=== PATIENT | female | born 1990 | race Caucasian/White ===

== ENCOUNTER 2020-12-29 10:52 | Outpatient (REF) | payer OTHER, SELFPAY ==
[2020-12-29 14:12] LABS: MANUAL DIFF FLAG NO
[2020-12-29 14:15] LABS: Basophils Percent Auto 0.5 % (0-2); Eosinophils Percent Auto 0.2 % (0-4); Hematocrit 42.7 % (37-47); Imm Gran Abs Auto 0.01 X10*3/uL (0.00-0.03); Imm Gran Pct Auto 0.2 % (0.0-0.4); Lymphocytes Absolute Auto 1.3 X10*3/uL (1.2-4.9); Lymphocytes Percent Auto 29.4 % (20-40); Mean Corpuscular HGB Conc 32.8 g/dl (31.0-35.0); Mean Corpuscular Hemoglobin 28.9 pg (27.0-33.0); Mean Platelet Volume 11.1 fL (9.4-12.3); Monocytes Absolute Auto 0.5 X10*3/uL (0.1-1.2); Monocytes Percent Auto 10.9 % (2-11); Neutrophils Absolute Auto 2.5 X10*3/uL (2.0-8.3); Neutrophils Percent Auto 58.8 % (45-73); Platelet Count 175 X10*3/uL (160-400); Red Blood Count 4.85 X10*6/uL (4.20-5.50); Red Cell Distribution Width 13.6 % (11.0-16.0); White Blood Count 4.3 X10*3/uL (4.8-10.8)
[2020-12-29 14:52] LABS: Alanine Aminotransferase 11 U/L (0-31); Albumin Level 4.7 g/dL (3.5-5.0); Alkaline Phosphatase 53 U/L (39-117); Anion Gap 15 (12-20); Aspartate Amino Transferase 17 U/L (5-31); Bilirubin Total 0.4 mg/dL (0.0-1.0); Blood Urea Nitrogen 18 mg/dL (9-16); Calcium 9.2 mg/dL (8.4-10.2); Carbon Dioxide 23 mmol/L (22-29); Chloride 105 mmol/L (96-108); Cholesterol 153 mg/dL; Estimated Glomerular Filt Rate > 60; Glucose Fasting 81 mg/dL (60-99); HDL Cholesterol 63 mg/dL; LDL Cholesterol Calculated 78 mg/dl; Potassium 4.5 mmol/L (3.3-5.1); Sodium 138 mmol/L (135-145); Total Protein 7.7 g/dL (6.5-8.0); Triglycerides 62 mg/dL
[2020-12-29 15:26] LABS: TSH reflex Free T4 1.24 uIU/mL (0.32-4.0)
== END 2020-12-29 10:53 | disposition home or self-care (01) ==
LOC: HO.WFDLDS 10:52
PROVIDERS: Visit Provider Family Medicine
DX: Z00.00 Encounter for general adult medical examination without abnormal findings (principal); D64.9 Anemia, unspecified
CPT/HCPCS: 36415; 80053; 80061; 84443; 85025

== ENCOUNTER 2021-03-13 12:46 | Outpatient (REF) | payer OTHER, SELFPAY ==
--- NOTE | ~2021-03-13 | XR_ITS ---
EXAMINATION: XR ANKLE, RIGHT CLINICAL INFORMATION: Pain right ankle and right joint. COMPARISON: None TECHNIQUE: AP, lateral, and mortise views of the right ankle. FINDINGS: The bones and soft tissues are normal. No fracture. Alignment is anatomic. Joint spaces are maintained. No joint effusion. XR/XR ankle RT min 3V IMPRESSION: Unremarkable right ankle exam.
== END 2021-03-13 12:47 | disposition home or self-care (01) ==
LOC: HO.XRAY 12:46
PROVIDERS: PCP Family Medicine; Visit Provider Family Medicine
DX: M25.571 Pain in right ankle and joints of right foot (principal)
CPT/HCPCS: 73610

== ENCOUNTER 2021-08-16 10:06 | Outpatient (REF) | payer OTHER, SELFPAY ==
[2021-08-16 13:48] LABS: MANUAL DIFF FLAG NO
[2021-08-16 14:00] LABS: Basophils Percent Auto 0.1 % (0-2); Eosinophils Percent Auto 0.1 % (0-4); Hematocrit 41.1 % (37-47); Hemoglobin 13.5 g/dl (12.0-16.0); Imm Gran Abs Auto 0.04 X10*3/uL (0.00-0.03); Imm Gran Pct Auto 0.4 % (0.0-0.4); Lymphocytes Absolute Auto 1.4 X10*3/uL (1.2-4.9); Mean Corpuscular HGB Conc 32.8 g/dl (31.0-35.0); Mean Corpuscular Hemoglobin 29.9 pg (27.0-33.0); Mean Corpuscular Volume 90.9 fL (80-98); Monocytes Absolute Auto 0.7 X10*3/uL (0.1-1.2); Monocytes Percent Auto 7.5 % (2-11); Neutrophils Absolute Auto 7.7 X10*3/uL (2.0-8.3); Neutrophils Percent Auto 77.9 % (45-73); Platelet Count 197 X10*3/uL (160-400); Red Blood Count 4.52 X10*6/uL (4.20-5.50); Red Cell Distribution Width 13.4 % (11.0-16.0); White Blood Count 9.9 X10*3/uL (4.8-10.8)
[2021-08-16 14:47] LABS: Free T4 (Free Thyroxine) 1.06 ng/dL (0.71-1.85); Thyroid Stimulating Hormone 0.76 uIU/mL (0.32-4.0)
[2021-08-16 15:22] LABS: Erythrocyte Sedimentation Rate 2 MM/HR (0-20)
[2021-08-19 02:32] LABS: Triiodothyronine T3 Total 69 ng/dL (76-181)
== END 2021-08-16 10:07 | disposition home or self-care (01) ==
LOC: HO.WFDLDS 10:06
PROVIDERS: Visit Provider Family Medicine
DX: Z00.00 Encounter for general adult medical examination without abnormal findings (principal); E03.9 Hypothyroidism, unspecified; H04.123 Dry eye syndrome of bilateral lacrimal glands
CPT/HCPCS: 36415; 84439; 84443; 84480; 85025; 85652

== ENCOUNTER 2021-08-28 14:33 | Outpatient (REF) | payer OTHER, SELFPAY ==
[2021-08-28 14:45] LABS: MANUAL DIFF FLAG NO
[2021-08-28 15:19] LABS: Basophils Percent Auto 0.3 % (0-2); Hematocrit 37.9 % (37-47); Hemoglobin 12.8 g/dl (12.0-16.0); Imm Gran Abs Auto 0.02 X10*3/uL (0.00-0.03); Imm Gran Pct Auto 0.3 % (0.0-0.4); Lymphocytes Percent Auto 17.7 % (20-40); Mean Corpuscular HGB Conc 33.8 g/dl (31.0-35.0); Mean Corpuscular Hemoglobin 29.8 pg (27.0-33.0); Mean Corpuscular Volume 88.1 fL (80-98); Mean Platelet Volume 10.5 fL (9.4-12.3); Monocytes Absolute Auto 0.7 X10*3/uL (0.1-1.2); Monocytes Percent Auto 12.6 % (2-11); Neutrophils Absolute Auto 4.1 X10*3/uL (2.0-8.3); Neutrophils Percent Auto 69.1 % (45-73); Platelet Count 154 X10*3/uL (160-400); Red Cell Distribution Width 13.3 % (11.0-16.0); White Blood Count 5.9 X10*3/uL (4.8-10.8)
[2021-08-28 15:46] LABS: Alanine Aminotransferase 12 U/L (0-31); Albumin Level 4.4 g/dL (3.5-5.0); Alkaline Phosphatase 49 U/L (39-117); Anion Gap 11 (12-20); Aspartate Amino Transferase 19 U/L (5-31); Bilirubin Total 0.3 mg/dL (0.0-1.0); Blood Urea Nitrogen 14 mg/dL (9-16); Calcium 9.4 mg/dL (8.4-10.2); Carbon Dioxide 25 mmol/L (22-29); Chloride 107 mmol/L (96-108); Cholesterol 143 mg/dL; Estimated Glomerular Filt Rate > 60; Glucose Fasting 81 mg/dL (60-99); HDL Cholesterol 60 mg/dL; LDL Cholesterol Calculated 62 mg/dl; Sodium 139 mmol/L (135-145); Total Protein 7.2 g/dL (6.5-8.0); Triglycerides 106 mg/dL
[2021-08-28 16:07] LABS: Free T4 (Free Thyroxine) 0.96 ng/dL (0.71-1.85); TSH reflex Free T4 1.73 uIU/mL (0.32-4.0); Thyroid Stimulating Hormone 1.75 uIU/mL (0.32-4.0)
[2021-08-30 12:17] LABS: Triiodothyronine T3 Total 86 ng/dL (76-181)
== END 2021-08-28 14:34 | disposition home or self-care (01) ==
LOC: HO.LAB 14:33
PROVIDERS: PCP Family Medicine; Visit Provider Family Medicine
DX: Z00.00 Encounter for general adult medical examination without abnormal findings (principal); E03.9 Hypothyroidism, unspecified; R79.89 Other specified abnormal findings of blood chemistry
CPT/HCPCS: 36415; 80053; 80061; 84439; 84443; 84480; 85025

== ENCOUNTER 2021-10-15 10:31 | Outpatient (REF) | payer OTHER, SELFPAY ==
--- NOTE | ~2021-10-15 | XR_ITS ---
EXAMINATION: XR CHEST CLINICAL INFORMATION: Acute bronchitis COMPARISON: None TECHNIQUE: 2 views of the chest were obtained. FINDINGS: No significant abnormality is noted involving the heart, lungs, mediastinum, bony thorax or soft tissues. XR/XR chest 2V IMPRESSION: Unremarkable examination.
[2021-10-15 11:06] LABS: Hematocrit 37.7 % (37.0-47.0); Hemoglobin 12.4 g/dl (12.0-16.0); Mean Corpuscular HGB Conc 32.9 g/dl (31.0-35.0); Mean Corpuscular Hemoglobin 29.5 pg (27.0-33.0); Mean Corpuscular Volume 89.8 fL (80.0-98.0); Mean Platelet Volume 10.1 fL (9.4-12.3); Platelet Count 141 X10*3/uL (160-400); Red Cell Distribution Width 13.2 % (11.0-16.0); White Blood Count 4.4 X10*3/uL (4.8-10.8)
== END 2021-10-15 10:32 | disposition home or self-care (01) ==
LOC: HO.XRAY 10:31
PROVIDERS: PCP Family Medicine; Visit Provider Hospitalist
DX: J20.8 Acute bronchitis due to other specified organisms (principal)
CPT/HCPCS: 36415; 71046; 85027

== ENCOUNTER → 2021-11-02 13:25 | Outpatient (BNVA) | payer OTHER, SELFPAY | PROVIDERS: PCP Hospitalist; Referring Provider Family Medicine; Visit Provider Internal Medicine Cardiovascular Disease | DX: R07.9 Chest pain, unspecified (principal); R00.2 Palpitations | CPT/HCPCS: 99202 ==

== ENCOUNTER 2021-11-02 14:24 | Outpatient (REF) | payer OTHER, SELFPAY ==
[2021-11-02 15:21] LABS: C Reactive Protein 0.03 mg/dL (< or = 0.50)
[2021-11-02 15:54] LABS: Erythrocyte Sedimentation Rate 2 MM/HR (0-20)
== END 2021-11-02 14:25 | disposition home or self-care (01) ==
LOC: HO.LAB 14:24
PROVIDERS: PCP Family Medicine; Visit Provider Internal Medicine Cardiovascular Disease
DX: R07.9 Chest pain, unspecified (principal)
CPT/HCPCS: 36415; 85652; 86140

== ENCOUNTER → 2021-11-06 07:03 | Outpatient (REF) | payer OTHER, SELFPAY ==
--- NOTE | 2021-11-06 07:06 | HM_ITS ---
Conclusion : 1. Patient was monitored for total of 3 days and 1 hour 2. Baseline rhythm is NSR with average HR of 83 bpm 3. No significant pauses or bradycardia noted 4. Very rare PACs noted 5. No patient reported events MTDD
== END ==
LOC: HO.CARD 07:03
PROVIDERS: PCP Family Medicine; Visit Provider Internal Medicine Cardiovascular Disease
DX: R07.9 Chest pain, unspecified (principal)
CPT/HCPCS: 93242

== ENCOUNTER → 2021-11-12 07:37 | Outpatient (REF) | payer OTHER, SELFPAY ==
--- NOTE | 2021-11-12 07:40 | CA_ITS ---
Transthoracic Echocardiogram Patient (Last, First, Middle): Bonnie Blankenship, Gender: Female Date of : 1990 Age: 30 Procedure Date: 11/12/2021 Procedure Type: Transthoracic Echocardiogram Location: OP Height: 170.18 cm Weight: 58.97 kg BSA: 1.68 m2 Heart Rate: bpm BP: 128 / 87 mmHg Counseling Department Chair: CARA Referring MD: Clifton Webb MD Symptoms: R07.9 - Chest pain, unspecified Study Quality: Good ECG Rhythm: Sinus Conclusions: - The left ventricular systolic function is normal. The visually estimated ejection fraction is between 55-60%. - No obvious valvular pathology seen on this study. Findings Left Ventricle Normal left ventricular cavity size. There is normal left ventricular wall thickness. The left ventricular systolic function is normal. The visually estimated ejection fraction is between 55-60%. There is no evidence of regional wall motion abnormalities. Diastolic function is normal for age. Right Ventricle Normal right ventricular cavity size and systolic function. Atria Both atria are normal in size. Aortic Valve There is a normal trileaflet aortic valve. There is no aortic valve stenosis. There is no aortic valve regurgitation. Mitral Valve The mitral valve appears normal. There is trace mitral valve regurgitation. There is no mitral valve stenosis. Pulmonic Valve The pulmonic valve was not well visualized. Tricuspid Valve There is trace tricuspid valve regurgitation. The pulmonary artery systolic pressure is normal. Great Vessels The aortic annulus, sinuses of valsalva, and asc aorta are normal in size. Venous The inferior vena cava is normal in size and collapses greater than 50% with inspiration. Pericardium/Pleural There is no evidence of pericardial effusion. Prior Study Comparison No prior study available for comparison. Recommendations, Care & Conclusions No obvious valvular pathology seen on this study. Measurements 2D Linear Measurements IVSd: 0.92 0.6-0.9/0.6-1.0 cm LVIDd: 3.62 3.9-5.3/4.2-5.9 cm LVIDd Index: 2.15 2.4-3.2/2.2-3.1 cm/m2 LVIDs: 2.38 2.0-3.6 cm LVPWd: 0.96 0.7-1.1 cm Ao Root: 2.50 2.1-3.5 cm LA Diam: 2.50 2.7-3.8/3.0-4.0 cm LAIDs Index: 1.49 1.5-2.3 cm/m2 LV Mass: 123.32 67-162/88-224 g LV Mass Index: 73.40 43-95/49-115 g/m2 LVOT Diam: 2.00 3.0+(-)1.3 cm 2D Systolic Function EF 4C: 70.60 >55% Mitral Valve MV Pk E: 0.84 MV PK A: 0.65 MV Decel Time: 152.00 E/A: 1.30 E'Lateral: 14.80 E'Medial: 14.80 E/E' Med: 5.70 E/E' Lat: 5.70 PHT: 45.00 MVA PHT: 4.89 Decel Edmonson: 5.52 Aortic Valve AoV Pk Yoel: 0.98 AoV Pk Grad: 4.00 LVOT LVOT Pk Yoel: 0.83 LVOT Mn Yoel: 0.56 LVOT VTI: 0.19 LVOT Pk Grad: 3.00 LVOT Mn Grad: 1.00 LVOT Diam: 2.00 LVOT Area: 3.14 Diastolic Function MV Pk E: 0.84 MV Pk A: 0.65 E/A: 1.30 E'Medial: 14.80 E/E' Med: 5.70 E' Laterial: 14.80 E/E' Lat: 5.70 Right Ventricle TAPSE (mm): 2.33 TVS' Yoel: 13.20 Tricuspid Valve TR Pk Yoel: 1.95 TR Pk Grad: 15.00 RA Press: 3.00 RVSP: 18.00 Great Vessels Aorta Ao Root-2D: 2.50 2.0-3.7 cm Ao Asc: 2.30 2.1-3.4 cm Updated in Other Vendor System with Status of Final Cedrick Christianson MD electronically signed on 11/14/2021 11:46:48 AM with status of Final
== END ==
LOC: HO.CARD 07:37
PROVIDERS: PCP Family Medicine; Visit Provider Internal Medicine Cardiovascular Disease
DX: R07.9 Chest pain, unspecified (principal)
CPT/HCPCS: 93306

== ENCOUNTER → 2021-11-29 13:20 | Outpatient (BNVA) | payer OTHER, SELFPAY | PROVIDERS: PCP Family Medicine; Referring Provider Family Medicine; Visit Provider Nurse Practitioner Family | DX: R07.2 Precordial pain (principal); R94.31 Abnormal electrocardiogram [ECG] [EKG]; R00.2 Palpitations; J20.8 Acute bronchitis due to other specified organisms | CPT/HCPCS: 99212 ==

== ENCOUNTER 2021-12-05 18:06 | Outpatient (REF) | payer OTHER, SELFPAY | END 2021-12-05 18:07 | disposition home or self-care (01) | LOC: HO.LNP 18:06 | PROVIDERS: Visit Provider Family Medicine | DX: B34.9 Viral infection, unspecified (principal); Z20.822 Contact with and (suspected) exposure to COVID-19 | CPT/HCPCS: U0003; U0005 ==

== ENCOUNTER 2022-01-01 09:17 | Outpatient (REF) | payer OTHER, SELFPAY ==
[2022-01-01 11:29] LABS: MANUAL DIFF FLAG NO
[2022-01-01 11:38] LABS: Basophils Percent Auto 0.7 % (0-2); Eosinophils Percent Auto 0.2 % (0-4); Hematocrit 39.2 % (37.0-47.0); Hemoglobin 12.9 g/dl (12.0-16.0); Imm Gran Abs Auto 0.01 X10*3/uL (0.00-0.03); Imm Gran Pct Auto 0.2 % (0.0-0.4); Lymphocytes Absolute Auto 1.5 X10*3/uL (1.2-4.9); Lymphocytes Percent Auto 34.2 % (20-40); Mean Corpuscular HGB Conc 32.9 g/dl (31.0-35.0); Mean Corpuscular Hemoglobin 29.6 pg (27.0-33.0); Mean Corpuscular Volume 89.9 fL (80.0-98.0); Mean Platelet Volume 11.3 fL (9.4-12.3); Monocytes Absolute Auto 0.4 X10*3/uL (0.1-1.2); Monocytes Percent Auto 9.2 % (2-11); Neutrophils Absolute Auto 2.4 x10*3/uL (2.0-8.3); Neutrophils Percent Auto 55.5 % (45-73); Platelet Count 166 X10*3/uL (160-400); Red Blood Count 4.36 X10*6/uL (4.20-5.50); Red Cell Distribution Width 13.4 % (11.0-16.0); White Blood Count 4.2 X10*3/uL (4.8-10.8)
[2022-01-01 12:07] LABS: Ferritin 7 ng/mL (10-122); Iron 38 mcg/dL (30-160); Percent Iron Saturation 10 % (15-50); Total Iron Binding Capacity 379 mcg/dL (228-428); Unsaturated Iron Binding 341 ug/dL
== END 2022-01-01 09:18 | disposition home or self-care (01) ==
LOC: HO.WFDLDS 09:17
PROVIDERS: Visit Provider Family Medicine
DX: D69.6 Thrombocytopenia, unspecified (principal); D64.9 Anemia, unspecified
CPT/HCPCS: 36415; 82728; 83540; 85025

== ENCOUNTER 2022-03-10 15:41 | Emergency (ER) | payer OTHER, SELFPAY ==
--- NOTE | ~2022-03-10 | XR_ITS ---
EXAMINATION: XR SHOULDER, LEFT CLINICAL INFORMATION: Left shoulder pain after fall COMPARISON: None TECHNIQUE: AP external rotation, Grashey, scapular Y, and axillary views of the left shoulder. FINDINGS: The bones and soft tissues are normal. No fracture. Glenohumeral and acromioclavicular alignment is anatomic with normal joint space. No abnormal soft tissue calcifications. XR/XR shoulder LT min 2V IMPRESSION: Normal left shoulder.
--- NOTE | ~2022-03-10 | CT_ITS ---
EXAMINATION: CT HEAD AND CERVICAL SPINE WITHOUT CONTRAST CLINICAL INFORMATION: 61-year-old female with headache and head trauma COMPARISON: None TECHNIQUE: Contiguous axial imaging was performed from the skull base to vertex without intravenous administration of contrast. This CT examination was performed using dose optimization techniques as appropriate, variously including the following: *Automated exposure control *Adjustment of mA and/or kV according to patient size (this includes techniques or standardized protocols for targeted exams where dose is matched to indication/reason for exam; i.e. extremities or head) *Use of iterative reconstruction technique DLP: 1096 mGy-cm FINDINGS: There is no evidence of acute intracranial hemorrhage or territorial infarction. No abnormal mass effect or midline shift is seen. Kebede to white matter differentiation is well preserved. No extra-axial fluid collections are identified. The ventricles are normal in size. There is no abnormal attenuation within the brain parenchyma. The osseous structures and soft tissues are normal. The mastoid air cells and visualized portions of the paranasal sinuses are well aerated. Cervical spine: Vertebral bodies are well aligned and intervertebral discs are preserved. Pedicles are intact and there is no evidence of fractures or subluxation. Soft tissues unremarkable. CT/CT cervical spine wo con IMPRESSION: No acute intracranial pathology. Unremarkable cervical spine
--- NOTE | ~2022-03-10 | CT_ITS ---
EXAMINATION: CT HEAD AND CERVICAL SPINE WITHOUT CONTRAST CLINICAL INFORMATION: 61-year-old female with headache and head trauma COMPARISON: None TECHNIQUE: Contiguous axial imaging was performed from the skull base to vertex without intravenous administration of contrast. This CT examination was performed using dose optimization techniques as appropriate, variously including the following: *Automated exposure control *Adjustment of mA and/or kV according to patient size (this includes techniques or standardized protocols for targeted exams where dose is matched to indication/reason for exam; i.e. extremities or head) *Use of iterative reconstruction technique DLP: 1096 mGy-cm FINDINGS: There is no evidence of acute intracranial hemorrhage or territorial infarction. No abnormal mass effect or midline shift is seen. Kebede to white matter differentiation is well preserved. No extra-axial fluid collections are identified. The ventricles are normal in size. There is no abnormal attenuation within the brain parenchyma. The osseous structures and soft tissues are normal. The mastoid air cells and visualized portions of the paranasal sinuses are well aerated. Cervical spine: Vertebral bodies are well aligned and intervertebral discs are preserved. Pedicles are intact and there is no evidence of fractures or subluxation. Soft tissues unremarkable. CT/CT head/brain wo con IMPRESSION: No acute intracranial pathology. Unremarkable cervical spine
[2022-03-10 16:20] VITALS: BP 140/78; PULSE 87; RESP 12; TEMP 36.7; O2SAT 100; BMI 20.3
--- NOTE | 2022-03-10 18:05 | ED_ITS ---
HPI - Head Injury General Chief complaint: Head Injury <OSWALDO Wood Last Filed: 03/10/22 19:49> Stated complaint: head injury <OSWALDO Wood Last Filed: 03/10/22 19:49> Time Seen by Provider: 03/10/22 17:54 <OSWALDO Wood Last Filed: 03/10/22 19:49> Source: patient <OSWALDO Wood Last Filed: 03/10/22 19:49> Mode of arrival: ambulatory <OSWALDO Wood Last Filed: 03/10/22 19:49> Limitations: no limitations <OSWALDO Wood Last Filed: 03/10/22 19:49> History of Present Illness HPI Narrative: 31-year-old female who was playing at the playground with her toddler, who was running away from her, she reached for him and hit her head on some monkey bars. She was startled and dizzy initially and had a headache that went away when she took ibuprofen. There was no loss of consciousness, she remembers the whole thing. She is not anticoagulated. She has pain and numbness down the left side of her neck and down her left arm. She also feels like fingers are pushing on her anterior neck. No nausea, vomiting, visual changes, weakness, or confusion <OSWALDO Wood Last Filed: 03/10/22 19:49> MD Complaint: head injury <OSWALDO Wood Last Filed: 03/10/22 19:49> Onset (ago): hour(s) (1) <OSWALDO Wood Last Filed: 03/10/22 19:49> Arrival Conditions: C-spine immobilization present <OSWALDO Wood Last Filed: 03/10/22 19:49> Mechanism of Injury: sports related injury <OSWALDO Wood Last Filed: 03/10/22 19:49> Place: outdoors <OSWALDO Wood Last Filed: 03/10/22 19:49> Loss of Consciousness: no <OSWALDO Wood Last Filed: 03/10/22 19:49> Location of injury: frontal <OSWALDO Wood Last Filed: 03/10/22 19:49> Severity: moderate <OSWALDO Wood Last Filed: 03/10/22 19:49> Radiation: neck and LUE <OSWALDO Wood Last Filed: 03/10/22 19:49> Associated symptoms: denies other symptoms <OSWALDO Wood Last Filed: 03/10/22 19:49> Related Data Home medications: Previous Rx's Medication Instructions Recorded metoprolol succinate 25 mg 12.5 mg PO DAILY 30 Days #15 tab 01/11/22 tablet,extended release 24 hr <OSWALDO Wood Last Filed: 03/10/22 19:49> Allergies/Adverse reactions: Allergies Allergy/AdvReac Type Severity Reaction Status Date / Time hydrocodone [From Vicodin] Allergy Unknown Hives Verified 02/12/22 09:44 <OSWALDO Wood Last Filed: 03/10/22 19:49> Review of Systems Constitutional: Constitutional: Denies body ache(s), Denies chills, Denies fatigue, Denies fever(s), Reports headache(s), Denies malaise and Denies weakness <OSWALDO Wood Last Filed: 03/10/22 19:49> Eyes: Eyes: Denies blind spots, Denies blurry vision, Denies change in vision and Denies diplopia <OSWALDO Wood Last Filed: 03/10/22 19:49> ENT: Denies vertigo, Reports dizziness, Denies otalgia, Reports headache(s), Denies mouth pain, Reports neck pain, Denies post nasal drip, Denies sinus pain, Denies sinus pressure, Denies sore throat and Denies throat swelling <OSWALDO Wood Last Filed: 03/10/22 19:49> Cardiovascular: Cardiovascular: Denies chest pain, Denies syncope, Denies leg edema, Denies lightheadedness, Denies Loss of Consciousness, Denies palpitations and Denies dyspnea <OSWALDO Wood Last Filed: 03/10/22 19:49> Respiratory: Respiratory: Denies chest congestion, Denies cough and Denies dyspnea <OSWALDO Wood Last Filed: 03/10/22 19:49> Gastrointestinal: Gastrointestinal: Denies abdominal pain, Denies hematochezia, Denies constipation, Denies diarrhea and Denies vomiting <OSWALDO Wood - Last Filed: 03/10/22 19:49> Musculoskeletal: Musculoskeletal: Reports neck pain, Reports radiating pain into limb and Reports tingling <OSWALDO Wood - Last Filed: 03/10/22 19:49> Integumentary/Breasts: Skin/Breast: Reports swelling <OSWALDO Wood - Last Filed: 03/10/22 19:49> Neurologic: Denies Abnormal speech present, Denies confusion, Denies vertigo, Reports dizziness, Denies syncope, Reports headache(s), Denies Sensory deficit (Neuro), Reports tingling and Denies weakness <OSWALDO Wood - Last Filed: 03/10/22 19:49> Psychiatric: Psychiatric: Denies anxiety, Denies confusion and Denies depression <OSWALDO Wood - Last Filed: 03/10/22 19:49> Endocrine: Endocrine: Denies fatigue and Denies palpitations <OSWALDO Wood - Last Filed: 03/10/22 19:49> Allergic/Immunologic: Allergic/Immunologic: Denies throat swelling <OSWALDO Wood - Last Filed: 03/10/22 19:49> COUNTS INCLUDE 234 BEDS AT THE [facility] Past Medical History Surgical History: Surgical History History of appendectomy History of breast lump <OSWALDO Wood - Last Filed: 03/10/22 19:49> Family History Family History: Family History Father COPD (chronic obstructive pulmonary disease) Mother No problems noted. Maternal Grandmother No problems noted. Maternal Grandfather Cancer Paternal Grandmother Breast cancer Paternal Grandfather No problems noted. Brother No problems noted. Brother No problems noted. Sister No problems noted. Sister No problems noted. <OSWALDO Wood - Last Filed: 03/10/22 19:49> Social History Social History: Social History Housing: Condominium Alcohol intake: current Alcohol intake frequency: holidays/special occasions o nly Alcohol type: wine Patient Tobacco Use Status: Never used Tobacco e-Cigarette/Vaping Use: Never Used Second Hand Smoke Exposure: No Advance Directives: No Advance Directives Information Provided: No Patient : No service: Yes Current occupational status: employed Current occupational exposures/hazards: No Cognitive needs: No Hearing needs: No Vision needs: Yes (Glasses) <OSWALDO Wood - Last Filed: 03/10/22 19:49> Physical Exam Vital Signs: Vital Signs: Last Vital Signs Temp 98.1 F 03/10/22 16:20 Pulse 82 03/10/22 19:11 Resp 16 03/10/22 19:11 BP 127/77 03/10/22 19:11 Pulse Ox 100 03/10/22 19:11 BMI result Body Mass Index 20.3 <OSWALDO Wood - Last Filed: 03/10/22 19:49> Vital Signs: Last Vital Signs Temp 98.1 F 03/10/22 16:20 Pulse 82 03/10/22 19:11 Resp 16 03/10/22 19:11 BP 127/77 03/10/22 19:11 Pulse Ox 100 03/10/22 19:11 BMI result Body Mass Index 20.3 <OSWALDO Wood - Last Filed: 03/10/22 22:14> Const: General: no acute distress, well developed, alert and awake; No confusion <OSWALDO Wood Last Filed: 03/10/22 19:49> Nutritional Appearance: well nourished <OSWALDO Wood Last Filed: 03/10/22 19:49> Orientation/consciousness: patient oriented x3 and No confusion <OSWALDO Wood Last Filed: 03/10/22 19:49> Limitations: no limitations <OSWALDO Wood Last Filed: 03/10/22 19:49> HEENT: Head: No Michaels's sign, Yes hematoma, No laceration, No palpable skull fracture, No raccoon eyes and No periorbital ecchymosis <OSWALDO Wood Last Filed: 03/10/22 19:49> Ears: hearing grossly normal bilaterally, external ears normal, TM's normal bilaterally, EAC's normal and other (No hemotympanum) <Jalyn Antony [facility] Last Filed: 03/10/22 19:49> General nose exam: Normal external nose present <Jalyn Antony [facility] Last Filed: 03/10/22 19:49> Face and sinus: Yes normal facial exam and Yes sinuses nontender <Jalyn Antony [facility] Last Filed: 03/10/22 19:49> Mouth: Normal oral and palatal mucosa present <Jalyn Antony [facility] Last Filed: 03/10/22 19:49> Teeth and gingiva: dentition normal <Jalyn Antony [facility] Last Filed: 03/10/22 19:49> Throat: Yes posterior oropharynx normal <Jalyn Antony [facility] Last Filed: 03/10/22 19:49> Eyes: Conjunctivae: conjunctivae normal <Jalyn Antony [facility] Last Filed: 03/10/22 19:49> Pupils: Equal, round and reactive pupils present <Jalyn Antony [facility] Last Filed: 03/10/22 19:49> EOM: EOMs intact bilaterally and No Nystagmus present <Jalyn Antony [facility] Last Filed: 03/10/22 19:49> Neck: Neck: Yes full ROM, Yes no lymphadenopathy and Yes supple <Jalyn Antony [facility] - Last Filed: 03/10/22 19:49> Resp: Effort & Inspection: normal respiratory effort and able to speak in co mplete sentences <Jalyn Antony [facility] Last Filed: 03/10/22 19:49> Auscultation: clear to auscultation bilaterally, no crackles, no rales, no rho nchi and no wheezes <Jalyn Antony [facility] Last Filed: 03/10/22 19:49> Cardio: Rate: regular rate <Jalyn Antony [facility] Last Filed: 03/10/22 19:49> Rhythm: regular rhythm <Jalyn Antony [facility] Last Filed: 03/10/22 19:49> Heart sounds: S1 normal heart sound present and S2 normal heart sound present <Jalyn Antony [facility] Last Filed: 03/10/22 19:49> GI: Inspection: Yes normal to inspection <Jalyn Antony [facility] - Last Filed: 03/10/22 19:49> Palpation (GI): Soft to palpation, nontender, no guarding and not rigid <Jalyn Antony [facility] Last Filed: 03/10/22 19:49> Percussion: Yes normal to percussion <Jalyn Antony [facility] - Last Filed: 03/10/22 19:49> Auscultation: normal bowel sounds <Jalyn Antony [facility] Last Filed: 03/10/22 19:49> Skin: General skin exam: no rashes or lesions noted <Jalyn Antony [facility] - Last Filed: 03/10/22 19:49> Neuro: General: patient oriented x3 and No confusion <Jalyn Antony [facility] Last Filed: 03/10/22 19:49> Cranial nerves: Yes CN's II-XII intact bilaterally, Yes Facial sensation intact/muscles of mastication intact, Yes Equal, round and reactive pupils present, Yes Normal accommodation reflex present, Yes Bilaterally intact EOM present, Yes Nystagmus not present, Yes Normal facial strength present, Yes Midline tongue present, Yes Ability to bilaterally elevate shoulders present and No Nystagmus present <Jalyn Antony [facility] Last Filed: 03/10/22 19:49> Cognition (Neuro): normal cognition <Jalyn Antony [facility] Last Filed: 02/22 06/14 19:49> Speech: No Abnormal speech present <Jalyn Antony [facility] Last Filed: 03/10/22 19:49> Gait exam (Neuro): Normal gait present <Jalyn Antony [facility] Last Filed: 03/10/22 19:49> Motor exam (neuro): 5/5 motor strength present throughout and Pronator motor function not present <Jalyn Antony [facility] Last Filed: 03/10/22 19:49> Sensory Exam: No Sensory deficit (Neuro) <Jalyn Antony [facility] Last Filed: 03/10/22 19:49> Coordination: [id number] test normal and [id number]-gh-[id number] test normal <Jalyn Antony [facility] Last Filed: 03/10/22 19:49> Romberg Test: Negative <Jalyn Antony [facility] - Last Filed: 03/10/22 19:49> Pupils: Normal pupillary reactivity/response: bilateral <OSWALDO Wood Last Filed: 03/10/22 19:49> Extrem: Left upper extremity: full ROM, normal capillary refill and shoulder/upper arm Details: tenderness Location: of the A-C joint; Negative for no crepitus, no deformity and no unsual warmth; No no cyanosis and no edema <OSWALDO Wood Last Filed: 03/10/22 19:49> Psych: Appearance: grossly normal <OSWALDO Wood Last Filed: 03/10/22 19:49> Affect: normal affect <OSWALDO Wood Last Filed: 03/10/22 19:49> Attitude: cooperative <OSWALDO Wood Last Filed: 03/10/22 19:49> Thought process: Normal thought process present <OSWALDO Wood Last Filed: 03/10/22 19:49> Course Course Course Narrative: 31-year-old female presents for head injury after banging the front of her head against a bar while chasing her toddler to playground. Patient currently has no headache, but has neck pain, and has pain in her left shoulder radiating down her left arm. Patient is neurologically intact, as much as I can do a neuro exam with patient and his C-spine collar. Patient has a GCS of 15 Patient has a hematoma on her left forehead Left upper extremity has intact motor strength, sensation, and distal pulses. Patient is tender over the AC joint of her left shoulder. Will get head CT and cervical spine CT and left shoulder x-ray. <OSWALDO Wood Last Filed: 03/10/22 19:49> Reevaluation(s) Reevaluation #1: Signed the patient out to Maura moore, physician staff physical therapy assistant, pending CT results <OSWALDO Wood Last Filed: 03/10/22 19:49> Reevaluation #2: CT of head/brain wnl. CT cervical spine normal. Normal L. shoulder. At this time patient will be dc home w/ ortho follow up. Likely concussion neuro non focal. <OSWALDO Wood Last Filed: 03/10/22 22:14> Time: 22:05 <OSWALDO Wood Filed: 03/10/22 22:14> MDM - Head Injury Lab Data Labs: Lab Results 03/10/22 Range/Units 18:18 Urine Test NEGATIVE (NEGATIVE) <OSWALDO Wood Last Filed: 03/10/22 19:49> Lab Results 03/10/22 Range/Units 18:18 Urine Test NEGATIVE (NEGATIVE) <OSWALDO Wood Last Filed: 03/10/22 22:14> Critical Care Time Critical Care Time Critical Care Time: No <OSWALDO Wood Last Filed: 03/10/22 22:14> Discharge Plan Discharge Clinical Impression: Hematoma of frontal scalp, Neck pain, Acute shoulder pain, Concussion <OSWALDO Wood Last Filed: 03/10/22 19:49> Patient Disposition: Home, Self-Care <OSWALDO Wood Last Filed: 03/10/22 19:49> Instructions: Concussion (ED), Contusion in Adults (ED), Shoulder Pain (ED), Neck Pain (ED) <OSWALDO Wood Last Filed: 03/10/22 19:49> Additional Instructions: Take your medications as prescribed. If you were prescribed antibiotics today, it is important that you take your medication to their entirety, do not skip any doses, do not finish them early. Follow-up with your primary care provider this week. You can take ibuprofen every 6 hours tylenol every 4 as needed for pain/ discomfort Return to the emergency department with new or worsening symptoms. Such as fevers, chills, chest pain, shortness of breath, nausea, vomiting, dizziness, headache, vision changes, lethargy, changes in mental status, seizure like activity. In case of emergency call 911 <OSWALDO Wood Last Filed: 03/10/22 19:49> Prescriptions: No Action metoprolol succinate 25 mg tablet extended release 24 hr 12.5 mg PO DAILY 30 Days Qty: 15 2RF <OSWALDO Wood Last Filed: 03/10/22 19:49> Referrals: Misbah Mckinney MD [Primary Care Provider] - 2 days <OSWALDO Wood Last Filed: 03/10/22 19:49> Stand Alone Forms: Work/School Release <OSWALDO Wood - Last Filed: 03/10/22 19:49>
[2022-03-10] MEDS: Acetaminophen 325 MG TABLET 975 MG PO (18:22)
[2022-03-10 18:28] LABS: UPreg QC Valid YES; Urine Pregnancy NEGATIVE (NEGATIVE)
[2022-03-10 19:11] VITALS: BP 127/77; PULSE 82; RESP 16; O2SAT 100
--- NOTE | 2022-03-10 21:16 | PC.NURSE ---
patient c-spine cleared for collar removal my provider .
== END 2022-03-10 22:26 | disposition home or self-care (01) ==
PROVIDERS: Physician Assistant; Emergency Provider Emergency Medicine Emergency Medical Services; PCP Family Medicine
DX: S00.03XA Contusion of scalp, initial encounter (principal); S06.0X9A Concussion with loss of consciousness of unspecified duration, initial encounter; M25.512 Pain in left shoulder; M54.2 Cervicalgia; W22.09XA Striking against other stationary object, initial encounter; Y93.02 Activity, running; Y92.830 Public park as the place of occurrence of the external cause; Y99.9 Unspecified external cause status
CPT/HCPCS: 70450; 72125; 73030; 81025; 96372; 99284

== ENCOUNTER 2022-06-04 10:19 | Outpatient (REF) | payer OTHER, SELFPAY ==
--- NOTE | ~2022-06-04 | XR_ITS ---
EXAMINATION: XR CHEST CLINICAL INFORMATION: Chest pain COMPARISON: 10/15/2021 TECHNIQUE: 2 views of the chest were obtained. FINDINGS: Stable hazy opacity at the medial right base with levo position of the heart consistent with known pectus excavatum deformity. No pneumonia. No effusion or pneumothorax. Stable lung volumes. Stable heart and mediastinum without obvious mass or adenopathy. No edema. Nonobstructive gas pattern. Pectus excavatum deformity. Stable spinal curvature. No acute osseous finding. XR/XR chest 2V IMPRESSION: No acute cardiopulmonary process detected.
[2022-06-04 11:18] LABS: MANUAL DIFF FLAG NO
[2022-06-04 11:21] LABS: Basophils Percent Auto 0.3 % (0-2); Eosinophils Percent Auto 0.2 % (0-4); Hematocrit 42.1 % (37.0-47.0); Hemoglobin 13.7 g/dl (12.0-16.0); Imm Gran Abs Auto 0.06 X10*3/uL (0.00-0.03); Imm Gran Pct Auto 0.5 % (0.0-0.4); Lymphocytes Absolute Auto 1.3 X10*3/uL (1.2-4.9); Lymphocytes Percent Auto 10.8 % (20-40); Mean Corpuscular HGB Conc 32.5 g/dl (31.0-35.0); Mean Corpuscular Hemoglobin 29.1 pg (27.0-33.0); Mean Corpuscular Volume 89.4 fL (80.0-98.0); Mean Platelet Volume 10.3 fL (9.4-12.3); Monocytes Absolute Auto 0.9 X10*3/uL (0.1-1.2); Monocytes Percent Auto 7.4 % (2-11); Neutrophils Absolute Auto 9.5 x10*3/uL (2.0-8.3); Neutrophils Percent Auto 80.8 % (45-73); Platelet Count 216 X10*3/uL (160-400); Red Blood Count 4.71 X10*6/uL (4.20-5.50); Red Cell Distribution Width 14.1 % (11.0-16.0); White Blood Count 11.7 X10*3/uL (4.8-10.8)
[2022-06-04 11:36] LABS: Alanine Aminotransferase 8 U/L (0-31); Albumin Level 4.6 g/dL (3.5-5.0); Alkaline Phosphatase 49 U/L (39-117); Anion Gap 11 (12-20); Aspartate Amino Transferase 14 U/L (5-31); Bilirubin Total 0.4 mg/dL (0.0-1.0); Blood Urea Nitrogen 12 mg/dL (9-16); Calcium 9.3 mg/dL (8.4-10.2); Carbon Dioxide 25 mmol/L (22-29); Chloride 107 mmol/L (96-108); Estimated Glomerular Filt Rate > 60; Glucose Random 89 mg/dL (60-115); Potassium 4.1 mmol/L (3.3-5.1); Sodium 139 mmol/L (135-145); Total Protein 7.7 g/dL (6.5-8.0)
[2022-06-04 11:42] LABS: Troponin-I High Sensitivity < 3.5 ng/L (<3.5-17.0)
[2022-06-04 11:51] LABS: D Dimer High Sensitivity < 150 NG/ML
[2022-06-04 11:57] LABS: TSH reflex Free T4 1.81 uIU/mL (0.32-4.0)
== END 2022-06-04 10:20 | disposition home or self-care (01) ==
LOC: HO.WFDLDS 10:19
PROVIDERS: PCP Family Medicine; Visit Provider Family Medicine
DX: Z00.00 Encounter for general adult medical examination without abnormal findings (principal); R07.89 Other chest pain
CPT/HCPCS: 36415; 71046; 80053; 84443; 84484; 85025; 85379

== ENCOUNTER → 2022-08-14 14:47 | Outpatient (BNVA) | payer OTHER, SELFPAY | PROVIDERS: PCP Family Medicine; Referring Provider Family Medicine; Visit Provider Nurse Practitioner Family | DX: R93.89 Abnormal findings on diagnostic imaging of other specified body structures (principal); R00.2 Palpitations; R94.31 Abnormal electrocardiogram [ECG] [EKG]; R07.89 Other chest pain | CPT/HCPCS: 99212 ==

== ENCOUNTER 2022-08-26 08:37 | Outpatient (REF) | payer OTHER, SELFPAY | END 2022-08-26 08:38 | disposition home or self-care (01) | LOC: HO.HOSX 08:37 | PROVIDERS: Visit Provider Physician Assistant | DX: Z13.89 Encounter for screening for other disorder (principal) ==

== ENCOUNTER 2022-08-27 08:37 | Outpatient (REF) | payer OTHER, SELFPAY ==
--- NOTE | ~2022-08-27 | XR_ITS ---
EXAMINATION: XR HAND, LEFT CLINICAL INFORMATION: Pain. COMPARISON: None TECHNIQUE: PA, lateral, and oblique views of the left hand. FINDINGS: The bones and soft tissues are normal. No fracture. Alignment is anatomic. Joint spaces are maintained. No erosions or soft tissue calcifications. XR/XR hand LT min 3V IMPRESSION: Normal left hand.
== END 2022-08-27 08:38 | disposition home or self-care (01) ==
LOC: HO.HOSX 08:37
PROVIDERS: Visit Provider Physician Assistant
DX: M79.645 Pain in left finger(s) (principal)
CPT/HCPCS: 73130; 99202

== ENCOUNTER 2022-08-28 08:38 | Outpatient (REF) | payer OTHER, SELFPAY ==
--- NOTE | ~2022-08-28 | CT_ITS ---
EXAMINATION: CT CHEST WITHOUT CONTRAST CLINICAL INFORMATION: Follow-up chest x-ray abnormality right lung base. COMPARISON: Previous chest x-ray most recent May 2022 TECHNIQUE: Multidetector volumetric CT imaging of the chest was done. Axial MIP volume rendering provided. Sagittal and coronal reformatted images were obtained. This CT examination was performed using dose optimization techniques as appropriate, variously including the following: *Automated exposure control *Adjustment of mA and/or kV according to patient size (this includes techniques or standardized protocols for targeted exams where dose is matched to indication/reason for exam; i.e. extremities or head) *Use of iterative reconstruction technique DLP: 111 mGy-cm FINDINGS: LUNGS: There is a 5 mm right lower lobe pulmonary nodule. The lungs are otherwise clear. No endobronchial or endotracheal lesion. MEDIASTINUM: The mediastinum is normal. CORONARY ARTERY CALCIFICATION: None visualized on this study. PLEURA: There is no pleural effusion. No pleural mass or thickening. AXILLA: No lymphadenopathy. UPPER ABDOMEN: Unremarkable. OSSEOUS STRUCTURES: There is mild pectus deformity. CT/CT chest wo IV con IMPRESSION: 5 mm right lower lobe nodule. According to the UPDATED 2017 Fleischner Society recommendations, the advised follow-up imaging for less than 6 mm solid nodule: Low risk, no chest CT follow-up and high risk, optional chest CT follow-up in one year. Mild pectus deformity. Fleischner guidelines were followed.
== END 2022-08-28 08:39 | disposition home or self-care (01) ==
LOC: HO.CT 08:38
PROVIDERS: Visit Provider Nurse Practitioner Family
DX: R93.89 Abnormal findings on diagnostic imaging of other specified body structures (principal)
CPT/HCPCS: 71250

== ENCOUNTER 2022-10-01 12:56 | Outpatient (REF) | payer OTHER, SELFPAY ==
[2022-10-05 16:06] LABS: Vitamin D 25-OH, D2 <4 ng/mL; Vitamin D 25-OH, D3 17 ng/mL; Vitamin D 25-OH, Total 17 ng/mL (30-100)
== END 2022-10-01 12:57 | disposition home or self-care (01) ==
LOC: HO.WFDLDS 12:56
PROVIDERS: Visit Provider Hospitalist
DX: R53.83 Other fatigue (principal)
CPT/HCPCS: 36415; 82306

== ENCOUNTER 2022-12-17 12:05 | Outpatient (REF) | payer OTHER, SELFPAY ==
--- NOTE | ~2022-12-17 | XR_ITS ---
EXAMINATION: XR HAND, LEFT CLINICAL INFORMATION: Pain. COMPARISON: Radiographs dated 08/27/2022. TECHNIQUE: PA, lateral, and oblique views of the left hand. FINDINGS: Bony mineralization is normal. Within the proximal shaft of the third distal phalanx, there is an increased 6 x 6 mm lucent lesion, with mild associated cortical thinning. The transition zone is relatively sharp. At its anterior aspect, there is mild periosteal reaction. No fracture or dislocation is noted. No focal soft tissue swelling, gas or foreign body is seen. XR/XR hand LT min 3V IMPRESSION: A lucent lesion is noted within the proximal shaft of the left third distal phalanx. There is mild adjacent cortical thinning, and the transition zone is relatively sharp. There is mild adjacent periosteal thickening. The possibility of a brown tumor is raised. The lesion is not periarticular, and a giant cell tumor is considered less likely. The exact etiology is indeterminate. If of continued clinical concern, this could be further evaluated with MRI.
== END 2022-12-17 12:06 | disposition home or self-care (01) ==
LOC: HO.HOSX 12:05
PROVIDERS: Visit Provider Physician Assistant
DX: M79.645 Pain in left finger(s) (principal)
CPT/HCPCS: 73130; 99212

== ENCOUNTER 2023-02-11 08:30 | Outpatient (RCR) | payer OTHER, SELFPAY ==
--- NOTE | 2023-02-06 09:33 | MHC.OT.EP ---
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 XR shows no acute fx or dislocation. Mild digit and radial hand edema noted and small BB size mass palpated at volar distal DIPjt. 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 Thank you once again for your referral.
--- NOTE | 2023-02-20 11:41 | MHC.OT.DC ---
[address] [phone] F: [phone] Occupational Therapy Discharge Note Patient Name: Bonnie Iyer Provider: Disha Yu Diagnosis: Pain in left middle finger Date of Surgery: Date of Evaluation: 02/06/23 Date of Discharge: 02/20/23 Treatments to Date: 3 Cancellations to Date: 3 No Shows to Date: Discharge Status: Discharge Summary: Pt reports no change. Good increase in DIP jt flexion . ROM goal met. Continued very mild edema noted. Pt cancelled last three scheduled appointments without rescheduling. Pt phone mail box is full , unable to leave a message Electronically Signed By: Kylah Townsend OT CHT CLT Reviewed/agree with student documentation: Therapist: Please Sign and return to therapist, thank you for your referral.
== END 2023-02-20 11:42 | disposition home or self-care (01) ==
LOC: HO.OT 08:30
PROVIDERS: PCP Family Medicine; Visit Provider Physician Assistant
DX: M79.645 Pain in left finger(s) (principal)
CPT/HCPCS: 97033; 97110; 97165

== ENCOUNTER 2023-04-22 11:09 | Outpatient (REF) | payer OTHER, SELFPAY ==
[2023-04-22 11:51] LABS: Influenza A PCR NEGATIVE (Negative); Influenza B PCR NEGATIVE (Negative); Resp Syncy Virus RNA Qual PCR NEGATIVE (Negative); SARS COV2 PCR INHOUSE NEGATIVE (Negative)
== END 2023-04-22 11:10 | disposition home or self-care (01) ==
LOC: HO.LNP 11:09
PROVIDERS: Visit Provider Family Medicine
DX: Z20.822 Contact with and (suspected) exposure to COVID-19 (principal); B34.9 Viral infection, unspecified
CPT/HCPCS: 0241U

== ENCOUNTER 2023-05-30 14:30 | Outpatient (RCR) | payer OTHER, SELFPAY ==
--- NOTE | 2023-05-02 15:31 | MHC.OT.EP ---
[address] [phone] Occupational Therapy Plan of Care Patient Name: Bonnie Iyer Date of Evaluation: 05/02/23 Diagnosis: PAIN IN FINGERS OF LEFT HAND Pain Location: PAINFREE AT REST 8/10 WITH USE, THROBBING AND SHARP Pain Score: 0-8/10 Pain Scale Used: Numeric (0 - 10) Aggravating Factors: GRIPPING, FUNCTIONAL USE Alleviating Factors: RESTING, TEMPORARY BENEFIT FROM USE OF HEAT/ICE, PAIN MEDICATION FOR ELEVATED PAIN NO BENEFITS WITH USE OF SPLINT Assessment: MS IYER RETURNS TO OT WITH ONGOING DIPj PAIN IN HER L MIDDLE FINGER. SHE PREVIOUSLY HAD ATTENDED THREE SESSIONS OF OUTPATIENT OT WITH A HEP AND ORTHOSIS PROVIDED. SHE STATES HER PAIN (8/10) IS GREATEST WITH GRIPPING, FORCEFUL TASKS. 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 SHE ALSO UTILIZES HER LEFT HAND WITH SHOOTING. A 36% LIMITATION IS REPORTED PER THE QUICK DASH ASSESSMENT. ONGOING SKILLED OT IS WARRANTED TO ADDRESS THE AREAS MENTIONED BELOW. Frequency and Duration: The patient will be seen 2X/WEEK FOR 4 WEEKS Short Term Goals: SEE BELOW Alf Goals: IND HEP IND JT PROTECTION AND ACTIVITY MODIFICATION IND SELF TAPING AND ORTHOSIS USE REPORT <5/10 PAIN WITH USE DURING IADLs QUICK DASH <20% Treatment Plan: Therapeutic Exercise Therapeutic Activity Home Exercise Program Splinting Neuro Re-ed Patient Education Desensitization/Sensory Re-ed Edema Control ADL Training Ultrasound NMES Iontophoresis Paraffin Fluidotherapy MHP Cold Packs Joint Mobilization Soft Tissue Mobilization Kinesiotaping Other (see comments) Electronically Signed By: JAKE ROMERO OTR/L Please Sign and return to therapist. Thank you once again for your referral.
--- NOTE | 2023-05-30 15:04 | MHC.OT.DC ---
[address] [phone] F: [phone] Occupational Therapy Discharge Note Patient Name: Bonnie Iyer Provider: Disha Yu Diagnosis: PAIN IN FINGERS OF LEFT HAND Date of Evaluation: 04/30/23 Date of Discharge: 05/30/23 Treatments to Date: 8 Cancellations to Date: 0 No Shows to Date: 0 Discharge Status: Achieved Goals Independent with HEP Recommend MD Follow-up Discharge Summary: MS IYER REPORTS THAT PAIN CONTINUES TO FLUCTUATE DAILY IN HER LEFT DISTAL MF. PAIN MOSTLY PRODUCED WITH PRESSING TASKS. REPORTS NO TROUBLES WITH PUSH-UPS OR LOAD BEARING ACTIVITIES, ABLE TO CARRY GROCERIES AND HEAVY ITEMS WITH MODIFICATIONS. CONCERNS RE: BEING ABLE TO SHOOT WEAPON. HAS MADE AN APPOINTMENT WITH ORTHOPEDICS ON 06/19/23. COMPLETED SIX TREATMENTS OF IONTO WITH DEX WITH LITTLE TO NO IMPROVEMENTS. WILL TRANSITION Pt TO A HOME BASED PROGRAM AT THIS TIME AND D/C OUTPATIENT OT SERVICES. Electronically Signed By: JAKE ROMERO OTR/Paola Reviewed/agree with student documentation: N/A Therapist: Please Sign and return to therapist, thank you for your referral.
== END 2023-05-30 15:05 | disposition home or self-care (01) ==
LOC: HO.OT 14:30
PROVIDERS: PCP Family Medicine; Visit Provider Physician Assistant
DX: M79.645 Pain in left finger(s) (principal)
CPT/HCPCS: 97033; 97035; 97110; 97166

== ENCOUNTER 2023-06-19 08:21 | Outpatient (REF) | payer OTHER, SELFPAY ==
--- NOTE | ~2023-06-19 | XR_ITS ---
EXAMINATION: XR HAND, LEFT CLINICAL INFORMATION: Pain COMPARISON: None available. TECHNIQUE: PA, lateral, and oblique views of the left hand. FINDINGS: Arrow points to the third digit. There is a 6 x 4 mm lucency the base of the third distal phalanx. No pathologic fracture, periosteal bone formation or involvement of the joint. Alignment and articulations are maintained. XR/XR hand LT min 3V IMPRESSION: Third distal phalangeal lucent lesion, possibly enchondroma. Consider MRI.
== END 2023-06-19 08:22 | disposition home or self-care (01) ==
LOC: HO.HOSX 08:21
PROVIDERS: Visit Provider Physician Assistant
DX: M79.645 Pain in left finger(s) (principal)
CPT/HCPCS: 73130

== ENCOUNTER 2023-06-19 09:48 | Outpatient (AMB) | payer OTHER, SELFPAY ==
--- NOTE | 2023-06-19 09:56 | A.OFFVIS_ITS ---
Intake Intake Visit Reasons: OV-F/U left 3rd digit pain Intake Note: Bonnie 32 year old right hand dominant female who presents today for a follow up for her left 3rd digit pain. Patient reports her left middle finger only hurts when she is using it like opening the door of a car and carrying groceries. She states that she finished with PT and she feels like it didn't do anything to her left middle finger. ROM is a little better than before per patient. Denies numbness and tingling. Allergies hydrocodone [From Vicodin] Allergy (Unknown, Verified 06/19/23 09:59) Hives Medication List - Last Reconciled 06/19/23 by Disha Yu PA-C cholecalciferol (vitamin D3) 1,250 mcg PO QWEEK ferrous sulfate (Feosol) 325 mg PO DAILY metoprolol succinate ER 12.5 mg (1/2 x 25 mg) PO DAILY 30 days norethindrone (contraceptive) 0.35 mg PO DAILY HPI OV-F/U left 3rd digit pain HPI Details 32-year-old right hand dominant female who presents in the office today for a follow up of her left 3rd digit pain status post two injuries to the left hand. The patient reports her left middle finger only hurts when she is using it, like opening doors or carrying groceries. She confirms she completed occupational therapy, but she states she does not feel it did anything. She states the ROM is better then before. She denies numbness or tingling. 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 She reports that she shots with her left hand. Of note: My initial encounter with the patient was on 08/27/2022. At this time she was 3 weeks status post 2 injuries to the left middle digit. The first she cut the finger with a knife while cutting potatoes. The second was she shut her finger in a door. COUNTS INCLUDE 234 BEDS AT THE [facility] Medical History (Updated 06/19/23 @ 10:02 by James Bailey) History of high blood pressure Surgical History History of appendectomy History of breast lump Family History Father COPD (chronic obstructive pulmonary disease) Mother No problems noted. Maternal Grandmother No problems noted. Maternal Grandfather Cancer Paternal Grandmother Breast cancer Paternal Grandfather No problems noted. Brother No problems noted. Brother No problems noted. Sister No problems noted. Sister No problems noted. Social History (Updated 06/19/23 @ 10:02 by James Bailey) Housing: Condominium Alcohol intake: never Patient Tobacco Use Status: Never used Tobacco e-Cigarette/Vaping Use: Never Used Second Hand Smoke Exposure: No service: Yes Current occupational status: employed Current occupation: [employer]/ right hand dominant Current occupational exposures/hazards: No Cognitive needs: No Hearing needs: No Vision needs: Yes (Glasses) Review of Systems Const All systems reviewed & are unremarkable except as noted in HPI and below Physical Exam Const General: cooperative and no acute distress Orientation/consciousness: patient oriented x3 HEENT Head: Yes normal to inspection, Yes normocephalic and Yes atraumatic Eyes General: appearance normal, both eyes and all related structures Resp Effort & Inspection: normal respiratory effort and able to speak in complete sentences Cardio Rate: regular rate Peripheral pulses: Peripheral pulses 2+ throughout GI Palpation (GI): Soft to palpation Skin Lesions: no lesions Rashes: no rashes Neuro General: patient oriented x3 Extrem Other: Middle finger: Able to bring finger down to the palm and into full extension. Tenderness to palpation mid shaft distal to the DIP. No laxity will the radial or ulnar collateral ligaments at the PIP and DIP. No nail bed involvement. No signs of infection. Left hand: Normal to inspection. No ecchymosis, erythema, or edema. Able to perform full finger flexion, extension, abduction, adduction, finger cross, okay sign, and thumbs up without deficit. Able to make a closed fist. Sensation int act. Capillary refill is brisk. Radial pulse intact. Psych Mental Status: mental status grossly normal Assessment & Plan Assessment & Plan (1) Pain in finger of left hand: Code(s): M79.645 - Pain in left finger(s) Plan Ms. Iyer is a 32-year-old right hand dominant female who presents in the office today for a follow up of her left 3rd digit pain status post two injuries to the left hand. The patient reports her left middle finger only hurts when she is using it, like opening doors or carrying groceries. She confirms she completed occupational therapy, but she states she does not feel it did any thing. She states the ROM is better then before. She denies numbness or tingling. 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 She reports that she shots with her left hand. Of note: My initial encounter with the patient was on 08/27/2022. At this time she was 3 weeks status post 2 injuries to the left middle digit. The first she cut the finger with a knife while cutting potatoes. The second was she shut her finger in a door. The patient will be referred for an MRI. She will call the office after the MRI is obtained. She will follow up with Dr. Byrd for further evaluation. Follow up will be after the MRI is obtained with Dr. Byrd, or sooner if needed. X-rays of the left hand which were obtained while in the office today and were reviewed by me, Disha Yu PA-C, revealed no evidence of acute fractures or dislocation. Orders: Orders XR hand LT min 3V Today M79.643 - Pain in unspecified hand MR hand LT wo con Today M79.645 - Pain in left finger(s) Patient Instructions: Scribed for Disha Yu PA-C by Christy Gutierrez medical office representative, on 06/19/2023 at 10:01 am, EST. Your attestation Coding Level of Care Code Est Pt Level 3 (04019) Diagnoses Pain in finger of left hand M79.645
== END 2023-06-19 11:06 | disposition home or self-care (01) ==
PROVIDERS: PCP Family Medicine; Visit Provider Physician Assistant
DX: M79.645 Pain in left finger(s) (principal)
CPT/HCPCS: 99214

== ENCOUNTER 2023-07-03 13:48 | Outpatient (AMB) | payer OTHER, SELFPAY ==
[2023-07-03 13:58] VITALS: BP 114/74; PULSE 82; RESP 12; TEMP 36.6; O2SAT 99; BMI 22.4
--- NOTE | 2023-07-03 13:58 | A.OFFPC_ITS ---
Vital Signs 07/03/23 13:58 Height 5 ft 8 in Weight 147 lb 2 oz BMI 22.4 BP 114/74 Blood Pressure Location Rt brachial Position Sitting Respiration 12 Pulse 82 Pulse Source Pulse Oximeter Temp 97.9 F Temp Source Temporal Artery Scan Pulse Oximetry (%) 99 Oxygen Delivery Method Room Air Intake Visit Reasons: Annual PE Intake Note: Patient states that her back has been bothering her and feels as though shes lopsided. Patient would like a referral to PT for twice a week at [facility] in [facility]. Patient states that she has been losing alot of hair recently. Blanket Folder Required: No Accompanied by: Self / Same As Patient Allergies Seasonal Allergies Allergy (Severe, Verified 07/03/23 14:09) Chronic Sinus Infections hydrocodone [From Vicodin] Allergy (Unknown, Verified 07/03/23 14:09) Hives Tobacco use date assessed: 09/11/22 Dental Screening Dental Screen Date: 07/03/23 Did you have a dental visit in the last 12 months?: Yes Did you have a dental problem in the last 6 months where you did not have access to dental care?: No Was dental information given to patient?: Patient has dentist HPI Annual PE HPI Details 32 y/o female presents for an extended exam with f/u labs and health maintenance. No recent labs to review. Pt reports hearing changes and has had hearing testing the last year or so. She reports she feels like her posture have been getting worse and is concerned about this. She reports she has done physical therapy for her back. [facility] Medical History History of high blood pressure Surgical History History of appendectomy History of breast lump Family History Father COPD (chronic obstructive pulmonary disease) Mother No problems noted. Maternal Grandmother No problems noted. Maternal Grandfather Cancer Paternal Grandmother Breast cancer Paternal Grandfather No problems noted. Brother No problems noted. Brother No problems noted. Sister No problems noted. Sister No problems noted. Social History (Updated 06/19/23 @ 10:02 by James Bailey) Housing: Condominium Alcohol intake: never Patient Tobacco Use Status: Never used Tobacco e-Cigarette/Vaping Use: Never Used Second Hand Smoke Exposure: No service: Yes Current occupational status: employed Current occupation: [employer]/ right hand dominant Current occupational exposures/hazards: No Cognitive needs: No Hearing needs: No Vision needs: Yes (Glasses) Questionnaire PHQ-9 Over the last 2 weeks, how often have you been bothered by any of the following problems? 1. Little interest or pleasure in doing things: not at all 2. Feeling down, depressed, or hopeless: not at all 3. Trouble falling or staying asleep, or sleeping too much: not at all 4. Feeling tired or having little energy: not at all 5. Poor appetite or overeating: not at all 6. Feeling bad about yourself - or that you are a failure or have let yourself or your family down: not at all 7. Trouble concentrating on things, such as reading the newspaper or watching television: not at all 8. Moving or speaking so slowly that other people could have noticed. Or the opposite - being so fidgety or restless that you have been moving around a lot more than usual: not at all 9. Thoughts that you would be better off or of hurting yourself in some way: not at all Total score: 0 Source: Developed by Drs. Demond Wilks, Silvia Coulter, Dave Ortega and colleagues, with an educational debra from [email or web address]. Thrive Questionnaire Date Thrive assessed: 07/03/23 I am a: Patient What is your living situation today?: I have a steady place to live Within the past 12 months, did the food you bought not last and you didn't have the money to get more?: Never true Within the past 12 months, did you worry whether your food would run out before you got money to buy more?: Never true Do you have trouble paying for medicines?: No Do you have trouble getting transportation to medical appointments?: No Do you have trouble paying your heating and electricity bill?: No Do you have trouble taking care of your child, family member or friend?: No Do you have trouble with day-to-day activities such as bathing, preparing meals, shopping, managing finances, etc.?: No Are you currently unemployed and looking for a job?: No Are you interested in more education?: No Please select the resources that you would like help with: None Currently or been in a relationship where the following occur: no concerns reported AUDIT C Alcohol Use Questionnaire (AUDIT-C) 1. How often do you have a drink containing alcohol?: Monthly or less 2. How many drinks containing alcohol do you have on a typical day when you are drinking?: 1 or 2 3. How often do you have six or more drinks on one occasion?: Never Total Score: 1 JJ-7 AMB Questionnaire JJ-7 Date JJ - 7 assessed: 07/03/23 Feeling nervous, anxious, or on edge: 0 = Not at all Not being able to stop or control worryin = Not at all Worrying too much about different things: 0 = Not at all Trouble relaxin = Not at all Being so restless that it is hard to sit still: 0 = Not at all Becoming easily annoyed or irritable: 0 = Not at all Feeling afraid as if something awful might happen: 0 = Not at all Total JJ-7 score (0-4 normal; 5-9 mild; 10-14 moderate; 15-21 severe): 0 Source: Developed by Drs. Demond Wilks, Silvia Coulter, Dave Ortega and colleagues, with an educational debra from [email or web address]. Review of Systems Const Denies chills, Denies fatigue, Denies fever(s), Denies headache(s) and Denies weakness Eyes Denies change in vision ENT Denies dizziness, Denies headache(s), Denies hearing loss, Denies nasal congestion, Denies sinus pain, Denies sinus pressure and Denies sore throat Card Denies chest pain, Denies lightheadedness, Denies dyspnea and Denies other (palpitations) Resp Denies cough, Denies dyspnea and Denies wheezing GI Denies abdominal pain, Denies melena, Denies hematochezia, Denies change in bowel habits, Denies dyspepsia and Denies nausea Denies hematuria and Denies dysuria Musc Denies abnormal gait, Reports back pain, Denies myalgias, Denies arthralgias, Denies numbness and Denies tingling Skin/Breast Denies rash, Denies unusual bruising and Denies wounds Neuro Denies abnormal gait, Denies dizziness, Denies headache(s), Denies memory loss, Denies numbness, Denies Sensory deficit (Neuro), Denies tingling and Denies weakness Psych Denies anxiety, Denies depression and Denies memory loss Endo Denies cold intolerance, Denies fatigue, Denies heat intolerance, Denies polydipsia and Denies polyuria Damian/Lymph Denies easy bleeding and Denies easy bruising Aller/Immun Denies wheezing Physical exam (Primary Care) Vital Signs: Last Vital Signs Temp 97.9 F 07/03/23 13:58 Pulse 82 07/03/23 13:58 Resp 12 07/03/23 13:58 BP 114/74 07/03/23 13:58 Pulse Ox 99 07/03/23 13:58 Oxygen Delivery Method Room Air 07/03/23 13:58 BMI result Body Mass Index 22.4 Tobacco/Smoking Status: Tobacco use Status Tobacco use date assessed 09/11/22 07/03/23 14:07 Patient Tobacco Use Status Never used Tobacco 07/03/23 14:07 e-Cigarette/Vaping Use Never Used 07/03/23 14:07 PHQ-9: PHQ-9 Score PHQ-9: Total score 0 07/03/23 14:36 Thrive Assessment: Date of Thrive Assessment Date Thrive assessed 07/03/23 07/03/23 14:19 Currently or been in a relationship where the following occur: no concerns reported Const General: no acute distress, well developed, alert and awake Nutritional Appearance: well nourished Orientation/consciousness: patient oriented x3 HENMT Head: Yes normocephalic and Yes atraumatic Ears: hearing grossly normal bilaterally and TM's normal bilaterally General nose exam: Normal external nose present and Normal nares present Mouth: Normal oral and palatal mucosa present and moist mucous membranes Teeth and gingiva: dentition normal Throat: Yes posterior oropharynx normal Eyes General: appearance normal, both eyes and all related structures Pupils: Equal, round and reactive pupils present and Pupil accommodation reflex normal EOM: EOMs intact bilaterally Neck Neck: Yes normal visual inspection, Yes no lymphadenopathy and Yes trachea midline Thyroid: Thyroid normal Carotids: no bruits Lymphatic: no lymphadenopathy noted Chest Chest palpation & inspection: normal inspection of the chest Resp Effort & Inspection: normal respiratory effort Auscultation: clear to auscultation bilaterally Cardio Rate: regular rate Rhythm: regular rhythm Heart sounds: S1 normal heart sound present, S2 normal heart sound present, no gallops, no murmurs and no rubs Bruits: no abdominal aortic bruits and no carotid bruits GI Palpation (GI): No Abdominal aortic bruit present, Soft to palpation, nontender, No hepatosplenomegaly present and No Rebound tenderness present Auscultation: normal bowel sounds General: Yes no CVA tenderness Back/Spine/Pelvis Back: no CVA tenderness Cervical Spine: cervical ROM normal and No Cervical spine tenderness Thoracic/Lumbar Spine: thoraco-lumbar ROM normal, No pain with thoraco-lumbar ROM, No thoracic spinal tenderness and No lumbar spinal tenderness Skin Lesions: no lesions Rashes: no rashes Trauma: no lacerations or abrasions Wounds: no wounds Nails: normal Neuro General: patient oriented x3 Cranial nerves: Yes Equal, round and reactive pupils present Cognition (Neuro): normal cognition Gait exam (Neuro): Normal gait present Motor exam (neuro): 5/5 motor strength present throughout Sensory Exam: No Sensory deficit (Neuro) Deep tendon reflexes (DTR's): Right patellar reflex intensity grade: 2+ and Left patellar reflex intensity grade: 2+ Extrem General: Yes normal to inspection and No edema Psych Appearance: grossly normal Affect: normal affect Attitude: cooperative Thought process: Normal thought process present Assessment and Plan Assessment & Plan (1) Back pain: Code(s): M54.9 - Dorsalgia, unspecified Plan: Recurrent midback pain which had improved with physical therapy in the past. Will repeat physical therapy Patient concerned about curvature of the spine are scoliosis but on exam her spine is essentially normal (2) Change in hearing: Code(s): H91.90 - Unspecified hearing loss, unspecified ear Plan: Patient has had audiology testing and has ENT for allergies and frequent ear infections Recommended she speak to her ENT regarding her hearing (3) Screening for cervical cancer: Code(s): Z12.4 - Encounter for screening for malignant neoplasm of cervix Plan: Followed by [facility] sports medicine physician in [place] Gets regular Pap smears every 3 years and sports medicine physician exams annually. There also following with breast exams for fibers breast tissue Up-to-date (4) Adult general medical exam: Code(s): Z00.00 - Encounter for general adult medical examination without abnormal findings Plan: 32-year-old female presents for an extended exam Orders: Orders Comprehensive [place]. Panel Fast Today Z00.00 - Encounter for general adult medic al examination without abnormal findings Lipid Panel Today Z00.00 - Encounter for general adult medical examination without abnormal findings TSH reflex Free T4 Today Z00.00 - Encounter for general adult medical examination without abnormal findings Vitamin D 25-OH Total Today E55.9 - Vitamin D deficiency, unspecified Microalbumin, Random (w Creat) Today I10 - Essential (primary) hypertension Complete Blood Count Auto Diff Today Z00.00 - Encounter for general adult medical examination without abnormal findings UA and rflx microscopic Today Z00.00 - Encounter for general adult medical examination without abnormal findings PT Evaluation and Treatment Today M54.9 - Dorsalgia, unspecified Coding Level of Care Code Est Pt Level 3 (05026) Est Pt Prev Care 18-39y(96744) Diagnoses Back pain M54.9 Change in hearing H91.90 Screening for cervical cancer Z12.4 Adult general medical exam Z00.00
== END 2023-07-03 14:52 | disposition home or self-care (01) ==
PROVIDERS: PCP Family Medicine; Visit Provider Family Medicine
DX: Z00.00 Encounter for general adult medical examination without abnormal findings (principal); M54.9 Dorsalgia, unspecified; H91.93 Unspecified hearing loss, bilateral
CPT/HCPCS: 99395

== ENCOUNTER 2023-07-16 08:47 | Outpatient (REF) | payer OTHER, SELFPAY ==
[2023-07-16 11:11] LABS: MANUAL DIFF FLAG NO
[2023-07-16 11:27] LABS: Appearance Urine Clear; Color Urine Yellow; Glucose Urine UA Negative (Negative); Leukocyte Esterase Urine Negative (Negative); Nitrite Urine Negative (Negative); PH 5.5 (5.0-9.0); Specific Gravity - Urine 1.015 (1.005-1.025); Urine Blood Negative (Negative); Urine Ketones Negative (Negative); Urine Protein Negative (Neg-Trace)
[2023-07-16 11:35] LABS: Basophils Percent Auto 0.8 % (0-2); Eosinophils Percent Auto 0.5 % (0-4); Hematocrit 39.8 % (37.0-47.0); Hemoglobin 13.2 g/dl (12.0-16.0); Imm Gran Abs Auto 0.02 X10*3/uL (0.00-0.03); Imm Gran Pct Auto 0.5 % (0.0-0.4); Lymphocytes Absolute Auto 1.2 X10*3/uL (1.2-4.9); Lymphocytes Percent Auto 33.5 % (20-40); Mean Corpuscular HGB Conc 33.2 g/dl (31.0-35.0); Mean Corpuscular Hemoglobin 30.2 pg (27.0-33.0); Mean Corpuscular Volume 91.1 fL (80.0-98.0); Mean Platelet Volume 10.9 fL (9.4-12.3); Monocytes Absolute Auto 0.3 X10*3/uL (0.1-1.2); Monocytes Percent Auto 8.9 % (2-11); Neutrophils Absolute Auto 2.1 x10*3/uL (2.0-8.3); Neutrophils Percent Auto 55.8 % (45-73); Platelet Count 183 X10*3/uL (160-400); Red Blood Count 4.37 X10*6/uL (4.20-5.50); Red Cell Distribution Width 12.7 % (11.0-16.0); White Blood Count 3.7 X10*3/uL (4.8-10.8)
[2023-07-16 12:24] LABS: Alanine Aminotransferase 14 U/L (0-31); Albumin Level 4.4 g/dL (3.5-5.0); Alkaline Phosphatase 48 U/L (39-117); Anion Gap 8 (12-20); Aspartate Amino Transferase 20 U/L (5-31); Bilirubin Total 0.3 mg/dL (0.0-1.0); Blood Urea Nitrogen 10 mg/dL (9-16); Calcium 9.1 mg/dL (8.4-10.2); Carbon Dioxide 27 mmol/L (22-29); Chloride 109 mmol/L (96-108); Cholesterol 151 mg/dL (<200); Estimated Glomerular Filt Rate > 60; Glucose Fasting 87 mg/dL (60-99); HDL Cholesterol 56 mg/dL (>40); LDL Cholesterol Calculated 78 mg/dL (<100); Potassium 3.9 mmol/L (3.3-5.1); Sodium 140 mmol/L (135-145); TSH reflex Free T4 2.77 uIU/mL (0.32-4.0); Total Protein 7.4 g/dL (6.5-8.0); Triglycerides 88 mg/dL (<150); Vitamin D 25-OH Total 36.4 ng/mL (>30)
[2023-07-16 12:29] LABS: Creatinine Urine 126.92 mg/dL; Microalbum/Creatinine Ratio Ur 3.9 ug/mg cr (<30)
== END 2023-07-16 08:48 | disposition home or self-care (01) ==
LOC: HO.HMGCLDS 08:47
PROVIDERS: PCP Family Medicine; Visit Provider Family Medicine
DX: Z00.00 Encounter for general adult medical examination without abnormal findings (principal); E55.9 Vitamin D deficiency, unspecified; I10 Essential (primary) hypertension
CPT/HCPCS: 36415; 80053; 80061; 81003; 82043; 82306; 84443; 85025

== ENCOUNTER 2023-08-04 15:58 | Outpatient (AMB) | payer OTHER, SELFPAY ==
--- NOTE | 2023-08-04 15:52 | A.OFFPC_ITS ---
Intake Visit Reasons: f/u CPE-labs Intake Note: Patient is following up on lab results today. Allergies Seasonal Allergies Allergy (Severe, Verified 08/04/23 15:54) Chronic Sinus Infections hydrocodone [From Vicodin] Allergy (Unknown, Verified 08/04/23 15:54) Hives Tobacco use date assessed: 08/04/23 Dental Screening Dental Screen Date: 08/04/23 Did you have a dental visit in the last 12 months?: Yes Did you have a dental problem in the last 6 months where you did not have access to dental care?: No Was dental information given to patient?: Patient has dentist HPI f/u CPE-labs HPI Details 32 y/o female presents to f/u labs via t [employer]. Triglycerides 88. TC 151. LDL 78. HDL 56. Vitamin D level improved from 17 to 36.4. PFSH Medical History History of high blood pressure Surgical History History of breast lump History of appendectomy Family History Father COPD (chronic obstructive pulmonary disease) Mother No problems noted. Maternal Grandmother No problems noted. Maternal Grandfather Cancer Paternal Grandmother Breast cancer Paternal Grandfather No problems noted. Brother No problems noted. Brother No problems noted. Sister No problems noted. Sister No problems noted. Social History Housing: Condominium Alcohol intake: never Patient Tobacco Use Status: Never used Tobacco e-Cigarette/Vaping Use: Never Used Second Hand Smoke Exposure: No service: Yes Current occupational status: employed Current occupation: [employer]/ right hand dominant Current occupational exposures/hazards: No Cognitive needs: No Hearing needs: No Vision needs: Yes (Glasses) Questionnaire Thrive Questionnaire Date Thrive assessed: 07/03/23 JJ-7 AMB Questionnaire JJ-7 Date JJ - 7 assessed: 07/03/23 Source: Developed by Drs. Demond Wilks, Silvia Coulter, Dave Ortega and colleagues, with an educational debra from [employer]. Review of Systems Const Denies chills, Denies fatigue, Denies fever(s), Denies headache(s) and Denies weakness ENT Denies dizziness and Denies headache(s) Card Denies dyspnea Resp Denies cough, Denies dyspnea, Denies wheezing and Denies other (shortness of breath) Musc Denies numbness and Denies tingling Neuro Denies dizziness, Denies headache(s), Denies numbness, Denies tingling and Denies weakness Psych Denies anxiety and Denies depression Endo Denies fatigue Aller/Immun Denies wheezing Physical exam (Primary Care) Tobacco/Smoking Status: Tobacco use Status Tobacco use date assessed 08/04/23 08/04/23 15:57 Patient Tobacco Use Status Never used Tobacco 08/04/23 15:57 e-Cigarette/Vaping Use Never Used 08/04/23 15:57 Thrive Assessment: Date of Thrive Assessment Date Thrive assessed 07/03/23 08/04/23 15:57 Telehealth Telehealth Location of provider rendering services: practice address Location of patient: address on file Patient Identification confirmed using: Name, : Yes Telehealth method: voice only Patient verbally consented to treatment: Yes Patient verbally consented to billing insurance company: Yes Patient informed of any privacy concerns related to visit: Yes Minutes spent on Phone/Video with Pt.: 5 Assessment and Plan Assessment & Plan (1) Vitamin D deficiency: Code(s): E55.9 - Vitamin D deficiency, unspecified Plan: Taking weekly vitamin D supplementation and vitamin-D level is now in normal range. Will switch from weekly dosing to a lower daily dosing. Medications: Changed From cholecalciferol (vitamin D3) 1,250 mcg PO QWEEK 14 caps 3RF E55.9 - Vitamin D deficiency, unspecified To cholecalciferol (vitamin D3) 50 mcg PO DAILY 90 days 90 caps 3RF E55.9 - Vitamin D deficiency, unspecified Coding Level of Care Code Tele Est Pt Level 2 (76984) Diagnoses Vitamin D deficiency E55.9
== END 2023-08-04 16:50 ==
LOC: HO.HMGFM 15:58
PROVIDERS: PCP Family Medicine; Visit Provider Family Medicine
DX: E55.9 Vitamin D deficiency, unspecified (principal)
CPT/HCPCS: 99212

== ENCOUNTER 2023-08-19 12:40 | Outpatient (AMB) | payer OTHER, SELFPAY ==
--- NOTE | 2023-08-19 12:42 | AM.OFFWIN_ITS ---
Intake Vital Signs 08/19/23 12:47 Height 5 ft 8 in Weight 138 lb BMI 21.0 BP 118/60 Blood Pressure Location Rt brachial Position Sitting Pulse 99 Pulse Source Pulse Oximeter Temp 97.5 F Temp Source Temporal Artery Scan Pulse Oximetry (%) 99 Oxygen Delivery Method Room Air Intake Visit Reasons: EP Congestion/tightness Difficulty breathing Intake Note: pt is here for c/o congestion, difficulty breathing Patient Tobacco Use Status: Never used Tobacco Allergies Seasonal Allergies Allergy (Severe, Verified 08/19/23 13:12) Chronic Sinus Infections hydrocodone [From Vicodin] Allergy (Unknown, Verified 08/19/23 13:12) Hives Medication List - Last Reconciled 08/19/23 by Charles Carreon MD cholecalciferol (vitamin D3) 50 mcg PO DAILY 90 days metoprolol succinate ER 12.5 mg (1/2 x 25 mg) PO DAILY 30 days norethindrone (contraceptive) 0.35 mg PO DAILY HPI EP Congestion/tightness Difficulty breathing HPI Details Patient presents for a sick visit. Reporting symptoms of sinus congestion, sore throat and difficulty swallowing. Low-grade fever. No family member is sick. No recent travel. Patient reports symptoms of malaise and fatigue. [facility] Medical History History of high blood pressure Surgical History History of breast lump History of appendectomy Family History Father COPD (chronic obstructive pulmonary disease) Mother No problems noted. Maternal Grandmother No problems noted. Maternal Grandfather Cancer Paternal Grandmother Breast cancer Paternal Grandfather No problems noted. Brother No problems noted. Brother No problems noted. Sister No problems noted. Sister No problems noted. Social History Housing: Condominium Alcohol intake: never Patient Tobacco Use Status: Never used Tobacco e-Cigarette/Vaping Use: Never Used Second Hand Smoke Exposure: No service: Yes Current occupational status: employed Current occupation: [employer]/ right hand dominant Current occupational exposures/hazards: No Cognitive needs: No Hearing needs: No Vision needs: Yes (Glasses) Physical Exam Vital Signs: Last Vital Signs Temp 97.5 F 08/19/23 12:47 Pulse 99 08/19/23 12:47 BP 118/60 08/19/23 12:47 Pulse Ox 99 08/19/23 12:47 Oxygen Delivery Method Room Air 08/19/23 12:47 BMI result Body Mass Index 21.0 Const General: cooperative and healthy appearing Nutritional Appearance: well nourished Orientation/consciousness: patient oriented x3 Limitations: no limitations HEENT Head: Yes normal to inspection Eyes General: appearance normal, both eyes and all related structures Neck Neck: Yes normal visual inspection Chest Chest palpation & inspection: normal palpation of entire chest wall Resp Effort & Inspection: normal respiratory effort Neuro General: patient oriented x3 Assessment & Plan Assessment & Plan (1) Upper respiratory tract infection: Code(s): J06.9 - Acute upper respiratory infection, unspecified Qualifiers: URI type: unspecified viral URI Qualified Code(s): J06.9 - Acute upper respiratory infection, unspecified Plan: Antibiotics ordered. Increase fluid intake. Tylenol for aches and pains. If symptoms worsen, follow-up here for a recheck. Coding Level of Care Code Est Pt Level 3 (33100) Diagnoses Viral upper respiratory tract infection J06.9 URI type: unspecified viral URI
[2023-08-19 12:47] VITALS: BP 118/60; PULSE 99; TEMP 36.4; O2SAT 99; BMI 21.0
== END 2023-08-19 13:12 | disposition home or self-care (01) ==
PROVIDERS: PCP Family Medicine; Visit Provider Internal Medicine
DX: J06.9 Acute upper respiratory infection, unspecified (principal)
CPT/HCPCS: 99213

== ENCOUNTER 2023-09-09 19:56 | Outpatient (REF) | payer OTHER, SELFPAY ==
--- NOTE | ~2023-09-09 | MR_ITS ---
EXAMINATION: MR HAND WITHOUT CONTRAST, LEFT CLINICAL INFORMATION: Pain in left finger(s) COMPARISON: 06/19/2023 TECHNIQUE: Multiplanar MR imaging was obtained through the left hand on a 1.5 Jeri magnet, focusing on the long finger. No intravenous contrast material was administered. FINDINGS: A 6 x 4 x 7 mm, T2 hyperintense lesion is evident within the long finger distal phalanx at the level of the shaft with mild focal cortical expansion at the palmar cortex. No significant surrounding periostitis or extraosseous soft tissue components. Surrounding marrow signal is normal. No additional lesions are identified. The overlying fingernail and nail bed are unremarkable. No surrounding soft tissue abnormalities. Extensor and flexor tendons are intact without tears, tendinosis, or tenosynovitis. Intrinsic hand musculature is normal. Joints are normal in signal intensity without significant cartilage loss. No effusions or synovitis. MR/MR hand LT wo con IMPRESSION: A 7 mm cystic-appearing lesion in the long finger distal phalanx with mild cortical expansion, possibly corresponding to an epidermal inclusion cyst. An enchondroma or unicameral bone cyst are also possible. A glomus tumor is on the differential, particularly if this lesion is markedly painful. Specificity is limited without intravenous contrast.
== END 2023-09-09 19:57 | disposition home or self-care (01) ==
LOC: HO.MRI 19:56
PROVIDERS: PCP Family Medicine; Visit Provider Physician Assistant
DX: M79.645 Pain in left finger(s) (principal)
CPT/HCPCS: 73218

== ENCOUNTER 2023-09-15 12:01 | Outpatient (REF) | payer OTHER, SELFPAY ==
[2023-09-15 14:40] LABS: MANUAL DIFF FLAG NO
[2023-09-15 15:00] LABS: Basophils Percent Auto 0.8 % (0-2); Eosinophils Percent Auto 0.3 % (0-4); Hematocrit 39.9 % (37.0-47.0); Hemoglobin 13.2 g/dl (12.0-16.0); Imm Gran Abs Auto 0.01 X10*3/uL (0.00-0.03); Imm Gran Pct Auto 0.3 % (0.0-0.4); Lymphocytes Absolute Auto 1.2 X10*3/uL (1.2-4.9); Lymphocytes Percent Auto 31.1 % (20-40); Mean Corpuscular HGB Conc 33.1 g/dl (31.0-35.0); Mean Corpuscular Hemoglobin 30.1 pg (27.0-33.0); Mean Corpuscular Volume 91.1 fL (80.0-98.0); Mean Platelet Volume 10.8 fL (9.4-12.3); Monocytes Absolute Auto 0.3 X10*3/uL (0.1-1.2); Monocytes Percent Auto 7.8 % (2-11); Neutrophils Absolute Auto 2.4 x10*3/uL (2.0-8.3); Neutrophils Percent Auto 59.7 % (45-73); Platelet Count 184 X10*3/uL (160-400); Red Blood Count 4.38 X10*6/uL (4.20-5.50); Red Cell Distribution Width 13.2 % (11.0-16.0)
== END 2023-09-15 12:02 | disposition home or self-care (01) ==
LOC: HO.WFDLDS 12:01
PROVIDERS: Visit Provider Advanced Practice Midwife
DX: N92.0 Excessive and frequent menstruation with regular cycle (principal)
CPT/HCPCS: 36415; 85025

== ENCOUNTER 2023-09-16 12:45 | Outpatient (AMB) | payer OTHER, SELFPAY ==
--- NOTE | 2023-09-16 13:00 | MHC.OFFVIS ---
Intake Vital Signs 09/16/23 13:02 Height 5 ft 8 in Weight 138 lb BMI 21.0 Intake Visit Reasons: O/V left hand MRI per Intake Note: Bonnie is a 32 year old female who presents today for a MRI review of her left hand. Patient reports her symptoms hasn't improved. 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 She 1st noticed it when she was using her fingers to bring in grocery bags and felt a sudden sharp pain in her middle finger.. She complains of a painful prominence on the pad of her left middle finger distal phalanx. This causes her pain primarily with activities such as gripping objects or opening a door. 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 She injured her finger ~13 months ago, twice, once while cutting potatoes and once when she shut her finger in a door. She says her symptoms have not improved in the last several months and she found no relief from PT. 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 Maternal Grandmother No problems noted. Maternal Grandfather Cancer Paternal Grandmother Breast cancer Paternal Grandfather No problems noted. Brother No problems noted. Brother No problems noted. Sister No problems noted. Sister No problems noted. Social History Housing: Condominium Alcohol intake: never Patient Tobacco Use Status: Never used Tobacco e-Cigarette/Vaping Use: Never Used Second Hand Smoke Exposure: No service: Yes Current occupational status: employed Current occupation: [employer]/ right hand dominant Current occupational exposures/hazards: No Cognitive needs: No Hearing needs: No Vision needs: Yes (Glasses) Review of Systems Const All systems reviewed & are unremarkable except as noted in HPI and below Physical Exam Vital Signs: BMI result Body Mass Index 21.0 Const General: cooperative, healthy appearing and no acute distress Orientation/consciousness: patient oriented x3 HEENT Head: Yes normocephalic and Yes atraumatic Eyes EOM: EOMs intact bilaterally Resp Effort & Inspection: normal respiratory effort and able to speak in complete sentences Cardio Jugular venous distension: no JVD Skin General skin exam: turgor normal Rashes: no rashes Neuro General: patient oriented x3 Extrem Other: Evaluation of Left Upper Extremity: The patient is alert, oriented, and in no acute distress Neuro: Median, Ulnar, Radial nerves motor and sensory intact and sensation is normal to the tips of all digits Vascular: Cap refill brisk ROM: She can make a fist and extend all her digits Skin: No lacerations or abrasions. General: No Ecchymosis. No Erythema or evidence of infection. Regarding the left middle finger she has no visible swelling, and no skin abnormalities. Mild tenderness to palpation over a palpable mass in the pad of the middle finger that measures about 3 mm or so in diameter. This corresponds to a bony protrusion on the volar aspect of the distal phalanx best seen on the lateral x-ray view of the digit. Not particularly tender dorsally over the distal phalanx she has good range of motion at the D IP joint. MRI: IMPRESSION: A 7 mm cystic-appearing lesion in the long finger distal phalanx with mild cortical expansion, possibly corresponding to an epidermal inclusion cyst. An enchondroma or unicameral bone cyst are also possible. A glomus tumor is on the differential, particularly if this lesion is markedly painful. Specificity is limited without intravenous contrast. Dictated By: tim 09/11/23 On my review I just want to note that the cystic appearing mass appears to extend to the volar cortex in a small area best seen on the MRI. Radiographs three views of the patient's left hand from 06/19/2023 were also reviewed by me in clinic today: There does appear to be a cystic somewhat expansile mass in the proximal body of the middle finger distal phalanx. On the lateral view there is also a bony prominence protruding off the volar cortex of this same area of the body of the distal phalanx. No fractures are seen. Psych Appearance: grossly normal Affect: normal affect Attitude: cooperative Assessment & Plan Assessment & Plan (1) Bone lesion: Code(s): M89.9 - Disorder of bone, unspecified Plan Assessment & Plan: 1. 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 I educated her about this condition I discussed operative and non-operative treatment options The patient would like to proceed with surgery The risks and benefits of operative treatment were discussed with the patient and the patient wishes to proceed with surgery. These risks include, but are not limited to risk of damage to blood vessels, nerves, tendons, infection, recurrence, incomplete relief of preoperative symptoms, persistent pain, possible need for further surgery and the risks associated with regional blocks and anesthesia. The plan is to take the patient to the operating room sometime in the next few weeks for the following procedures: 1. Right middle finger distal phalanx bony mass excision, both dorsal and volar, under general All of the preoperative paperwork including the consent was filled out today. All the patient's questions were answered. The patient understands that they will be contacted by our material scheduler soon to schedule this procedure She denies Diabetes, blood thinners, asthma, heart, lung, kidney issues Scribed for Yeny Byrd MD by Jordy Chandra medical dermatologist, on 09/16/23 at 2:00 PM, EST. Coding Level of Care Code Est Pt Level 4 (41444) Diagnoses Bone lesion M89.9
[2023-09-16 13:02] VITALS: BMI 21.0
== END 2023-09-16 14:11 | disposition home or self-care (01) ==
PROVIDERS: PCP Family Medicine; Visit Provider Orthopaedic Surgery
DX: M89.9 Disorder of bone, unspecified (principal); R22.32 Localized swelling, mass and lump, left upper limb
CPT/HCPCS: 99214

== ENCOUNTER → 2023-09-16 12:45 | Outpatient (BNVA) | payer OTHER, SELFPAY | PROVIDERS: PCP Family Medicine; Visit Provider Orthopaedic Surgery | DX: M89.9 Disorder of bone, unspecified (principal); Z91.85 Personal history of military service | CPT/HCPCS: 99212 ==

== ENCOUNTER 2023-09-24 10:50 | Outpatient (AMB) | payer OTHER, SELFPAY ==
--- NOTE | 2023-09-24 10:51 | MHC.OFFWIV ---
Intake Vital Signs 09/24/23 10:51 09/24/23 10:55 Height 5 ft 8 in Weight 133 lb BP 124/74 Blood Pressure Location Lt brachial Position Sitting Pulse 83 Pulse Source Pulse Oximeter Temp 98.3 F Temp Source Temporal Artery Scan Pulse Oximetry (%) 98 Intake Visit Reasons: EP Chest tightness/Cough Intake Note: pt is here for c/o cough, and chest congestion/tightness, denies shortness of breath Patient Tobacco Use Status: Never used Tobacco Allergies Seasonal Allergies Allergy (Severe, Verified 09/24/23 10:52) Chronic Sinus Infections hydrocodone [From Vicodin] Allergy (Unknown, Verified 09/24/23 10:52) Hives Do you need a note to return to daycare/school/sports/work: Yes HPI EP Chest tightness/Cough HPI Details 32 year old female patient presents today for a sick visit. She reports a 5 day history of productive cough and chest tightness. She states he son had a similar illness about 1-2 weeks ago. She reports cough is worse at night. Denies any shortness of breath, fever, chills, or other sick symptoms. Denies history of asthma. [facility], [facility] Medical History History of high blood pressure Surgical History History of breast lump History of appendectomy Family History Father COPD (chronic obstructive pulmonary disease) Mother No problems noted. Maternal Grandmother No problems noted. Maternal Grandfather Cancer Paternal Grandmother Breast cancer Paternal Grandfather No problems noted. Brother No problems noted. Brother No problems noted. Sister No problems noted. Sister No problems noted. Social History Housing: Condominium Alcohol intake: never Patient Tobacco Use Status: Never used Tobacco e-Cigarette/Vaping Use: Never Used Second Hand Smoke Exposure: No service: Yes Current occupational status: employed Current occupation: [employer]/ right hand dominant Current occupational exposures/hazards: No Cognitive needs: No Hearing needs: No Vision needs: Yes (Glasses) Review of Systems Const All systems reviewed & are unremarkable except as noted in HPI and below Physical Exam Vital Signs: Last Vital Signs Temp 98.3 F 09/24/23 10:55 Pulse 83 09/24/23 10:55 BP 124/74 09/24/23 10:55 Pulse Ox 98 09/24/23 10:55 Const General: cooperative, healthy appearing and no acute distress HEENT Head: Yes normal to inspection Ears: hearing grossly normal bilaterally General nose exam: Normal external nose present Face and sinus: Yes normal facial exam Mouth: Normal oral and palatal mucosa present Throat: Yes posterior oropharynx normal Neck Neck: Yes no lymphadenopathy Resp Effort & Inspection: normal respiratory effort and able to speak in complete sentences Auscultation: clear to auscultation bilaterally Cardio Jugular venous distension: no JVD Palpation: normal PMI Rate: regular rate Rhythm: regular rhythm Skin General skin exam: no rashes or lesions noted Extrem General: Yes capillary refill normal and Yes no clubbing, cyanosis or edema Psych Appearance: grossly normal Mental Status: mental status grossly normal Speech and movement: Normal speech and movement present Assessment & Plan Assessment & Plan (1) Upper respiratory tract infection: Code(s): J06.9 - Acute upper respiratory infection, unspecified Qualifiers: URI type: unspecified viral URI Qualified Code(s): J06.9 - Acute upper respiratory infection, unspecified Plan: Will start patient on azithromycin and also benzonatate. She was seen back in July for a similar illness and abx were ordered at that time, however she states she did not end up taking these as she was going out of town and forgot the rx at home. We reviewed indications, use, possible side effects of these medications. If she does not improve with treatment, or if she develops any fever, shortness of breath, wheezing, or worsening symptoms, she should return to the clinic or go to the ED for evaluation. She agrees to plan. Medications: New azithromycin For 250 mg dose pack: take 500 mg today (day 1), then 250 mg for 4 days (days 2-5) PO 6 tabs 0RF J06.9 - Acute upper respiratory infection, unspecified benzonatate 100 mg PO BID 7 days PRN 14 caps 0RF cough R05.9 - Cough, unspecified Coding Level of Care Code Est Pt Level 3 (72032) Diagnoses Viral upper respiratory tract infection J06.9 URI type: unspecified viral URI
[2023-09-24 10:55] VITALS: BP 124/74; PULSE 83; TEMP 36.8; O2SAT 98
== END 2023-09-24 11:17 | disposition home or self-care (01) ==
PROVIDERS: PCP Family Medicine; Visit Provider Nurse Practitioner Family
DX: J06.9 Acute upper respiratory infection, unspecified (principal)
CPT/HCPCS: 99213

== ENCOUNTER 2023-09-30 13:14 | Outpatient (AMB) | payer OTHER, SELFPAY ==
--- NOTE | 2023-09-30 13:22 | A.OFFVIS_ITS ---
Intake Vital Signs 09/30/23 13:24 Height 5 ft 8 in Weight 137 lb 9.095 oz BMI 20.9 BP 122/88 Blood Pressure Location Lt brachial Position Sitting Pulse 79 Intake Visit Reasons: 1 yr fu Intake Note: 1 year follow up w/ EKG Production Troubleshooter Required: No Accompanied by: Self / Same As Patient Allergies Seasonal Allergies Allergy (Severe, Verified 09/30/23 13:26) Chronic Sinus Infections hydrocodone [From Vicodin] Allergy (Unknown, Verified 09/30/23 13:26) Hives Medication List - Last Reconciled 09/30/23 by Clifton Webb MD albuterol sulfate 90 mcg/actuation (Ventolin HFA) 1 inh inhalation QID PRN benzonatate 100 mg PO BID PRN cholecalciferol (vitamin D3) 50 mcg PO DAILY 90 days drospirenone (contraceptive) (Slynd) 1 tab PO DAILY metoprolol succinate ER 12.5 mg (1/2 x 25 mg) PO DAILY 30 days HPI HPI Comments History of Present Illness Details Bonnie comes for follow-up. She has no new cardiology symptoms. Maintains high level activity. She does not have any symptoms of palpitation. [facility] Medical History History of high blood pressure Surgical History History of breast lump History of appendectomy Family History Father COPD (chronic obstructive pulmonary disease) Mother No problems noted. Maternal Grandmother No problems noted. Maternal Grandfather Cancer Paternal Grandmother Breast cancer Paternal Grandfather No problems noted. Brother No problems noted. Brother No problems noted. Sister No problems noted. Sister No problems noted. Social History Housing: Condominium Alcohol intake: never Patient Tobacco Use Status: Never used Tobacco e-Cigarette/Vaping Use: Never Used Second Hand Smoke Exposure: No service: Yes Current occupational status: employed Current occupation: [employer]/ right hand dominant Current occupational exposures/hazards: No Cognitive needs: No Hearing needs: No Vision needs: Yes (Glasses) Review of Systems Const Denies weakness ENT Denies dizziness Card Denies chest pain, Denies chest pain with activity, Denies syncope, Denies rapid heart rate, Denies pedal edema, Denies edema, Denies leg edema, Denies lightheadedness, Denies palpitations, Denies dyspnea, Denies dyspnea on exertion and Denies orthopnea Resp Denies cough, Denies dyspnea and Denies dyspnea on exertion GI Denies hematochezia and Denies change in stool character Musc Denies abnormal gait, Denies muscle cramps, Denies muscle weakness, Denies numbness, Denies radiating pain into limb and Denies tingling Neuro Denies abnormal gait, Denies dizziness, Denies syncope, Denies numbness, Denies tingling and Denies weakness Endo Denies palpitations Physical Exam Vital Signs: Last Vital Signs Pulse 79 09/30/23 13:24 BP 122/88 09/30/23 13:24 BMI result Body Mass Index 20.9 Const General: cooperative, healthy appearing, comfortable and no acute distress Orientation/consciousness: patient oriented x3 Resp Effort & Inspection: normal respiratory effort Auscultation: clear to auscultation bilaterally, no crackles, no rales, no rhonchi and no wheezes Cardio Jugular venous distension: no JVD Rate: regular rate Rhythm: regular rhythm Heart sounds: S1 normal heart sound present, S2 normal heart sound present, no gallops, no murmurs and no rubs Peripheral pulses: Peripheral pulses 2+ throughout GI Inspection: Yes normal to inspection Neuro General: patient oriented x3 Extrem General: Yes normal to inspection, No no pedal edema and No calf tenderness Assessment & Plan Assessment & Plan (1) Palpitations: Code(s): R00.2 - Palpitations Plan: Palpitations with no significant abnormality of cardiac structure or electrical abnormality Holter monitor. She is no longer any symptoms. No further workup is indicated. Benign nature of these isolated PACs noted which were rare occurrence on the last Holter monitor was discussed. Avoidance of stimulants was discussed. Stress mitigation strategies was discussed. There is no indication for long-term treatment with metoprolol therapy. Will sign of the case at this point time. Thank you for allowing me to partake in her care Medications: Changed From benzonatate 100 mg PO BID 7 days PRN 14 caps 0RF cough R05.9 - Cough, unspecified To benzonatate 100 mg PO BID PRN cough R05.9 - Cough, unspecified Coding Level of Care Code Est Pt Level 3 (15875) Diagnoses Palpitations R00.2
[2023-09-30 13:24] VITALS: BP 122/88; PULSE 79; BMI 20.9
== END 2023-09-30 13:35 | disposition home or self-care (01) ==
PROVIDERS: PCP Family Medicine; Visit Provider Internal Medicine Cardiovascular Disease
DX: R00.2 Palpitations (principal)
CPT/HCPCS: 99213

== ENCOUNTER → 2023-09-30 13:14 | Outpatient (BNVA) | payer OTHER, SELFPAY | PROVIDERS: PCP Family Medicine; Visit Provider Internal Medicine Cardiovascular Disease | DX: R00.2 Palpitations (principal) | CPT/HCPCS: 99212 ==

== ENCOUNTER 2023-11-05 09:02 | Outpatient (REF) | payer OTHER, SELFPAY ==
--- NOTE | ~2023-11-05 | CT_ITS ---
EXAMINATION: CT CHEST WITH CONTRAST CLINICAL INFORMATION: Follow-up pulmonary nodule. COMPARISON: Chest CT 08/28/2022. TECHNIQUE: Multidetector volumetric CT imaging of the chest was obtained after the administration of 65 mL of Omnipaque 350 intravenous contrast without immediate adverse reactions. Axial MIP volume rendering provided. Sagittal and coronal reformatted images were obtained. This CT examination was performed using dose optimization techniques as appropriate, variously including the following: *Automated exposure control *Adjustment of mA and/or kV according to patient size (this includes techniques or standardized protocols for targeted exams where dose is matched to indication/reason for exam; i.e. extremities or head) *Use of iterative reconstruction technique DLP: 91 mGy-cm FINDINGS: LUNGS: Stable 4 mm calcified nodule medial right lower lobe consistent with granuloma. No suspicious pulmonary nodules. No follow-up imaging is recommended. No airway wall thickening or evidence of interstitial lung disease. No consolidation. MEDIASTINUM: Pectus excavatum. No mediastinal adenopathy. No aortic aneurysm. No pericardial effusion. PLEURA: There is no pleural effusion. No pleural mass or thickening. AXILLA: No adenopathy. UPPER ABDOMEN: Unremarkable OSSEOUS STRUCTURES: Pectus excavatum. Nathan index 3.3. No suspicious osseous lesions. CT/CT chest w IV con IMPRESSION: Stable 4 mm nodule medial right lower lobe. No follow-up imaging is recommended. Pectus excavatum. Fleischner guidelines do not apply in this age group.
[2023-11-05] MEDS: iohexoL 350 MG/ML 75 ML INFUS..BTL 65 ML IV (09:56)
== END 2023-11-05 09:03 | disposition home or self-care (01) ==
LOC: HO.CT 09:02
PROVIDERS: PCP Family Medicine; Visit Provider Family Medicine
DX: R91.1 Solitary pulmonary nodule (principal)
CPT/HCPCS: 71260; Q9967

== ENCOUNTER 2023-12-24 09:56 | Outpatient (AMB) | payer OTHER, SELFPAY ==
[2023-12-24 09:59] VITALS: BP 130/78; PULSE 82; TEMP 36.4; O2SAT 99; BMI 22.2
--- NOTE | 2023-12-24 09:59 | MHC.OFFWIV ---
Intake Vital Signs 12/24/23 09:59 Height 5 ft 8 in Weight 146 lb BMI 22.2 BP 130/78 Blood Pressure Location Lt brachial Position Sitting Pulse 82 Pulse Source Pulse Oximeter Temp 97.5 F Temp Source Temporal Artery Scan Pulse Oximetry (%) 99 Oxygen Delivery Method Room Air Intake Visit Reasons: EST/congestion ([phone]) Intake Note: pt is here today for congestion started yesterday Patient Tobacco Use Status: Never used Tobacco Allergies Seasonal Allergies Allergy (Severe, Verified 12/24/23 09:59) Chronic Sinus Infections hydrocodone [From Vicodin] Allergy (Unknown, Verified 12/24/23 09:59) Hives Do you need a note to return to daycare/school/sports/work: No HPI HPI Comments History of Present Illness Details Patient is a 32yo F who presents to office with cold symptoms Onset yesterday + ST 8 with swallowing + congestion and earache No cough + subjective fever/chills + body aches and fatigue Son is 3y and in daycare so unsure about exposures No COVID testing completed [facility] Medical History History of high blood pressure Surgical History History of breast lump History of appendectomy Family History Father COPD (chronic obstructive pulmonary disease) Mother No problems noted. Maternal Grandmother No problems noted. Maternal Grandfather Cancer Paternal Grandmother Breast cancer Paternal Grandfather No problems noted. Brother No problems noted. Brother No problems noted. Sister No problems noted. Sister No problems noted. Social History Housing: Condominium Alcohol intake: never Patient Tobacco Use Status: Never used Tobacco e-Cigarette/Vaping Use: Never Used Second Hand Smoke Exposure: No service: Yes Current occupational status: employed Current occupation: [employer]/ right hand dominant Current occupational exposures/hazards: No Cognitive needs: No Hearing needs: No Vision needs: Yes (Glasses) Review of Systems Const Reports body aches, Reports chills, Reports fatigue and Reports fever(s) ENT Reports otalgia, Reports nasal congestion, Reports nasal discharge, Denies sinus pain, Denies sinus pressure, Reports sore throat and Denies throat swelling Card Denies chest pain and Denies dyspnea Resp Denies change in phlegm color, Denies cough and Denies dyspnea Musc Reports myalgias Endo Reports fatigue Aller/Immun Denies throat swelling Physical Exam Vital Signs: Last Vital Signs Temp 97.5 F 12/24/23 09:59 Pulse 82 12/24/23 09:59 BP 130/78 12/24/23 09:59 Pulse Ox 99 12/24/23 09:59 Oxygen Delivery Method Room Air 12/24/23 09:59 BMI result Body Mass Index 22.2 General: Non-toxic, NAD. Speaking full sentences. Skin: Warm dry throughout Eye: EOMI HENT: Airway patent. Uvula midline. Minimal pharyngeal erythema or edema. No exudates or abscess. 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 Bilateral canals clear. Minimal fluid but TM non-erythematous, non-bulging. No TM perforation or hemotympanum noted. Respiratory: CTA bilaterally. No wheezes, rales or rhonchi Cardiac: RRR. No murmur MSK: Full ROM extremities. Neurology: A/O. No aphasia or facial droop. Gait without abnormality Psych: Good mood and affect Results AMB Rapid Strep AMB Rapid Strep Negative Last Edit by Adonis Avendaño CMA on 12/24/23 10:51 Results Reviewed Results Reviewed: Laboratory Last Values Strep Scn Rapid Clinic Negative 12/24/23 10:50 Assessment & Plan Assessment & Plan (1) Pharyngitis: Code(s): J02.9 - Acute pharyngitis, unspecified Qualifiers: Pharyngitis/tonsillitis etiology: unspecified etiology Qualified Code(s): J02.9 - Acute pharyngitis, unspecified Plan: Patient seen and evaluated. Strep: negative COVID/flu/RSV ordered and obtained SYmptomatic management with tylenol/motrin, fluids, rest Patient gave verbal understanding and had no additional questions or concerns at time of discharge All questions answered Orders: Orders SARS-CoV2/FLU/RSV Today J02.9 - Acute pharyngitis, unspecified AMB Rapid Strep Screen Today Z13.9 - Encounter for screening, unspecified Coding Level of Care Code Est Pt Level 3 (35960) Diagnoses Pharyngitis, unspecified etiology J02.9 Pharyngitis/tonsillitis etiology: unspecified etiology
== END 2023-12-24 10:52 | disposition home or self-care (01) ==
PROVIDERS: PCP Family Medicine; Visit Provider Physician Assistant
DX: J02.9 Acute pharyngitis, unspecified (principal)
CPT/HCPCS: 87880; 99213

== ENCOUNTER 2023-12-24 13:49 | Outpatient (REF) | payer OTHER, SELFPAY ==
[2023-12-24 14:36] LABS: Influenza A PCR NEGATIVE (Negative); Influenza B PCR NEGATIVE (Negative); Resp Syncy Virus RNA Qual PCR NEGATIVE (Negative); SARS COV2 PCR INHOUSE NEGATIVE (Negative)
== END 2023-12-24 13:50 | disposition home or self-care (01) ==
LOC: HO.HMGCLNP 13:49
PROVIDERS: Visit Provider Physician Assistant
DX: J02.9 Acute pharyngitis, unspecified (principal); Z11.52 Encounter for screening for COVID-19; Z20.828 Contact with and (suspected) exposure to other viral communicable diseases
CPT/HCPCS: 0241U

== ENCOUNTER 2024-02-09 14:29 | Outpatient (AMB) | payer OTHER, SELFPAY ==
[2024-02-09 14:46] VITALS: BP 112/64; PULSE 83; RESP 12; O2SAT 99; BMI 22.7
--- NOTE | 2024-02-09 14:46 | A.OFFPC_ITS ---
Vital Signs 02/09/24 14:46 Height 5 ft 8 in Weight 149 lb 8 oz BMI 22.7 BP 112/64 Blood Pressure Location Lt brachial Position Sitting Respiration 12 Pulse 83 Pulse Source Pulse Oximeter Pulse Oximetry (%) 99 Oxygen Delivery Method Room Air Intake Visit Reasons: Follow up htn Intake Note: Patient is here for a follow up of blood pressure. Patient reports she does not have any concerns for her blood pressure at this time, however she slammed her right thumb in her car door yesterday. Patient states right thumb is swollen and bruised under the nail. 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 Blood pressure today 112/64. She is on metoprolol 12.5mg daily. Had been on metoprolol before for palpitations, which has been helping. Pt reports R thumb pain. She had slammmed her R thumb on her car door yesterday. [facility] Medical History History of high blood pressure Surgical History History of breast lump History of appendectomy Family History Father COPD (chronic obstructive pulmonary disease) Mother No problems noted. Maternal Grandmother No problems noted. Maternal Grandfather Cancer Paternal Grandmother Breast cancer Paternal Grandfather No problems noted. Brother No problems noted. Brother No problems noted. Sister No problems noted. Sister No problems noted. Social History Housing: Condominium Alcohol intake: never Patient Tobacco Use Status: Never used Tobacco e-Cigarette/Vaping Use: Never Used Second Hand Smoke Exposure: No service: Yes Current occupational status: employed Current occupation: [employer]/ right hand dominant Current occupational exposures/hazards: No Cognitive needs: No Hearing needs: No Vision needs: Yes (Glasses) Questionnaire Thrive Questionnaire Date Thrive assessed: 07/03/23 JJ-7 AMB Questionnaire JJ-7 Date JJ - 7 assessed: 07/03/23 Source: Developed by Drs. Demond Wilks, Silvia Coulter, Dave Ortega and colleagues, with an educational debra from [employer]. Review of Systems Const Denies chills, Denies fatigue, Denies fever(s), Denies headache(s) and Denies weakness ENT Denies dizziness and Denies headache(s) Card Denies dyspnea Resp Denies cough, Denies dyspnea, Denies wheezing and Denies other (shortness of breath) Musc Denies numbness and Denies tingling Neuro Denies dizziness, Denies headache(s), Denies numbness, Denies tingling and Denies weakness Psych Denies anxiety and Denies depression Endo Denies fatigue Aller/Immun Denies wheezing Physical exam (Primary Care) Vital Signs: Last Vital Signs Pulse 83 02/09/24 14:46 Resp 12 02/09/24 14:46 BP 112/64 02/09/24 14:46 Pulse Ox 99 02/09/24 14:46 Oxygen Delivery Method Room Air 02/09/24 14:46 BMI result Body Mass Index 22.7 Tobacco/Smoking Status: Tobacco use Status Tobacco use date assessed 02/09/24 02/09/24 14:52 Patient Tobacco Use Status Never used Tobacco 02/09/24 14:52 e-Cigarette/Vaping Use Never Used 02/09/24 14:52 Thrive Assessment: Date of Thrive Assessment Date Thrive assessed 07/03/23 02/09/24 14:52 Const General: well developed; No acute distress Nutritional Appearance: well nourished Orientation/consciousness: patient oriented x3 [facility] Head: Yes normocephalic and Yes atraumatic Eyes General: appearance normal, both eyes and all related structures Pupils: Equal, round and reactive pupils present EOM: EOMs intact bilaterally Resp Effort & Inspection: normal respiratory effort Auscultation: clear to auscultation bilaterally Cardio Rate: regular rate Rhythm: regular rhythm Heart sounds: S1 normal heart sound present, S2 normal heart sound present, no gallops, no murmurs and no rubs Neuro General: patient oriented x3 and gait normal Cranial nerves: Yes Equal, round and reactive pupils present Psych Affect: normal affect Assessment and Plan Assessment & Plan (1) Palpitations: Code(s): R00.2 - Palpitations Plan: Controlled?with?metoprolol Continue?metoprolol (2) Hypertension: Code(s): I10 - Essential (primary) hypertension Plan: Blood?pressure?is?controlled?with?metoprolol.??Goal?is?less?than?140/90 Continue?current?medication (3) Thumb pain: Code(s): M79.646 - Pain in unspecified finger(s) Plan: Recent?crush?injury?to?distal?phalanx?of?right?thumb She?has?normal?circulation?and?sensation?though?the?tip?of?her?thumb?is?somewhat ?swollen?and?tender.??Mild?ecchymosis?under?the?nail. Will?check?an?x-ray She? can?take?it?for?comfort?but?likely?not?fractured?and?will?improve?with?conservat aleksandra?care. Orders: Orders XR hand RT min 3V Today M79.646 - Pain in unspecified finger(s) Coding Level of Care Code Est Pt Level 3 (17336) Diagnoses Palpitations R00.2 Hypertension I10 Thumb pain M79.646
== END 2024-02-09 15:42 | disposition home or self-care (01) ==
PROVIDERS: PCP Family Medicine; Visit Provider Family Medicine
DX: R00.2 Palpitations (principal); I10 Essential (primary) hypertension; M79.646 Pain in unspecified finger(s)
CPT/HCPCS: 99213

== ENCOUNTER 2024-02-11 08:43 | Outpatient (REF) | payer OTHER, SELFPAY ==
--- NOTE | ~2024-02-11 | XR_ITS ---
EXAMINATION: XR HAND, RIGHT CLINICAL INFORMATION: Unspecified pain COMPARISON: 06/19/2023 TECHNIQUE: PA, lateral, and oblique views of the right hand. FINDINGS: No fracture, dislocation or destructive process or erosive change. XR/XR hand RT min 3V IMPRESSION: No fracture seen.
== END 2024-02-11 08:44 | disposition home or self-care (01) ==
LOC: HO.HMGCX 08:43
PROVIDERS: PCP Family Medicine; Visit Provider Family Medicine
DX: M79.644 Pain in right finger(s) (principal)
CPT/HCPCS: 73130

== ENCOUNTER 2024-03-22 15:00 | Outpatient (AMB) | payer OTHER, SELFPAY ==
[2024-03-22 15:51] VITALS: BP 126/82; PULSE 91; TEMP 36.6; O2SAT 99; BMI 21.9
--- NOTE | 2024-03-22 15:51 | AM.OFFWIN_ITS ---
Intake Vital Signs 03/22/24 15:51 Height 5 ft 8 in Weight 144 lb 6 oz BMI 21.9 BP 126/82 Blood Pressure Location Lt brachial Position Sitting Pulse 91 Pulse Source Pulse Oximeter Temp 97.9 F Temp Source Temporal Artery Scan Pulse Oximetry (%) 99 Oxygen Delivery Method Room Air Intake Visit Reasons: EP hand/ankle swelling Intake Note: Pt presents to the office today for c/o hand and ankle swelling. She states everyday at the end of the day and in the mornings she will get swelling and aches in her ankles and hands. She denies any injury to her hand or ankles. Patient Tobacco Use Status: Never used Tobacco Allergies Seasonal Allergies Allergy (Severe, Verified 03/22/24 16:17) Chronic Sinus Infections hydrocodone [From Vicodin] Allergy (Unknown, Verified 03/22/24 16:17) Hives Medication List - Last Reconciled 03/22/24 by Charles Carreon MD cholecalciferol (vitamin D3) 50 mcg PO DAILY 90 days metoprolol succinate ER 12.5 mg (1/2 x 25 mg) PO DAILY 90 days HPI EP hand/ankle swelling HPI Details 33 yr old female presents to the office for a sick visit. Patient is complaining of morning stiffness and swelling in the fingers. Sx present for the past month. No joint swellings. Feet hurt by the end of the day and she has bilateral ankle swellings. In the services. [facility] Medical History History of high blood pressure Surgical History History of breast lump History of appendectomy Family History Father COPD (chronic obstructive pulmonary disease) Mother No problems noted. Maternal Grandmother No problems noted. Maternal Grandfather Cancer Paternal Grandmother Breast cancer Paternal Grandfather No problems noted. Brother No problems noted. Brother No problems noted. Sister No problems noted. Sister No problems noted. Social History Housing: Condominium Alcohol intake: never Patient Tobacco Use Status: Never used Tobacco e-Cigarette/Vaping Use: Never Used Second Hand Smoke Exposure: No service: Yes Current occupational status: employed Current occupation: [employer]/ right hand dominant Current occupational exposures/hazards: No Cognitive needs: No Hearing needs: No Vision needs: Yes (Glasses) Physical Exam Vital Signs: Last Vital Signs Temp 97.9 F 03/22/24 15:51 Pulse 91 03/22/24 15:51 BP 126/82 03/22/24 15:51 Pulse Ox 99 03/22/24 15:51 Oxygen Delivery Method Room Air 03/22/24 15:51 BMI result Body Mass Index 21.9 Const General: cooperative and healthy appearing Nutritional Appearance: well nourished Orientation/consciousness: patient oriented x3 Limitations: no limitations HEENT Head: Yes normal to inspection Eyes General: appearance normal, both eyes and all related structures Neck Neck: Yes normal visual inspection Chest Chest palpation & inspection: normal palpation of entire chest wall Resp Effort & Inspection: normal respiratory effort Neuro General: patient oriented x3 Extrem Other: Right and left hands; No visible swelling. Right and left ankles; no evident swelling Assessment & Plan Assessment & Plan (1) Edema of both feet: Code(s): R60.0 - Localized edema Plan: BW ordered. TSH and ESR should be checked. Patient has dicontinued using metoprolol. Orders: Orders Complete Blood Count no Diff Today R60.0 - Localized edema Basic Metabolic Panel Today R60.0 - Localized edema Liver Panel Today R60.0 - Localized edema Thyroid Stimulating Hormone Today R60.0 - Localized edema C Reactive Protein Today R60.0 - Localized edema Erythrocyte Sedimentation Rate Today R60.0 - Localized edema Coding Level of Care Code Est Pt Level 4 (16675) Diagnoses Edema of both feet R60.0
== END 2024-03-22 16:32 | disposition home or self-care (01) ==
PROVIDERS: PCP Family Medicine; Visit Provider Internal Medicine
DX: R60.0 Localized edema (principal)
CPT/HCPCS: 99214

== ENCOUNTER 2024-03-23 08:37 | Outpatient (REF) | payer OTHER, SELFPAY ==
[2024-03-23 10:40] LABS: Hematocrit 38.5 % (37.0-47.0); Hemoglobin 12.7 g/dl (12.0-16.0); Mean Corpuscular Hemoglobin 29.9 pg (27.0-33.0); Mean Corpuscular Volume 90.6 fL (80.0-98.0); Mean Platelet Volume 11.1 fL (9.4-12.3); Platelet Count 147 X10*3/uL (160-400); Red Blood Count 4.25 X10*6/uL (4.20-5.50); Red Cell Distribution Width 13.1 % (11.0-16.0); White Blood Count 3.9 X10*3/uL (4.8-10.8)
[2024-03-23 11:05] LABS: Alanine Aminotransferase 15 U/L (0-31); Albumin Level 4.3 g/dL (3.5-5.0); Alkaline Phosphatase 41 U/L (39-117); Anion Gap 11 (12-20); Aspartate Amino Transferase 19 U/L (5-31); Bilirubin Direct 0.1 mg/dL (0.0-0.5); Bilirubin Total 0.3 mg/dL (0.0-1.0); Blood Urea Nitrogen 11 mg/dL (9-16); C Reactive Protein < 0.10 mg/dL (< or = 0.50); Calcium 9.2 mg/dL (8.4-10.2); Carbon Dioxide 25 mmol/L (22-29); Chloride 106 mmol/L (96-108); Estimated Glomerular Filt Rate > 60; Glucose Random 88 mg/dL (60-115); Potassium 4.2 mmol/L (3.3-5.1); Sodium 138 mmol/L (135-145); Total Protein 7.2 g/dL (6.5-8.0)
[2024-03-23 11:11] LABS: Thyroid Stimulating Hormone 1.96 uIU/mL (0.32-4.0)
[2024-03-23 11:23] LABS: Erythrocyte Sedimentation Rate 2 MM/HR (0-20)
== END 2024-03-23 08:38 | disposition home or self-care (01) ==
LOC: HO.HMGCLDS 08:37
PROVIDERS: PCP Family Medicine; Visit Provider Internal Medicine
DX: R60.0 Localized edema (principal)
CPT/HCPCS: 36415; 80048; 80076; 84443; 85027; 85652; 86140

== ENCOUNTER 2024-04-06 12:57 | Outpatient (REF) | payer OTHER, SELFPAY ==
--- NOTE | ~2024-04-06 | XR_ITS ---
EXAMINATION: XR THORACIC SPINE. XR LUMBAR SPINE. CLINICAL INFORMATION: Back pain COMPARISON: Chest CT 11/05/2023 TECHNIQUE: AP and lateral views of the thoracic spine. 3 views of the lumbar spine. FINDINGS: Mild multilevel degenerative disc disease of the midthoracic spine. No fracture. Normal alignment and thoracic kyphosis. Lumbar spine: Normal alignment and lumbar lordosis. No fracture. Intervertebral disc heights are preserved. XR/XR lumbar spine 2-3V IMPRESSION: Mild multilevel degenerative disc disease of the midthoracic spine. Normal lumbar spine.
--- NOTE | ~2024-04-06 | XR_ITS ---
EXAMINATION: XR THORACIC SPINE. XR LUMBAR SPINE. CLINICAL INFORMATION: Back pain COMPARISON: Chest CT 11/05/2023 TECHNIQUE: AP and lateral views of the thoracic spine. 3 views of the lumbar spine. FINDINGS: Mild multilevel degenerative disc disease of the midthoracic spine. No fracture. Normal alignment and thoracic kyphosis. Lumbar spine: Normal alignment and lumbar lordosis. No fracture. Intervertebral disc heights are preserved. XR/XR thoracic spine 2V IMPRESSION: Mild multilevel degenerative disc disease of the midthoracic spine. Normal lumbar spine.
== END 2024-04-06 12:58 | disposition home or self-care (01) ==
LOC: HO.HMGCX 12:57
PROVIDERS: PCP Family Medicine; Visit Provider Physical Medicine & Rehabilitation
DX: M54.6 Pain in thoracic spine (principal); G89.29 Other chronic pain
CPT/HCPCS: 72070; 72100

== ENCOUNTER 2024-05-10 11:14 | Outpatient (AMB) | payer OTHER, SELFPAY ==
[2024-05-10 11:19] VITALS: BP 114/70; PULSE 83; O2SAT 99; BMI 21.3
--- NOTE | 2024-05-10 11:19 | A.OFFPC_ITS ---
Vital Signs 05/10/24 11:19 Height 5 ft 8 in Weight 140 lb BMI 21.3 BP 114/70 Blood Pressure Location Lt brachial Position Sitting Pulse 83 Pulse Source Pulse Oximeter Pulse Oximetry (%) 99 Oxygen Delivery Method Room Air Intake Visit Reasons: f/u hypertension, palpitations Intake Note: Patient is here for follow up on hypertnesion and palpitations. Allergies Seasonal Allergies Allergy (Severe, Verified 05/10/24 11:21) Chronic Sinus Infections hydrocodone [From Vicodin] Allergy (Unknown, Verified 05/10/24 11:21) Hives Medication List - Last Reconciled 05/10/24 by Misbah Mckinney MD cholecalciferol (vitamin D3) 50 mcg PO DAILY 90 days metoprolol succinate ER 12.5 mg (1/2 x 25 mg) PO DAILY 90 days Tobacco use date assessed: 05/10/24 Dental Screening Dental Screen Date: 08/04/23 Did you have a dental visit in the last 12 months?: Yes Did you have a dental problem in the last 6 months where you did not have access to dental care?: No Was dental information given to patient?: Patient has dentist HPI f/u hypertension, palpitations HPI Details 33 y/o female presents to f/u hypertensi on and palpitations. Blood pressure today 114/70. She is on metoprolol 12.5mg daily. [facility] Medical History History of high blood pressure Surgical History History of breast lump History of appendectomy Family History Father COPD (chronic obstructive pulmonary disease) Mother No problems noted. Maternal Grandmother No problems noted. Maternal Grandfather Cancer Paternal Grandmother Breast cancer Paternal Grandfather No problems noted. Brother No problems noted. Brother No problems noted. Sister No problems noted. Sister No problems noted. Social History Housing: Condominium Alcohol intake: never Patient Tobacco Use Status: Never used Tobacco e-Cigarette/Vaping Use: Never Used Second Hand Smoke Exposure: No service: Yes Current occupational status: employed Current occupation: [employer]/ right hand dominant Current occupational exposures/hazards: No Cognitive needs: No Hearing needs: No Vision needs: Yes (Glasses) Questionnaire Thrive Questionnaire Date Thrive assessed: 07/03/23 JJ-7 AMB Questionnaire JJ-7 Date JJ - 7 assessed: 07/03/23 Source: Developed by Drs. Demond Wilks, Silvia Coulter, Dave Ortega and colleagues, with an educational debra from [employer]. Review of Systems Const Denies chills, Denies fatigue, Denies fever(s), Denies headache(s) and Denies weakness ENT Denies dizziness and Denies headache(s) Card Denies chest pain, Denies lightheadedness, Denies dyspnea and Denies other (Palpitations) Resp Denies cough, Denies dyspnea, Denies wheezing and Denies other ( shortness of breath) Musc Denies numbness and Denies tingling Neuro Denies dizziness, Denies headache(s), Denies numbness, Denies tingling, Denies paresthesias and Denies weakness Psych Denies anxiety and Denies depression Endo Denies fatigue Aller/Immun Denies wheezing Physical exam (Primary Care) Vital Signs: Last Vital Signs Pulse 83 05/10/24 11:19 BP 114/70 05/10/24 11:19 Pulse Ox 99 05/10/24 11:19 Oxygen Delivery Method Room Air 05/10/24 11:19 BMI result Body Mass Index 21.3 Tobacco/Smoking Status: Tobacco use Status Tobacco use date assessed 05/10/24 05/10/24 11:22 Patient Tobacco Use Status Never used Tobacco 05/10/24 11:22 e-Cigarette/Vaping Use Never Used 05/10/24 11:22 Thrive Assessment: Date of Thrive Assessment Date Thrive assessed 07/03/23 05/10/24 11:22 Const General: no acute distress and well developed Nutritional Appearance: well nourished Orientation/consciousness: patient oriented x3 HENMT Head: Yes normocephalic and Yes atraumatic Eyes General: appearance normal, both eyes and all related structures Pupils: Equal, round and reactive pupils present EOM: EOMs intact bilaterally Resp Effort & Inspection: normal respiratory effort Auscultation: clear to auscultation bilaterally Cardio Rate: regular rate Rhythm: regular rhythm Heart sounds: S1 normal heart sound present, S2 normal heart sound present, no gallops, no murmurs and no rubs Neuro General: patient oriented x3 and gait normal Cranial nerves: Yes Equal, round and reactive pupils present Psych Affect: normal affect Assessment and Plan Assessment & Plan (1) Hypertension: Code(s): I10 - Essential (primary) hypertension Plan: Blood?pressure?is?controlled. Goal?is?less?than?140/90 She?is?using?metoprolol?for?both?blood?pressure?and?palpitations Continue?current?medication (2) Palpitations: Code(s): R00.2 - Palpitations Plan: No?palpitations?on?metoprolol Continue?current?medication Orders: Orders Comprehensive Boron. Panel Fast Today Z00.00 - Encounter for general adult medical examination without abnormal findings Complete Blood Count Auto Diff Today Z00.00 - Encounter for general adult medical examination without abnormal findings Lipid Panel Today Z00.00 - Encounter for general adult medical examination without abnormal findings Vitamin D 25-OH Total Today E55.9 - Vitamin D deficiency, unspecified Microalbumin, Random (w Creat) Today I10 - Essential (primary) hypertension TSH reflex Free T4 Today Z00.00 - Encounter for general adult medical examination without abnormal findings UA and rflx microscopic Today Z00.00 - Encounter for general adult medical examination without abnormal findings Medications: Refilled metoprolol succinate ER 12.5 mg (1/2 x 25 mg) PO DAILY 90 days 45 tabs 3RF R00.2 - Palpitations Coding Level of Care Code Est Pt Level 3 (31828) Diagnoses Hypertension I10 Palpitations R00.2
== END 2024-05-10 11:46 | disposition home or self-care (01) ==
PROVIDERS: PCP Family Medicine; Visit Provider Family Medicine
DX: I10 Essential (primary) hypertension (principal); R00.2 Palpitations
CPT/HCPCS: 99214

== ENCOUNTER 2024-07-15 09:21 | Outpatient (REF) | payer OTHER, SELFPAY ==
[2024-07-15 10:06] LABS: MANUAL DIFF FLAG NO
[2024-07-15 10:09] LABS: Appearance Urine Clear; Color Urine Yellow; Glucose Urine UA Negative (Negative); Leukocyte Esterase Urine Negative (Negative); Nitrite Urine Negative (Negative); Urine Blood Negative (Negative); Urine Ketones Negative (Negative); Urine Protein Negative (Neg-Trace)
[2024-07-15 10:13] LABS: Basophils Percent Auto 0.5 % (0-2); Eosinophils Percent Auto 0.2 % (0-4); Hematocrit 40.2 % (37.0-47.0); Hemoglobin 13.2 g/dl (12.0-16.0); Imm Gran Abs Auto 0.01 X10*3/uL (0.00-0.03); Imm Gran Pct Auto 0.2 % (0.0-0.4); Lymphocytes Absolute Auto 1.4 X10*3/uL (1.2-4.9); Lymphocytes Percent Auto 32.2 % (20-40); Mean Corpuscular HGB Conc 32.8 g/dl (31.0-35.0); Mean Corpuscular Hemoglobin 28.8 pg (27.0-33.0); Mean Corpuscular Volume 87.8 fL (80.0-98.0); Mean Platelet Volume 10.7 fL (9.4-12.3); Monocytes Absolute Auto 0.5 X10*3/uL (0.1-1.2); Monocytes Percent Auto 11.3 % (2-11); Neutrophils Absolute Auto 2.4 x10*3/uL (2.0-8.3); Neutrophils Percent Auto 55.6 % (45-73); Platelet Count 169 X10*3/uL (160-400); Red Blood Count 4.58 X10*6/uL (4.20-5.50); Red Cell Distribution Width 13.3 % (11.0-16.0); White Blood Count 4.3 X10*3/uL (4.8-10.8)
[2024-07-15 10:41] LABS: Creatinine Urine 47.08 mg/dL; Microalbumin Urine < 5.0 mg/L
[2024-07-15 10:44] LABS: Alanine Aminotransferase 13 U/L (0-31); Albumin Level 4.6 g/dL (3.5-5.0); Alkaline Phosphatase 46 U/L (39-117); Anion Gap 8 (12-20); Aspartate Amino Transferase 20 U/L (5-31); Bilirubin Total 0.4 mg/dL (0.0-1.0); Blood Urea Nitrogen 11 mg/dL (9-16); Calcium 9.3 mg/dL (8.4-10.2); Carbon Dioxide 25 mmol/L (22-29); Chloride 108 mmol/L (96-108); Cholesterol 159 mg/dL (<200); Estimated Glomerular Filt Rate > 60; Glucose Fasting 91 mg/dL (60-99); HDL Cholesterol 66 mg/dL (>40); LDL Cholesterol Calculated 80 mg/dL (<100); Potassium 4.1 mmol/L (3.3-5.1); Sodium 137 mmol/L (135-145); Total Protein 7.7 g/dL (6.5-8.0); Triglycerides 65 mg/dL (<150)
[2024-07-15 11:00] LABS: TSH reflex Free T4 1.87 uIU/mL (0.32-4.0); Vitamin D 25-OH Total 29.6 ng/mL (>30)
== END 2024-07-15 09:22 | disposition home or self-care (01) ==
LOC: HO.HMGCLDS 09:21
PROVIDERS: PCP Family Medicine; Visit Provider Family Medicine
DX: Z00.00 Encounter for general adult medical examination without abnormal findings (principal); I10 Essential (primary) hypertension; E55.9 Vitamin D deficiency, unspecified
CPT/HCPCS: 36415; 80053; 80061; 81003; 82043; 82306; 82570; 84443; 85025

== ENCOUNTER 2024-07-29 10:48 | Outpatient (AMB) | payer OTHER, SELFPAY ==
--- NOTE | 2024-07-29 10:57 | A.OFFPC_ITS ---
Vital Signs 07/29/24 11:03 Height 5 ft 8 in Weight 151 lb 4 oz BMI 23.0 BP 118/76 Blood Pressure Location Lt brachial Position Sitting Respiration 12 Pulse 79 Pulse Source Pulse Oximeter Pulse Oximetry (%) 99 Oxygen Delivery Method Room Air Intake Visit Reasons: CPE with f/u labs and health Intake Note: Physical. Lab results Leather Seasoner Required: No Is last menstrual period known: Yes Last menstrual period: 07/27/24 Allergies Seasonal Allergies Allergy (Severe, Verified 07/29/24 10:57) Chronic Sinus Infections hydrocodone [From Vicodin] Allergy (Unknown, Verified 07/29/24 10:57) Hives Tobacco use date assessed: 05/10/24 Dental Screening Dental Screen Date: 07/29/24 Did you have a dental visit in the last 12 months?: Yes Was dental information given to patient?: Patient has dentist HPI HPI Comments History of Present Illness Details This is a 33-year-old female with a past medical history of hypertension, vitamin-D deficiency, postconcussive syndrome and thrombocytopenia presenting for a physical exam. She is a patient of Dr. Mckinney. She is up-to-date with eye and dental exams. She sees her passenger train braker yearly for annuals. She had negative BRCA testing at the [facility] around 2012. She has a strong family history of breast cancer on the paternal side. She has a mammogram annually and breast ultrasound. She requests a referral for therapy. She is under a lot of stress with her job. She is in the . She also says there are things throughout her career that have occurred that also have resulted and stress and anxiety. She would like to address some of the things with a therapist. She does not feel depressed. No SI or HI. Referral placed. We reviewed her recent blood work. Her platelet count has fluctuated between mildly low and normal range for years, and she also has mild leukopenia that has fluctuated. Patient is requesting to see a hybrid corn breeder to review this though she is not overly concerned. She does note easy bruising. No abnormal bleeding. No fatigue or unexplained weight loss. She does not take psychiatric medications. No recent illness. Referral placed. Hypertension is well-controlled on 12.5 mg of metoprolol succinate daily. ROS: Constitutional: No unexplained weight loss, fever, chills, fatigue or night sweats. Eyes: No vision changes, blurry vision, double vision, eye pain, eye redness, eye discharge. ENT: No hearing loss, sneezing, congestion, runny nose or sore throat. Respiratory: No shortness of breath, cough or sputum production. Cardiovascular: No chest pain, chest pressure or chest discomfort. No palpitations or pedal edema. Gastrointestinal: No anorexia, nausea, vomiting or diarrhea. No abdominal pain or blood in stool. Genitourinary: No dysuria, hematuria, urinary frequency. Neurologic: No headache, dizziness, syncope, unilateral weakness, ataxia, numbness or tingling in the extremities. Musculoskeletal: No muscle pain, back pain, joint pain or swelling. Hematologic/Lymphatics: No bleeding. No painful lymph nodes. Skin: No rash or itching. Endocrine: No cold or heat intolerance. No polyuria or polydipsia. Psychiatric: see HPI Physical exam: Constitutional: Alert, in no distress. Head: Normocephalic. Eyes: Pupils are equal, round and reactive to light. Extraocular muscles intact. Ear, Nose and Throat: Canals clear. TMs normal. Normal nasal mucosa. No nasal discharge. No oral lesions. Neck: Supple, Full range of motion. No lymphadenopathy. No palpable thyroid masses. Respiratory: Clear to auscultation. Cardiovascular: S1 S2 regular. No murmurs. Gastrointestinal: Abdomen soft, non-tender, non-distended. Normal bowel sounds. No palpable masses. Neurologic: No focal neurological deficits. Symmetric patellar reflexes. Moves all extremities spontaneously. Sensation intact bilaterally. Skin: No rashes Musculoskeletal: No gross deformities. Normal range of motion. Extremities: Warm and well perfused. No clubbing, cyanosis or edema. 3+ peripheral pulses bilaterally. Psychiatric: Normal mood and affect [facility] Medical History (Updated 07/29/24 @ 11:38 by OSWALDO Ramsay) Decreased leukocytes Stress Routine physical examination History of high blood pressure Surgical History History of breast lump History of appendectomy Family History Father COPD (chronic obstructive pulmonary disease) Mother No problems noted. Maternal Grandmother No problems noted. Maternal Grandfather Cancer Paternal Grandmother Breast cancer Paternal Grandfather No problems noted. Brother No problems noted. Brother No problems noted. Sister No problems noted. Sister No problems noted. Social History (Updated 07/29/24 @ 10:58 by Diana Zepeda [facility]) Housing: Condominium Alcohol intake: never Patient Tobacco Use Status: Never used Tobacco e-Cigarette/Vaping Use: Never Used Second Hand Smoke Exposure: No service: Yes Current occupational status: employed Current occupation: [employer]/ right hand dominant Current occupational exposures/hazards: No Cognitive needs: No Hearing needs: No Vision needs: Yes (Glasses) Female Reproductive History Menstrual Date of last menstrual period: 07/27/24 Questionnaire PHQ-9 Over the last 2 weeks, how often have you been bothered by any of the following problems? 1. Little interest or pleasure in doing things: not at all 2. Feeling down, depressed, or hopeless: not at all 3. Trouble falling or staying asleep, or sleeping too much: not at all 4. Feeling tired or having little energy: not at all 5. Poor appetite or overeating: not at all 6. Feeling bad about yourself - or that you are a failure or have let yourself or your family down: not at all 7. Trouble concentrating on things, such as reading the newspaper or watching television: not at all 8. Moving or speaking so slowly that other people could have noticed. Or the opposite - being so fidgety or restless that you have been moving around a lot more than usual: not at all 9. Thoughts that you would be better off or of hurting yourself in some way: not at all Total score: 0 Depression Screening Interpretation: Negative Depression Screening Done: Yes 20477 - PHQ-9 Billing: Yes Source: Developed by Drs. Demond Wilks, Silvia Coulter, Dave Ortega and colleagues, with an educational debra from [employer]. Thrive Questionnaire Date Thrive assessed: 07/29/24 I am a: Patient What is your living situation today?: I have a steady place to live Within the past 12 months, did the food you bought not last and you didn't have the money to get more?: Never true Within the past 12 months, did you worry whether your food would run out before you got money to buy more?: Never true Do you have trouble paying for medicines?: No Do you have trouble getting transportation to medical appointments?: No Do you have trouble paying your heating and electricity bill?: No Do you have trouble taking care of your child, family member or friend?: No Do you have trouble with day-to-day activities such as bathing, preparing meals, shopping, managing finances, etc.?: No Are you currently unemployed and looking for a job?: No Are you interested in more education?: No Please select the resources that you would like help with: None Currently or been in a relationship where the following occur: No concerns reported THRIVE Score: 0 AUDIT C Alcohol Use Questionnaire (AUDIT-C) 1. How often do you have a drink containing alcohol?: Never 3. How often do you have six or more drinks on one occasion?: Never Total Score: 0 JJ-7 AMB Questionnaire JJ-7 Date JJ - 7 assessed: 07/29/24 Feeling nervous, anxious, or on edge: 0 = Not at all Not being able to stop or control worryin = Not at all Worrying too much about different things: 0 = Not at all Trouble relaxin = Not at all Being so restless that it is hard to sit still: 0 = Not at all Becoming easily annoyed or irritable: 0 = Not at all Feeling afraid as if something awful might happen: 0 = Not at all Total JJ-7 score (0-4 normal; 5-9 mild; 10-14 moderate; 15-21 severe): 0 Source: Developed by Drs. Demond Wilks, Silvia Coulter, Dave Ortega and colleagues, with an educational debra from [employer]. JJ-7 Assessment Billing JJ-7 Assessment Tool: JJ-7 Assessment 77796 Physical exam (Primary Care) Vital Signs: Last Vital Signs Pulse 79 07/29/24 11:03 Resp 12 07/29/24 11:03 BP 118/76 07/29/24 11:03 Pulse Ox 99 07/29/24 11:03 Oxygen Delivery Method Room Air 07/29/24 11:03 BMI result Body Mass Index 23.0 Tobacco/Smoking Status: Tobacco use Status Tobacco use date assessed 05/10/24 07/29/24 10:58 Patient Tobacco Use Status Never used Tobacco 07/29/24 10:58 e-Cigarette/Vaping Use Never Used 07/29/24 10:58 PHQ-9: PHQ-9 Score PHQ-9: Total score 0 07/29/24 11:24 Depression Screening Interpretation: Negative Thrive Assessment: Date of Thrive Assessment Date Thrive assessed 07/29/24 07/29/24 11:07 Currently or been in a relationship where the following occur: No concerns reported Assessment and Plan Assessment & Plan (1) Routine physical examination: Code(s): Z00.00 - Encounter for general adult medical examination without abnormal findings Plan Patient is seen today for a routine physical. As part of this visit we reviewed the following issues, which are considered and essential part of preventative health in this age group: - Breast Cancer screening - Annual Etl Architect exam - Blood pressure screening - Cholesterol screening - Osteoporosis prevention including calcium/vitamin D intake, weight bearing exercise & smoking cessation - Nutritional and exercise counseling - Counseling of injury prevention including fire prevention, smoke alarms and seat belt usage - Screening for depression - Prevention of and/or testing for infectious diseases - Education about skin cancer - Recommendations about immunizations - Recommendation of an eye exam - Screening for substance abuse Follow up in 1 year for CPE. Orders: Referrals Psychology Referral F43.9 - Reaction to severe stress, unspecified Hematology & Oncology Referral D72.819 - Decreased white blood cell count, unspecified Medications: Refilled metoprolol succinate ER 12.5 mg (1/2 x 25 mg) PO DAILY 90 days 45 tabs 3RF R00.2 - Palpitations Coding Level of Care Code Est Pt Prev Care 18-39y(45133) Diagnoses Routine physical examination Z00.00 Additional Codes JJ-7 Assessment Billing - JJ-7 Assessment Tool: JJ-7 Assessment 03502 ([id number])
[2024-07-29 11:03] VITALS: BP 118/76; PULSE 79; RESP 12; O2SAT 99; BMI 23.0
== END 2024-07-29 11:46 | disposition home or self-care (01) ==
PROVIDERS: PCP Family Medicine; Visit Provider Physician Assistant Medical
DX: Z00.00 Encounter for general adult medical examination without abnormal findings (principal)
CPT/HCPCS: 99395

== ENCOUNTER → 2024-09-08 11:00 | Outpatient (BNV) | payer OTHER, SELFPAY | PROVIDERS: PCP Family Medicine; Referring Provider Family Medicine; Visit Provider Internal Medicine | DX: D69.6 Thrombocytopenia, unspecified (principal) | CPT/HCPCS: 99204 ==

== ENCOUNTER 2024-09-28 15:20 | Outpatient (REF) | payer OTHER, SELFPAY ==
[2024-09-29 11:16] LABS: Influenza A PCR NEGATIVE (Negative); Influenza B PCR NEGATIVE (Negative); Resp Syncy Virus RNA Qual PCR NEGATIVE (Negative); SARS COV2 PCR INHOUSE NEGATIVE (Negative)
== END 2024-09-28 15:21 | disposition home or self-care (01) ==
LOC: HO.LNP 15:20
PROVIDERS: PCP Family Medicine; Visit Provider Physician Assistant
DX: R05.1 Acute cough (principal)
CPT/HCPCS: 0241U; 99212

== ENCOUNTER 2024-09-28 15:20 | Outpatient (AMB) | payer OTHER, SELFPAY ==
--- NOTE | 2024-09-28 15:23 | MHC.OFFWIV ---
Intake Vital Signs 09/28/24 15:25 Weight 151 lb BP 130/76 Blood Pressure Location Lt brachial Position Sitting Pulse 94 Pulse Source Pulse Oximeter Temp 98.5 F Temp Source Oral Pulse Oximetry (%) 99 Oxygen Delivery Method Room Air Intake Visit Reasons: EP SOB, feels like fluid inside the ears, cough Intake Note: Patient here for SOB, bilat fluid feeling inside ears, cough which has been going on for about 5 days. Patient Tobacco Use Status: Never used Tobacco Allergies Seasonal Allergies Allergy (Severe, Verified 09/28/24 15:26) Chronic Sinus Infections hydrocodone [From Vicodin] Allergy (Unknown, Verified 09/28/24 15:26) Hives Do you need a note to return to daycare/school/sports/work: No HPI HPI Comments History of Present Illness Details Patient is a 33yo F who presents with SOB and cold symptoms Occurring when talking with associated dry cough Ongoing x 5 days and feels similar to when she had bronchitis in the past No improving or worsening factors occurs randomly throughout day No fever or chills + headache yesterday and slight fluid in ears No ear pain, 0/10 No congestion but felt like some post nasal drip Tried vitamins and Advil for headache which resolved it No chest pain No leg edema or calf pain or hx dvt PFSH Medical History (Updated 09/28/24 @ 15:46 by Lucia Hope PA-C) Decreased leukocytes Stress Routine physical examination History of high blood pressure Surgical History (Updated 09/08/24 @ 11:04 by Magali Blanco MD) History of breast lump History of appendectomy Family History Father COPD (chronic obstructive pulmonary disease) Mother No problems noted. Maternal Grandmother No problems noted. Maternal Grandfather Cancer Paternal Grandmother Breast cancer Paternal Grandfather No problems noted. Brother No problems noted. Brother No problems noted. Sister No problems noted. Sister No problems noted. Social History Household Members: Significant Other and Children Housing: Condominium Alcohol intake: never Patient Tobacco Use Status: Never used Tobacco e-Cigarette/Vaping Use: Never Used Second Hand Smoke Exposure: No service: Yes Current occupational status: employed Current occupation: [employer]/ right hand dominant Current occupational exposures/hazards: No Gender identity: Female Cognitive needs: No Hearing needs: No Vision needs: Yes (Glasses) Review of Systems Const Denies body aches, Reports fatigue, Denies fever(s) and Reports headache(s) Eyes Denies change in vision ENT Denies dizziness, Reports otalgia (no pain but + fluid bilaterally), Reports headache(s), Denies sinus pressure and Reports other (post nasal drip) Card Denies chest pain, Denies syncope and Reports dyspnea Resp Reports cough, Denies hemoptysis and Reports dyspnea GI Denies nausea and Denies vomiting Musc Denies myalgias Skin/Breast Denies erythema Neuro Denies dizziness, Denies syncope and Reports headache(s) Endo Reports fatigue Physical Exam Vital Signs: Last Vital Signs Temp 98.5 F 09/28/24 15:25 Pulse 94 09/28/24 15:25 BP 130/76 09/28/24 15:25 Pulse Ox 99 09/28/24 15:25 Oxygen Delivery Method Room Air 09/28/24 15:25 General: Non-toxic, NAD. Speaking full sentences. Skin: Warm dry throughout Eye: EOMI HENT: Airway patent. Uvula midline. No pharyngeal erythema or edema. No UTILIZATION MANAGEMENT RN. Bilateral canals clear. + fluid noted behind TM, R>L. No perforation. + tm scar noted L side. TM non-erythematous, non-bulging. No TM perforation or hemotympanum noted. No sinus tenderness to palpation Respiratory: CTA bilaterally. No wheezes, rales or rhonchi Cardiac: RRR. No murmur MSK: Full ROM extremities. Neurology: A/O. No aphasia or facial droop. Gait without abnormality Psych: Good mood and affect Assessment & Plan Assessment & Plan (1) Cough: Code(s): R05.9 - Cough, unspecified Qualifiers: Cough type: acute Qualified Code(s): R05.1 - Acute cough Plan: Patient seen and evaluated. COVID/flu/rsv swab obtained PERC is 0 for concern PE. discussed prednisone use (helped with bronchitis in past) No sign of bacterial infection at this time ER s/s discussed with pt and she gave verbal understanding and had no additional questions or concerns at time of discharge All questions answered Orders: Orders SARS-CoV2/FLU/RSV Today R05.9 - Cough, unspecified Medications: New prednisone 40 mg (2 x 20 mg) PO DAILY 8 tabs 0RF Coding Level of Care Code Est Pt Level 3 (29348) Diagnoses Acute cough R05.1 Cough type: acute
[2024-09-28 15:25] VITALS: BP 130/76; PULSE 94; TEMP 36.9; O2SAT 99
== END 2024-09-28 16:01 | disposition home or self-care (01) ==
PROVIDERS: PCP Family Medicine; Visit Provider Physician Assistant
DX: R05.1 Acute cough (principal)

== ENCOUNTER 2024-10-13 11:05 | Outpatient (AMB) | payer OTHER, SELFPAY ==
--- NOTE | 2024-10-13 11:22 | A.OFFPC_ITS ---
Intake Visit Reasons: Chest congestion, heart palpations Allergies Seasonal Allergies Allergy (Severe, Verified 09/28/24 15:26) Chronic Sinus Infections hydrocodone [From Vicodin] Allergy (Unknown, Verified 09/28/24 15:26) Hives Tobacco use date assessed: 05/10/24 Dental Screening Dental Screen Date: 07/29/24 [facility] Medical History (Updated 09/28/24 @ 15:46 by Lucia Hope PA-C) Decreased leukocytes Stress Routine physical examination History of high blood pressure Surgical History (Updated 09/08/24 @ 11:04 by Magali Blanco MD) History of breast lump History of appendectomy Family History Father COPD (chronic obstructive pulmonary disease) Mother No problems noted. Maternal Grandmother No problems noted. Maternal Grandfather Cancer Paternal Grandmother Breast cancer Paternal Grandfather No problems noted. Brother No problems noted. Brother No problems noted. Sister No problems noted. Sister No problems noted. Social History Household Members: Significant Other and Children Housing: Condominium Alcohol intake: never Patient Tobacco Use Status: Never used Tobacco e-Cigarette/Vaping Use: Never Used Second Hand Smoke Exposure: No service: Yes Current occupational status: employed Current occupation: [employer]/ right hand dominant Current occupational exposures/hazards: No Gender identity: Female Cognitive needs: No Hearing needs: No Vision needs: Yes (Glasses) Questionnaire Thrive Questionnaire Date Thrive assessed: 07/29/24 JJ-7 AMB Questionnaire JJ-7 Date JJ - 7 assessed: 07/29/24 Source: Developed by Drs. Demond Wilks, Silvia Coulter, Dave Ortega and colleagues, with an educational debra from [email or web address]. Physical exam (Primary Care) Tobacco/Smoking Status: Tobacco use Status Tobacco use date assessed 05/10/24 07/29/24 10:58 Patient Tobacco Use Status Never used Tobacco 09/28/24 15:24 e-Cigarette/Vaping Use Never Used 07/29/24 10:58 Thrive Assessment: Date of Thrive Assessment Date Thrive assessed 07/29/24 07/29/24 11:07 Coding
--- NOTE | 2024-10-13 11:25 | AM.OFFWIN_ITS ---
Intake Vital Signs 10/13/24 11:26 Height 5 ft 7 in Weight 152 lb 4 oz BMI 23.8 BP 124/84 Blood Pressure Location Rt brachial Position Sitting Pulse 98 Pulse Source Pulse Oximeter Temp 98.3 F Temp Source Oral Pulse Oximetry (%) 100 Oxygen Delivery Method Room Air Intake Visit Reasons: Chest congestion, heart palpations Intake Note: Chest congestion, sob, heart palpations. Went to [email or web address] in two weeks ago, they did covid and rsv. They were negative. Patient Tobacco Use Status: Never used Tobacco Assessment Nurse Practitioner Required: No Allergies Seasonal Allergies Allergy (Severe, Verified 10/13/24 11:26) Chronic Sinus Infections hydrocodone [From Vicodin] Allergy (Unknown, Verified 10/13/24 11:26) Hives Medication List - Last Reconciled 10/13/24 by Mandy Jackman PA-C cholecalciferol (vitamin D3) 50 mcg PO DAILY 90 days ferrous sulfate 325 mg PO DAILY metoprolol succinate ER 12.5 mg (1/2 x 25 mg) PO DAILY 90 days Do you need a note to return to daycare/school/sports/work: No HPI Chest congestion, heart palpations HPI Details History of Present Illness The patient is a 33-year-old female with a significant past medical history of hypertension, palpitations and iron-deficiency anemia presenting with cough, heart palpitations, and chest congestion. The symptoms began approximately two weeks ago, characterized initially by sinus congestion, ear fullness, persistent coughing and congestion without fever or chills. At an urgent care visit, a COVID-19 test was negative, and a trial of steroids was initiated to manage potential bronchitis, but this yielded no significant relief. Recently, the patient has been experiencing heart palpitations described as a sensation of skipped beats, lasting approximately three seconds, occurring mainly at night with no associated pain or dizziness. she states that the palpitations started about a week ago. She thinks that she is well hydrated. She wonders if it is related to her anemia. She is still taking supplements. She is still on metoprolol for her blood pressure and palpitation management. She was evaluated by Cardiology in the past. She has not had any fevers or chills but she still has some ear fullness. No longer having any sinus pain or postnasal drip. No sore throat or difficulty swallowing. Social History - Works at [employer] - Diet includes a lot of water consumpti on and coffee - History of iron deficiency anemia, cur rently taking iron supplements Review of Systems - Respiratory: Reports cough with phlegm production - Cardiovascular: Reports palpitations, especially in the evening - ENT: Reports sensation of fluid in ear , denies ear pain - General: Denies fever, chills, nausea, vomiting, or diarrhea Physical Exam General: Cooperative, healthy appearing, comfortable, no acute distress and well developed Orientation: Patient oriented x3 Limitations: No limitations Head: Normal to inspection Ears: Hearing grossly normal bilaterally, trace fluid at the base of the right ear Nose: Normal external nose present Face and sinus: Normal facial exam, no sinus pain or pressure Eyes: Appearance normal, both eyes and all related structures Neck: Normal visual inspection and Yes full ROM, no swollen lymph nodes Respiratory: Normal respiratory effort and able to speak in complete sentences. Clear to auscultation bilaterally, slight rhonchi in the left lung which clear with coughing Cardiovascular: Regular rate and rhythm. Normal S1 and S2, no murmur GI: Normal to inspection. Soft to palpation and nontender Skin: No rashes or lesions noted Neuro: Patient oriented x3 Extremities: Normal to inspection, no leg swelling or pain Results - EKG: Normal sinus rhythm, findings con sistent with previous evaluations - Ambulatory O2 sat 100% on room air wi thout tachycardia. Plan - Lung infection: Administer azithromy natalia Z-Reuben) for potential atypical bacterial infection and order a chest X-ray to assess for pneumonia. declines any cough medication. Encouraged rest and hydration. Ambulatory O2 sat is 100% on room air. No tachycardia. - Heart Palpitations: Continue monitorin g, check labs to rule out anemia, thyroid dysfunction, and electrolyte imbalance. Advise on reducing caffeine intake and ensuring adequate hydration. EKG reviewed today in office. No but can change from prior EKG in 2021. Interpreted myself and Dr. Powell. - Iron Deficiency Anemia: Maintain iron supplementation, and check iron profile in bloodwork. Patient was informed and verbally consented to the use of an ambient scribe for clinic note documentation during this visit. Discussion Notes I discussed with the patient the probable diagnosis of a lung infection, given the persistence and characteristics of her symptoms. Initiation of azithromycin was recommended to address possible atypical pneumonia pathogens, with instructions to conduct a chest X-ray to confirm this suspicion. We reviewed her EKG results which were consistent with previous findings and showed no acute issues. I explained possible aggravating factors for her palpitations, including the previous use of prednisone and her current physical state. Recommendations were made for lifestyle adjustments to manage palpitations, such as reducing caffeine intake and ensuring proper hydration. No new medications were prescribed for respiratory symptoms, as they could potentially exacerbate her palpitations. Patient Instructions - Complete the prescribed azithromycin c ourse and follow up for results of the chest X-ray. - Maintain hydration and monitor for maurice nges in palpitations or respiratory symptoms. - Avoid caffeine to help minimize palpit ations. - Follow up with lab work as ordered to review blood counts, electrolytes, thyroid function, and iron levels. - Return for evaluation if symptoms pers ist or worsen, including any new or troublesome symptoms. [facility] Medical History (Updated 10/13/24 @ 11:54 by Mandy Jackman PA-C) Decreased leukocytes Stress Routine physical examination History of high blood pressure Surgical History (Updated 09/08/24 @ 11:04 by Magali Blanco MD) History of breast lump History of appendectomy Family History Father COPD (chronic obstructive pulmonary disease) Mother No problems noted. Maternal Grandmother No problems noted. Maternal Grandfather Cancer Paternal Grandmother Breast cancer Paternal Grandfather No problems noted. Brother No problems noted. Brother No problems noted. Sister No problems noted. Sister No problems noted. Social History Household Members: Significant Other and Children Housing: Condominium Alcohol intake: never Patient Tobacco Use Status: Never used Tobacco e-Cigarette/Vaping Use: Never Used Second Hand Smoke Exposure: No service: Yes Current occupational status: employed Current occupation: [employer]/ right hand dominant Current occupational exposures/hazards: No Gender identity: Female Cognitive needs: No Hearing needs: No Vision needs: Yes (Glasses) Office Procedures EKG Details: see HPI. NSR 85 bpm [id number], Complete Assessment & Plan Assessment & Plan (1) Palpitations: Code(s): R00.2 - Palpitations (2) Lung infection: Code(s): J18.9 - Pneumonia, unspecified organism (3) LEONIDAS (iron deficiency anemia): Code(s): D50.9 - Iron deficiency anemia, unspecified Plan . Orders: Orders TSH reflex Free T4 Today D50.9 - Iron deficiency anemia, unspecified, J18.9 - Pneumonia, unspecified organism, R00.2 - Palpitations Complete Blood Count Auto Diff Today D50.9 - Iron deficiency anemia, unspecified, J18.9 - Pneumonia, unspecified organism, R00.2 - Palpitations Basic Metabolic Panel Today D50.9 - Iron deficiency anemia, unspecified, J18.9 - Pneumonia, unspecified organism, R00.2 - Palpitations IRON PROFILE Today D50.9 - Iron deficiency anemia, unspecified, J18.9 - Pneum onia, unspecified organism, R00.2 - Palpitations XR chest 2V Today J18.9 - Pneumonia, unspecified organism Medications: New azithromycin For 250 mg dose pack: take 500 mg today (day 1), then 250 mg for 4 days (days 2-5) PO 6 tabs 0RF Coding Level of Care Code Est Pt Level 4 (59327) Diagnoses Palpitations R00.2 Lung infection J18.9 LEONIDAS (iron deficiency anemia) D50.9 CPT Codes EKG - CPT: 21126-[id number], Complete ([id number])
[2024-10-13 11:26] VITALS: BP 124/84; PULSE 98; TEMP 36.8; O2SAT 100; BMI 23.8
== END 2024-10-13 11:59 | disposition home or self-care (01) ==
PROVIDERS: PCP Family Medicine; Visit Provider Physician Assistant
DX: R00.2 Palpitations (principal); J18.9 Pneumonia, unspecified organism; D50.9 Iron deficiency anemia, unspecified

== ENCOUNTER → 2024-10-13 11:05 | Outpatient (BNVA) | payer OTHER, SELFPAY | PROVIDERS: PCP Family Medicine | DX: R00.2 Palpitations (principal); J18.9 Pneumonia, unspecified organism; D50.9 Iron deficiency anemia, unspecified | CPT/HCPCS: 93005; 99212 ==

== ENCOUNTER 2024-10-13 12:34 | Outpatient (REF) | payer OTHER, SELFPAY ==
--- NOTE | ~2024-10-13 | XR_ITS ---
EXAMINATION: XR CHEST CLINICAL INFORMATION: J18.9 - Pneumonia, unspecified organism COMPARISON: 06/04/2022. TECHNIQUE: 2 views of the chest were obtained. FINDINGS: The cardiac, hilar, and mediastinal contours are normal. The lungs are clear bilaterally. There is no pneumothorax or pleural effusion. There is no focal osseous or soft tissue abnormality. XR/XR chest 2V IMPRESSION: No active pulmonary disease. Normal chest. Electronically signed by: Rafael Ontiveros MD 11/01/2024 10:59 AM JUDITH TELLEZ
[2024-10-13 16:28] LABS: MANUAL DIFF FLAG NO
[2024-10-13 16:43] LABS: Basophils Percent Auto 0.4 % (0-2); Eosinophils Percent Auto 0.1 % (0-4); Hematocrit 39.9 % (37.0-47.0); Hemoglobin 13.1 g/dl (12.0-16.0); Imm Gran Abs Auto 0.01 X10*3/uL (0.00-0.03); Imm Gran Pct Auto 0.1 % (0.0-0.4); Lymphocytes Absolute Auto 1.5 X10*3/uL (1.2-4.9); Lymphocytes Percent Auto 21.1 % (20-40); Mean Corpuscular HGB Conc 32.8 g/dl (31.0-35.0); Mean Corpuscular Volume 88.3 fL (80.0-98.0); Mean Platelet Volume 10.7 fL (9.4-12.3); Monocytes Absolute Auto 0.5 X10*3/uL (0.1-1.2); Monocytes Percent Auto 7.3 % (2-11); Platelet Count 194 X10*3/uL (160-400); Red Blood Count 4.52 X10*6/uL (4.20-5.50); Red Cell Distribution Width 13.8 % (11.0-16.0); White Blood Count 7.1 X10*3/uL (4.8-10.8)
[2024-10-13 17:15] LABS: Anion Gap 11 (12-20); Blood Urea Nitrogen 8 mg/dL (9-16); Calcium 9.6 mg/dL (8.4-10.2); Carbon Dioxide 27 mmol/L (22-29); Chloride 106 mmol/L (96-108); Estimated Glomerular Filt Rate > 60; Glucose Random 92 mg/dL (60-115); Iron 86 mcg/dL (30-160); Percent Iron Saturation 28 % (15-50); Potassium 3.9 mmol/L (3.3-5.1); Sodium 140 mmol/L (135-145); Total Iron Binding Capacity 305 mcg/dL (228-428); Unsaturated Iron Binding 219 ug/dL
[2024-10-13 17:18] LABS: TSH reflex Free T4 1.27 uIU/mL (0.32-4.0)
== END 2024-10-13 12:35 | disposition home or self-care (01) ==
LOC: HO.HMGCX 12:34
PROVIDERS: PCP Family Medicine; Visit Provider Physician Assistant
DX: J18.9 Pneumonia, unspecified organism (principal); D50.9 Iron deficiency anemia, unspecified; R00.2 Palpitations
CPT/HCPCS: 36415; 71046; 80048; 83540; 84443; 85025

== ENCOUNTER → 2024-10-13 12:49 | Outpatient (BNV) | payer OTHER, SELFPAY | PROVIDERS: PCP Family Medicine; Visit Provider Radiology Diagnostic Radiology | DX: J18.9 Pneumonia, unspecified organism (principal) | CPT/HCPCS: 71046 ==

== ENCOUNTER 2024-12-06 14:22 | Outpatient (AMB) | payer OTHER, SELFPAY ==
--- NOTE | 2024-12-06 14:23 | MHC.OFFWIV ---
Intake Vital Signs 12/06/24 14:25 Height 5 ft 7 in Weight 141 lb BMI 22.1 BP 120/86 Blood Pressure Location Rt brachial Position Sitting Pulse 81 Pulse Source Pulse Oximeter Temp 98.5 F Temp Source Oral Pulse Oximetry (%) 99 Oxygen Delivery Method Room Air Intake Visit Reasons: EP-cough, nasal draining, b/l ear block Intake Note: Pt is here today c/o cough,nasal draining and bilateral ear block Patient Tobacco Use Status: Never used Tobacco Allergies Seasonal Allergies Allergy (Severe, Verified 12/06/24 14:24) Chronic Sinus Infections hydrocodone [From Vicodin] Allergy (Unknown, Verified 12/06/24 14:24) Hives HPI HPI Comments History of Present Illness Details She presents to office with worsening cough/cold symptoms + cough with green phlegm Associated lung pain with deep cough 0/10 pain at rest or with breathing, only occurs when coughing Ongoing now over 1 week She recently was in [place] and got back on Friday; unsure about sick contacts + no ear pain but she has blocked sensation She denies runny nose but has congestion and post nasal drip She has tried DayQuil, NyQuil, EmergenC, warren tea without relief PFSH Medical History (Updated 12/06/24 @ 14:40 by Lucia Hope PA-C) Decreased leukocytes Stress Routine physical examination History of high blood pressure Surgical History (Updated 09/08/24 @ 11:04 by Magali Blanco MD) History of breast lump History of appendectomy Family History Father COPD (chronic obstructive pulmonary disease) Mother No problems noted. Maternal Grandmother No problems noted. Maternal Grandfather Cancer Paternal Grandmother Breast cancer Paternal Grandfather No problems noted. Brother No problems noted. Brother No problems noted. Sister No problems noted. Sister No problems noted. Social History Household Members: Significant Other and Children Housing: Condominium Alcohol intake: never Patient Tobacco Use Status: Never used Tobacco e-Cigarette/Vaping Use: Never Used Second Hand Smoke Exposure: No service: Yes Current occupational status: employed Current occupation: [employer]/ right hand dominant Current occupational exposures/hazards: No Gender identity: Female Cognitive needs: No Hearing needs: No Vision needs: Yes (Glasses) Review of Systems Const Denies chills and Denies fever(s) Eyes Denies change in vision ENT Denies otalgia (+ fullness bilateral ears. hx of tubes and perforation in past), Reports nasal congestion, Denies sinus pain and Denies sore throat Card Denies chest pain, Denies syncope and Denies dyspnea Resp Reports chest congestion, Reports cough, Denies hemoptysis, Reports pain with cough and Denies dyspnea Musc Denies myalgias Neuro Denies syncope Physical Exam Vital Signs: Last Vital Signs Temp 98.5 F 12/06/24 14:25 Pulse 81 12/06/24 14:25 BP 120/86 12/06/24 14:25 Pulse Ox 99 12/06/24 14:25 Oxygen Delivery Method Room Air 12/06/24 14:25 BMI result Body Mass Index 22.1 General: Non-toxic, NAD. Speaking full sentences. Skin: Warm dry throughout Eye: EOMI HENT: Airway patent. Uvula midline. No pharyngeal erythema or edema. 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 Bilateral canals clear. L TM +erythematous with bulging membrane and fluid noted. R TM minimal erythema with fluid noted. No TM perforation or hemotympanum noted bilaterally Respiratory: CTA bilaterally. No wheezes, rales or rhonchi Cardiac: RRR. No murmur Neurology: Alert. No aphasia or facial droop. Gait without abnormality Psych: Good mood and affect Assessment & Plan Assessment & Plan (1) Otitis media: Code(s): H66.90 - Otitis media, unspecified, unspecified ear Qualifiers: Otitis media type: serous Chronicity: acute Laterality: left Recurrence: non-recurrent Qualified Code(s): H65.02 - Acute serous otitis media, left ear Plan: Patient seen and evaluated. L OM on exam Discussed decongestant and antibiotic use Lungs CTA so no concern PNA at this time Vital stable ER s/s discussed such as CP or SOB Patient gave verbal understanding and had no additional questions or concerns at time of discharge All questions answered Medications: New amoxicillin-pot clavulanate 875-125 mg 1 tab PO BID 14 tabs 0RF Coding Level of Care Code Est Pt Level 3 (39704) Diagnoses Non-recurrent acute serous otitis media of left ear H65.02 Otitis media type: serous Chronicity: acute Laterality: left Recurrence: non-recurrent
[2024-12-06 14:25] VITALS: BP 120/86; PULSE 81; TEMP 36.9; O2SAT 99; BMI 22.1
== END 2024-12-06 14:54 | disposition home or self-care (01) ==
PROVIDERS: PCP Family Medicine; Visit Provider Physician Assistant
DX: H65.02 Acute serous otitis media, left ear (principal)

== ENCOUNTER → 2024-12-06 14:22 | Outpatient (BNVA) | payer OTHER, SELFPAY | PROVIDERS: PCP Family Medicine; Visit Provider Physician Assistant | DX: H65.02 Acute serous otitis media, left ear (principal) | CPT/HCPCS: 99212 ==

== ENCOUNTER 2024-12-30 12:39 | Outpatient (REF) | payer OTHER, SELFPAY ==
--- OUTSIDE RECORDS SUMMARY | 2024-12-30 13:08 | XMS_ITS | Continuity of Care Document ---
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 perat Med Cln Tm2 AD Only) [facility] rat [facility] Cln Tm2 AD Only) TELE CONSULT [id number] call back--x ray GARCIA, ORTEGA 10/01 Other Not Elsewhere Classified [facility](O perat Med Cln Tm2 AD Only) [facility]pe rat Med Cln Tm2 AD Only) TELE CONSULT [id number] Triage LIONEL MCARTHUR 11/06 Referred for Appointment [facility] perat Med Cln Tm2 AD Only) [facility] rat [facility] Cln Tm2 AD Only) TELE CONSULT [id number] Triage ADARSH CHONG 11/09 Referred for Appointment [facility](O perat Med Cln Tm2 AD Only) [facility]pe rat Med Cln Tm2 AD Only) TELE CONSULT [id number] LIONEL Wheeler 11/22 Referred for Appointment [facility](O perat Med Cln Tm2 AD Only) [facility] rat [facility] Cln Tm2 AD Only) TELE CONSULT [id number] LIONEL Wheeler 12/13 Referred for Appointment [facility](O perat Med Cln Tm2 AD Only) [facility](Flt /Missile Medicine) OUTPATIENT [id number] NESTOR KIRK ROBERT L 12/18 Released w/o Limitations [facility](F lt/Miss ile Medicin e) [facility] rat [facility] Cl[facility] Tm2 AD Only) TELE CONSULT [id number] GARRY MEJIASBRYANTAH 12/20 Referred for Appointment [facility](O perat Med Cln Tm2 AD Only) [facility] rat [facility] Cln Tm2 AD Only) OUTPATIENT [id number] fell last ay and injured [place]bon [place] DARRIN RADFORD [place] 01/17 Released w/o Limitations [facility](O perat Med Cln Tm2 AD Only) [facility] rat [facility] Cln Tm2 AD Only) OUTPATIENT [id number] SICK ALL WEEK END DARRIN RADFORD 02/04 Sick at Home/Quarter s [facility](O perat Med Cln Tm2 AD Only) [facility] rat [facility] Cln Tm2 AD Only) TELE CONSULT [id number] RADIOLO GY REPORT DARRIN RADFORD [place] 02/13 [facility](O perat Med Cln Tm2 AD Only) [facility]) OUTPATIENT [id number] 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 03/29 Released with Work/Duty Limitations [facility]) [facility]) OUTPATIENT [id number] NVD POWER SALES 04/10 [facility]) [facility]pe rat [facility] Cln Tm2 AD Only) TELE CONSULT [id number] Triage KEATON HELTON 04/12 Referred for Appointment [facility](O perat Med Cln Tm2 AD Only) [facility] [facility]) OUTPATIENT [id number] KEERTHI VICTORIA 07/16 Released w/o Limitations [facility](M ed Std [facility] ) [facility]) OUTPATIENT [id number] left side of neck pain BELLANCA, SKYLA D 07/17 Released w/o Limitations [facility]) [facility] rat Med Cln Tm2 AD Only) TELE CONSULT [id number] ReferADARSH Nesbitt 08/26 Referred for Appointment [facility](O perat Med Cln Tm2 AD Only) [facility]pe rat Med Cln Tm2 AD Only) TELE CONSULT [id number] ReferTARA Meehan 09/05 Referred for Appointment [facility](O perat Med Cln Tm2 AD Only) [facility] rat [facility] Cln Tm2 AD Only) OUTPATIENT [id number] 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 MARTHA GUERRERO 09/10 Released w/o Limitations [facility](O perat Med Cln Tm2 AD Only) [facility]pe rat Med Cln Tm2 AD Only) TELE CONSULT [id number] [facility] MARTHA GUERRERO 09/12 [facility](O perat Med Cln Tm2 AD Only) [facility](Ope rat Med Cln Tm2 AD Only) TELE CONSULT [id number] NANCY Dial 09/12 Other Not Elsewhere Classified [facility](O perat Med Cln Tm2 AD Only) [facility](Ope rat Med Cln Tm2 AD Only) OUTPATIENT [id number] Walkin: BP Day 1 BOIN MENDOSA 09/13 Released w/o Limitations [facility](O perat Med Cln Tm2 AD Only) [facility]pe rat Med Cln Tm2 AD Only) OUTPATIENT [id number] Walk in BP day 2 MARTHA GUERRERO 09/16 Released w/o Limitations [facility](O perat Med Cln Tm2 AD Only) [facility]pe rat Med Cln Tm2 AD Only) TELE CONSULT [id number] ADARSH Xavier 09/19 Referred for Appointment [facility](O perat Med Cln Tm2 AD Only) [facility]) OUTPATIENT [id number] kidney pain POWER SALES 09/20 Released w/o Limitations [facility]) [facility](Ope rat Med Cln Tm2 AD Only) OUTPATIENT [id number] f/u shoulde r/arm MARTHA GUERRERO 09/26 Released w/o Limitations [facility](O perat Med Cln Tm2 AD Only) [facility](Ope rat Med Cln Tm2 AD Only) TELE CONSULT [id number] Profile KEATON HELTON 10/09 Referred for Appointment [facility](O perat Med Cln Tm2 AD Only) [facility]pe rat Med Cln Tm2 AD Only) TELE CONSULT [id number] No Show appt NANCY DESIR 10/14 Advice Assessment [facility](O perat Med Cln Tm2 AD Only) [facility](Ope rat Med Cln Tm2 AD Only) TELE CONSULT [id number] neg lab NANCY DESIR 10/22 Advice Assessment [facility](O perat Med Cln Tm2 AD Only) [facility](Ope rat Med Cln Tm2 AD Only) TELE CONSULT [id number] Notes Entered by: KEIR GIBBS 29 Oct 2011 1511 ------- ------- ------- ------- -- REPORT KEATON HELTON 10/29 Referred for Appointment [facility](O perat Med Cln Tm2 AD Only) [facility](Ope rat Med Cln Tm2 AD Only) TELE CONSULT [id number] Notes Entered by: ZANDRA ALBERTO 06 Dec 2011 1034 ------- ------- ------- ------- -- REPORT MARTHA GUERRERO 12/06 [facility](O perat Med Cln Tm2 AD Only) [facility](Ope rat Med Cln Tm2 AD Only) TELE CONSULT [id number] Notes Entered by: ZANDRA ALBERTO 06 Dec 2011 1544 ------- ------- ------- ------- -- REPORT MARTHA GUERRERO 12/06 [facility] Med Cln Tm2 AD Only) [facility] rat [facility] Cln Tm2 AD Only) TELE CONSULT [id number] Notes Entered by: KERI GIBBS 11 Dec 2011 0857 ------- ------- ------- ------- -- REPORT NANCY DESIR 12/11 [facility]ice Assessment [facility] per[facility] Med Cln Tm2 AD Only) [facility] rat [facility] Cln Tm2 AD Only) TELE CONSULT [id number] Notes Entered by: ZANDRA ALBERTO 11 Dec 2011 1056 ------- ------- ------- ------- -- REPORT MARTHA GUERRERO 12/11 [facility](O perat Med Cln Tm2 AD Only) [facility] rat [facility] Cln Tm2 AD Only) TELE CONSULT [id number] Notes Entered by: MARTHA COVARRUBIAS 12 Dec 2011 1608 ------- ------- ------- ------- -- Neg labs NANCY DESIR 12/12 [facility]ice Assessment [facility] per[facility] Med Cln Tm2 AD Only) [facility] rat [facility] Cln Tm2 AD Only) OUTPATIENT [id number] cough, congest ion DARRIN RADFORD 01/03 Released w/o Limitations [facility](O perat Med Cln Tm2 AD Only) [facility]) OUTPATIENT [id number] sore throat/ left side of head pain and runny nose NASH ARZATE 01/06 [facility]ased w/o Limitations [facility]) [facility] rat Med Cln Tm2 AD Only) TELE CONSULT [id number] Notes Entered by: ZANDRA ALBERTO 16 Jan 2012 1032 ------- ------- ------- ------- -- REPORT MARTHA GUERRERO 01/16 [facility](O perat Med Cln Tm2 AD Only) [facility](Ope rat Med Cln Tm2 AD Only) TELE CONSULT [id number] Notes Entered by: STACY CEJA 24 Jan 2012 0743 ------- ------- ------- ------- -- JIM Burr 01/23 [facility](O perat Med Cln Tm2 AD Only) [facility](Ope rat Med Cln Tm2 AD Only) OUTPATIENT [id number] neck hurts to move MARTHA GUERRERO 03/10 Released w/o Limitations [facility](O perat Med Cln Tm2 AD Only) [facility](Ope rat Med Cln Tm2 AD Only) TELE CONSULT [id number] Notes Entered by: STACY CEJA 28 Apr 2012 0725 ------- ------- ------- ------- -- TARA Sears 04/28 Referred for Appointment [facility](O perat Med Cln Tm2 AD Only) [facility](Ope rat Med Cln Tm2 AD Only) TELE CONSULT [id number] Notes Entered by: HONEY GALLARDO 01 May 2012 1006 ------- ------- ------- ------- -- REPORT MARTHA GUERRERO 05/01 [facility](O perat Med Cln Tm2 AD Only) [facility]) OUTPATIENT [id number] orestesibNATY Little 06/23 Released w/o Limitations [facility]) [facility](Med [facility]d [facility]) OUTPATIENT [id number] KEERTHI VICTORIA 08/06 Released w/o Limitations [facility](M ed Std Mgt Element ) [facility](Ope rat Med Cln Tm2 AD Only) TELE CONSULT [id number] Notes Entered by: ELIZABETH MAGAÑA 10 Aug 2012 1109 ------- ------- ------- ------- -- Other / profile correct rosemary CHONG ADARSH A 08/10 Referred for Appointment [facility](O perat Med Cln Tm2 AD Only) [facility](Ope rat Med Cln Tm2 AD Only) OUTPATIENT [id number] right ear(pos sible infecti on) SKYLA MOTT 08/11 Released w/o Limitations [facility](O perat Med Cln Tm2 AD Only) [facility](Ope rat Med Cln Tm2 AD Only) TELE CONSULT [id number] Notes Entered by: MARTHA COVARRUBIAS 11 Aug 2012 1420 ------- ------- ------- ------- -- ORTEGA Chiu 08/11 Other Not Elsewhere Classified [facility](O perat Med Cln Tm2 AD Only) [facility](Ope rat Med Cln Tm2 AD Only) OUTPATIENT [id number] sep MARTHA Kilgore 08/20 Released w/o Limitations [facility](O perat Med Cln Tm2 AD Only) [facility]) OUTPATIENT [id number] right shoulde r CATALINA Agarwal 10/20 Released w/o Limitations [facility]) [facility](Phy sical Therapy) OUTPATIENT [id number] BRET JACOBS 10/21 Released with Work/Duty Limitations [facility](P hysical Therapy ) [facility](Phy sical Therapy) OUTPATIENT [id number] NILO DIALLO 10/23 Released w/o Limitations [facility](P hysical Therapy ) [facility](Phy sical Therapy) OUTPATIENT [id number] NILO DIALLO 10/26 Released w/o Limitations [facility](P hysical Therapy ) [facility](Phy sical Therapy) OUTPATIENT [id number] eval knee pain BRET JACOBS 10/27 Released with Work/Duty Limitations [facility](P hysical Therapy ) [facility](Phy sical Therapy) OUTPATIENT [id number] NILO DIALLO 10/30 Released w/o Limitations [facility](P hysical Therapy ) [facility](Phy sical Therapy) OUTPATIENT [id number] NILO DIALLO 11/02 Released w/o Limitations [facility](P hysical Therapy ) [facility]pe rat Med Cln Tm2 AD Only) TELE CONSULT [id number] Notes Entered by: Steve FRENCH 02 Nov 2012 1232 ------- ------- ------- ------- -- Triage/ sore throat ADARSH CHONG 11/02 Referred for Appointment [facility](O perat Med Cln Tm2 AD Only) [facility] rat Med Cln Tm2 AD Only) OUTPATIENT [id number] sore throat/ congest ion x 1 week MARTHA GUERRERO 11/03 Released w/o Limitations [facility](O perat Med Cln Tm2 AD Only) [facility](Ope rat Med Cln Tm2 AD Only) TELE CONSULT [id number] Notes Entered by: MARTHA COVARRUBIAS 03 Nov 2012 1251 ------- ------- ------- ------- -- NANCY Dial 11/03 Advice Assessment [facility](O perat Med Cln Tm2 AD Only) [facility] rat [facility] Cln Tm2 AD Only) OUTPATIENT [id number] termina l leave jazmine l MARTHA GUERRERO 11/03 Released w/o Limitations [facility](O perat Med Cln Tm2 AD Only) [facility] OUTPATIENT [id number] Theater 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 03/12 Released w/o Limitations [facility] OUTPATIENT [id number] Theater Provider 04/06 Released w/o Limitations [facility] OUTPATIENT [id number] Theater Provider 04/15 Released w/o Limitations [facility] OUTPATIENT [id number] Theater Provider 04/23 Sick at Home/Quarter s [facility] OUTPATIENT [id number] Theater Provider 07/22 Released w/o Limitations [facility] OUTPATIENT [id number] Theater Provider 07/29 Released w/o Limitations [facility] OUTPATIENT [id number] Theater Provider 08/19 Released w/o Limitations [facility] OUTPATIENT [id number] Theater Provider 09/11 Released w/o Limitations [facility] OUTPATIENT [id number] 0 Theater Provider 10/20 Released w/o Limitations [facility])(Bas e Operation al Medicine Clin) OUTPATIENT [id number] Notes Entered by: DAO HERNANDEZ 09 Nov 2018 0839 ------- ------- ------- ------- -- 0930 PAM WALKER #2 ADD-ON MARIBEL MCCANN 11/09 Released w/o Limitations [address] [place] [address] ([facility])(B ase Operati onal Medicin e Clin) [address] [place] [address])(Sco tt Flight Medicine Tm) TELE CONSULT [id number] Notes Entered by: DAO HERNANDEZ NDA J 04 Jan 2019 1150 ------- ------- ------- ------- -- MARIBEL FAITH 01/[address] [place] [address])(S cott Flight Medicin e Tm) [address] [place] [address])(Bas e Operation al Medicine Clin) OUTPATIENT [id number] Notes Entered by: DAO HERNANDEZ NDA J 20 Jan 2019 0843 ------- ------- ------- ------- -- PAM WALKER #3 TELEPHO NE APPT HILARIO MCCANNELENO Guevara 01/20 Released w/o Limitations [facility] Lawrence MINAYA ([facility])(B ase Operati onal Medicin e Clin) [id number]-[id number] AMDS Dental [id number] CHATO LEONDON 01/29 Discharge Disposition: Home or Self Care 8344R-4 39 AMDS 8344R-439 AMDS Outpatient [id number] JIM BESSIE 02/27 Discharge Disposition: Home or Self Care 8344R-4 39 AMDS 8344R-439 AMDS Between Visit [id number] 08/25 Discharge Disposition: Home or Self Care 8344R-4 39 AMDS 8344R-439 AMDS Between Visit [id number] 10/26 Discharge Disposition: Home or Self Care 8344R-4 39 AMDS Procedures Combined list of: 1) Procedures from Department of Veterans Affairs facilities going back up to thelast 18 months, not all VA non-surgical procedures are included; 2) All procedures from the Department of Defense facilities. Procedure Procedure Type Code Date Perfomer Comments Sourc e No data available for this section Amb[facility] Pharmacy Internet Med Svc Qual Nonphys Healthcare Prof Up To 7 Days Estab Patient Internet Med Svc Qual Nonphys Healthcare Prof Up To 7 Days Estab Patient [id number] 2018 TESSIE WESLEY Preventive Medicine Administration Of Health Risk Questionnaire Patient-Focused Preventive Medicine Administration Of Health Risk Questionnaire Patient-Focused 89036 2018 TESSIE WESLEY Internet Med Svc Qual Nonphys Healthcare Prof Up To 7 Days Estab Patient Internet Med Svc Qual Nonphys Healthcare Prof Up To 7 Days Estab Patient [id number] 2018 TESSIE WESLEY Preventive Medicine Administration Of Health Risk Questionnaire Patient-Focused Preventive Medicine Administration Of Health Risk Questionnaire Patient-Focused [id number] 2018 TESSIE WESLEY Internet Med Svc Qual Nonphys Healthcare Prof Up To 7 Days Estab Patient Internet Med Svc Qual Nonphys Healthcare Prof Up To 7 Days Estab Patient [id number] 2017 TESSIE WESLEY Preventive Medicine Administration Of Health Risk Questionnaire Patient-Focused Preventive Medicine Administration Of Health Risk Questionnaire Patient-Focused [id number] 2017 TESSIE WESLEY Modalities Iontophoresis Modalities Iontophoresis 84068 2011 NILO DIALLO Physical Therapy Neuromuscular Re-education Physical Therapy Neuromuscular Re-education 25761 2011 NILO DIALLO Physical Therapy: ___ Se ion Segments, 15 Minutes Each Physical Therapy: ___ Session Segments, 15 Minutes Each 86397 2011 NILO DIALLO Modalities Iontophoresis Modalities Iontophoresis 17688 2011 NILO DIALLO Physical Therapy Neuromuscular Re-education Physical Therapy Neuromuscular Re-education 21913 2011 NILO DIALLO Physical Therapy: ___ Se ion Segments, 15 Minutes Each Physical Therapy: ___ Session Segments, 15 Minutes Each 14530 2011 NILO DIALLO Modalities Iontophoresis Modalities Iontophoresis 94683 2011 BRET JACOBS Physical Therapy: ___ Se ion Segments, 15 Minutes Each Physical Therapy: ___ Session Segments, 15 Minutes Each 08820 2011 BRET JACOBS Physical Therapy Service Evaluation Physical Therapy Service Evaluation 87069 2011 BRET JACOBS Physical Therapy Neuromuscular Re-education Physical Therapy Neuromuscular Re-education 25947 2011 NILO DIALLO Physical Therapy: ___ Se ion Segments, 15 Minutes Each Physical Therapy: ___ Session Segments, 15 Minutes Each 96588 2011 NILO DIALLO Physical Therapy Neuromuscular Re-education Physical Therapy Neuromuscular Re-education 84002 2011 NILO DIALLO Physical Therapy: ___ Se ion Segments, 15 Minutes Each Physical Therapy: ___ Session Segments, 15 Minutes Each 80934 2011 NILO DIALLO Physical Therapy Mobilization Joint Physical Therapy Mobilization Joint 75957 2011 BRET JACOBS Physical Therapy: ___ Se ion Segments, 15 Minutes Each Physical Therapy: ___ Session Segments, 15 Minutes Each 43411 2011 BRET JACOBS Physical Therapy Service Evaluation Physical Therapy Service Evaluation 24698 2011 BRET JACOBS A e ment & Intervention Blood Pre ure Measured 2010 MARTHA GUERRERO Albuterol, inhalation solution, compounded product, administered through DME, unit dose, 1 mg 2010 DARRIN RADFORD Inhalation Treatment (Nonpre urized) Inhalation Treatment (Nonpressurized) 86704 2010 DARRIN RADFORD Audiogram (Screening) Audiogram (Screening) 66134 2010 ROBERT KIRK Spectacles Services Fitting Monofocal Except For Aphakia Spectacles Services Fitting Monofocal Except For Aphakia 02966 2009 THANG CARRILLO Determination Of Refractive State Determination Of Refractive State 52004 2009 THANG CARRILLO Ophthalmological New Patient Start Comprehensive Care Ophthalmological New Patient Start Comprehensive Care 84463 2009 THANG CARRILLO ECG 12-Lead With Interpretation And Report ECG 12-Lead With Interpretation And Report 26279 2009 DARRIN RADFORD A e ment & Intervention Blood Pre ure Measured 2009 ISAMAR FOLEY A e ment & Intervention Blood Pre ure Measured 2009 ISAMAR FOLEY A e ment & Intervention Blood Pre ure Measured 2009 NANCY DESIR A e ment & Intervention Blood Pre ure Measured 2009 ISAMAR FOLEY Injection, ketorolac tromethamine, per 15 mg 2009 DARRIN RADFORD Physician Supervised Injection Intramuscular Physician Supervised Injection Intramuscular 83347 2009 DARRIN RADFORD Evoked Otoacoustic Karoline ions Comprehensive 2009 GM MARSHALL Tympanometry Tympanometry 70493 2009 GM MARSHALL Threshold Audiogram (Pure Tone) Threshold Audiogram (Pure Tone) 53655 2009 GM MARSHALL Patient Counseling Medical Management Individual Patient Patient Counseling Medical Management Individual Patient [id number] 2009 CUCA, JANENE E Duration: 15 minutes Provided counseling session following the [place] [employer] Aural Rehabilitation curriculum for patients with auditory complaints. Details can be found at: [email or web address].[email or web address] [email or web address]/info _series.htm The following topics were discussed: current test results and preventive hearing loss measures, pt. advice on hearing protection devices if and whenever exposed to hazardous noise. Patient's questions were answered and guidance provided for future follow/ups [facility] Evoked Otoacoustic Karoline ions Comprehensive 2009 CUCA, JANENE E DoD Acoustic Reflex Testing 2009 CUCA, JANENE E DoD Tympanometry Tympanometry 22356 2009 CUCA, JANENE E [facility] Comprehensive Audiometry Comprehensive Audiometry 36399 2009 CUCA, JANENE E [facility] Spectacles Services Fitting Monofocal Except For Aphakia Spectacles Services Fitting Monofocal Except For Aphakia 54548 2009 KIM DIAS DoD ONLINE ASSESS &MANAG SERV PROVIDE,A QUAL NONPHYS HCP TO AN ESTABLISHED PAT/GUARDIAN,NOT ORIGINAT FR RELAT ASSESS &MANAG SERV PROVIDE W/IN THE PREV 7 DAYS,USE THE [employer] NETWORK 2018 DoD ONLINE ASSESS &MANAG SERV PROVIDE,A QUAL NONPHYS HCP TO AN ESTABLISHED PAT/GUARDIAN,NOT ORIGINAT FR RELAT ASSESS &MANAG SERV PROVIDE W/IN THE PREV 7 DAYS,USE THE [employer] NETWORK 2018 [place] ONLINE ASSESS &MANAG SERV PROVIDE,A QUAL NONPHYS HCP TO AN ESTABLISHED PAT/GUARDIAN,NOT ORIGINAT FR RELAT ASSESS &MANAG SERV PROVIDE W/IN THE PREV 7 DAYS,USE THE [employer] NETWORK 2017 DoD THERAPEUTIC, PROPHYLACTIC, OR DIAGNOSTIC INJECTION (SPECIFY SUBSTANCE OR DRUG); SUBCUTANEOUS OR INTRAMUSCULAR 2009 DoD DISTORTION PRODUCT EVOKED OTOACOUSTIC EMISSIONS;COMPREHE NSIVE DIAG EVALUATION (QUANTITATIVE ANALYSIS OF OUTER HAIR CELL FUNCTION,COCHLEAR MAPPING,MINIMUM OF 12 FREQUENCIES),W INTERPRETATION &REPORT 2009 [facility] TYMPANOMETRY (IMPEDANCE TESTING) 2009 [facility] FITTING OF SPECTACLES, EXCEPT FOR APHAKIA; MONOFOCAL 2009 DoD APPLICATION OF A MODALITY TO 1 OR MORE AREAS; IONTOPHORESIS, EACH 15 MINUTES 2011 DoD APPLICATION OF A MODALITY TO 1 OR MORE AREAS; IONTOPHORESIS, EACH 15 MINUTES 2011 DoD APPLICATION OF A MODALITY TO 1 OR MORE AREAS; IONTOPHORESIS, EACH 15 MINUTES 2011 DoD THERAPEUTIC PROCEDURE,1 OR MORE AREAS,EACH 15 MINUTES;NEUROMUSCU LAR REEDUCATION OF MOVEMENT,BALANCE,C OORDINATION,KINEST HETIC SENSE,POSTURE,AND/ OR PROPRIOCEPTION FOR SITTING AND/OR STANDING ACTIVITIES 2011 DoD THERAPEUTIC PROCEDURE,1 OR MORE AREAS,EACH 15 MINUTES;NEUROMUSCU LAR REEDUCATION OF MOVEMENT,BALANCE,C OORDINATION,KINEST HETIC SENSE,POSTURE,AND/ OR PROPRIOCEPTION FOR SITTING AND/OR STANDING ACTIVITIES 2011 DoD MANUAL THERAPY TECHNIQUES (EG, MOBILIZATION/ MANIPULATION, MANUAL LYMPHATIC DRAINAGE, MANUAL TRACTION), 1 OR MORE REGIONS, EACH 15 MINUTES 2011 DoD BLOOD PRESSURE MEASURED (CKD)(DM) 2010 DoD PRESSURIZED/NONPRE SS INHAL TREAT FOR AC AIRWAY OBSTRUCT,THERAP PURPOSE &/FOR DIAG PURP SUCH SPUTUM INDUCTION W AN AEROSOL GEN,NEBULIZER,METE R DOSE INHALER/INTERMIT POSIT PRESS BREATHING (IPPB) DEV 2010 DoD SCREENING TEST, PURE TONE, AIR ONLY 2010 DoD FITTING OF SPECTACLES, EXCEPT FOR APHAKIA; MONOFOCAL 2009 DoD ELECTROCARDIOGRAM, ROUTINE ECG WITH AT LEAST 12 LEADS; WITH INTERPRETATION AND REPORT 2009 DoD BLOOD PRESSURE MEASURED (CKD)(DM) 2009 DoD BLOOD PRESSURE MEASURED (CKD)(DM) 2009 DoD BLOOD PRESSURE MEASURED (CKD)(DM) 2009 DoD BLOOD PRESSURE MEASURED (CKD)(DM) 2009 DoD INJECTION, KETOROLAC TROMETHAMINE, PER 15 MG 2009 DoD Social History Combined list of available smoking, tobacco, and other social history from [facility] of Defense and Veterans Affairs facilities. Social History Type Response Date Comment Sourc e This section is an empty social history section. DoD Assessment and Plan Combined list of future care activities from Department of Defense and Veterans Affairs facilities (e.g., assessment and plan notes, appointments, orders, and referrals). Additional future care activities may be listed in the Plan of Care section. Result Assessment and Plan Date Source Assessment and Plan No data available for this section 12/30/2024 Ambulatory Pharmacy Functional Status Combined list of recent functional and cognitive assessments recorded at [facility] Defense and [facility] (VA).VA Functional [place] Measurement (FIM) Scale: 1 = Total Assistance (Subject = 0% +), 2 = Maximal Assistance (Subject = 25% +), 3 = Moderate Assistance (Subject = 50% +), 4 = Minimal Assistance (Subject = 75% +), 5 = Supervision, 6 = Modified [place] (Device), 7 = Complete [place] (Timely, Safely). Assessment Date/Time Source Assessment Type Assessment Skill Assessment Score Assessment Details No data available for this section
[2024-12-30 16:47] LABS: Influenza A PCR NEGATIVE (Negative); Influenza B PCR NEGATIVE (Negative); Resp Syncy Virus RNA Qual PCR NEGATIVE (Negative); SARS COV2 PCR INHOUSE NEGATIVE (Negative)
== END 2024-12-30 12:40 | disposition home or self-care (01) ==
LOC: HO.LAB 12:39
PROVIDERS: PCP Family Medicine; Visit Provider Nurse Practitioner Family
DX: J06.9 Acute upper respiratory infection, unspecified (principal)
CPT/HCPCS: 0241U; 99212

== ENCOUNTER 2025-01-20 14:01 | Outpatient (AMB) | payer OTHER, SELFPAY ==
--- NOTE | 2025-01-20 14:03 | MHC.OFFWIV ---
Intake Vital Signs 01/20/25 14:06 Height 5 ft 7 in Weight 147 lb BMI 23.0 BP 130/72 Blood Pressure Location Rt brachial Position Sitting Respiration 16 Pulse 98 Pulse Source Pulse Oximeter Temp 97.7 F Temp Source Oral Pulse Oximetry (%) 99 Oxygen Delivery Method Room Air Intake Visit Reasons: left ear blocked also headache for last 4 wks. Intake Note: patient here c/o right ear blocked also headaches for the last 4 weeks Patient Tobacco Use Status: Never used Tobacco Financial Advocate Required: No Is last menstrual period known: Yes Last menstrual period: 01/14/25 Post menopausal: No Patient : No Allergies Seasonal Allergies Allergy (Severe, Verified 01/20/25 14:10) Chronic Sinus Infections hydrocodone [From Vicodin] Allergy (Unknown, Verified 01/20/25 14:10) Hives Medication List - Last Reconciled 01/20/25 by Ciro Ortega CNP cholecalciferol (vitamin D3) 50 mcg PO DAILY 90 days ferrous sulfate 325 mg PO DAILY metoprolol succinate ER 12.5 mg (1/2 x 25 mg) PO DAILY 90 days Do you need a note to return to daycare/school/sports/work: Yes HPI HPI Comments History of Present Illness Details 34-year-old female presents with complaints of blocked right ear for the past 2 weeks. She had flu-like symptoms, including blocked right ear, 2 weeks ago, all of her symptoms, except for the blocked right ear resolved. She notes history recurrent ear effusion. She is followed by Dr. Lin, ENT. Also, she has been experiencing intermittent bilateral temporal headaches for the past 4 weeks. She sometimes feels confused. Tylenol or Ibuprofen are sometimes effective with headache management. No headache at this time. She symptom takes Zyrtec and uses Flonase. [facility] Medical History (Updated 01/20/25 @ 14:33 by Ciro Ortega CNP) Acute respiratory disease Decreased leukocytes Stress Routine physical examination History of high blood pressure Surgical History (Updated 09/08/24 @ 11:04 by Magali Blanco MD) History of breast lump History of appendectomy Family History Father COPD (chronic obstructive pulmonary disease) Mother No problems noted. Maternal Grandmother No problems noted. Maternal Grandfather Cancer Paternal Grandmother Breast cancer Paternal Grandfather No problems noted. Brother No problems noted. Brother No problems noted. Sister No problems noted. Sister No problems noted. Social History Household Members: Significant Other and Children Housing: Condominium Alcohol intake: never Patient Tobacco Use Status: Never used Tobacco e-Cigarette/Vaping Use: Never Used Second Hand Smoke Exposure: No Patient : No service: Yes Current occupational status: employed Current occupation: [employer]/ right hand dominant Current occupational exposures/hazards: No Gender identity: Female Cognitive needs: No Hearing needs: No Vision needs: Yes (Glasses) Female Reproductive History Menstrual Date of last menstrual period: 01/14/25 Review of Systems Const Details: Denies chills, Denies fatigue, Denies fever(s), Denies headache(s) and Denies weakness Cardiac Denies chest pain, Denies claudication, Denies leg edema, Denies lightheadedness, Denies palpitations, Denies dyspnea, Denies dyspnea on exertion, Denies orthopnea and Denies other (Loss of consciousness) Resp Denies cough, Denies excessive phlegm production, Denies dyspnea, Denies dyspnea on exertion, Denies snoring and Denies wheezing ENT Reports as per HPI Physical Exam Vital Signs: Last Vital Signs Temp 97.7 F 01/20/25 14:06 Pulse 98 01/20/25 14:06 Resp 16 01/20/25 14:06 BP 130/72 01/20/25 14:06 Pulse Ox 99 01/20/25 14:06 Oxygen Delivery Method Room Air 01/20/25 14:06 BMI result Body Mass Index 23.0 Const Other: General: comfortable and no acute distress Orientation/consciousness: patient oriented x3 Chest Chest palpation & inspection: normal inspection of the chest Resp Auscultation: clear to auscultation bilaterally Cardiac Palpation: normal PMI Heart sounds: S1 normal heart sound present, S2 normal heart sound present, no gallops, no murmur, no rubs ENT Head is normocephalic Right TM with effusion, no erythema, edema, or bulging. Left ear canal and TM is normal Nasal turbinates and oropharynx are pink and moist Sinuses are nontender with palpation No auricular or cervical lymphadenopathy Assessment & Plan Assessment & Plan (1) Acute effusion of right ear: Code(s): H65.191 - Other acute nonsuppurative otitis media, right ear Plan: Right TM with effusion, no erythema, edema, or bulging. Advised to take Zyrtec once a day to help with fluid drainage. May use Flonase as needed. Take ibuprofen or Tylenol as needed for pain or discomfort. May follow-up with ENT if symptoms does not resolve. Return with worsening or new symptoms. Verbalized understanding and agreed with treatment plan. (2) Headache: Code(s): R51.9 - Headache, unspecified Plan: Likely sinus congestion. No acute symptoms. Frontal and maxillary sinuses nontender to palpation. Plan as above. Verbalized understanding and agreed with treatment plan. Coding Level of Care Code Est Pt Level 3 (92967) Diagnoses Acute effusion of right ear H65.191 Headache R51.9
[2025-01-20 14:06] VITALS: BP 130/72; PULSE 98; RESP 16; TEMP 36.5; O2SAT 99; BMI 23.0
--- OUTSIDE RECORDS SUMMARY | 2025-01-20 16:56 | XMS_ITS | Continuity of Care Document ---
Author Organization [place] - [facility], [facility] Address [address] [place] [address] Care Team Providers Care Quality Control Microbiologist Name Role Phone ADILSON FRIEDMAN Primary Care Provider [phone] ADILSON FRIEDMAN Referring Provider Assessment No assessment recorded. 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 Surgeries None recorded. Imaging None recorded. Medication Orders None recorded. Patient TargetsNo targets recorded. Patient InstructionsNo instructions recorded. Reason for Referral Breast Surgery Referral for Family history of breast cancer family history of breast cancer Referring Physician: Rosalva Carl, PRINT LINE TAILER, Encounter Date: 12/31/2024 Results Created Date Observation Date Name Description Value Unit Range Abnormal Flag Note LastModifiedBy Organization Detail LastModifiedTime 12/31/1912/31/2024 urina lysis , dipst ick Interpretati on negati ve Not Available In-Office Order Internal Use Only DO Not Attach Compendium DO Not Attach Compendium, Do Not Delete/merge, 12/31/2024 15:10:10 12/31/1912/31/2024 urina lysis , dipst ick Leukocytes Negati ve Not Available In-Office Order Internal Use Only DO Not Attach Compendium DO Not Attach Compendium, Do Not Delete/merge, 12/31/2024 15:10:10 12/31/1912/31/2024 urina lysis , dipst ick Nitrite negati ve Not Available In-Office Order Internal Use Only DO Not Attach Compendium DO Not Attach Compendium, Do Not Delete/merge, 12/31/2024 15:10:10 12/31/1912/31/2024 urina lysis , dipst ick Urobilinogen Normal : 0.2 mg/dl Not Available In-Office Order Internal Use Only DO Not Attach Compendium DO Not Attach Compendium, Do Not Delete/merge, 12/31/2024 15:10:10 12/31/19 25 12/31/2024 urina lysis , dipst ick Protein Negati ve Not Available In-Office Order Internal Use Only DO Not Attach Compendium DO Not Attach Compendium, Do Not Delete/merge, 12/31/2024 15:10:10 12/31/19 25 12/31/2024 urina lysis , dipst ick pH 5.0 Not Available In-Office Order Internal Use Only DO Not Attach Compendium DO Not Attach Compendium, Do Not Delete/merge, 12/31/2024 15:10:10 12/31/19 25 12/31/2024 urina lysis , dipst ick Blood Negati ve Not Available In-Office Order Internal Use Only DO Not Attach Compendium DO Not Attach Compendium, Do Not Delete/merge, 12/31/2024 15:10:10 12/31/19 25 12/31/2024 urina lysis , dipst ick Specific Isle 1.000 Not Available In-Off ice Order Internal Use Only DO Not Attach Compendium DO Not Attach Compendium, Do Not Delete/merge, [id number] 12/31/2024 15:10:10 12/31/19 25 12/31/2024 urina lysis , dipst ick Ketone Negati ve Not Available In-Office Order Internal Use Only DO Not Attach Compendium DO Not Attach Compendium, Do Not Delete/merge, 12/31/2024 15:10:10 12/31/19 25 12/31/2024 urina lysis , dipst ick Bilirubin Negati ve Not Available In-Office Order Internal Use Only DO Not Attach Compendium DO Not Attach Compendium, Do Not Delete/merge, 12/31/2024 15:10:10 12/31/19 25 12/31/2024 urina lysis , dipst ick Glucose Negati ve Not Available In-Office Order Internal Use Only DO Not Attach Compendium DO Not Attach Compendium, Do Not Delete/merge, 12/31/2024 15:10:10 12/31/19 25 12/31/2024 urina lysis , dipst ick Appearance Clear Not Available In-Offi ce Order Internal Use Only DO Not Attach Compendium DO Not Attach Compendium, Do Not Delete/merge, 12/31/2024 15:10:10 12/31/19 25 12/31/2024 urina lysis , dipst ick Color Yellow Not Available In-Office Order Internal Use Only DO Not Attach Compendium DO Not Attach Compendium, Do Not Delete/merge, 12/31/2024 15:10:10 Result Notes None recorded. Problems Name Problem SNOMED Code Status Onset Date Resolution Date Notes Provider Name and Address Organization Details Recorded Time Hypertensive disorder 52176633 Active 2023 Brenda Lisa nolasco [facility] 4 09:26:46 Problem Notes None recorded. Procedures Surgical History Date Name Laterality Status Provider Name and Address Organization Details Recorded Time 01/02/20 Date of Last Mammogram completed Brenda Meyerara [facility] 12/06/2022 08:25:20 11/30/19 22 Date of Last Pap Smear completed Brenda Gonzalez [facility] 12/06/2022 08:24:44 Appendectomy completed Brenda Gonzalez [facility] 11/30/2021 14:38:54 lumpectomy of right breast completed Brneda Gonzalez [facility] 11/30/2021 14:39:08 Imaging Results None recorded. Procedure Notes None recorded. Medical Equipment None Reported. Allergies Allergen ID Allergen Name Allergen Category Reaction Reaction Severity Criticality Documentation Date Start Date Code Code System Note Provider Name and Address Organization Details Recorded Time 4728946 acetamino phen / hydrocodo ne medicatio n Not available Not available Not available 11/30/2021 64905 2 RxNorm Brenda Gonzalez [facility], [facility] 14:36:15 Medications Name Sig Start Date Stop Date Status Note LastModified by Organization Details LastModified Time cyclobenzap rine 10 mg tablet 12/06 completed Not Available Not Available Not Available cetirizine 10 mg tablet 11/30 completed Not Available Not Available Not Available azithromyci n 250 mg tablet TAKE 2 TABLETS BY MOUTH TODAY, THEN TAKE 1 TABLET DAILY FOR 4 DAYS 12/31 completed Not Available Not Available Not Available ibuprofen 800 mg tablet 11/30 completed Not Available Not Available Not Available meloxicam 15 mg tablet 12/06 completed Not Available Not Available Not Available prednisone 20 mg tablet TAKE 2 TABLETS BY MOUTH EVERY DAY 12/31 completed Not Available Not Available Not Available ofloxacin 0.3 % ear drops INSTILL 5 DROPS INTO BOTH EARS 2 TIMES A DAY FOR 5 DAYS 12/06 completed Not Available Not Available Not Available prednisolon e acetate 1 % eye drops,suspe nsion 11/30 completed Not Available Not Available Not Available betamethaso ne valerate 0.1 % topical cream 11/30 completed Not Available Not Available Not Available benzonatate 100 mg capsule 12/12 completed Not Available Not Available Not Available cephalexin 500 mg capsule 11/30 completed Not Available Not Available Not Available metoprolol succinate ER 25 mg tablet,exte nded release 24 hr TAKE 1/2 TABLET BY MOUTH ONCE DAILY X30 DAYS 12/31 completed Not Available Not Available Not Available methylpredn isolone 4 mg tablets in a dose pack TAKE 6 TABLETS ON DAY 1 DIRECTED ON PACKAGE AND DECREASE BY 1 TAB EACH DAY FOR A TOTAL OF 6 DAYS 12/12 completed Not Available Not Available Not Available albuterol sulfate HFA 90 mcg/actuati on aerosol inhaler 09/10 completed Not Available Not Available Not Available norethindro ne (contracept aleksandra) 0.35 mg tablet TAKE 1 TABLET BY MOUTH EVERY DAY active Not Available Not Available No t Available ondansetron 4 mg disintegrat ing tablet TAKE 1 TABLET BY MOUTH EVERY 8 HOURS FOR 10 DAYS NEEDED FOR NAUSEA AND VOMITING 12/06 completed Not Available Not Available Not Available cefdinir 300 mg capsule TAKE 2 CAPSULES BY MOUTH EVERY DAY 12/06 completed Not Available Not Available Not Available fluticasone propionate 50 mcg/actuati on nasal spray,suspe nsion 11/30 completed Not Available Not Available Not Available amoxicillin 875 mg-potassiu m clavulanate 125 mg tablet 12/31 completed Not Available Not Available Not Available amoxicillin 500 mg-potassiu m clavulanate 125 mg tablet TAKE 1 TABLET BY MOUTH EVERY 12 HOURS FOR 10 DAYS 12/06 completed Not Available Not Available Not Available neomycin 3.5 mg/g-polymy jessica B 10,000 unit/g-dexa meth 0.1 % eye oint 11/30 completed Not Available Not Available Not Available neomycin-po lymyxin-hyd rocort 3.5 mg-10,000 unit/mL-1 % ear drops,susp 12/06 completed Not Available Not Available Not Available Slynd 4 mg (28) tablet Take 1 tablet every day by oral route. 12/31 completed Not Available Not Available Not Available ID NOW COVID-19 Test Kit TEST DIRECTED 11/30 completed Not Available Not Available Not Available Paxlovid 300 mg (150 mg x 2)-100 mg tablets in a dose pack TAKE 3 TABLETS BY MOUTH TWICE A DAY FOR 5 DAYS 12/06 completed Not Available Not Available Not Available Vitals Date Recorded Body height Body mass index (BMI) Body weight Systolic blood pressure Diastolic blood pressure Provider Name and Address Organization Details Last Updated DateTime 12/31/2024 170.18 cm 22.1 kg/m2 37086.52 g 122 mm[Hg] 82 mm[Hg] Gali Tsang [facility] 15:12:55 Social History Question Answer Notes LastModified by Organizat ion Details LastModified Time Tobacco Smoking Status Never Smoker Hina Ontiveros [facility], [place] - [facility] 05/14/2022 12:48:45 What Is Your Level Of Alcohol Consumption? None Information not available 05/14/2022 Is Blood Transfusion Acceptable In An Emergency? Yes [email or web address] Information not available 05/14/2022 In The 14 Days Before Symptom Onset, Have You Had Close Contact With A Laboratory-confirm ed COVID-19 While That Case Was Ill? No Information n ot available 05/14/2022 In The 14 Days Before Symptom Onset, Have You Had Close Contact With A Person Who Is Under Investigation For COVID-19 While That Person Was Ill? No [email or web address] Information not available 05/14/2022 Have You Been To An Area Known To Be High Risk For COVID-19? No [email or web address] Information not available 05/14/2022 Are You Currently Employed? Yes Information not available 05/14/2022 Do You Reside In Or Have You Traveled To An Area Where Ebola Virus Transmission Is Active? 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 No [email or web address] Information no t available 05/14/2022 Have You Recently Or Are You Planning To Travel To An Area With Zika Virus? No Information not available 05/14/2022 Do You Have Any Children? Yes Information not available 11/30/2021 Does Your Partner Physically Hurt You Or Threaten To Hurt You? No Information not available 11/30/2021 Has Your Partner Forced You To Have Sex Or Perform Sex Acts When You Did Not Want To? No Information not available 11/30/2021 Does Your Partner Insult, Scream At Or Talk Down To You? No Information not available 11/30/2021 Does Your Partner Control You Or Any Part Of Your Life? No Information n ot available 11/30/2021 Are You Afraid Of Your Partner? No Information not available 11/30/2021 Drug Use? No Information no t available 11/30/2021 Do You Feel Safe At Home? Yes Information not available 11/30/2021 Do You Use Protection During Sex? Always [email or web address] Information not available 05/14/2022 Are You Sexually Active? Yes [email or web address] Information not available 05/14/2022 Have You Recently Traveled Abroad? No Information not available 11/30/2021 Sex: Unknown Functional Status None recorded. Mental Status Question Answer Note LastModified by Organization D etails LastModified Time Do you have difficulty concentrating, remembering or making decisions? No [email or web address] Information no t available 05/14/2022 Family History Relationship Description Onset Age of this Age Resolved Age Notes LastModified by Organization Details LastModified Time Sister Hypertensive disorder shammell Not available 2021 14:37:20 Paternal Aunt Malignant tumor of breast shammell Not available 2021 14:37:57 Paternal Aunt Malignant tumor of breast shammell Not available 2021 14:37:57 Paternal Aunt Malignant tumor of breast shammell Not available 2021 14:37:57 Paternal Aunt Malignant tumor of breast shammell Not available 2021 14:37:57 Paternal Aunt Malignant tumor of breast shammell Not available 2021 14:37:57 Paternal Grandmother Malignant tumor of breast shammell Not available 2021 14:37:57 Maternal Grandfather Malignant tumor of lung 55 shammell Not available 2022 09:22:29 Father Chronic fibrosis of lung shammell Not available 2022 09:22:53 Medical History No medical history recorded. Gynecological History Statement/Question Response Abnormal Pap N Date of Last Mammogram 01/02/2022 Date of LMP 12/13/2024 Breast Ultrasound Yes IPV Screen Done 12/31/2024 STIs/STDs N Current Control Method None Mammogram Required? N Sexually Active? Y Sexual Problems? N Date of Last Pap Smear 11/30/2021 Last HPV Result Negative Obstetrics History GPAL:G 1 P 0 1 0 1 Type Value Premature 1 Living 1 Total 1 Past Encounters Encounter ID Performer Location Encounter Start Date Encounter Closed Date Diagnosis/Indication Diagnosis SNOMED-CT Code Diagnosis ICD10 Code Diagnosis Note [id number] ROSALVA CARL, CORPORATE STRATEGY ANALYST [facility] [address] [place] [address] 12/31/2024 14:57:24 12/31/2024 15:45:29 Gynecologic examination 79484753 Z01.419 Reviewed diet and exercise. No hereditary cancer risk. Screening labs with PCP. Pap--- STI screen---- Encourage monthly SBE Depression screening 171 426712 Z13.31 Screen negative for depression Family his tory of breast cancer [id number] Z80.3 Health Concerns Section Related Observation LastModified by Organization Detai ls LastModified Time None Recorded Concern Status LastModified by Organization Details LastModified Time None Recorded Payers Encounter Date Sequence Insurance Name Policy Number Policy Vera Covered Member ID Vera Member ID Guarantor Name 12/31/2024 1 [facility] - DOS ON OR AFTER 2024 - [employer] () Bonnie Iyer [id number] Bonnie Iyer Notes Date Note Type Note Provider Name and Address Organization Details Recorded Time 12/31/2024 text/html [facility] Annual GYNRe ported bypatient.Menstrual cycle:Normal menses Urinary symptoms:No hematuria; No incontinence Vulva:No genital lesion Vagina:Normal vaginal discharge Breast:No breast pain; No breast lump; No nipple discharge Current Contraception:[place] us relationship; Condoms Sexual activity:sexually active yes ; No sexual complaints; No pain during intercourse; Normal libido; Requests testing for sexually transmitted infections Menopausal symptoms:No menopausal symptoms; Normal vaginal lubrication Endocrine symptoms-otherhead hair loss, fatigue Psychological symptoms:No depression; No anxiety; No PMDD Preventive measures:Encourage self breast examination; Encourage regular exercise; Encourage no tobacco use; Followed with pap smear and high risk HPV typing every 3 years PRESENTS FOR ANNUAL VISIT W/ DPFPAP SMEAR 11/30/2021 [id number] BC May decided to restart OCPS was thinking about another baby but her stepsuns just lost their MOM to breast cancer and are leviving with them 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 ROSALVA CARL, CORPORATE STRATEGY ANALYST [address] [facility], [place], [address], [place] [facility] 01/01/2025 10:08:39 OBGyn Episode No OBEpisode recorded.
--- OUTSIDE RECORDS SUMMARY | 2025-01-20 16:56 | XMS_ITS | Data Portability ---
Author Organization [place] [facility], [facility] Address [id number] [place] [address] Care Team Providers Care Fisher Lampara Net Name Role Phone ADILSON FRIEDMAN Primary Care Provider [phone] ADILSON FRIEDMAN Referring Provider Assessment No assessment recorded. Plan of Treatment Reminders Order Date Submit Date Provider Last Modified By Organization Details Last Modified Time Details Appointments ANNUAL EDGE SANDER 20 2025 03:00P Steve Klein APRN Not available Not available Not available Lab pap, IG + HPV 2024 025 Formerly [facility], [address], [place], [address] 01/06/2025 07:08:38 urinalys is, dipstick 2024 025 [email or web address] In-Office Order, Internal Use Only DO Not Attach Compendium DO Not Attach Compendium, Do Not Delete/merge, [id number] 12/31/2024 16:50:50 urinalys is, dipstick 2023 024 [email or web address] In-Office Order, Internal Use Only DO Not Attach Compendium DO Not Attach Compendium, Do Not Delete/merge, [id number] 12/12/2023 10:18:05 pregnanc y test, urine 2022 023 [email or web address] In-Office Order, Internal Use Only DO Not Attach Compendium DO Not Attach Compendium, Do Not Delete/merge, [id number] 09/10/2023 17:03:22 CBC w/ auto diff 2022 023 [facility]ly [facility], [address], [place], [address] 01/06/2024 05:52:41 urinalys is, dipstick 2022 023 [email or web address] In-Office Order, Internal Use Only DO Not Attach Compendium DO Not Attach Compendium, Do Not Delete/merge, [id number] 12/06/2022 09:59:16 Referral breast surgery referral 2024 025 [email or web address] Evelyn Yu, [address], [place], [address], 01/12/2025 09:16:55 Procedures None recorded . Surgeries None recorded . Imaging MAMMO, screenin g, digital, bilatera l 2023 024 [facility], [address], [place], [address], 12/16/2023 14:54:05 US, breast, bilatera l 2023 024 [facility], [address], [place], [address], 12/16/2023 14:54:05 MAMMO, screenin g, digital, bilatera l 2022 023 [facility], [address], [place], [address], 12/06/2022 11:34:05 US, breast, bilatera l 2022 023 [facility], [address], [place], [address], 07/04/2023 09:25:09 Medication Orders Slynd 4 mg (28) tablet 2023 024 [email or web address] [id number], [address] [place], [address], 12/31/2024 15:07:53 Slynd 4 mg (28) tablet 2022 023 [email or web address] [id number], [address] [facility] [place], [address], 12/31/2024 15:07:53 norethin drone (contrac eptive) 0.35 mg tablet 2022 023 PEGGY [id number], [address] [place], [address], 09/10/2023 13:33:24 norethin drone (contrac eptive) 0.35 mg tablet 2022 023 leander [id number], [address] [facility] [place], [address], 09/10/2023 13:33:21 Patient TargetsNo targets recorded. Patient InstructionsNo instructions recorded. Reason for Referral Breast Surgery Referral for Family history of breast cancer family history of breast cancer Referring Physician: Rosalva Klein, ARMORER TECHNICIAN, Encounter Date: 12/31/2024 Results Created Date Observation Date Name Description Value Unit Range Abnormal Flag Note LastModifiedBy Organization Detail LastModifiedTime 12/05/1912/05/2022 [facility] - CANCE R HISTO RY ASSES SAROJ RESUL T [facility] [place] - cancer history assessment result Meets criter ia abnormal See PDF for compl ete resul ts. [facility] Hered itary cance r crite mike asses sment - MEETS CRITE MI[facility] N[facility]N HBOC 2021, USPST F Not Available [facility] [address] [place], [address], 12/05/2022 09:44:37 12/06/1912/06/2022 urina lysis , dipst ick Interpretati on negati ve Not Available In-Office Order Internal Use Only DO Not Attach Compendium DO Not Attach Compendium, Do Not Delete/merge, [id number] 12/06/2022 08:27:02 12/06/1912/06/2022 urina lysis , dipst ick Leukocytes Negati ve Not Available In-Office Order Internal Use Only DO Not Attach Compendium DO Not Attach Compendium, Do Not Delete/merge, 12/06/2022 08:27:02 12/06/19 23 12/06/2022 urina lysis , dipst ick Nitrite negati ve Not Available In-Office Order Internal Use Only DO Not Attach Compendium DO Not Attach Compendium, Do Not Delete/merge, 12/06/2022 08:27:02 12/06/19 23 12/06/2022 urina lysis , dipst ick Urobilinogen Normal : 0.2 mg/dl Not Available In-Office Order Internal Use Only DO Not Attach Compendium DO Not Attach Compendium, Do Not Delete/merge, 12/06/2022 08:27:02 12/06/19 23 12/06/2022 urina lysis , dipst ick Protein Negati ve Not Available In-Office Order Internal Use Only DO Not Attach Compendium DO Not Attach Compendium, Do Not Delete/merge, 12/06/2022 08:27:02 12/06/19 23 12/06/2022 urina lysis , dipst ick pH 5.0 Not Available In-Office Order Internal Use Only DO Not Attach Compendium DO Not Attach Compendium, Do Not Delete/merge, 12/06/2022 08:27:02 12/06/19 23 12/06/2022 urina lysis , dipst ick Blood Negati ve Not Available In-Office Order Internal Use Only DO Not Attach Compendium DO Not Attach Compendium, Do Not Delete/merge, 12/06/2022 08:27:02 12/06/19 23 12/06/2022 urina lysis , dipst ick Specific [place] 1.000 Not Available In-Off ice Order Internal Use Only DO Not Attach Compendium DO Not Attach Compendium, Do Not Delete/merge, 12/06/2022 08:27:02 12/06/19 23 12/06/2022 urina lysis , dipst ick Ketone Negati ve Not Available In-Office Order Internal Use Only DO Not Attach Compendium DO Not Attach Compendium, Do Not Delete/merge, [id number] 12/06/2022 08:27:02 12/06/19 23 12/06/2022 urina lysis , dipst ick Bilirubin Negati ve Not Available In-Office Order Internal Use Only DO Not Attach Compendium DO Not Attach Compendium, Do Not Delete/merge, [id number] 12/06/2022 08:27:02 12/06/19 23 12/06/2022 urina lysis , dipst ick Glucose Negati ve Not Available In-Office Order Internal Use Only DO Not Attach Compendium DO Not Attach Compendium, Do Not Delete/merge, [id number] 12/06/2022 08:27:02 12/06/19 23 12/06/2022 urina lysis , dipst ick Appearance Clear Not Available In-Offi ce Order Internal Use Only DO Not Attach Compendium DO Not Attach Compendium, Do Not Delete/merge, [id number] 12/06/2022 08:27:02 12/06/19 23 12/06/2022 urina lysis , dipst ick Color Yellow Not Available In-Office Order Internal Use Only DO Not Attach Compendium DO Not Attach Compendium, Do Not Delete/merge, [id number] 12/06/2022 08:27:02 09/10/20 23 09/10/2023 pregn demetria test, urine Result negati ve Not Available In-Office Order Internal Use Only DO Not Attach Compendium DO Not Attach Compendium, Do Not Delete/merge, [id number] 09/10/2023 14:14:46 12/12/19 24 12/12/2023 urina lysis , dipst ick Interpretati on negati ve Not Available In-Office Order Internal Use Only DO Not Attach Compendium DO Not Attach Compendium, Do Not Delete/merge, [id number] 12/12/2023 08:28:39 12/12/19 24 12/12/2023 urina lysis , dipst ick Leukocytes Negati ve Not Available In-Office Order Internal Use Only DO Not Attach Compendium DO Not Attach Compendium, Do Not Delete/merge, [id number] 12/12/2023 08:28:39 12/12/19 24 12/12/2023 urina lysis , dipst ick Nitrite negati ve Not Available In-Office Order Internal Use Only DO Not Attach Compendium DO Not Attach Compendium, Do Not Delete/merge, 12/12/2023 08:28:39 12/12/19 24 12/12/2023 urina lysis , dipst ick Urobilinogen Normal : 0.2 mg/dl Not Available In-Office Order Internal Use Only DO Not Attach Compendium DO Not Attach Compendium, Do Not Delete/merge, 12/12/2023 08:28:39 12/12/19 24 12/12/2023 urina lysis , dipst ick Protein Negati ve Not Available In-Office Order Internal Use Only DO Not Attach Compendium DO Not Attach Compendium, Do Not Delete/merge, 12/12/2023 08:28:39 12/12/19 24 12/12/2023 urina lysis , dipst ick pH 5.0 Not Available In-Office Order Internal Use Only DO Not Attach Compendium DO Not Attach Compendium, Do Not Delete/merge, 12/12/2023 08:28:39 12/12/19 24 12/12/2023 urina lysis , dipst ick Blood Negati ve Not Available In-Office Order Internal Use Only DO Not Attach Compendium DO Not Attach Compendium, Do Not Delete/merge, 12/12/2023 08:28:39 12/12/19 24 12/12/2023 urina lysis , dipst ick Specific [place] 1.000 Not Available In-Off ice Order Internal Use Only DO Not Attach Compendium DO Not Attach Compendium, Do Not Delete/merge, 12/12/2023 08:28:39 12/12/19 24 12/12/2023 urina lysis , dipst ick Ketone Negati ve Not Available In-Office Order Internal Use Only DO Not Attach Compendium DO Not Attach Compendium, Do Not Delete/merge, 12/12/2023 08:28:39 12/12/19 24 12/12/2023 urina lysis , dipst ick Bilirubin Negati ve Not Available In-Office Order Internal Use Only DO Not Attach Compendium DO Not Attach Compendium, Do Not Delete/merge, [id number] 12/12/2023 08:28:39 12/12/19 24 12/12/2023 urina lysis , dipst ick Glucose Negati ve Not Available In-Office Order Internal Use Only DO Not Attach Compendium DO Not Attach Compendium, Do Not Delete/merge, [id number] 12/12/2023 08:28:39 12/12/19 24 12/12/2023 urina lysis , dipst ick Appearance Clear Not Available In-Offi ce Order Internal Use Only DO Not Attach Compendium DO Not Attach Compendium, Do Not Delete/merge, 12/12/2023 08:28:39 12/12/19 24 12/12/2023 urina lysis , dipst ick Color Yellow Not Available In-Office Order Internal Use Only DO Not Attach Compendium DO Not Attach Compendium, Do Not Delete/merge, 12/12/2023 08:28:39 01/05/20 24 01/05/2024 COMPL ETE BLOOD COUNT WITH AUTO DIFF white blood cell 4.1 thou/ uL 4.0-11 .0 Not Available [facility] [address] [place] [address], 01/06/2024 05:52:41 01/05/20 24 01/05/2024 COMPL ETE BLOOD COUNT WITH AUTO DIFF red blood cell 4.51 mil/u L 4.00-5 .40 Not Available [facility] [address] [place] [address], 01/06/2024 05:52:41 01/05/20 24 01/05/2024 COMPL ETE BLOOD COUNT WITH AUTO DIFF hemoglobin 13.7 g/dL 11.7-1 5.7 Not Available [facility] [address] [place], [place], 01/06/2024 05:52:41 01/05/20 24 01/05/2024 COMPL ETE BLOOD COUNT WITH AUTO DIFF hematocrit 41.9 % 35.0-4 7.0 Not Available [facility] [address] [place], [place], 01/06/2024 05:52:41 01/05/20 24 01/05/2024 COMPL ETE BLOOD COUNT WITH AUTO DIFF mean corpuscular volume 93 fL 80-100 Not Available [facility] [address], [place], 01/06/2024 05:52:41 01/05/20 24 01/05/2024 COMPL ETE BLOOD COUNT WITH AUTO DIFF mean corpuscular hemoglobin 30.4 pg 26.0-3 4.0 Not Available [facility] [address] [place], [place], 01/06/2024 05:52:41 01/05/20 24 01/05/2024 COMPL ETE BLOOD COUNT WITH AUTO DIFF mean corpuscular hemoglobin concentratio n 32.7 g/dL 30.0-3 6.0 Not Available [facility] [address] [place], [place], 01/06/2024 05:52:41 01/05/20 24 01/05/2024 COMPL ETE BLOOD COUNT WITH AUTO DIFF red cell distribution width 12.6 % 11.5-1 4.5 Not Available [facility] [address] [place], [place], 01/06/2024 05:52:41 01/05/20 24 01/05/2024 COMPL ETE BLOOD COUNT WITH AUTO DIFF platelets 189 thou/ uL 150-45 0 Not Available [facility] [address] [place], [place], 01/06/2024 05:52:41 01/05/20 24 01/05/2024 COMPL ETE BLOOD COUNT WITH AUTO DIFF mean platelet volume 11.1 fL 9.4-12 .5 Not Available [facility] [address] [place], [place], 01/06/2024 05:52:41 01/05/20 24 01/05/2024 COMPL ETE BLOOD COUNT WITH AUTO DIFF neutrophil, percentage 56.5 % Not Available [facility] [address] [place], [place], 01/06/2024 05:52:41 01/05/20 24 01/05/2024 COMPL ETE BLOOD COUNT WITH AUTO DIFF lymphocyte, percentage 31.6 % Not Available [facility] [address] [place], [place], 01/06/2024 05:52:41 01/05/20 24 01/05/2024 COMPL ETE BLOOD COUNT WITH AUTO DIFF monocyte, percentage 11.0 % Not Available [facility] [address] [place], [place], 01/06/2024 05:52:41 01/05/20 24 01/05/2024 COMPL ETE BLOOD COUNT WITH AUTO DIFF eosinophil, percentage 0.2 % Not Available [facility] [address] [place], [place], 01/06/2024 05:52:41 01/05/20 24 01/05/2024 COMPL ETE BLOOD COUNT WITH AUTO DIFF basophil, percentage 0.5 % Not Available [facility] [address] [place], [place], 01/06/2024 05:52:41 01/05/20 24 01/05/2024 COMPL ETE BLOOD COUNT WITH AUTO DIFF neutrophil, absolute 2.30 thou/ uL 2.00-7 .50 Not Available [facility] [address] [place], 01/06/2024 05:52:41 01/05/20 24 01/05/2024 COMPL ETE BLOOD COUNT WITH AUTO DIFF lymphocyte, absolute 1.29 thou/ uL 1.50-4 .50 low Not Available [facility] [address] [place], 01/06/2024 05:52:41 01/05/20 24 01/05/2024 COMPL ETE BLOOD COUNT WITH AUTO DIFF monocyte, absolute 0.45 thou/ uL 0.20-1 .50 Not Available [facility] [address] [place], 01/06/2024 05:52:41 01/05/20 24 01/05/2024 COMPL ETE BLOOD COUNT WITH AUTO DIFF eosinophil, absolute 0.01 thou/ uL 0.00-0 .70 Not Available [facility] [address] [place], 01/06/2024 05:52:41 01/05/20 24 01/05/2024 COMPL ETE BLOOD COUNT WITH AUTO DIFF basophil, absolute 0.02 thou/ uL 0.00-0 .20 Not Available [facility] [address] [place], 01/06/2024 05:52:41 01/05/20 24 01/05/2024 COMPL ETE BLOOD COUNT WITH AUTO DIFF NRBC, absolute 0.00 thou/ uL 0.00-0 .02 Not Available [facility] [address] [place], [address] 01/06/2024 05:52:41 01/05/20 24 01/05/2024 COMPL ETE BLOOD COUNT WITH AUTO DIFF NRBC, percentage 0.0 % <5.0 Not Available [facility] [address] [place], [address] 01/06/2024 05:52:41 01/05/20 24 01/05/2024 COMPL ETE BLOOD COUNT WITH AUTO DIFF Ig, absolute 0.01 thou/ uL 0.00-0 .10 Not Available [facility] [address] [place] [address], 01/06/2024 05:52:41 01/05/20 24 01/05/2024 COMPL ETE BLOOD COUNT WITH AUTO DIFF Ig, percentage 0.2 % Not Available [facility] [address] [place] [address], [id number] 01/06/2024 05:52:41 12/31/19 25 12/31/2024 HPV MRNA E6/E7 HPV MRNA E6/E7 Negati ve negati ve APTIM A HPV assay detec ts 14 high risk HPV types (HPV 16,18 ,31,3 3,35, 39,45 ,51,5 2,56, 58,59 ,66,6 8). The assay is FDA appro julee for testi ng ThinP rep liqui d Pap vials but not FDA appro julee for detec ting HPV in SureP ath liqui d Pap speci mens. In-ho use valid ation has shown the assay can detec t all HPV types [facility] Not Available [facility] [address] [place], [address] 01/06/2025 07:08:34 12/31/1912/31/2024 THINP REP PAP TEST (IMAG ER), HPV SCREE N, REFLE X HPV 16,18 /45 report Report Final Gynec ologi toi Cytol ogy Repor t ----- ----- ----- ----- ----- ----- ----- ----- ----- ----- ----- ----- ThinP rep Pap Test, HPV Scree n, Refle x HPV Genot ype SPECI MEN ADEQU ACY: SATIS FACTO RY FOR EVALU ATION ; ENDOC ERVIC AL/TR ANSFO RMATI ON ZONE COMPO NENT ABSEN T/INS [facility] IENT . INTER PRETA TION: NEGAT LESLEY FOR INTRA EPITH ELIAL SHANNA Barber OR ANA HECK . Elect bam Valenzuela d: Kourtney Batres CT (ASCP ) Elect bam Valenzuela d: Brenda Hernandez, [place] (ASCP ) ----- ----- ----- ----- ----- ----- ----- ----- ----- ----- ----- ----- CLINI TOI INFOR MIKEY N: LMP: NG Clini toi Histo ry: NG Biops y Date: NG Speci men Sourc e: Cervi x, Endoc ervix Previ ous Pap Date: NG HPV RESUL TS: HPV mRNA E6/E7 [id number] Appro julee: 01/01 Negat lesley REF RANGE : Negat lesley CPT Codes : 81488 ICD Codes : Z01.4 19 Not Available [facility] [address] [place], [address] 01/06/2025 07:08:38 12/31/1912/31/2024 urina lysis , dipst ick Interpretati on negati ve Not Available In-Office Order Internal Use Only DO Not Attach Compendium DO Not Attach Compendium, Do Not Delete/merge, [id number] 12/31/2024 15:10:10 12/31/19 25 12/31/2024 urina lysis , dipst ick Leukocytes Negati ve Not Available In-Office Order Internal Use Only DO Not Attach Compendium DO Not Attach Compendium, Do Not Delete/merge, [id number] 12/31/2024 15:10:10 12/31/19 25 12/31/2024 urina lysis , dipst ick Nitrite negati ve Not Available In-Office Order Internal Use Only DO Not Attach Compendium DO Not Attach Compendium, Do Not Delete/merge, 12/31/2024 15:10:10 12/31/19 25 12/31/2024 urina lysis , dipst ick Urobilinogen Normal [...] 12/31/2024 urina lysis , dipst ick Specific [place] 1.000 Not Available In-Off ice Order Internal [...] DO Not Attach Compendium, Do Not Delete/merge, [id number] 12/31/2024 15:10:10 12/31/19 25 12/31/2024 urina lysis , dipst ick Glucose Negati ve Not Available In-Office Order Internal Use Only DO Not Attach Compendium DO Not Attach Compendium, Do Not Delete/merge, [id number] 12/31/2024 15:10:10 12/31/19 25 12/31/2024 urina lysis , dipst ick Appearance Clear Not Available In-Offi ce Order Internal Use Only DO Not Attach Compendium DO Not Attach Compendium, Do Not Delete/merge, [id number] 12/31/2024 15:10:10 12/31/19 25 12/31/2024 urina lysis , dipst ick Color Yellow Not Available In-Office Order Internal Use Only DO Not Attach Compendium DO Not Attach Compendium, Do Not Delete/merge, [id number] 12/31/2024 15:10:10 07/04/20 23 06/24/2023 US, breas t, bilat eral No observ ation record ed. shammell [facility] [address], [place], [address], 07/15/2023 10:29:19 09/10/20 23 09/10/2023 ultra sound image s RAD rberke Chad Vargas MD [address] [place], [address], 09/12/2023 11:01:51 01/07/20 24 01/05/2024 MAMMO , scree ligia, digit al, bilat eral No observ ation record ed. [email or web address] [facility] [address], [place], [address], 01/16/2024 13:42:32 Result Notes None recorded. Problems Name Problem SNOMED Code Status Onset Date Resolution Date Notes Provider Name and Address Organization Details Recorded Time Hypertensive disorder 26242439 Active 2023 Brenda Gonzalez null, [place] - [facility] 4 09:26:46 Problem Notes None recorded. Procedures Surgical History Date Name Laterality Status Provider Name and Address Organization Details Recorded Time 01/02/20 22 Date of Last Mammogram completed Brenda Gonzalez [facility] 12/06/2022 08:25:20 11/30/19 22 Date of Last Pap Smear completed Brenda Gonzalez [facility] 12/06/2022 08:24:44 Appendectomy completed Brenda Gonzalez [facility] 11/30/2021 14:38:54 lumpectomy of right breast completed Brenda Gonzalez [facility] 11/30/2021 14:39:08 Imaging Results Imaging Date Name Status LastModified by Organiz ation Details LastModified Time 06/24/2023 US, breast, bilateral completed shammell [facility] [address], [place], [address], 07/15/2023 10:29:19 09/10/2023 ultrasound images completed faizan Vargas MD [address] [place] [address], [address], 09/12/2023 11:01:51 01/05/2024 MAMMO, screening, digital, bilateral completed [email or web address] [facility] [address], [place], [address], 01/16/2024 13:42:32 Procedure Notes None recorded. Medical Equipment None Reported. Allergies Allergen ID Allergen Name Allergen Category Reaction Reaction Severity Criticality Documentation Date Start Date Code Code System Note Provider Name and Address Organization Details Recorded Time 2689050 acetamino phen / hydrocodo ne medicatio n Not available Not available Not available 11/30/2021 72227 2 RxNorm Brenda Gonzalez [facility], [facility] 14:36:15 Medications Name Sig Start Date Stop [...] Not Available Not Available norethindro ne (contracept lesley) 0.35 mg tablet TAKE 1 TABLET BY [...] and Address Organization Details Last Updated DateTime 11/29/2022 170.18 cm 20 kg/m2 72280.82 g 122 mm[Hg] 78 mm[Hg] Gali Tsang [facility] 09:09:34 Date Recorded Body height Provider Name an d Address Organization Details Last Updated DateTime 12/06/2022 170.18 cm Brenda Gonzalez [facility] 12/06/2022 09:21:39 Date Recorded Body height Body mass index (BMI) Body weight Systolic blood pressure Diastolic blood pressure Provider Name and Address Organization Details Last Updated DateTime 09/10/2023 170.18 cm 21.5 kg/m2 51714.15 g 138 mm[Hg] 74 mm[Hg] Lorenza duggan [facility] 13:33:07 Date Recorded Body height Body mass index (BMI) Body weight Provider Name and Address Organization Details Last Updated DateTime 12/12/2023 170.18 cm 21.3 kg/m2 83631.56 g Brenda Gonzalez [facility] 12/12/2023 10:05:49 Date Recorded Body height Body mass index (BMI) Body weight Systolic blood pressure Diastolic blood pressure Provider Name and Address Organization Details Last Updated DateTime 12/31/2024 170.18 cm 22.1 kg/m2 03611.52 g 122 mm[Hg] 82 mm[Hg] Gali Tsang [facility] 15:12:55 Social History Question Answer Notes LastModified by Organizat ion Details LastModified Time Tobacco Smoking Status Never Smoker Hina Ontiveros constance, [facility] 05/14/2022 12:48:45 What Is Your Level Of Alcohol Consumption? None [email or web address] Information not available 05/14/2022 Is Blood Transfusion Acceptable In An Emergency? Yes [email or web address] Information not available 05/14/2022 In The 14 Days Before Symptom Onset, Have You Had Close Contact With A Laboratory-confirm ed COVID-19 While That Case Was Ill? No Information n ot available 05/14/2022 In The 14 Days Before Symptom Onset, Have You Had Close Contact With A Person Who Is Under Investigation For COVID-19 While That Person Was Ill? No Information not available 05/14/2022 Have You Been To An Area Known To Be High Risk For COVID-19? No [email or web address] Information not available 05/14/2022 Are You Currently Employed? Yes Information not available 05/14/2022 Do You Reside In Or Have You Traveled To An Area Where Ebola Virus Transmission Is Active? No [email or web address] Information not available 05/14/2022 What Is Your Occupation? [employer] [email or web address] Information not available 05/14/2022 Have There Been Any Changes To Your Family Or Social Situation? No [email or web address] Information no t available 05/14/2022 Have You [...] Do You Use Protection During Sex? Always [email or web address] Information not available 05/14/2022 Are You Sexually Active? Yes [email or web address] Information not available 05/14/2022 Have You Recently Traveled Abroad? No Information not available 11/30/2021 Sex: Unknown Functional Status None recorded. Mental Status Question Answer Note LastModified by Organization D etails LastModified Time Do you have difficulty concentrating, remembering or making decisions? No [email or web address] Information no t available 05/14/2022 Family History [...] SNOMED-CT Code Diagnosis ICD10 Code Diagnosis Note [id number] ROSALVA KLEIN APRN SHE2 [address] [place] [address] 11/30/2021 14:09:32 11/30/2021 15:24:50 Gynecologic examination 15256043 Z01.419 Surveillan ce of contraception 984942757 Z30.41 Using condoms only Would like to be on bipahsic OCP that will not only control her fertility but will also decrease her heavy periods Will have a trial of Lo loestrin FE given 2 samples She s counseled on start process; Missed pill protocol; Needs to take at same time every day Had toxemia in # month OCP check with BP Depression screening 171 751232 Z13.31 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 [id number] ROSALVA KLEIN APRN SHE2 [address] [place] [address] 03/01/2022 10:17:36 03/01/2022 10:59:34 Surveillance of oral contraception 727306084 Z30.41 Will have trial of POP If too much BTB will consider Depo Provera or progestero ne IUD [id number] ROSALVA KLEIN APRN SHE2 [address] [place] [address] 05/08/2022 12:47:30 05/08/2022 13:24:19 Pain in pelvis 09613906 R10.2 Benign speculum exam and bimanual Will Proceed to transvagin al US as first step In a mongamous relationsh ip Using condoms and had trial or POP but her blood pressure increased with use so was discontinu ed Recnet gc and Clamydia negative Irregular intermenstrual bleeding 01091907 N92.1 [id number] ROSALVA KLEIN APRN SHE[address] [address] [place] [address] 05/31/2022 09:37:25 05/31/2022 10:21:39 Surveillance of oral contraception [id number] Z30.41 No BTB on bipahsic ocp Normotensi ve today will monitor BP at home RV 5 months to discuss pelvic symptoms , if any [id number] ROSALVA PARADAPHILLIP ENVIRONMENTAL SCIENCE PROGRAM DIRECTOR [address] [place] [address] 07/19/2022 09:26:46 07/19/2022 10:26:16 Epidermoid cyst [id number] L72.0 lower left labial fold Not inflamed or tender at all Monitor Vaccination not done 067 [id number] 9108 Z28.9 Had first HPV vaccine in Dec 2010 and second injection August 06 2012 Never had third dose Reviewed CDC guideline regarding immunizati on completion 9vHPV can be used to complete all initial immunizati on when there has been a gap; no immunizati on doses need to be repeated. Recommende d up to age 26 After 26 up to age 45 is less effective and should be considered on a case to case basis( immuno suppressed individual being one example) [id number] ROSALVA PARADABRICE FISHER [address] [place] [address] 11/29/2022 08:56:51 11/29/2022 09:41:24 Surveillance of oral contraception [id number] Z30.41 No BTB, ACHES reviewed Pelvi pain is diminished in intensity and frequency BP 122/78 [id number] ROSALVA KLEINBRICE FISHER SHE[address] [place] [address] 12/06/2022 09:21:15 12/06/2022 10:21:17 Gynecologic examination [id number] Z01.419 Next pap is due in 2024 Depression screening 171 876174 Z13.31 Surveillan ce of oral contraception [id number] Z30.41 No BTB, ACHES reviewed Pelvi pain is diminished in intensity and frequency BP 122/78 Familial c ancer of breast [id number] C50.919 [id number] CHAD ROWE CNM [address] [place] [address] 09/10/2023 13:13:20 09/10/2023 14:52:46 test negative [id number] Z32.02 Menorrhagia 412244661 N9 2.0 Abnormally long period. Performed u/s to f/u on RT ovarian cyst from 05/15. Discussed hormonal control options, pt agreed to OCP. Previously tried norethindr one, unsuccessf ul. Advised supplement ing with iron, Vit D, magnesium. F/u contracept lesley visit in 3 months. TSH done in last 2 mos by PCP and WNL. CBC ordered. Pt states wants hormonal control to try to decrease heavy menses and discomfort at time of menses. Discussed LARCs vs OCPs and she would like to go back on OCPs. 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 No hereditary cancer risk. Screening labs with PCP. Pap--- STI screen---- Encourage monthly SBE Depression screening 171 185675 Z13.31 Screen negative for depression Family his tory of breast cancer [id number] Z80.3 Health Concerns Section Related Observation LastModified by Organization Detai ls LastModified Time None Recorded Concern Status LastModified by Organization Details LastModified Time None Recorded Advance Directives Directive None Recorded Payers Encounter Date Sequence Insurance Name Policy Number Policy Vera Covered Member ID Vera Member ID Guarantor Name 11/29/2022 1 [employer] - DOS PRIOR TO 2024 - [employer] () Bonnie Iyer [id number] Bonnie Guevara Jaylon 12/06/2022 1 [employer] - DOS PRIOR TO 2024 - [employer] () Bonnie L Jaylon [id number] Bonnie Guevara Jaylon 09/10/2023 1 [place] - DOS PRIOR TO 2024 - [employer] () Bonnie L Jaylon [id number] Bonnie Guevara Jaylon 12/12/2023 1 [place] - DOS PRIOR TO 2024 - [employer] () Bonnie Guevara Jaylon [id number] Bonnie Guevara Jaylon 12/31/2024 1 [place] - DOS ON OR AFTER 2024 - [employer] () Bonnie Guevara Jaylon [id number] Bonnie Richmondhardt Notes Date Note Type Note Provider Name and Address Organization Details Recorded Time 11/29/2022 text/html f/u ocp w/ dpf. Norenthindrone No spotting Pelvic pain she reports is very minimal now She is normotensive today BP122/78 ACHES is reviewed today Is coming in for AV next week ROSALVA KLEIN, ENVIRONMENTAL SCIENCE PROGRAM DIRECTOR [address] [facility], [address], [place], [address], [facility] [place] 11/29/2022 09:22:33 12/06/2022 text/html [facility]Menstrual cycle:Normal menses Urinary symptoms:No hematuria; No incontinence Vulva:No genital lesion Vagina:Normal vaginal discharge Breast:No breast pain; No breast lump; No nipple discharge Current Contraception:[place] us relationship; Condoms; Requests testing for sexually transmitted infections Sexual activity:sexually active yes; No sexual complaints; No pain during intercourse; Normal libido Menopausal symptoms:No menopausal symptoms; Normal vaginal lubrication Psychological symptoms:No depression; No anxiety; No PMDD Preventive measures:Encourage self breast examination; Encourage regular exercise; Encourage no tobacco use; Followed with Q3 year pap smear and high risk HPV typing Patient is here today for her annual visit. Last annual was on 11/30/2021Last pap was performed on 11/30/2021 results were neg x2.Pt using norethindrone for OCP, happy with method. ROSALVA KLEIN APRN [address] [facility] [place], [address], [facility] 12/06/2022 09:59:20 09/10/2023 text/html [facility] Abnormal BleedingReported bypatient.Onset/Timing :present cycle Duration:<7 days/month Quality:spotting; heavy; passing clots Context:occurs after intercourse; current contraception: (none) Associated Symptoms:no dysmenorrhea; no fatigue; no dizziness; no anemia/iron supplements; no shortness of breath; no CP/palpitations; no bloating; no change in bowel function; no urinary symptoms; no PMS; no vaginal discharge; no vaginal itching/irritation;pel danni pain Pt Present problem visits w/PMO LMP 08/29/2023-09/10/2023 Pt complaints are Irregular Period Pt states had period for 11 days and stopped today. CHAD ROWE CNM [address] [facility], [address] [place] [address], [address], [facility] 09/10/2023 17:05:13 12/12/2023 text/html [facility] Annual GYNRe ported bypatient.Menstrual cycle:Normal menses Urinary [...] high risk HPV typing every 3 years Patient is here today for her annual visit. Last annual was on 12/06/2022Last pap was performed on 11/30/2021 results were neg x2.; next pap due in 2024Pt using slynd for OCP, happy with method. 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 11/30/19 22 1 CLOSED Fetus Data First Name Last Name Admitted to NICU Weight (g) Sex Living Outcome Pediatric Complications Fetus ID Race Codes Race Delivery Type M Prematur e [id number] Jay Calculation Initial Jay Date Initial Exam Date Initial Exam Provider Initial Ultrasound Date Last Menstrual Period Date Ultra Sound Weeks Gestation 0 Eighteen To Twenty Week Jay Update Ultra Sound Date Fundal Height At Umbil Quickening Date Ultra Sound Latest Weeks Gestation Final Jay Confirmed By Final Jay Confirmed Date Final Jay Date Ultra Sound Latest Days Gestation 0 0 Menstrual History Last Menstrual Date Menses Monthly On Bcp Conception Prior Menses Frequency Hcg Plus Date Menarche Onset Age Delivery Information Delivery Date Delivery Type Labor Anesthesia Weeks Gestation Incision Type Labor Labor Length Hrs Delivered By Post Complications Tubal Sterilization Discharge Date Comments 0 36 Discharge Information Feeding Method Contraceptive Method Maternal HG B and HCT Levels
== END 2025-01-20 14:30 | disposition home or self-care (01) ==
LOC: HO.HMCWIW 14:01
PROVIDERS: PCP Family Medicine
DX: H65.191 Other acute nonsuppurative otitis media, right ear (principal); R51.9 Headache, unspecified

== ENCOUNTER → 2025-01-20 14:01 | Outpatient (BNVA) | payer OTHER, SELFPAY | PROVIDERS: PCP Family Medicine | DX: H65.191 Other acute nonsuppurative otitis media, right ear (principal); R51.9 Headache, unspecified | CPT/HCPCS: 99212 ==

== ENCOUNTER 2025-02-01 09:23 | Outpatient (AMB) | payer OTHER, SELFPAY ==
--- NOTE | 2025-02-01 09:28 | A.OFFPC_ITS ---
Vital Signs 02/01/25 09:34 Height 5 ft 7 in Weight 144 lb 8 oz BMI 22.6 BP 116/68 Blood Pressure Location Rt brachial Position Sitting Respiration 12 Pulse 89 Pulse Source Pulse Oximeter Temp 97.9 F Temp Source Oral Pulse Oximetry (%) 98 Oxygen Delivery Method Room Air Intake Visit Reasons: F/u headaches & confusion Intake Note: Patient is here today to follow up on headaches and confusion. Per her ENT specialist he told pt to follow up with pcp because her headaches and confusion is not associated with her ears. Customer Service Officer Required: No Allergies Seasonal Allergies Allergy (Severe, Verified 02/01/25 09:32) Chronic Sinus Infections hydrocodone [From Vicodin] Allergy (Unknown, Verified 02/01/25 09:32) Hives Tobacco use date assessed: 05/10/24 Dental Screening Dental Screen Date: 07/29/24 HPI F/u headaches & confusion HPI Details 34 y/o female presents to f/u headaches, confusion. Had seen [place] for this 01/20/25. Had complained of intermittent bilateral temporal headaches and that sometimes cause confusion. Was recommended to take zyrtec, flonase as needed. Reports daily headaches, R side in the morning. She notes that sometimes she continues to get episodes of confusion during these headaches. She denies it being associated with shoulder/neck pain. [facility] Medical History (Updated 02/01/25 @ 09:58 by Dale Kelly) Acute respiratory disease Decreased leukocytes Stress Routine physical examination History of high blood pressure Surgical History (Updated 09/08/24 @ 11:04 by Magali Blanco MD) History of breast lump History of appendectomy Family History Father COPD (chronic obstructive pulmonary disease) Mother No problems noted. Maternal Grandmother No problems noted. Maternal Grandfather Cancer Paternal Grandmother Breast cancer Paternal Grandfather No problems noted. Brother No problems noted. Brother No problems noted. Sister No problems noted. Sister No problems noted. Social History Household Members: Significant Other and Children Housing: Condominium Alcohol intake: never Patient Tobacco Use Status: Never used Tobacco e-Cigarette/Vaping Use: Never Used Second Hand Smoke Exposure: No service: Yes Current occupational status: employed Current occupation: [employer]/ right hand dominant Current occupational exposures/hazards: No Gender identity: Female Cognitive needs: No Hearing needs: No Vision needs: Yes (Glasses) Questionnaire PHQ-9 Over the last 2 weeks, how often have you been bothered by any of the following problems? 1. Little interest or pleasure in doing things: not at all 2. Feeling down, depressed, or hopeless: not at all 3. Trouble falling or staying asleep, or sleeping too much: not at all 4. Feeling tired or having little energy: not at all 5. Poor appetite or overeating: not at all 6. Feeling bad about yourself - or that you are a failure or have let yourself or your family down: not at all 7. Trouble concentrating on things, such as reading the newspaper or watching television: not at all 8. Moving or speaking so slowly that other people could have noticed. Or the opposite - being so fidgety or restless that you have been moving around a lot more than usual: not at all 9. Thoughts that you would be better off or of hurting yourself in some way: not at all Total score: 0 Source: Developed by Drs. Demond Wilks, Silvia Coulter, Dave Ortega and colleagues, with an educational debra from [employer]. Thrive Questionnaire Date Thrive assessed: 07/29/24 I am a: Patient What is your living situation today?: I have a steady place to live Within the past 12 months, did the food you bought not last and you didn't have the money to get more?: Never true Within the past 12 months, did you worry whether your food would run out before you got money to buy more?: Never true Do you have trouble paying for medicines?: No Do you have trouble getting transportation to medical appointments?: No Do you have trouble paying your heating and electricity bill?: No Do you have trouble taking care of your child, family member or friend?: No Do you have trouble with day-to-day activities such as bathing, preparing meals, shopping, managing finances, etc.?: No Are you currently unemployed and looking for a job?: No Are you interested in more education?: No Please select the resources that you would like help with: None Currently or been in a relationship where the following occur: No concerns reported THRIVE Score: 0 AUDIT C Alcohol Use Questionnaire (AUDIT-C) 1. How often do you have a drink containing alcohol?: Never Total Score: 0 JJ-7 AMB Questionnaire JJ-7 Date JJ - 7 assessed: 07/29/24 Feeling nervous, anxious, or on edge: 0 = Not at all Not being able to stop or control worryin = Not at all Worrying too much about different things: 0 = Not at all Trouble relaxin = Not at all Being so restless that it is hard to sit still: 0 = Not at all Becoming easily annoyed or irritable: 0 = Not at all Feeling afraid as if something awful might happen: 0 = Not at all Total JJ-7 score (0-4 normal; 5-9 mild; 10-14 moderate; 15-21 severe): 0 Source: Developed by Drs. Demond Wilks, Silvia Coulter, Dave Ortega and colleagues, with an educational debra from [employer]. Review of Systems Const Denies fatigue and Reports headache(s) ENT Reports headache(s) Card Denies chest pain, Denies lightheadedness, Denies dyspnea and Denies other (Palpitations) Resp Denies cough, Denies dyspnea, Denies wheezing and Denies other ( shortness of breath) Musc Denies numbness and Denies tingling Neuro Reports headache(s), Denies numbness and Denies tingling Psych Denies anxiety and Denies depression Endo Denies fatigue Aller/Immun Denies wheezing Physical exam (Primary Care) Vital Signs: Last Vital Signs Temp 97.9 F 02/01/25 09:34 Pulse 89 02/01/25 09:34 Resp 12 02/01/25 09:34 BP 116/68 02/01/25 09:34 Pulse Ox 98 02/01/25 09:34 Oxygen Delivery Method Room Air 02/01/25 09:34 BMI result Body Mass Index 22.6 Tobacco/Smoking Status: Tobacco use Status Tobacco use date assessed 05/10/24 02/01/25 09:37 Patient Tobacco Use Status Never used Tobacco 02/01/25 09:37 e-Cigarette/Vaping Use Never Used 02/01/25 09:37 PHQ-9: PHQ-9 Score PHQ-9: Total score 0 02/01/25 09:46 Thrive Assessment: Date of Thrive Assessment Date Thrive assessed 07/29/24 02/01/25 09:37 Currently or been in a relationship where the following occur: No concerns reported Const General: no acute distress and well developed Nutritional Appearance: well nourished Orientation/consciousness: patient oriented x3 HENMT Head: Yes normocephalic and Yes atraumatic Eyes General: appearance normal, both eyes and all related structures Pupils: Equal, round and reactive pupils present EOM: EOMs intact bilaterally Resp Effort & Inspection: normal respiratory effort Auscultation: clear to auscultation bilaterally Cardio Rate: regular rate Rhythm: regular rhythm Heart sounds: S1 normal heart sound present, S2 normal heart sound present, no gallops, no murmurs and no rubs Neuro General: patient oriented x3 and gait normal Cranial nerves: Yes Equal, round and reactive pupils present Psych Affect: normal affect Coding Level of Care Code Est Pt Level 3 (54783) Diagnoses Headache R51.9 Confusion R41.0 Assessment & Plan Assessment & Plan (1) Headache: Code(s): R51.9 - Headache, unspecified Category: Medical (2) Confusion: Code(s): R41.0 - Disorientation, unspecified Category: Medical Plan C omplaints?daily?headaches?on?the?right?side,?not?associated?with?any?classic?bobo caroline?symptoms. She?also?notes?some?confusion Will?check?CT?head/brain Check?labs?including CMP,?CBC, sed?rate?thyroid?level Referred?to?C?opiate?psychiatric?consult?team?regarding?confusion Orders: Orders Comprehensive Met. Panel Today R51.9 - Headache, unspecified TSH reflex Free T4 Today R51.9 - Headache, unspecified, Z00.00 - Encounter for general adult medical examination without abnormal findings CRP High Sensitivity Today R51.9 - Headache, unspecified CT head/brain wo IV con Today R41.0 - Disorientation, unspecified, R51.9 - Headache, unspecified Complete Blood Count Auto Diff Today R51.9 - Headache, unspecified, Z00.00 - Encounter for general adult medical examination without abnormal findings Erythrocyte Sedimentation Rate Today R51.9 - Headache, unspecified Referrals Psychiatry Outpatient Consultation Service R41.0 - Disorientation, unspecified
[2025-02-01 09:34] VITALS: BP 116/68; PULSE 89; RESP 12; TEMP 36.6; O2SAT 98; BMI 22.6
--- OUTSIDE RECORDS SUMMARY | 2025-02-01 10:28 | XMS_ITS | Data Portability ---
Author Organization [place] - [facility], [facility] Address [id number] [place] [address] Care Team Providers Care Human Relations Manager Name Role Phone ADILSON FRIEDMAN Primary Care Provider ADILSON FRIEDMAN Referring Provider Assessment No assessment recorded. Plan of Treatment Reminders Order Date Submit Date Provider Last Modified By Organization Details Last Modified Time Details Appointments ANNUAL TRUST VAULT CLERK 20 2025 03:00P Steve Klein APRN Not available Not available Not available Lab pap, IG + HPV 2024 025 [facility], [address] [place], [address] 01/06/2025 07:08:38 urinalys is, dipstick 2024 025 [email or web address] In-Office Order, Internal Use Only DO Not Attach Compendium DO Not Attach Compendium, Do Not Delete/merge, [id number] 12/31/2024 16:50:50 urinalys is, dipstick 2023 024 [email or web address] In-Office Order, Internal Use Only DO Not Attach Compendium DO Not Attach Compendium, Do Not Delete/merge, [id number] 12/12/2023 10:18:05 pregnanc y test, urine 2022 023 [email or web address] In-Office Order, Internal Use Only DO Not Attach Compendium DO Not Attach Compendium, Do Not Delete/merge, [id number] 09/10/2023 17:03:22 CBC w/ auto diff 2022 023 [facility], [address] [facility], [place], [address] 01/06/2024 05:52:41 urinalys is, dipstick 2022 023 [email or web address] In-Office Order, Internal Use Only DO Not Attach Compendium DO Not Attach Compendium, Do Not Delete/merge, [id number] 12/06/2022 09:59:16 Referral breast surgery referral 2024 025 [email or web address] Evelyn Yu, [address], [place], [address], 01/12/2025 09:16:55 Procedures None recorded . Surgeries None recorded . Imaging MAMMO, screenin g, digital, bilatera l 2023 024 [facility], [address], [place], [address], 12/16/2023 14:54:05 US, breast, bilatera l 2023 024 [facility], [address], [place], [address], 12/16/2023 14:54:05 MAMMO, screenin g, digital, bilatera l 2022 023 [facility], [address], [place], [address], 12/06/2022 11:34:05 US, breast, bilatera l 2022 023 [facility], [address], [place], [address], 07/04/2023 09:25:09 Medication Orders Slynd 4 mg (28) tablet 2023 024 [email or web address] [facility] #[id number], [address], [address], 12/31/2024 15:07:53 Slynd 4 mg (28) tablet 2022 023 [email or web address] [facility] #[id number], [address] [facility] [place], [address], 12/31/2024 15:07:53 norethin drone (contrac eptive) 0.35 mg tablet 2022 023 PEGGY [facility] #[id number], [address] [place], [address], 09/10/2023 13:33:24 norethin drone (contrac eptive) 0.35 mg tablet 2022 023 [email or web address] [facility] #[id number], [address] [facility] [place], [address], 09/10/2023 13:33:21 Patient TargetsNo targets recorded. Patient InstructionsNo instructions recorded. Reason for Referral Breast Surgery Referral for Family history of breast cancer family history of breast cancer Referring Physician: Rosalva Klein, PROPERTY MANAGEMENT ASSISTANT, Encounter Date: 12/31/2024 Results Created Date Observation Date Name Description Value Unit Range Abnormal Flag Note LastModifiedBy Organization Detail LastModifiedTime 12/05/1912/05/2022 [facility] [place] - CANCE R HISTO RY ASSES SAROJ RESUL T [facility] - cancer history assessment result Meets criter ia abnormal See PDF for compl ete resul ts. [facility] [place] Hered itary cance r crite mike asses sment - MEETS [facility] N[facility]N HBOC 2021, USPST F Not Available [facility] [address] [place], [address], 12/05/2022 09:44:37 12/06/1912/06/2022 urina lysis , dipst ick Interpretati on negati ve Not Available In-Office Order Internal Use Only DO Not Attach Compendium DO Not Attach Compendium, Do Not Delete/merge, [id number] 12/06/2022 08:27:02 12/06/1912/06/2022 urina lysis , dipst [...] 12/06/2022 urina lysis , dipst ick Specific [place] 1.000 Not Available In-Off ice Order Internal Use Only DO Not Attach Compendium DO Not Attach Compendium, Do Not Delete/merge, 12/06/2022 08:27:02 12/06/19 23 12/06/2022 urina lysis , dipst ick Ketone Negati ve Not Available In-Office Order Internal Use Only DO Not Attach Compendium DO Not Attach Compendium, Do Not Delete/merge, [id number] 12/06/2022 08:27:02 12/06/19 23 12/06/2022 urina lysis , dipst ick Bilirubin Negati ve Not Available In-Office Order Internal Use Only DO Not Attach Compendium DO Not Attach Compendium, Do Not Delete/merge, [id number] 12/06/2022 08:27:02 12/06/19 23 12/06/2022 urina lysis , dipst ick Glucose Negati ve Not Available In-Office Order Internal Use Only DO Not Attach Compendium DO Not Attach Compendium, Do Not Delete/merge, [id number] 12/06/2022 08:27:02 12/06/19 23 12/06/2022 urina lysis , dipst ick Appearance Clear Not Available In-Offi ce Order Internal Use Only DO Not Attach Compendium DO Not Attach Compendium, Do Not Delete/merge, [id number] 12/06/2022 08:27:02 12/06/19 23 12/06/2022 urina lysis , dipst ick Color Yellow Not Available In-Office Order Internal Use Only DO Not Attach Compendium DO Not Attach Compendium, Do Not Delete/merge, [id number] 12/06/2022 08:27:02 09/10/20 23 09/10/2023 pregn demetria test, urine Result negati ve Not Available In-Office Order Internal Use Only DO Not Attach Compendium DO Not Attach Compendium, Do Not Delete/merge, [id number] 09/10/2023 14:14:46 12/12/19 24 12/12/2023 urina lysis , dipst ick Interpretati on negati ve Not Available In-Office Order Internal Use Only DO Not Attach Compendium DO Not Attach Compendium, Do Not Delete/merge, [id number] 12/12/2023 08:28:39 12/12/19 24 12/12/2023 urina lysis , dipst ick Leukocytes Negati ve Not Available In-Office Order Internal Use Only DO Not Attach Compendium DO Not Attach Compendium, Do Not Delete/merge, [id number] 12/12/2023 08:28:39 12/12/19 24 12/12/2023 urina lysis [...] 12/12/2023 urina lysis , dipst ick Specific [place] 1.000 Not Available In-Off ice Order Internal [...] DO Not Attach Compendium, Do Not Delete/merge, [id number] 12/12/2023 08:28:39 12/12/19 24 12/12/2023 urina lysis , dipst ick Glucose Negati ve Not Available In-Office Order Internal Use Only DO Not Attach Compendium DO Not Attach Compendium, Do Not Delete/merge, [id number] 12/12/2023 08:28:39 12/12/19 24 12/12/2023 urina lysis [...] 4.1 thou/ uL 4.0-11 .0 Not Available [facility] [address] [place] [address], 01/06/2024 05:52:41 01/05/20 24 01/05/2024 COMPL ETE BLOOD COUNT WITH AUTO DIFF red blood cell 4.51 mil/u L 4.00-5 .40 Not Available [facility] [address] [place] [address], 01/06/2024 05:52:41 01/05/20 24 01/05/2024 COMPL ETE BLOOD COUNT WITH AUTO DIFF hemoglobin 13.7 g/dL 11.7-1 5.7 Not Available [facility] [address], [place], 01/06/2024 05:52:41 01/05/20 24 01/05/2024 COMPL ETE BLOOD COUNT WITH AUTO DIFF hematocrit 41.9 % 35.0-4 7.0 Not Available [facility] [address], [place], 01/06/2024 05:52:41 01/05/20 24 01/05/2024 COMPL ETE BLOOD COUNT WITH AUTO DIFF mean corpuscular volume 93 fL 80-100 Not Available [facility] [address], [place], 01/06/2024 05:52:41 01/05/20 24 01/05/2024 COMPL ETE BLOOD COUNT WITH AUTO DIFF mean corpuscular hemoglobin 30.4 pg 26.0-3 4.0 Not Available [facility] [address], [place], 01/06/2024 05:52:41 01/05/20 24 01/05/2024 COMPL ETE BLOOD COUNT WITH AUTO DIFF mean corpuscular hemoglobin concentratio n 32.7 g/dL 30.0-3 6.0 Not Available [facility] [address], [place], 01/06/2024 05:52:41 01/05/20 24 01/05/2024 COMPL ETE BLOOD COUNT WITH AUTO DIFF red cell distribution width 12.6 % 11.5-1 4.5 Not Available [facility] [address], [place], 01/06/2024 05:52:41 01/05/20 24 01/05/2024 COMPL ETE BLOOD COUNT WITH AUTO DIFF platelets 189 thou/ uL 150-45 0 Not Available [facility] [address], [place], 01/06/2024 05:52:41 01/05/20 24 01/05/2024 COMPL ETE BLOOD COUNT WITH AUTO DIFF mean platelet volume 11.1 fL 9.4-12 .5 Not Available [facility] [address], [place], 01/06/2024 05:52:41 01/05/20 24 01/05/2024 COMPL ETE BLOOD COUNT WITH AUTO DIFF neutrophil, percentage 56.5 % Not Available [facility] [address], [place], 01/06/2024 05:52:41 01/05/20 24 01/05/2024 COMPL ETE BLOOD COUNT WITH AUTO DIFF lymphocyte, percentage 31.6 % Not Available [facility] [address], [place], 01/06/2024 05:52:41 01/05/20 24 01/05/2024 COMPL ETE BLOOD COUNT WITH AUTO DIFF monocyte, percentage 11.0 % Not Available [facility] [address], [place], 01/06/2024 05:52:41 01/05/20 24 01/05/2024 COMPL ETE BLOOD COUNT WITH AUTO DIFF eosinophil, percentage 0.2 % Not Available [facility] [address], [place], 01/06/2024 05:52:41 01/05/20 24 01/05/2024 COMPL ETE BLOOD COUNT WITH AUTO DIFF basophil, percentage 0.5 % Not Available [facility] [address], [place], 01/06/2024 05:52:41 01/05/20 24 01/05/2024 COMPL ETE BLOOD COUNT WITH AUTO DIFF neutrophil, absolute 2.30 thou/ uL 2.00-7 .50 Not Available [facility] [address], [place], 01/06/2024 05:52:41 01/05/20 24 01/05/2024 COMPL ETE BLOOD COUNT WITH AUTO DIFF lymphocyte, absolute 1.29 thou/ uL 1.50-4 .50 low Not Available [facility] [address], [place], 01/06/2024 05:52:41 01/05/20 24 01/05/2024 COMPL ETE BLOOD COUNT WITH AUTO DIFF monocyte, absolute 0.45 thou/ uL 0.20-1 .50 Not Available [facility] [address], [place], 01/06/2024 05:52:41 01/05/20 24 01/05/2024 COMPL ETE BLOOD COUNT WITH AUTO DIFF eosinophil, absolute 0.01 thou/ uL 0.00-0 .70 Not Available [facility] [address], [place], 01/06/2024 05:52:41 01/05/20 24 01/05/2024 COMPL ETE BLOOD COUNT WITH AUTO DIFF basophil, absolute 0.02 thou/ uL 0.00-0 .20 Not Available [facility] [address], 01/06/2024 05:52:41 01/05/20 24 01/05/2024 COMPL ETE BLOOD COUNT WITH AUTO DIFF NRBC, absolute 0.00 thou/ uL 0.00-0 .02 Not Available [facility] [address] [place], [address] 01/06/2024 05:52:41 01/05/20 24 01/05/2024 COMPL ETE BLOOD COUNT WITH AUTO DIFF NRBC, percentage 0.0 % <5.0 Not Available [facility] [address] [place], [address] 01/06/2024 05:52:41 01/05/20 24 01/05/2024 COMPL ETE BLOOD COUNT WITH AUTO DIFF Ig, absolute 0.01 thou/ uL 0.00-0 .10 Not Available [facility] [address] [place] [address], 01/06/2024 05:52:41 01/05/20 24 01/05/2024 COMPL ETE BLOOD COUNT WITH AUTO DIFF Ig, percentage 0.2 % Not Available [facility] [address] [place] [address], [address] 01/06/2024 05:52:41 12/31/19 25 12/31/2024 HPV MRNA [...] [facility] t [facility] Not Available [facility] [address] [place], [address] 01/06/2025 07:08:34 12/31/1912/31/2024 THINP REP PAP TEST (IMAG ER), HPV SCREE N, REFLE X HPV 16,18 /45 report Report Final Gynec ologi tio Cytol ogy Repor t ----- ----- ----- ----- ----- ----- ----- ----- ----- ----- ----- ----- ThinP rep Pap Test, HPV Scree n, Refle x HPV Genot ype SPECI MEN ADEQU ACY: SATIS FACTO RY FOR EVALU ATION ; ENDOC ERVIC AL/TR ANSFO RMATI ON ZONE COMPO NENT ABSEN T/INS [facility] IENT . INTER PRETA TION: NEGAT LESLEY [...] NG HPV RESUL TS: HPV mRNA E6/E7 49754 02490 Appro julee: 01/01 Negat lesley REF RANGE : Negat lesley CPT Codes : 29897 ICD Codes : Z01.4 19 Not Available [facility] [address] [place], [address] 01/06/2025 07:08:38 12/31/1912/31/2024 urina lysis , dipst ick Interpretati on negati ve Not Available In-Office Order Internal Use Only DO Not Attach Compendium DO Not Attach Compendium, Do Not Delete/merge, [id number] 12/31/2024 15:10:10 12/31/19 25 12/31/2024 urina lysis , dipst ick Leukocytes Negati ve Not Available In-Office Order Internal Use Only DO Not Attach Compendium DO Not Attach Compendium, Do Not Delete/merge, [id number] 12/31/2024 15:10:10 12/31/19 25 12/31/2024 urina lysis [...] 12/31/2024 urina lysis , dipst ick Specific [place] 1.000 Not Available In-Off ice Order Internal [...] DO Not Attach Compendium, Do Not Delete/merge, [id number] 12/31/2024 15:10:10 12/31/19 25 12/31/2024 urina lysis , dipst ick Glucose Negati ve Not Available In-Office Order Internal Use Only DO Not Attach Compendium DO Not Attach Compendium, Do Not Delete/merge, [id number] 12/31/2024 15:10:10 12/31/19 25 12/31/2024 urina lysis , dipst ick Appearance Clear Not Available In-Offi ce Order Internal Use Only DO Not Attach Compendium DO Not Attach Compendium, Do Not Delete/merge, [id number] 12/31/2024 15:10:10 12/31/19 25 12/31/2024 urina lysis , dipst ick Color Yellow Not Available In-Office Order Internal Use Only DO Not Attach Compendium DO Not Attach Compendium, Do Not Delete/merge, [id number] 12/31/2024 15:10:10 07/04/20 23 06/24/2023 US, breas t, bilat eral No observ ation record ed. [email or web address] [facility] [address], [place], [address], 07/15/2023 10:29:19 09/10/20 23 09/10/2023 ultra sound image s RAD rberke Chad Vargas MD [address] [place], [address], 09/12/2023 11:01:51 01/07/20 24 01/05/2024 MAMMO , scree ligia, digit al, bilat eral No observ ation record ed. [email or web address] [facility] [address], [place], [address], 01/16/2024 13:42:32 Result Notes None recorded. Problems Name Problem SNOMED Code Status Onset Date Resolution Date Notes Provider Name and Address Organization Details Recorded Time Hypertensive disorder 52632985 Active 2023 Brenda Gonzalez null, [place] - [facility] 4 09:26:46 Problem Notes None recorded. Procedures Surgical History Date Name Laterality Status Provider Name and Address Organization Details Recorded Time 01/02/20 22 Date of Last Mammogram completed Brenda Gonzalez [facility] 12/06/2022 08:25:20 11/30/19 22 Date of Last Pap Smear completed Brenda Gonzalez [facility] 12/06/2022 08:24:44 Appendectomy completed Brenda Gonzalez [facility] 11/30/2021 14:38:54 lumpectomy of right breast completed Brenda Gonzalez [facility] 11/30/2021 14:39:08 Imaging Results Imaging Date Name Status LastModified by Organiz ation Details LastModified Time 06/24/2023 US, breast, bilateral completed [email or web address] [facility] [address], [place], [address], 07/15/2023 10:29:19 09/10/2023 ultrasound images completed faizan Vargas MD [address] [place] [address], [address], 09/12/2023 11:01:51 01/05/2024 MAMMO, screening, digital, bilateral completed [email or web address] [facility] [address], [place], [address], 01/16/2024 13:42:32 Procedure Notes None recorded. Medical Equipment None Reported. Allergies Allergen ID Allergen Name Allergen Category Reaction Reaction Severity Criticality Documentation Date Start Date Code Code System Note Provider Name and Address Organization Details Recorded Time 9260259 acetamino phen / hydrocodo ne medicatio n Not available Not available Not available 11/30/2021 10332 2 RxNorm Brenda Gonzalez [facility], [facility] 14:36:15 Medications Name Sig Start Date Stop [...] Updated DateTime 11/29/2022 170.18 cm 20 kg/m2 83694.82 g 122 mm[Hg] 78 mm[Hg] Gali Tsang [facility] 09:09:34 Date Recorded Body height Provider Name an d Address Organization Details Last Updated DateTime 12/06/2022 170.[address] [facility] 12/06/2022 09:21:39 Date Recorded Body height Body mass index (BMI) Body weight Systolic blood pressure Diastolic blood pressure Provider Name and Address Organization Details Last Updated DateTime 09/10/2023 170.18 cm 21.5 kg/m2 90467.15 g 138 mm[Hg] 74 mm[Hg] Lorenza duggan [facility] 13:33:07 Date Recorded Body height Body mass index (BMI) Body weight Provider Name and Address Organization Details Last Updated DateTime 12/12/2023 170.18 cm 21.3 kg/m2 74160.56 g Brenda Gonzalez [facility] 12/12/2023 10:05:49 Date Recorded Body height Body mass index (BMI) Body weight Systolic blood pressure Diastolic blood pressure Provider Name and Address Organization Details Last Updated DateTime 12/31/2024 170.18 cm 22.1 kg/m2 66256.52 g 122 mm[Hg] 82 mm[Hg] Gali Tsang [facility] 15:12:55 Social History Question Answer Notes LastModified by Organizat ion Details LastModified Time Tobacco Smoking Status Never Smoker Hina Ontiveros constance, [facility] 05/14/2022 12:48:45 What Is Your Level Of Alcohol Consumption? None [email or web address] Information not available 05/14/2022 Is Blood Transfusion Acceptable In An Emergency? Yes [email or web address] Information not available 05/14/2022 In The 14 Days Before Symptom Onset, Have You Had Close Contact With A Laboratory-confirm ed COVID-19 While That Case Was Ill? No [email or web address] Information n ot available 05/14/2022 In The 14 Days Before Symptom Onset, Have You Had Close Contact With A Person Who Is Under Investigation For COVID-19 While That Person Was Ill? No [email or web address] Information not available 05/14/2022 Have You Been To An Area Known To Be High Risk For COVID-19? No [email or web address] Information not available 05/14/2022 Are You Currently Employed? Yes [email or web address] Information not available 05/14/2022 Do You Reside In Or Have You Traveled To An Area Where Ebola Virus Transmission Is Active? 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 No [email or web address] Information no t available 05/14/2022 Have You [...] Do You Use Protection During Sex? Always [email or web address] Information not available 05/14/2022 Are You Sexually Active? Yes Information not available 05/14/2022 Have You Recently Traveled Abroad? No Information not available 11/30/2021 Sex: Unknown Functional Status None recorded. Mental Status Question Answer Note LastModified by Organization D etails LastModified Time Do you have difficulty concentrating, remembering or making decisions? 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 [id number] ROSALVA KLEIN APRN SHE[address] [place] [address] 03/01/2022 10:17:36 03/01/2022 10:59:34 Surveillance of oral contraception 292341300 Z30.41 Will have trial of POP If too much BTB will consider Depo Provera or progestero ne IUD [id number] ROSALVA KLEIN APRN SHE[address] [place] [address] 05/08/2022 12:47:30 05/08/2022 13:24:19 Pain in pelvis 91910329 R10.2 Benign speculum exam and bimanual Will Proceed to transvagin al US as first step In a mongamous relationsh ip Using condoms and had trial or POP but her blood pressure increased with use so was discontinu ed Recnet gc and Clamydia negative Irregular intermenstrual bleeding 49821477 N92.1 [id number] ROSALVA KLEIN APRN SHE[address] [place] [address] 05/31/2022 09:37:25 05/31/2022 10:21:39 Surveillance of oral contraception 307089335 Z30.41 No BTB on bipahsic ocp Normotensi ve today will monitor BP at home RV 5 months to discuss pelvic symptoms , if any [id number] ROSALVA PARADAPHILLIP UMBRELLA MENDER SHE[address] [place] [address] 07/19/2022 09:26:46 07/19/2022 10:26:16 Epidermoid cyst 972650719 L72.0 lower left labial fold Not inflamed or tender at all Monitor Vaccination not done 086 9512470 9108 Z28.9 Had first HPV vaccine in [...] basis( immuno suppressed individual being one example) [id number] ROSALVA PARADABRICE FISHER SHE[address],[facility] [address] [place] [address] 11/29/2022 08:56:51 11/29/2022 09:41:24 Surveillance of oral contraception 508855355 Z30.41 No BTB, ACHES reviewed Pelvi pain is diminished in intensity and frequency BP 122/78 [id number] ROSALVA KLEINBRICE FISHER SHE2 [address],[facility] [address] [place] [address] 12/06/2022 09:21:15 12/06/2022 10:21:17 Gynecologic examination 63556189 Z01.419 Next pap is due in 2024 Depression screening 171 153603 Z13.31 Surveillan ce of oral contraception 666570133 Z30.41 No BTB, ACHES reviewed Pelvi pain is diminished in intensity and frequency BP 122/78 Familial c ancer of breast 275756831 C50.919 [id number] CHAD ROWE CNM SHE[address] [place] [address] 09/10/2023 13:13:20 09/10/2023 14:52:46 test negative 837955778 Z32.02 Menorrhagia 462772837 N9 2.0 Abnormally long period. Performed u/s [...] would like to go back on OCPs. [id number] ROSALVA KLEIN APRN SHE[address] [place] [address] 12/12/2023 09:18:22 12/12/2023 10:20:43 Gynecologic examination 68279632 Z01.419 Next pap is due in 2024 Depression screening 171 400511 Z13.31 Surveillan ce of oral contraception 186548578 Z30.41 No BTB, ACHES reviewed Pelvi pain is diminished in intensity and frequency BP 122/78 Familial c ancer of breast 695697179 C50.919 [id number] ROSALVA KLEIN APRN SHE[address] [place] [address] 12/31/2024 14:57:24 12/31/2024 15:45:29 Gynecologic examination 11585668 Z01.419 Reviewed diet and exercise. No hereditary cancer risk. Screening labs with PCP. Pap--- STI screen---- Encourage monthly SBE Depression screening 171 332957 Z13.31 Screen negative for depression Family his tory of breast cancer 421958451 Z80.3 Health Concerns Section Related Observation LastModified by Organization Detai ls LastModified Time None Recorded Concern Status LastModified by Organization Details LastModified Time None Recorded Advance Directives Directive None Recorded Payers Encounter Date Sequence Insurance Name Policy Number Policy Vera Covered Member ID Vera Member ID Guarantor Name 11/29/2022 1 [place] - DOS PRIOR TO 2024 - [employer] () Bonnie Iyer [id number] Bonnie Guevara Jaylon 12/06/2022 1 [place] - DOS PRIOR TO 2024 - [employer] () Bonnie Guevara Jaylon [id number] Bonnie Guevara Jaylon 09/10/2023 1 [place] - DOS PRIOR TO 2024 - [employer] () Bonnie Guevara Jaylon [id number] Bonnie Guevara Jaylon 12/12/2023 1 [place] - DOS PRIOR TO 2024 - [employer] () Bonnie Guevara Jaylon [id number] Bonnie Guevara Jaylon 12/31/2024 1 [place] - DOS ON OR AFTER 2024 - [employer] () Bonnie Richmondhardt [id number] Bonnie Griggst Notes Date Note Type Note Provider Name and Address Organization Details Recorded Time 11/29/2022 text/html f/u ocp w/ dpf. Norenthindrone No spotting Pelvic pain she reports is very minimal now She is normotensive today BP122/78 ACHES is reviewed today Is coming in for AV next week ROSALVA KLEIN APRN [address] [place] [address], [address] Floor, [place], [address], [place] [facility] 11/29/2022 09:22:33 12/06/2022 text/html [facility]al [facility]:Normal menses Urinary symptoms:No hematuria; No incontinence [...] happy with method. ROSALVA KLEIN APRN [address] [facility] [place], [address], [facility] 12/06/2022 09:59:20 09/10/2023 text/html [facility] Abnormal BleedingReported bypatient.Onset/Timing :present cycle Duration:<7 days/month [...] and stopped today. CHAD ROWE CNM [address] [facility] [facility], [place], [address], [facility] 09/10/2023 17:05:13 12/12/2023 text/html [facility] Annual GYNRe ported bypatient.Menstrual cycle:Normal menses [...] considering endocrine referral ROSALVA KLEIN APRN [address] [facility], [address], [place], [address], [facility] 12/12/2023 10:18:07 12/31/2024 text/html [facility] Annual GYNRe ported bypatient.Menstrual cycle:Normal menses [...] FOR ANNUAL VISIT W/ DPFPAP SMEAR 11/30/2021 [id number] BC May decided to restart [facility] was thinking about another baby but her stepsuns just lost their MOM to breast cancer and are leviving 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 ROSALVA KLEIN APRN [address] [facility], [address], [place], [address], [facility] 01/01/2025 10:08:39 OBGyn Episode Ob Episode Information Episode Created Date Number of Fetuses Patient Bloodtype Patient rh Status Prepregnancy Weight lbs Domestic Partner Domestic Partner Phone Father Name General Farm Hand Status 11/30/19 22 1 CLOSED Fetus Data First Name Last Name Admitted to NICU Weight (g) Sex Living Outcome Pediatric Complications Fetus ID Race Codes Race Delivery Type M Prematur e [id number] Jay Calculation Initial Jay Date Initial [...]
--- OUTSIDE RECORDS SUMMARY | 2025-02-01 10:29 | XMS_ITS | Continuity of Care Document ---
Author Name [facility] Organization [facility] Care Team Providers Care Chart Reader Name Role Phone [facility] Unavailable Unavailable Problems [...] MELOXICAM (MELOXICAM) , 15 MG, TABLET, ORAL, [employer] 100 ea. BOTTLE Cancele d [id number] : 2023 0 Pharmac y Data Transac tion Service Facilit y METHYLPREDN ISOLONE (METHYLPRED NISOLONE), 4MG, TAB DS PK, ORAL, [facility], 21 ea. BLIST PACK Active [id number] 2022 21 Pharmac y Data Transac tion Service Facilit y METOPROLOL SUCCINATE (metoprolol succinate), 25 MG, TAB ER 24H, ORAL, INGENUS [facility], 1000 ea. BOTTLE Active [id number] 2023 45 Pharmac y Data Transac tion Service Facilit y METOPROLOL SUCCINATE (metoprolol succinate), 25 MG, TAB ER 24H, ORAL, INGENUS [facility], 1000 ea. BOTTLE Cancele d [id number] : 2023 0 Pharmac y Data Transac tion Service Facilit y METOPROLOL SUCCINATE (metoprolol succinate), 25 MG, TAB ER 24H, ORAL, INGENUS [facility], 1000 ea. BOTTLE Active [id number] 2023 45 Pharmac y Data Transac tion Service Facilit y SLYND (drospireno ne), 4 MG (28), TABLET, ORAL, [place], 28 ea. BLIST PACK Cancele d [id number] : 2023 0 Pharmac y Data Transac tion Service Facilit y Allergies, Adverse Reactions, Alerts Combined list of allergies from Department of Defense and Veterans Affairs facilities. It does not include entries that were removed or entered in error. Substance Category Reaction Severity Reaction type Status Date Reported Comments Source acetaminophen Propensity to adverse reactions to drug Swelling Active 2 Unknown Organizat ion ACETAMINOPHEN (ACETAMINOPHE N) Drug allergy (disorder) Swelling active [address] [place] [address] acetaminophen -hydrocodone Propensity to adverse reactions to drug Rash Active 1 Unknown Organizat ion VICODIN (HYDROCODONE BIT/ACETAMINO PHEN) Drug allergy (disorder) Rash active [address] [place] [address] Immunizations Combined list of available immunizations from the Department of Defense and Veterans Affairs facilities. Immunization Series Date Given Administered By Site Reaction Lot Number CVX Code Drug Escalator Constructor Status Comments Source influenza, injectable, quadrivalent- pf [...] Pharmac y influenza virus vaccine, inactivated 2020 [id number] Seqirus complet ed influenza virus vaccine, inactivat ed 09/30/21 Given Ambulat ory Pharmac y influenza virus vaccine, inactivated 2020 [id number] Seqirus complet ed influenza virus vaccine, inactivat ed 09/30/21 Given Ambulat ory Pharmac y COVID Vaccine Pfizer 2020 [id number] PFIZER complet ed COVID Vaccine Pfizer 08/26/21 Given Ambulat ory Pharmac y COVID Vaccine Pfizer 2020 [id number] 208 PFIZER complet ed COVID Vaccine Pfizer 08/26/21 Given Ambulat ory Pharmac y COVID Vaccine Pfizer 2020 [id number] 208 PFIZER complet ed COVID Vaccine Pfizer 08/02/21 Given Ambulat ory Pharmac y COVID Vaccine Pfizer 2020 [id number] 208 PFIZER complet ed COVID Vaccine Pfizer 08/02/21 Given Ambulat ory Pharmac y influenza, seasonal, injectable 2019 [id number] 141 sanofi pasteur complet ed influenza , seasonal, injectabl e 09/19/20 Given Ambulat ory Pharmac y influenza, seasonal, injectable 2019 [id number] 141 sanofi pasteur complet ed influenza , seasonal, injectabl e 09/19/20 Given Ambulat ory Pharmac y influenza, injectable, quadrivalent- pf 2019 150 complet ed influenza , injectabl e, quadrival ent-pf 09/19/20 Given Ambulat ory Pharmac y influenza, injectable, quadrivalent, preservative free 2019 [id number], () Not Given influenza , injectabl e, quadrival ent, preservat aleksandra free [facility] tetanus, diphtheria, acellular pertu is 2019 [id number] 115 sanofi pasteur complet ed tetanus, diphtheri a, acellular pertussis 12/31/19 Given Ambulat ory Pharmac y tetanus, diphtheria, acellular pertu is 2019 [id number] 115 sanofi pasteur complet ed tetanus, diphtheri a, acellular pertussis 12/31/19 Given Ambulat ory Pharmac y influenza, seasonal, injectable 2018 [id number] 141 sanofi pasteur complet ed influenza , seasonal, injectabl e 09/27/19 Given Ambulat ory Pharmac y influenza, seasonal, injectable 2018 [id number] 141 sanofi pasteur complet ed influenza , seasonal, injectabl e 09/27/19 Given Ambulat ory Pharmac y influenza, injectable, quadrivalent- pf 2017 [id number] 150 Seqirus complet ed influenza , injectabl e, quadrival ent-pf 09/14/18 Given Ambulat ory Pharmac y Influenza, injectable, quadrivalent, preservative free 10 2017 [id number] 150 Seqirus (SEQ) comple t ed Influenza , injectabl e, quadrival ent, preservat aleksandra free DoD yellow fever vaccine 2017 [id number] 37 sanofi pasteur complet ed yellow fever vaccine 01/02/18 Given Ambulat ory Pharmac y tuberculin purified protein derivative 2017 [id number] 96 sanofi pasteur complet ed tuberculi n purified protein derivativ e 01/02/18 Given Ambulat ory Pharmac y tuberculin purified protein derivative 2017 [id number] 96 sanofi pasteur complet ed tuberculi n purified protein derivativ e 01/02/18 Given Ambulat ory Pharmac y yellow fever vaccine 1 2017 [id number] 37 Sanofi Pasteur (PMC) complet ed yellow fever vaccine DoD tuberculin purified protein derivative 2017 [id number] 96 sanofi pasteur complet ed tuberculi n purified protein derivativ e 11/29/17 Given Ambulat ory Pharmac y measles/mumps /rubella virus vaccine 2017 [id number] 03 Merck & Company Inc complet ed measles/m umps/rube lla virus vaccine 11/29/17 Given Ambulat ory Pharmac y typhoid Vi capsular polysaccharid e vac 2017 [id number] 101 sanofi pasteur complet ed typhoid Vi capsular polysacch aride vac 11/29/17 Given Ambulat ory Pharmac y tuberculin purified protein derivative 2017 [id number] 96 sanofi pasteur complet ed tuberculi n purified protein derivativ e 11/29/17 Given Ambulat ory Pharmac y measles, mumps and rubella virus vaccine 2 2017 [id number] 03 Merck (MSD) complet ed measles, mumps and rubella virus vaccine DoD typhoid Vi capsular polysaccharid e vaccine 1 2017 [id number] 101 Sanofi Pasteur (PMC) complet ed typhoid Vi capsular polysacch aride vaccine DoD Influenza, inj, MDCK, quadrivalent- pf 2016 [id number] 171 Seqirus complet ed Influenza , inj, MDCK, quadrival ent-pf 09/27/17 Given Ambulat ory Pharmac y Influenza, injectable, Madin [place] Canine Kidney, preservative free, quadrivalent 9 2016 [id number] 171 Seqirus (SEQ) comple t ed Influenza , injectabl e, Madin Julissa Canine Kidney, preservat aleksandra free, quadrival ent DoD influenza, seasonal, injectable-pf 2015 [id number] 140 Seqirus complet ed influenza , seasonal, injectabl e-pf 09/28/16 Given Ambulat ory Pharmac y Influenza, seasonal, injectable, preservative free 8 2015 [id number] 140 Seqirus (SEQ) comple t ed Influenza , seasonal, injectabl e, preservat aleksandra free DoD influenza, seasonal, injectable-pf 2014 [id number] 140 CSL Behring complet ed influenza , seasonal, injectabl e-pf 09/30/15 Given Ambulat ory Pharmac y Influenza, seasonal, injectable, preservative free 7 2014 [id number] 140 CSL Biotherapies, Inc. (CSL) complet ed Influenza , seasonal, injectabl e, preservat aleksandra free DoD influenza, seasonal, injectable-pf 2013 [id number] 140 CSL Behring complet ed influenza , seasonal, injectabl e-pf 08/27/14 Given Ambulat ory Pharmac y Influenza, seasonal, injectable, preservative free 6 2013 [id number] 140 CSL [employer]otherapies[employer] Inc. (CSL) complet ed Influenza , seasonal, injectabl e, preservat aleksandra free DoD influenza, seasonal, injectable 2012 [id number] 2 0013 01 141 complet ed influenza , seasonal, injectabl e 09/29/13 Given Ambulat ory Pharmac y Influenza, seasonal, injectable 1 2012 [id number] 2 0013 01 141 Transcribed (TRS) complet ed Influenza , seasonal, injectabl e DoD rubella virus vaccine 0 2012 06 () Not Given rubella virus vaccine DoD Human Papillomaviru s,quadrivalen t(HPV4) 2011 [id number] 62 [employer] complet ed Human Papilloma virus,lolly drivalent (HPV4) 08/06/12 Given Ambulat ory Pharmac y human papilloma virus vaccine, quadrivalent 0 09/13/ 2012 [id number] 62 Merck (MSD) complet ed human papilloma virus vaccine, quadrival ent DoD influenza virus vaccine, live 2011 [id number] 111 Medimmune Inc comple t ed influenza virus vaccine, live 07/16/12 Given Ambulat ory Pharmac y influenza virus vaccine, live, attenuated, for intranasal use 0 2011 [id number] 111 MedIPostalGuard, Inc. (MED) complet ed influenza virus vaccine, live, attenuate d, for intranasa l use DoD influenza virus vaccine, live 2010 [id number] 111 Medimmune Inc comple t ed influenza virus vaccine, live 08/16/11 Given Ambulat ory Pharmac y influenza virus vaccine, live, attenuated, for intranasal use 3 2010 [id number] 111 ExpertFlyer, Inc. (MED) complet ed influenza virus vaccine, live, attenuate d, for intranasa l use DoD Human Papillomaviru s,quadrivalen t(HPV4) 2010 [id number] 62 [employer] [employer] & Company Inc complet ed Human Papilloma virus,lolly drivalent (HPV4) 01/16/11 Given Ambulat ory Pharmac y human papilloma virus vaccine, quadrivalent 1 2010 [id number] 62 Merck (MSD) complet ed human papilloma virus vaccine, quadrival ent DoD influenza virus vaccine, live 2009 [id number] 111 Mediune Inc comple t ed influenza virus vaccine, live 08/28/10 Given Ambulat ory Pharmac y hepatitis A adult vaccine 2009 [id number] 2AA 52 GlaxoSmithKli ne complet ed hepatitis A adult vaccine 08/28/10 Given Ambulat ory Pharmac y hepatitis A vaccine, adult dosage 2 2009 [id number] 2AA 52 [facility] (SKB) complet ed hepatitis A vaccine, adult dosage DoD influenza virus vaccine, live, attenuated, for intranasal use 1 2009 [id number] 111 MedIKeraune, Inc. (MED) complet ed influenza virus vaccine, [...] adult dosage 1 2009 [id number] 7AA 52 DailyPath (SKB) complet ed hepatitis A vaccine, adult dosage DoD tuberculin purified protein derivative 2009 [id number] 96 sanofi pasteur complet ed tuberculi n purified protein derivativ e 01/07/10 Given Ambulat ory Pharmac y tuberculin purified protein derivative 2009 [id number] 96 sanofi pasteur complet ed tuberculi n purified protein derivativ e 01/07/10 Given Ambulat ory Pharmac y Novel influenza-H1N 1-09, injectable 2009 [id number] 1 127 Novartis Pharmaceutica ls complet ed Novel influenza -Z2O2-27, injectabl e 01/05/10 Given Ambulat ory Pharmac y tetanus, diphtheria, acellular pertu is 2009 [id number] 0AA 115 GlaxoSmithKli ne complet ed tetanus, diphtheri a, acellular pertussis 01/05/10 Given Ambulat ory Pharmac y meningococcal A,C,Y,W-135 (MCV4P) 2009 [id number] 114 sanofi pasteur complet ed meningoco ccal A,C,Y,W-1 35 (MCV4P) 01/05/10 Given Ambulat ory Pharmac y poliovirus vaccine, inactivated 2009 D0052 10 sanofi pasteur complet ed polioviru s vaccine, inactivat ed 01/05/10 Given Ambulat ory Pharmac y influenza virus vaccine,split 2009 [id number] 1A 15 CSL Behring complet ed influenza virus vaccine,s plit 01/05/10 Given Ambulat ory Pharmac y poliovirus vaccine, inactivated 1 2009 D0052 10 Sanofi Pasteur (PMC) complet ed polioviru s vaccine, inactivat ed DoD influenza virus vaccine, split virus (incl. purified surface antigen)-reti red CODE 1 2009 [id number] 1A 15 CS Preen.Me, Inc. (CSL) complet ed influenza virus vaccine, split virus (incl. purified surface antigen)- retired CODE DoD meningococcal polysaccharid e (groups A, C, Y and W-135) diphtheria toxoid conjugate vaccine (MCV4P) 1 2009 [id number] 114 Sanofi Pasteur (PMC) complet ed meningoco ccal polysacch aride (groups A, C, Y and W-135) diphtheri a toxoid conjugate vaccine (MCV4P) DoD tetanus toxoid, reduced diphtheria toxoid, and acellular pertu is vaccine, adsorbed 1 2009 [id number] 0AA [facility] DailyPath (SKB) complet ed tetanus toxoid, reduced diphtheri a toxoid, and acellular pertussis vaccine, adsorbed DoD Novel influenza-H1N 1-09, injectable 1 2009 [id number] 1 127 Novartis Audio Network. (NOV) complet ed Novel influenza -F3P1-49, injectabl e DoD Results Combined list of [...] Prevention' s HIV diagnostic algorithm. Refer to [facility] Lab Guide for additional information : [email or web address]/ [email or web address] x Testing performed by Mynor duggan 5600A-U [facility] EPIL[facility] Miscellan eous Sendouts Repository Sample Received (02/27/24 8:41 AM) 02/26 N 5600[facility] EP[facility] Encounters Combined list of: 1) Encounters from Department of [facility] facilities going backup to the last 18 months, not all [place] inpatient encounters are included; 2) Encounters from the Department of [facility] ([place], [place]) facilities going backup to 280 months. Location Location Details Encounter Type Encounter Number Reason For Visit Attending Provider ADM Date DC Date Status Disposition Source [address] [place] [address]([facility]) OUTPATIENT [id number] POSSIBL E FLU\ SARAH MIRANDA 09/19 Immediate Referral [facility]) [facility]) OUTPATIENT [id number] had appy out two days ago/wou ld like nausea meds SARAH MIRANDA 09/21 Released w/o Limitations [facility]) [address] [place] [address]([facility]) TELE CONSULT [id number] REFERRA L REQUEST GM SALGADO 10/03 [facility]) [facility]) TELE CONSULT [id number] WENT TO URGENT CARE GM FRANKS 03/21 [facility]) [facility]) TELE CONSULT [id number] WENT TO URGENT CARE SARAH LUCIA 04/[address] [place] [address]([facility]) [address] [place] [address]([facility]) TELE CONSULT [id number] WENT TO CATALINA PINA 09/[address] [place] [address]([facility]) [address] [place] [address]([facility]) TELE CONSULT [id number] Referra l Request KELLY SPENCER 10/24 [facility]) [facility]) OUTPATIENT [id number] WALK-IN UA TEST KELLY SPENCER Paola 10/30 Released w/o Limitations [facility](A [facility]) [employer] [employer]([facility]) TELE CONSULT [id number] WENT TO HR CATALINA HOOPER 01/01 [employer]([facility]) [facility] [place] [address](Opt ometry Clinic B[facility]) OUTPATIENT [id number] KIM DIAS 01/12 Released w/o Limitations [facility] [place] [address](O ptometr y Clinic BMT [facility]) [place] [address]([facility] OUTPATIENT [id number] -1300 F/U ER VISIT RIGHT EAR (320/26 6/) BOZENA GAGR 02/05 Released w/o Limitations [facility] [place] [address](T [facility] [place] [address]([place] laryngolo gy, [facility]) OUTPATIENT [id number] R TM rupture BMT VERO LI 02/08 Released w/o Limitations [facility] [place] [address](O toljessica gology, [facility]) [place] [address](Aud iology, [facility]) OUTPATIENT [id number] OTITIS MEDIA ACUTE SEROUS CUCA, JANENE E 03/21 Released w/o Limitations [facility] [place] [address](A udiolog y, [facility]) [place] [address](Aud iology, [facility]) OUTPATIENT [id number] repeat audio GM MARSHALL 04/04 Released w/o Limitations [facility] [place] [address](A udiolog y, [facility]) [facility]) OUTPATIENT [id number] [facility] ESTEFANIA BUCK 06/15 Released w/o Limitations [facility](F lt/Miss ile Medicin e) [facility](Ope rat Med Cln Tm2 AD Only) OUTPATIENT [id number] walk-in : throat culture ShericeDELFINA PARK BOB 07/02 Released w/o Limitations [facility](O perat Med Cln Tm2 AD Only) [facility](Ope rat Med Cln Tm2 AD Only) TELE CONSULT [id number] after hours rpt recd DARRIN RADFORD 07/16 Medical Group(O perat Med Cln Tm2 AD Only) [facility]) TELE CONSULT [id number] URGENT CARE REPORT DARRIN RADFORD 07/25 [facility]) [facility](Ope rat Med Cln Tm2 AD Only) OUTPATIENT [id number] HEADACH ES DARRIN RADFORD 07/31 Released w/o Limitations [facility](O perat Med Cln Tm2 AD Only) [facility]) OUTPATIENT [id number] vicodin reactio POWER Slater 08/01 Sick at Home/Quarter s Medical [facility]) [facility](Ope rat Med Cln Tm2 AD Only) TELE CONSULT [id number] RADIOLO GY REPORT DARRIN RADFORD 08/02 Medical Group(O perat Med Cln Tm2 AD Only) [facility](Ope rat Med Cln Tm2 AD Only) OUTPATIENT [id number] FOLLOW UP PER DARRIN DUBOIS 08/03 Released w/o Limitations [facility](O perat Med Cln Tm2 AD Only) [facility](Ope rat Med Cln Tm2 AD Only) OUTPATIENT [id number] walk-in : BP check (day 4) ISAMAR FOLEY 08/07 Released w/o Limitations [facility](O perat Med Cln Tm2 AD Only) [facility](Ope rat Med Cln Tm2 AD Only) OUTPATIENT [id number] walk-in : BP check (day 5) NANCY DESIROLE 08/08 Released w/o Limitations [facility](O perat Med Cln Tm2 AD Only) [facility](Ope rat Med Cln Tm2 AD Only) OUTPATIENT [id number] walk-in : BP check (day 5) ISAMAR FOLEY 08/13 Released w/o Limitations [facility](O perat Med Cln Tm2 AD Only) [facility](Ope rat Med Cln Tm2 AD Only) OUTPATIENT [id number] blood pressur e follow up PRABHAKAR DARRIN L 08/14 Released w/o Limitations [facility](O perat Med Cln Tm2 AD Only) [facility](Ope rat Med Cln Tm2 AD Only) OUTPATIENT [id number] walk-BP check (rechec k) AQUILINO FOLEYOTHY 08/15 Released w/o Limitations [facility](O perat Med Cln Tm2 AD Only) [facility](Ope rat Med Cln Tm2 AD Only) OUTPATIENT [id number] walk-in : BP check PRABHAKAR DARRIN L 08/16 Released w/o Limitations [facility](O perat Med Cln Tm2 AD Only) [facility](Ope rat Med Cln Tm2 AD Only) OUTPATIENT [id number] follow up bp per prabhakar RADFORD DARRIN L 08/17 Released w/o Limitations [facility](O perat Med Cln Tm2 AD Only) [facility](Ope rat Med Cln Tm2 AD Only) TELE CONSULT [id number] appoint LIONEL Batista 08/18 Referred for Appointment [employer] [facility](O perat Med Cln Tm2 AD Only) [facility](Ope rat Med Cln Tm2 AD Only) OUTPATIENT [id number] tailbon e issues DELFINA LINDSEY 08/22 Released w/o Limitations [facility](O perat Med Cln Tm2 AD Only) [facility](Ope rat Med Cln Tm2 AD Only) TELE CONSULT [id number] RADIOLO GY RESULTS LIONEL MCARTHUR 08/24 Referred for Appointment [facility](O perat Med Cln Tm2 AD Only) [facility](Ope rat Med Cln Tm2 AD Only) TELE CONSULT [id number] call back--x ray GARCIA, ORTEGA 08/28 Other Not Elsewhere Classified [facility](O perat Med Cln Tm2 AD Only) [facility](Opt ometry Clinic) OUTPATIENT [id number] routine THANG CARRILLO 09/06 Released w/o Limitations [facility](O ptometr y Clinic) [facility](Ope rat Med Cln Tm2 AD Only) OUTPATIENT [id number] FU ULTRA SOUND/S TRESS TEST PRABHAKARDARRIN Paola 09/06 Released w/o Limitations [facility](O perat Med Cln Tm2 AD Only) [facility](Ope rat Med Cln Tm2 AD Only) OUTPATIENT [id number] injured right ankle/f DELFINA Leon 09/24 Released w/o Limitations [facility](O perat Med Cln Tm2 AD Only) [facility](Ope rat Med Cln Tm2 AD Only) TELE CONSULT [id number] call back--x ray GARCIA, ORTEGA 10/01 Other Not Elsewhere Classified [facility](O perat Med Cln Tm2 AD Only) [facility](Ope rat Med Cln Tm2 AD Only) TELE CONSULT [id number] Triage LIONEL MCARTHUR 11/06 Referred for Appointment [facility](O perat Med Cln Tm2 AD Only) [facility](Ope rat Med Cln Tm2 AD Only) TELE CONSULT [id number] Triage ADARSH CHONG 11/09 Referred for Appointment [facility](O perat Med Cln Tm2 AD Only) [facility](Ope rat Med Cln Tm2 AD Only) TELE CONSULT [id number] LIONEL Wheeler 11/22 Referred for Appointment [facility](O perat Med Cln Tm2 AD Only) [facility](Ope rat Med Cln Tm2 AD Only) TELE CONSULT [id number] LIONEL Wheeler 12/13 Referred for Appointment [facility](O perat Med Cln Tm2 AD Only) [employer] [facility](F[facility] /[facility]) OUTPATIENT [id number] NESTOR KIRK ROBERT L 12/18 Released w/o Limitations [facility](F lt/Miss ile Medicin e) [facility](Ope rat Med Cln Tm2 AD Only) TELE CONSULT [id number] GENERA [place] MEJIASBRYANTAH 12/20 Referred for Appointment [facility](O perat Med Cln Tm2 AD Only) [facility](Ope rat Med Cln Tm2 AD Only) OUTPATIENT [id number] fell last ay and injured tailbon e DARRIN RADFORD 01/17 Released w/o Limitations [facility](O perat Med Cln Tm2 AD Only) [facility](Ope rat Med Cln Tm2 AD Only) OUTPATIENT [id number] SICK ALL WEEK END DARRIN RADFORD 02/04 Sick at Home/Quarter s [facility](O perat Med Cln Tm2 AD Only) [facility](Ope rat Med Cln Tm2 AD Only) TELE CONSULT [id number] RADIOLO GY REPORT NIKUNJ RADFORDPEBBLES Guevara 02/13 [facility] Group(O perat Med Cln Tm2 AD Only) [facility]) OUTPATIENT [id number] 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 03/29 Released with Work/Duty Limitations [facility]) [employer] [facility] [employer]([facility]) OUTPATIENT [id number] NVD POWER SALES 04/10 [facility]ick at Home/Quarter s [facility]) [facility](Ope rat Med Cln Tm2 AD Only) TELE CONSULT [id number] Triage KEATON HELTON 04/12 Referred for Appointment [facility](O perat Med Cln Tm2 AD Only) [facility](Med Std [employer]gt Element) OUTPATIENT [id number] KEERTHI VICTORIA 07/16 Released w/o Limitations [facility](M ed Std Mgt Element ) [facility]) OUTPATIENT [id number] left side of neck pain PANTERA SKYLA D 07/17 Released w/o Limitations [employer] [facility]) [facility](Ope rat Med Cln Tm2 AD Only) TELE CONSULT [id number] ADARSH Lozano 08/26 Referred for Appointment [facility](O perat Med Cln Tm2 AD Only) [facility](Ope rat Med Cln Tm2 AD Only) TELE CONSULT [id number] ReferTARA Meehan 09/05 Referred for Appointment [facility](O perat Med Cln Tm2 AD Only) [facility](Ope rat Med Cln Tm2 AD Only) OUTPATIENT [id number] 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 MARTHA GUERRERO 09/10 Released w/o Limitations [facility] [facility](O perat Med Cln Tm2 AD Only) [facility](Ope rat Med Cln Tm2 AD Only) TELE CONSULT [id number] [facility] MARTHA GUERRERO 09/12 [employer] [facility](O perat Med Cln Tm2 AD Only) [facility] [facility](Ope rat Med Cln Tm2 AD Only) TELE CONSULT [id number] NANCY Dial 09/12 Other Not Elsewhere Classified [facility](O perat Med Cln Tm2 AD Only) [facility](Ope rat Med Cln Tm2 AD Only) OUTPATIENT [id number] Walkin: BP Day 1 BONI MENDOSA 09/13 Released w/o Limitations [facility](O perat Med Cln Tm2 AD Only) [facility](Ope rat Med Cln Tm2 AD Only) OUTPATIENT [id number] Walk in BP day 2 MARTHA GUERRERO 09/16 Released w/o Limitations [facility](O perat Med Cln Tm2 AD Only) [facility](Ope rat Med Cln Tm2 AD Only) TELE CONSULT [id number] ADARSH Xavier 09/19 Referred for Appointment [facility](O perat Med Cln Tm2 AD Only) [facility] Group([facility]) OUTPATIENT [id number] kidney pain POWER SALES 09/20 Released w/o Limitations [employer]([facility]) [employer]([facility] Tm[facility] AD Only) OUTPATIENT [id number] f/u shoulde r/arm MARTHA GUERRERO 09/26 Released w/o Limitations [employer](O perat Med Cln Tm2 AD Only) [employer]([facility] Only) TELE CONSULT [id number] Profile KEATON HELTON 10/09 Referred for Appointment [employer](O perat Med Cln Tm2 AD Only) [employer]([facility] Only) TELE CONSULT [id number] No Show appt NANCY EDSIR 10/14 Advice Assessment [employer]([facility] perat [facility] Cl[facility] Tm2 AD Only) [employer]([facility] Tm[facility] AD Only) TELE CONSULT [id number] neg lab NANCY DESIR 10/22 Advice Assessment [employer](O perat Med Cln Tm2 AD Only) [employer]([facility] AD Only) TELE CONSULT [id number] Notes Entered by: KERI GIBBS 29 Oct 2011 1511 ------- ------- ------- ------- -- REPORT KEATON HELTON 10/29 Referred for Appointment [employer](O perat Med Cln Tm2 AD Only) [employer]([facility] Only) TELE CONSULT [id number] Notes Entered by: ZANDRA ALBERTO 06 Dec 2011 1034 ------- ------- ------- ------- -- REPORT MARTHA GUERRERO 12/06 [employer](O perat Med Cln Tm2 AD Only) [employer]([facility] AD Only) TELE CONSULT [id number] Notes Entered by: ZANDRA ALBERTO 06 Dec 2011 1544 ------- ------- ------- ------- -- REPORT MARTHA GUERRERO 12/06 [facility](O perat Med Cln Tm2 AD Only) [facility] rat [facility] Cln Tm2 AD Only) TELE CONSULT [id number] Notes Entered by: KERI GIBBS 11 Dec 2011 0857 ------- ------- ------- ------- -- REPORT NANCY DESIR 12/11 Advice Assessment [facility] perat Med Cln Tm2 AD Only) [facility] Tm2 AD Only) TELE CONSULT [id number] Notes Entered by: ZANDRA ALBERTO 11 Dec 2011 1056 ------- ------- ------- ------- -- REPORT MARTHA GUERRERO 12/11 [facility](O perat Med Cln Tm2 AD Only) [facility] rat [facility] Cl[facility] Tm2 AD Only) TELE CONSULT [id number] Notes Entered by: MARTHA COVARRUBIAS 12 Dec 2011 1608 ------- ------- ------- ------- -- Neg labs NANCY DESIR 12/12 Advice Assessment [facility](O perat Med Cln Tm2 AD Only) [facility] Tm2 AD Only) OUTPATIENT [id number] cough, congest ion DARRIN RADFORD 01/03 Released w/o Limitations [facility](O perat Med Cln Tm2 AD Only) [facility]) OUTPATIENT [id number] sore throat/ left side of head pain and runny nose NASH ARZATE 01/06 Released w/o Limitations [facility]) [facility] rat [facility] Cl[facility] Tm2 AD Only) TELE CONSULT [id number] Notes Entered by: ZANDRA ALBERTO 16 Jan 2012 1032 ------- ------- ------- ------- -- REPORT MARTHA GUERRERO 01/16 [employer](O perat Med Cln Tm2 AD Only) [employer]([facility] AD Only) TELE CONSULT [id number] Notes Entered by: STACY CEJA 24 Jan 2012 0743 ------- ------- ------- ------- -- JIM Burr 01/23 [employer]([facility] perat Med Cln Tm2 AD Only) [employer]([facility] AD Only) OUTPATIENT [id number] neck hurts to move MARTHA GUERRERO 03/10 Released w/o Limitations [employer]([facility] perat Med Cln Tm2 AD Only) [employer]([facility] Tm2 AD Only) TELE CONSULT [id number] Notes Entered by: STACY CEJA 28 Apr 2012 0725 ------- ------- ------- ------- -- TARA Sears 04/28 Referred for Appointment [employer]([facility] perat Med Cln Tm2 AD Only) [employer]([facility] Only) TELE CONSULT [id number] Notes Entered by: HONEY GALLARDO 01 May 2012 1006 ------- ------- ------- ------- -- REPORT MARTHA GUERRERO 05/01 [employer](O perat Med Cln Tm2 AD Only) [employer]([facility]) OUTPATIENT [id number] NATY Chow 06/23 Released w/o Limitations [employer]([facility]) [employer]([facility] [employer]) OUTPATIENT [id number] KEERTHI VICTORIA 08/06 Released w/o Limitations [employer]([facility] [employer] ) [employer]([facility] Tm[facility] AD Only) TELE CONSULT [id number] Notes Entered by: ELIZABETH MAGAÑA 10 Aug 2012 1109 ------- ------- ------- ------- -- Other / profile correct ADARSH Petty 08/10 Referred for Appointment [employer] [facility] perat [facility] Cl[facility] Tm2 AD Only) [employer]([facility] Only) OUTPATIENT [id number] right ear(pos sible infecti on) SKYLA MOTT 08/11 Released w/o Limitations [employer](O perat Med Cln Tm2 AD Only) [employer]([facility] Tm2 AD Only) TELE CONSULT [id number] Notes Entered by: MARTHA COVARRUBIAS 11 Aug 2012 1420 ------- ------- ------- ------- -- ORTEGA Chiu 08/11 Other Not Elsewhere Classified [employer]([facility] perat [facility] Cl[facility] Tm2 AD Only) [employer]([facility] Only) OUTPATIENT [id number] sep MARTHA Kilgore 08/20 Released w/o Limitations [employer]([facility] perat Med Cln Tm2 AD Only) [employer]([facility]) OUTPATIENT [id number] right shoulde r CATALINA Agarwal 10/20 Released w/o Limitations [employer]([facility]) [employer](Phy sical Therapy) OUTPATIENT [id number] BRET JACOBS 10/21 Released with Work/Duty Limitations [employer](P hysical Therapy ) [employer](Phy sical Therapy) OUTPATIENT [id number] NILO DIALLO 10/23 Released w/o Limitations [employer](P hysical Therapy ) [facility](Phy sical Therapy) OUTPATIENT [id number] NILO DIALLO 10/26 Released w/o Limitations [facility](P hysical Therapy ) [facility](Phy sical Therapy) OUTPATIENT [id number] eval knee pain BRET JACOBS 10/27 Released with Work/Duty Limitations [facility](P [facility]ysical Therapy ) [facility](Phy sical Therapy) OUTPATIENT [id number] NLIO DIALLO 10/30 Released w/o Limitations [facility](P hysical Therapy ) [facility](Phy sical Therapy) OUTPATIENT [id number] NILO DIALLO 11/02 Released w/o Limitations [facility](P hysical Therapy ) [facility] rat [facility] Cln Tm2 AD Only) TELE CONSULT [id number] Notes Entered by: Steve FRENCH 02 Nov 2012 1232 ------- ------- ------- ------- -- Triage/ sore throat ADARSH CHONG 11/02 Referred for Appointment [facility] perat Med Cln Tm2 AD Only) [facility] Cl[facility] Tm2 AD Only) OUTPATIENT [id number] sore throat/ congest ion x 1 week MARTHA GUERRERO 11/03 Released w/o Limitations [facility] perat Med Cln Tm2 AD Only) [facility]pe rat [facility] Cln Tm2 AD Only) TELE CONSULT [id number] Notes Entered by: MARTHA COVARRUBIAS 03 Nov 2012 1251 ------- ------- ------- ------- -- NANCY Dial 11/03 Advice Assessment [employer]([facility] perat Med Cln Tm2 AD Only) [facility]pe rat [facility] Cln Tm2 AD Only) OUTPATIENT [id number] termina l leave physica l MARTHA GUERRERO 11/03 Released w/o Limitations [facility] Cln [facility]m2 AD Only) [facility] OUTPATIENT [id number] Theater 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 03/12 Released w/o Limitations [facility] OUTPATIENT [id number] Theater Provider 04/06 Released w/o Limitations [facility] OUTPATIENT [id number] Theater Provider 04/15 Released w/o Limitations [facility] OUTPATIENT [id number] Theater Provider 04/23 Sick at Home/Quarter s [facility] OUTPATIENT [id number] Theater Provider 07/22 Released w/o Limitations [facility] OUTPATIENT [id number] Theater Provider 07/29 Released w/o Limitations [facility] OUTPATIENT [id number] Theater Provider 08/19 Released w/o Limitations [facility] OUTPATIENT [id number] Theater Provider 09/11 Released w/o Limitations [facility] OUTPATIENT [id number] Theater Provider 10/20 Released w/o Limitations [facility] [address] [place] [address])([facility]) OUTPATIENT [id number] Notes Entered by: DAO HERNANDEZ 09 Nov 2018 0839 ------- ------- ------- ------- -- 0930 PAM WALKER #2 ADD-ON MARIBEL MCCANN 11/09 Released w/o Limitations [address] [place] [address] ([facility]) [address] [place] [address])([facility]) TELE CONSULT [id number] Notes Entered by: DAO HERNANDEZ NDA J 04 Jan 2019 1150 ------- ------- ------- ------- -- MARIBEL FAITH 01/[address] [place] [address])([facility]) [address] [place] [address])([facility]) OUTPATIENT [id number] Notes Entered by: DAO HERNANDEZ NDA J 20 Jan 2019 0843 ------- ------- ------- ------- -- PAM WALKER #3 TELEPHO NE APPT HILARIO MCCANNLEENO Guevara 01/20 Released w/o Limitations [facility] Lawrence MINAYA ([facility])([facility]) [id number]-[id number] AMDS Outpatient [id number] JIM BESSIE 02/27 Discharge Disposition: Home or Self Care 8344R-4 39 AMDS 8344R-439 AMDS Between Visit [id number] 08/25 Discharge Disposition: Home or Self Care 8344R-4 39 AMDS 8344R-439 AMDS Between Visit [id number] 10/26 Discharge Disposition: Home or Self Care 8344R-4 39 AMDS Procedures Combined list of: 1) Procedures from Department of Veterans Affairs facilities [facility], not all VA non-surgical procedures are included; 2) All procedures from the Department of Defense facilities. Procedure Procedure Type Code Date Perfomer Comments Sourc e No data available for this section Ambul[facility] ry Pharmacy ONLINE ASSESS &MANAG SERV PROVIDE,A QUAL NONPHYS HCP TO AN ESTABLISHED PAT/GUARDIAN,NOT ORIGINAT FRM RELAT ASSESS &MANAG SERV PROVIDE W/IN THE PREV 7 DAYS,USE THE [employer] [facility]WORK 2018 [employer] ONLINE ASSESS &MANAG SERV PROVIDE,A QUAL NONPHYS HCP TO AN ESTABLISHED PAT/GUARDIAN,NOT ORIGINAT FRM RELAT ASSESS &MANAG SERV PROVIDE W/IN THE PREV 7 DAYS,USE THE [employer] COMM NETWORK 2018 [employer] ONLINE ASSESS &MANAG SERV PROVIDE,A QUAL NONPHYS HCP TO AN ESTABLISHED PAT/GUARDIAN,NOT ORIGINAT FRM RELAT ASSESS &MANAG SERV PROVIDE W/IN THE PREV 7 DAYS,USE THE [employer] COMM NETWORK 2017 DoD THERAPEUTIC, PROPHYLACTIC, OR DIAGNOSTIC INJECTION (SPECIFY SUBSTANCE OR DRUG); SUBCUTANEOUS OR INTRAMUSCULAR 2009 DoD DISTORTION PRODUCT EVOKED OTOACOUSTIC EMISSIONS;COMPREHE NSIVE DIAG EVALUATION (QUANTITATIVE ANALYSIS OF OUTER HAIR CELL FUNCTION,COCHLEAR MAPPING,MINIMUM OF 12 FREQUENCIES),W INTERPRETATION &REPORT 2009 DoD TYMPANOMETRY (IMPEDANCE TESTING) 2009 DoD FITTING OF SPECTACLES, EXCEPT FOR APHAKIA; [...] KETOROLAC TROMETHAMINE, PER 15 MG 2009 DoD Internet Med Svc Qual Nonphys Healthcare Prof Up To 7 Days Estab Patient Internet Med [facility] Qual Nonphys Healthcare Prof Up To 7 Days Estab Patient [id number] 2018 TESSIE WESLEY Preventive [facility] Administration Of Health Risk Questionnaire Patient-Focused Preventive Medicine Administration Of Health Risk Questionnaire Patient-Focused [id number] 2018 TESSIE WESLEY Internet Med Svc Qual Nonphys Healthcare Prof Up To 7 Days Estab Patient Internet Med Svc Qual Nonphys Healthcare Prof Up To 7 Days Estab Patient [id number] 2018 TESSIE WESLEY Prevent[facility] Administration Of Health Risk Questionnaire Patient-Focused Preventive [facility] Administration Of Health Risk Questionnaire Patient-Focused [id number] 2018 TESSIE WESLEY Internet Med Svc Qual Nonphys Healthcare Prof Up To 7 Days Estab Patient Internet Med Svc Qual Nonphys Healthcare Prof Up To 7 Days Estab Patient [id number] 2017 TESSIE WESLEY Preventive [facility] Administration Of Health Risk Questionnaire Patient-Focused Preventive Medicine Administration Of Health Risk Questionnaire Patient-Focused [id number] 2017 TESSIE WESLEY Modalities Iontophoresis Modalities Iontophoresis 62724 2011 NILO DIALLO [facility] Physical Therapy Neuromuscular Re-education Physical Therapy Neuromuscular Re-education 36574 2011 NILO DIALLO [facility] Physical Therapy: ___ Se ion Segments, 15 Minutes Each Physical Therapy: ___ Session Segments, 15 Minutes Each 52183 2011 NILO DIALLO [facility] Modalities Iontophoresis Modalities Iontophoresis 57747 2011 NILO DIALLO [facility] Physical Therapy Neuromuscular Re-education Physical Therapy Neuromuscular Re-education 82916 2011 NILO DIALLO [facility] Physical Therapy: ___ Se ion Segments, 15 Minutes Each Physical Therapy: ___ Session Segments, 15 Minutes Each 14819 2011 NILO DIALLO [facility] Modalities Iontophoresis Modalities Iontophoresis 25371 2011 BRET JACOBS [facility] Physical Therapy: ___ Se ion Segments, 15 Minutes Each Physical Therapy: ___ Session Segments, 15 Minutes Each 09464 2011 BRET JACOBS [facility] Physical Therapy Service Evaluation Physical Therapy Service Evaluation 58933 2011 BRET JACOBS [facility] Physical Therapy Neuromuscular Re-education Physical Therapy Neuromuscular Re-education 70863 2011 NILO DIALLO Physical Therapy: ___ Se ion Segments, 15 Minutes Each Physical Therapy: ___ Session Segments, 15 Minutes Each 10661 2011 NILO DIALLO Physical Therapy Neuromuscular Re-education Physical Therapy Neuromuscular Re-education 84149 2011 NILO DIALLO Physical Therapy: ___ Se ion Segments, 15 Minutes Each Physical Therapy: ___ Session Segments, 15 Minutes Each 81504 2011 NILO DIALLO Physical Therapy Mobilization Joint Physical Therapy Mobilization Joint 22766 2011 BRET JACOBS Physical Therapy: ___ Se ion Segments, 15 Minutes Each Physical Therapy: ___ Session Segments, 15 Minutes Each 37771 2011 BRET JACOBS Physical Therapy Service Evaluation Physical Therapy Service Evaluation 96003 2011 BRET JACOBS A e ment & Intervention Blood Pre ure Measured 2010 MARTHA GUERRERO Albuterol, inhalation solution, compounded product, administered through DME, unit dose, 1 mg 2010 DARRIN RADFORD Inhalation Treatment (Nonpre urized) Inhalation Treatment (Nonpressurized) 64929 2010 DARRIN RADFORD Audiogram (Screening) Audiogram (Screening) 62586 2010 ROBERT KIRK Spectacles Services Fitting Monofocal Except For Aphakia Spectacles Services Fitting Monofocal Except For Aphakia 88611 2009 THANG CARRILLO Determination Of Refractive State Determination Of Refractive State 26656 2009 THANG CARRILLO Ophthalmological New Patient Start Comprehensive Care Ophthalmological New Patient Start Comprehensive Care [id number] 2009 THAGN CARRILLO ECG 12-Lead With Interpretation And Report ECG 12-Lead With Interpretation And Report 74234 2009 DARRIN RADFORD A e ment & Intervention Blood Pre ure Measured 2009 ISAMAR FOLEY e ment & Intervention Blood Pre ure Measured 2009 ISAMAR FOLEY ment & Intervention Blood Pre ure Measured 2009 NANCY DESIR A e ment & Intervention Blood Pre ure Measured 2009 ISAMAR FOLEY [facility] Injection, ketorolac tromethamine, per 15 mg 2009 DARRIN RADFORD [facility] Physician Supervised Injection Intramuscular Physician Supervised Injection Intramuscular 88518 2009 DARRIN RADFORD [facility] Evoked Otoacoustic Karoline ions Comprehensive 2009 GM MARSHALL [facility] Tympanometry Tympanometry 00978 2009 GM MARSHALL [facility] Threshold Audiogram (Pure Tone) Threshold Audiogram (Pure Tone) 09571 2009 GM MARSHALL Patient Counseling Medical Management Individual Patient Patient Counseling Medical Management Individual Patient [id number] 2009 JANENE THURMAN Duration: 15 minutes Provided counseling session following the [place] [employer] Aural Rehabilitation [...] Hospital Evoked Otoacoustic Karoline ions Comprehensive 2009 JANENE THURMAN [facility] Acoustic Reflex Testing 2009 JANENE THURMAN [facility] Tympanometry Tympanometry 75479 2009 JANENE THURMAN [facility] Comprehensive Audiometry Comprehensive Audiometry 62748 2009 JANENE THURMAN [facility] Spectacles Services Fitting Monofocal Except For Aphakia Spectacles Services Fitting Monofocal Except For Aphakia 84500 2009 KIM DIAS [facility] Social History Combined list of available smoking, [...] Plan No data available for this section 02/01/2025 Ambulatory Pharmacy Functional Status Combined list of recent functional and cognitive assessments recorded at Department of Defense and Veterans Affairs (VA).VA Functional Woodson Measurement (FIM) Scale: 1 = Total Assistance (Subject = 0% +), 2 = Maximal Assistance (Subject = 25% +), 3 = Moderate Assistance (Subject = 50% +), 4 = Minimal Assistance (Subject = 75% +), 5 = Supervision, 6 = Modified Woodson (Device), 7 = Complete Woodson (Timely, Safely). Assessment Date/Time Source Assessment Type Assessment Skill Assessment Score Assessment Details No data available for this section
== END 2025-02-01 10:02 | disposition home or self-care (01) ==
LOC: HO.HMCFM 09:23
PROVIDERS: PCP Family Medicine; Visit Provider Family Medicine
DX: R51.9 Headache, unspecified (principal); R41.0 Disorientation, unspecified

== ENCOUNTER → 2025-02-01 09:23 | Outpatient (BNVA) | payer OTHER, SELFPAY | PROVIDERS: PCP Family Medicine; Visit Provider Family Medicine | DX: R51.9 Headache, unspecified (principal); R41.0 Disorientation, unspecified | CPT/HCPCS: 99212 ==

== ENCOUNTER 2025-02-23 08:43 | Outpatient (REF) | payer OTHER, SELFPAY ==
--- NOTE | ~2025-02-23 | XR_ITS ---
EXAMINATION: XR HAND 3 OR MORE VIEWS LEFT HISTORY: M79.642 - Pain in left hand COMPARISON: Comparison is made with the prior examination dated 06/19/2023. FINDINGS: Three views of the left hand are submitted. Again seen is an approximately 6 mm well-circumscribed lucent lesion in the distal phalanx of the middle finger. There is mild cortical erosion without change. There is no fracture or dislocation. The joint spaces are preserved. The soft tissues are unremarkable. XR/XR hand LT min 3V IMPRESSION: Stable 6 mm well-circumscribed lucent lesion in the distal phalanx of the middle finger. Electronically signed by: Demond Burch MD 02/23/2025 10:41 AM EDT
--- OUTSIDE RECORDS SUMMARY | 2025-02-23 10:07 | XMS_ITS | Data Portability ---
Author Organization [place] - [facility], [facility] Address [address] [place] [address] Care Team Providers Care Oil Heaterman Name Role Phone ADILSON FRIEDMAN Primary Care Provider [phone] ADILSON FRIEDMAN Referring Provider Assessment No assessment recorded. Plan of Treatment Reminders Order Date Submit Date Provider Last Modified By Organization Details Last Modified Time Details Appointments ANNUAL FIREARMS EXPERT 20 2025 03:00P Steve Klein APRN Not available Not available Not available Lab pap, IG + HPV 2024 025 [facility], [address] [facility], [place], [address] 01/06/2025 07:08:38 urinalys is, dipstick 2024 025 [email or web address] In-Office Order, Internal Use Only DO Not Attach Compendium DO Not Attach Compendium, Do Not Delete/merge, [id number] 12/31/2024 16:50:50 urinalys is, dipstick 2023 024 [email or web address] In-Office Order, Internal Use Only DO Not Attach Compendium DO Not Attach Compendium, Do Not Delete/merge, [id number] 12/12/2023 10:18:05 pregnanc y test, urine 2022 023 [email or web address] In-Office Order, Internal Use Only DO Not Attach Compendium DO Not Attach Compendium, Do Not Delete/merge, [id number] 09/10/2023 17:03:22 CBC w/ auto diff 2022 023 [facility], [address] [facility], [place], [address] 01/06/2024 05:52:41 urinalys is, dipstick 2022 023 [email or web address] In-Office Order, Internal Use Only DO Not Attach Compendium DO Not Attach Compendium, Do Not Delete/merge, [id number] 12/06/2022 09:59:16 Referral breast surgery referral 2024 025 [email or web address] Evelyn Yu, [address], [place], [address], 01/12/2025 09:16:55 Procedures None recorded . Surgeries None recorded . Imaging MAMMO, screenin g, digital, bilatera l 2023 024 [facility], [address], [place], [address], 12/16/2023 14:54:05 US, breast, bilatera l 2023 024 [facility], [address], [place], [address], 12/16/2023 14:54:05 MAMMO, screenin g, digital, bilatera l 2022 023 [facility], [address], [place], [address], 12/06/2022 11:34:05 US, breast, bilatera l 2022 023 [facility], [address], [place], [address], 07/04/2023 09:25:09 Medication Orders Slynd 4 mg (28) tablet 2023 024 [email or web address] [id number], [address], [address], 12/31/2024 15:07:53 Slynd 4 mg (28) tablet 2022 023 [email or web address] [facility][id number], [address] [facility] [place], [address], 12/31/2024 15:07:53 norethin drone (contrac eptive) 0.35 mg tablet 2022 023 [email or web address] [facility][id number], [address] [place], [address], 09/10/2023 13:33:24 norethin drone (contrac eptive) 0.35 mg tablet 2022 023 leander [facility][id number], [address] [facility] [place], [address], 09/10/2023 13:33:21 Patient TargetsNo targets recorded. Patient InstructionsNo instructions recorded. Reason for Referral Breast Surgery Referral for Family history of breast cancer family history of breast cancer Referring Physician: Rosalva Klein, PROCESS SAFETY ENGINEERING TECHNOLOGIST, Encounter Date: 12/31/2024 Results Created Date Observation Date Name Description Value Unit Range Abnormal Flag Note LastModifiedBy Organization Detail LastModifiedTime 12/05/1912/05/2022 [facility] [place] HISTO RY ASSES SAROJ RESUL T [facility] - cancer history assessment result Meets criter ia abnormal See PDF for compl ete resul ts. [facility] itary cance r crite mike asses sment - MEETS CRITE MIKE NCCN HBOC 2021, USPST F Not Available [facility] [address] [place], [address], 12/05/2022 09:44:37 12/06/1912/06/2022 urina lysis , dipst ick Interpretati on negati ve Not Available In-Office Order Internal Use Only DO Not Attach Compendium DO Not Attach Compendium, Do Not Delete/merge, [id number] 12/06/2022 08:27:02 12/06/1912/06/2022 urina lysis , dipst [...] 12/06/2022 urina lysis , dipst ick Specific [place] 1.000 Not Available In-Off ice Order Internal Use Only DO Not Attach Compendium DO Not Attach Compendium, Do Not Delete/merge, 12/06/2022 08:27:02 12/06/19 23 12/06/2022 urina lysis , dipst ick Ketone Negati ve Not Available In-Office Order Internal Use Only DO Not Attach Compendium DO Not Attach Compendium, Do Not Delete/merge, [id number] 12/06/2022 08:27:02 12/06/19 23 12/06/2022 urina lysis , dipst ick Bilirubin Negati ve Not Available In-Office Order Internal Use Only DO Not Attach Compendium DO Not Attach Compendium, Do Not Delete/merge, [id number] 12/06/2022 08:27:02 12/06/19 23 12/06/2022 urina lysis , dipst ick Glucose Negati ve Not Available In-Office Order Internal Use Only DO Not Attach Compendium DO Not Attach Compendium, Do Not Delete/merge, [id number] 12/06/2022 08:27:02 12/06/19 23 12/06/2022 urina lysis , dipst ick Appearance Clear Not Available In-Offi ce Order Internal Use Only DO Not Attach Compendium DO Not Attach Compendium, Do Not Delete/merge, [id number] 12/06/2022 08:27:02 12/06/19 23 12/06/2022 urina lysis , dipst ick Color Yellow Not Available In-Office Order Internal Use Only DO Not Attach Compendium DO Not Attach Compendium, Do Not Delete/merge, [id number] 12/06/2022 08:27:02 09/10/20 23 09/10/2023 pregn demetria test, urine Result negati ve Not Available In-Office Order Internal Use Only DO Not Attach Compendium DO Not Attach Compendium, Do Not Delete/merge, [id number] 09/10/2023 14:14:46 12/12/19 24 12/12/2023 urina lysis , dipst ick Interpretati on negati ve Not Available In-Office Order Internal Use Only DO Not Attach Compendium DO Not Attach Compendium, Do Not Delete/merge, [id number] 12/12/2023 08:28:39 12/12/19 24 12/12/2023 urina lysis , dipst ick Leukocytes Negati ve Not Available In-Office Order Internal Use Only DO Not Attach Compendium DO Not Attach Compendium, Do Not Delete/merge, [id number] 12/12/2023 08:28:39 12/12/19 24 12/12/2023 urina lysis [...] 12/12/2023 urina lysis , dipst ick Specific [place] 1.000 Not Available In-Off ice Order Internal [...] DO Not Attach Compendium, Do Not Delete/merge, [id number] 12/12/2023 08:28:39 12/12/19 24 12/12/2023 urina lysis , dipst ick Glucose Negati ve Not Available In-Office Order Internal Use Only DO Not Attach Compendium DO Not Attach Compendium, Do Not Delete/merge, [id number] 12/12/2023 08:28:39 12/12/19 24 12/12/2023 urina lysis [...] 4.1 thou/ uL 4.0-11 .0 Not Available [facility] [address] [place] [address], 01/06/2024 05:52:41 01/05/20 24 01/05/2024 COMPL ETE BLOOD COUNT WITH AUTO DIFF red blood cell 4.51 mil/u L 4.00-5 .40 Not Available [facility] [address] [place] [address], 01/06/2024 05:52:41 01/05/20 24 01/05/2024 COMPL ETE BLOOD COUNT WITH AUTO DIFF hemoglobin 13.7 g/dL 11.7-1 5.7 Not Available [facility] [address] [place], [place], 01/06/2024 05:52:41 01/05/20 24 01/05/2024 COMPL ETE BLOOD COUNT WITH AUTO DIFF hematocrit 41.9 % 35.0-4 7.0 Not Available [facility] [address], [place], 01/06/2024 05:52:41 01/05/20 24 01/05/2024 COMPL ETE BLOOD COUNT WITH AUTO DIFF mean corpuscular volume 93 fL 80-100 Not Available [facility] [address] [place], [place], 01/06/2024 05:52:41 01/05/20 24 01/05/2024 COMPL ETE BLOOD COUNT WITH AUTO DIFF mean corpuscular hemoglobin 30.4 pg 26.0-3 4.0 Not Available [facility] [address] [place], [place], 01/06/2024 05:52:41 01/05/20 24 01/05/2024 COMPL ETE BLOOD COUNT WITH AUTO DIFF mean corpuscular hemoglobin concentratio n 32.7 g/dL 30.0-3 6.0 Not Available [facility] [address] [place], [place], 01/06/2024 05:52:41 01/05/20 24 01/05/2024 COMPL ETE BLOOD COUNT WITH AUTO DIFF red cell distribution width 12.6 % 11.5-1 4.5 Not Available [facility] [address] [place], [place], 01/06/2024 05:52:41 01/05/20 24 01/05/2024 COMPL ETE BLOOD COUNT WITH AUTO DIFF platelets 189 thou/ uL 150-45 0 Not Available [facility] [address] [place], [place], 01/06/2024 05:52:41 01/05/20 24 01/05/2024 COMPL ETE BLOOD COUNT WITH AUTO DIFF mean platelet volume 11.1 fL 9.4-12 .5 Not Available [facility] [address] [place], [place], 01/06/2024 05:52:41 01/05/20 24 01/05/2024 COMPL ETE BLOOD COUNT WITH AUTO DIFF neutrophil, percentage 56.5 % Not Available [facility] [address] [place], [place], 01/06/2024 05:52:41 01/05/20 24 01/05/2024 COMPL ETE BLOOD COUNT WITH AUTO DIFF lymphocyte, percentage 31.6 % Not Available [facility] [address] [place], [place], 01/06/2024 05:52:41 01/05/20 24 01/05/2024 COMPL ETE BLOOD COUNT WITH AUTO DIFF monocyte, percentage 11.0 % Not Available [facility] [address] [place], [place], 01/06/2024 05:52:41 01/05/20 24 01/05/2024 COMPL ETE BLOOD COUNT WITH AUTO DIFF eosinophil, percentage 0.2 % Not Available [facility] [address] [place], [place], 01/06/2024 05:52:41 01/05/20 24 01/05/2024 COMPL ETE BLOOD COUNT WITH AUTO DIFF basophil, percentage 0.5 % Not Available [facility] [address] [place], [place], 01/06/2024 05:52:41 01/05/20 24 01/05/2024 COMPL ETE BLOOD COUNT WITH AUTO DIFF neutrophil, absolute 2.30 thou/ uL 2.00-7 .50 Not Available [facility] [address] [place], 01/06/2024 05:52:41 01/05/20 24 01/05/2024 COMPL ETE BLOOD COUNT WITH AUTO DIFF lymphocyte, absolute 1.29 thou/ uL 1.50-4 .50 low Not Available [facility] [address] [place], 01/06/2024 05:52:41 01/05/20 24 01/05/2024 COMPL ETE BLOOD COUNT WITH AUTO DIFF monocyte, absolute 0.45 thou/ uL 0.20-1 .50 Not Available [facility] [address] [place], 01/06/2024 05:52:41 01/05/20 24 01/05/2024 COMPL ETE BLOOD COUNT WITH AUTO DIFF eosinophil, absolute 0.01 thou/ uL 0.00-0 .70 Not Available [facility] [address] [place], 01/06/2024 05:52:41 01/05/20 24 01/05/2024 COMPL ETE BLOOD COUNT WITH AUTO DIFF basophil, absolute 0.02 thou/ uL 0.00-0 .20 Not Available [facility] [address] [place], 01/06/2024 05:52:41 01/05/20 24 01/05/2024 COMPL ETE BLOOD COUNT WITH AUTO DIFF NRBC, absolute 0.00 thou/ uL 0.00-0 .02 Not Available [facility] [address] [place], [address] 01/06/2024 05:52:41 01/05/20 24 01/05/2024 COMPL ETE BLOOD COUNT WITH AUTO DIFF NRBC, percentage 0.0 % <5.0 Not Available [facility] [address] [place], [address] 01/06/2024 05:52:41 01/05/20 24 01/05/2024 COMPL ETE BLOOD COUNT WITH AUTO DIFF Ig, absolute 0.01 thou/ uL 0.00-0 .10 Not Available [facility] [address] [place] [address], 01/06/2024 05:52:41 01/05/20 24 01/05/2024 COMPL ETE BLOOD COUNT WITH AUTO DIFF Ig, percentage 0.2 % Not Available [facility] [address] [place] [address], [address] 01/06/2024 05:52:41 12/31/19 25 12/31/2024 HPV MRNA [...] t [facility] Not Available [facility] [address] [place], [address] 01/06/2025 07:08:34 12/31/1912/31/2024 THINP REP PAP TEST [...] ON ZONE COMPO NENT ABSEN T/INS [facility] I[facility] . INTER PRETA TION: NEGAT [...] NG HPV RESUL TS: HPV mRNA E6/E7 92115 39945 Appro julee: 01/01 Negat lesley REF RANGE : Negat lesley CPT Codes : 45127 ICD Codes : Z01.4 19 Not Available [facility] [address] [place], [address] 01/06/2025 07:08:38 12/31/1912/31/2024 urina lysis , dipst ick Interpretati on negati ve Not Available In-Office Order Internal Use Only DO Not Attach Compendium DO Not Attach Compendium, Do Not Delete/merge, [id number] 12/31/2024 15:10:10 12/31/19 25 12/31/2024 urina lysis , dipst ick Leukocytes Negati ve Not Available In-Office Order Internal Use Only DO Not Attach Compendium DO Not Attach Compendium, Do Not Delete/merge, [id number] 12/31/2024 15:10:10 12/31/19 25 12/31/2024 urina lysis [...] 12/31/2024 urina lysis , dipst ick Specific [place] 1.000 Not Available In-Off ice Order Internal [...] DO Not Attach Compendium, Do Not Delete/merge, [id number] 12/31/2024 15:10:10 12/31/19 25 12/31/2024 urina lysis , dipst ick Glucose Negati ve Not Available In-Office Order Internal Use Only DO Not Attach Compendium DO Not Attach Compendium, Do Not Delete/merge, [id number] 12/31/2024 15:10:10 12/31/19 25 12/31/2024 urina lysis , dipst ick Appearance Clear Not Available In-Offi ce Order Internal Use Only DO Not Attach Compendium DO Not Attach Compendium, Do Not Delete/merge, [id number] 12/31/2024 15:10:10 12/31/19 25 12/31/2024 urina lysis , dipst ick Color Yellow Not Available In-Office Order Internal Use Only DO Not Attach Compendium DO Not Attach Compendium, Do Not Delete/merge, [id number] 12/31/2024 15:10:10 07/04/20 23 06/24/2023 US, breas t, bilat eral No observ ation record ed. [email or web address] [facility] [address], [place], [address], 07/15/2023 10:29:19 09/10/20 23 09/10/2023 ultra sound image s RAD rberke Chad Vargas MD [address] [place], [address], 09/12/2023 11:01:51 01/07/20 24 01/05/2024 MAMMO , scree ligia, digit al, bilat eral No observ ation record ed. [email or web address] [facility] [address], [place], [address], 01/16/2024 13:42:32 Result Notes None recorded. Problems Name Problem SNOMED Code Status Onset Date Resolution Date Notes Provider Name and Address Organization Details Recorded Time Hypertensive disorder 09542655 Active 2023 Brenda Gonzalez null, [place] - [facility] 4 09:26:46 Problem Notes None recorded. Procedures Surgical History Date Name Laterality Status Provider Name and Address Organization Details Recorded Time 01/02/20 22 Date of Last Mammogram completed Brenda Gonzalez [facility] 12/06/2022 08:25:20 11/30/19 22 Date of Last Pap Smear completed Brenda Gonzalez [facility] 12/06/2022 08:24:44 Appendectomy completed Brenda Gonzalez [facility] 11/30/2021 14:38:54 lumpectomy of right breast completed Brenda Gonzalez [facility] 11/30/2021 14:39:08 Imaging Results Imaging Date Name Status LastModified by Organiz ation Details LastModified Time 06/24/2023 US, breast, bilateral completed [email or web address] [facility] [address], [place], [address], 07/15/2023 10:29:19 09/10/2023 ultrasound images completed [email or web address] Vargas MD [address] [place] [address], [address], 09/12/2023 11:01:51 01/05/2024 MAMMO, screening, digital, bilateral completed [email or web address] [facility] [address], [place], [address], 01/16/2024 13:42:32 Procedure Notes None recorded. Medical Equipment None Reported. Allergies Allergen ID Allergen Name Allergen Category Reaction Reaction Severity Criticality Documentation Date Start Date Code Code System Note Provider Name and Address Organization Details Recorded Time 1012892 acetamino phen / hydrocodo ne medicatio n Not available Not available Not available 11/30/2021 72451 2 RxNorm [facility] 14:36:15 Medications Name Sig Start Date [...] Updated DateTime 11/29/2022 170.18 cm 20 kg/m2 40545.82 g 122 mm[Hg] 78 mm[Hg] Gali Tsang [facility] 09:09:34 Date Recorded Body height Provider Name an d Address Organization Details Last Updated DateTime 12/06/2022 170.18 cm Brenda Gonzalez [facility] 12/06/2022 09:21:39 Date Recorded Body height Body mass index (BMI) Body weight Systolic blood pressure Diastolic blood pressure Provider Name and Address Organization Details Last Updated DateTime 09/10/2023 170.18 cm 21.5 kg/m2 92736.15 g 138 mm[Hg] 74 mm[Hg] Lorenza duggan [facility] 13:33:07 Date Recorded Body height Body mass index (BMI) Body weight Provider Name and Address Organization Details Last Updated DateTime 12/12/2023 170.18 cm 21.3 kg/m2 56746.56 g Brenda Gonzalez [facility] 12/12/2023 10:05:49 Date Recorded Body height Body mass index (BMI) Body weight Systolic blood pressure Diastolic blood pressure Provider Name and Address Organization Details Last Updated DateTime 12/31/2024 170.18 cm 22.1 kg/m2 21882.52 g 122 mm[Hg] 82 mm[Hg] Gali Tsang [facility] 15:12:55 Social History Question Answer Notes LastModified by Organizat ion Details LastModified Time Tobacco Smoking Status Never Smoker Hina Ontiveros constance, [facility] 05/14/2022 12:48:45 What Is Your Level Of Alcohol Consumption? None Information not available 05/14/2022 Is Blood Transfusion Acceptable In An Emergency? Yes Information not available 05/14/2022 In The 14 Days Before Symptom Onset, Have You Had Close Contact With A Laboratory-confirm ed COVID-19 While That Case Was Ill? No [email or web address] Information n ot available 05/14/2022 In The 14 Days Before Symptom Onset, Have You Had Close Contact With A Person Who Is Under Investigation For COVID-19 While That Person Was Ill? No Information not available 05/14/2022 Have You Been To An Area Known To Be High Risk For COVID-19? No [email or web address] Information not available 05/14/2022 Are You Currently Employed? Yes Information not available 05/14/2022 Do You Reside In Or Have You Traveled To An Area Where Ebola Virus Transmission Is Active? 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 No [email or web address] Information no t available 05/14/2022 Have You Recently Or Are You Planning To Travel To An Area With Zika Virus? No [email or web address] Information not available 05/14/2022 Do You Have [...] Do You Use Protection During Sex? Always [email or web address] Information not available 05/14/2022 Are You Sexually Active? Yes [email or web address] Information not available 05/14/2022 Have You Recently Traveled Abroad? No Information not available 11/30/2021 Sex: Unknown Functional Status None recorded. Mental Status Question Answer Note LastModified by Organization D etails LastModified Time Do you have difficulty concentrating, remembering or making decisions? 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 [id number] ROSALVA KLEIN APRN SHE[address] [place] [address] 03/01/2022 10:17:36 03/01/2022 10:59:34 Surveillance of oral contraception 741786692 Z30.41 Will have trial of POP If too much BTB will consider Depo Provera or progestero ne IUD [id number] ROSALVA KLEIN APRN SHE[address] [place] [address] 05/08/2022 12:47:30 05/08/2022 13:24:19 Pain in pelvis 79280102 R10.2 Benign speculum exam and bimanual Will Proceed to transvagin al US as first step In a mongamous relationsh ip Using condoms and had trial or POP but her blood pressure increased with use so was discontinu ed Recnet gc and Clamydia negative Irregular intermenstrual bleeding 77111937 N92.1 [id number] ROSALVA KLEIN APRN SHE[address] [place] [address] 05/31/2022 09:37:25 05/31/2022 10:21:39 Surveillance of oral contraception 556343419 Z30.41 No BTB on bipahsic ocp Normotensi ve today will monitor BP at home RV 5 months to discuss pelvic symptoms , if any [id number] ROSALVA PARADAPHILLIP ELECTRIC MILKERS INSTALLER SHE[address] [place] [address] 07/19/2022 09:26:46 07/19/2022 10:26:16 Epidermoid cyst 543232516 L72.0 lower left labial fold Not inflamed or tender at all Monitor Vaccination not done 310 4955992 9108 Z28.9 Had first HPV vaccine in [...] basis( immuno suppressed individual being one example) [id number] ROSALVA PARADABRICE FISHER SHE[address],[facility] [address] [place] [address] 11/29/2022 08:56:51 11/29/2022 09:41:24 Surveillance of oral contraception 405652373 Z30.41 No BTB, ACHES reviewed Pelvi pain is diminished in intensity and frequency BP 122/78 [id number] ROSALVA KLEINBRICE FISHER SHE2 [address],[facility] [address] [place] [address] 12/06/2022 09:21:15 12/06/2022 10:21:17 Gynecologic examination 83095963 Z01.419 Next pap is due in 2024 Depression screening 171 083141 Z13.31 Surveillan ce of oral contraception 984336363 Z30.41 No BTB, ACHES reviewed Pelvi pain is diminished in intensity and frequency BP 122/78 Familial c ancer of breast 444357789 C50.919 [id number] CHAD ROWE CNM SHE[address] [place] [address] 09/10/2023 13:13:20 09/10/2023 14:52:46 test negative 344163503 Z32.02 Menorrhagia 365450678 N9 2.0 Abnormally long period. Performed u/s [...] would like to go back on OCPs. [id number] ROSALVA KLEIN APRN SHE[address] [place] [address] 12/12/2023 09:18:22 12/12/2023 10:20:43 Gynecologic examination 54637369 Z01.419 Next pap is due in 2024 Depression screening 171 489014 Z13.31 Surveillan ce of oral contraception 306046393 Z30.41 No BTB, ACHES reviewed Pelvi pain is diminished in intensity and frequency BP 122/78 Familial c ancer of breast 940761114 C50.919 [id number] ROSALVA KLEIN APRN SHE[address] [place] [address] 12/31/2024 14:57:24 12/31/2024 15:45:29 Gynecologic examination 90805481 Z01.419 Reviewed diet and exercise. No hereditary cancer risk. Screening labs with PCP. Pap--- STI screen---- Encourage monthly SBE Depression screening 171 418247 Z13.31 Screen negative for depression Family his tory of breast cancer 849801777 Z80.3 Health Concerns Section Related Observation LastModified by Organization Detai ls LastModified Time None Recorded Concern Status LastModified by Organization Details LastModified Time None Recorded Advance Directives Directive None Recorded Payers Encounter Date Sequence Insurance Name Policy Number Policy Vera Covered Member ID Vera Member ID Guarantor Name 11/29/2022 1 [place] - DOS PRIOR TO 2024 - [employer] () Bonnie Iyer [id number] Bonnie Guevara Jaylon 12/06/2022 1 [place] - DOS PRIOR TO 2024 - [employer] () Bonnie Guevara Jaylon [id number] Bonnie Guevara Jaylon 09/10/2023 1 [place] - DOS PRIOR TO 2024 - [employer] () Bonnie Guevara Jaylon [id number] Bonnie Guevara Jaylon 12/12/2023 1 [place] - DOS PRIOR TO 2024 - [employer] () Bonnie Guevara Jaylon [id number] Bonnie Guevara Jaylon 12/31/2024 1 [place] - DOS ON OR AFTER 2024 - [employer] () Bonnie Richmondhardt [id number] Bonnie Griggst Notes Date Note Type Note Provider Name and Address Organization Details Recorded Time 11/29/2022 text/html f/u ocp w/ dpf. Norenthindrone No spotting Pelvic pain she reports is very minimal now She is normotensive today BP122/78 ACHES is reviewed today Is coming in for AV next week ROSALVA KLEIN APRN [address] [place] [address], [address] Floor, [place], [address], [place] [facility] 11/29/2022 09:22:33 12/06/2022 text/html [facility]Men[facility]al [facility]:Normal menses Urinary symptoms:No hematuria; No incontinence [...] happy with method. ROSALVA KLEIN APRN [address] [facility] [place], [address], [facility] 12/06/2022 09:59:20 09/10/2023 text/html [facility] Abnormal BleedingReported bypatient.Onset/Timing :present cycle [...] and stopped today. CHAD ROWE CNM [address] [facility] [facility], [place], [address], [facility] 09/10/2023 17:05:13 12/12/2023 text/html [facility] Annual GYNRe ported bypatient.Menstrual cycle:Normal [...] considering endocrine referral ROSALVA KLEIN APRN [address] 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 ROSALVA KLEIN APRN [address] [facility], [address], [place], [address], [facility] 01/01/2025 10:08:39 OBGyn Episode Ob Episode Information Episode Created Date Number of Fetuses Patient Bloodtype Patient rh Status Prepregnancy Weight lbs Domestic Partner Domestic Partner Phone Father Name Production Maintenance Technician Status 11/30/19 22 1 CLOSED Fetus Data First Name Last Name Admitted to NICU Weight (g) Sex Living Outcome Pediatric Complications Fetus ID Race Codes Race Delivery Type M Prematur e [id number] Jay Calculation Initial Jay Date Initial [...]
--- OUTSIDE RECORDS SUMMARY | 2025-02-23 10:07 | XMS_ITS | Continuity of Care Document ---
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 Status Comments Source influenza, injectable, quadrivalent- pf [...] Pharmac y influenza virus vaccine, inactivated 2020 [id number] Seqirus complet ed influenza virus vaccine, inactivat ed 09/30/21 Given Ambulat ory Pharmac y influenza virus vaccine, inactivated 2020 [id number] Seqirus complet ed influenza virus vaccine, inactivat ed 09/30/21 Given Ambulat ory Pharmac y COVID Vaccine Pfizer 2020 [id number] 208 PFIZER complet ed COVID Vaccine Pfizer 08/26/21 Given Ambulat ory Pharmac y COVID Vaccine Pfizer 2020 [id number] PFIZER complet ed COVID Vaccine Pfizer 08/26/21 Given Ambulat ory Pharmac y COVID Vaccine Pfizer 2020 [id number] 208 PFIZER complet ed COVID Vaccine Pfizer 08/02/21 Given Ambulat ory Pharmac y COVID Vaccine Pfizer 2020 [id number] 208 PFIZER complet ed COVID Vaccine Pfizer 08/02/21 Given Ambulat ory Pharmac y influenza, seasonal, injectable 2019 [id number] 141 sanofi pasteur complet ed influenza , seasonal, injectabl e 09/19/20 Given Ambulat ory Pharmac y influenza, seasonal, injectable 2019 [id number] 141 sanofi pasteur complet ed influenza , seasonal, injectabl e 09/19/20 Given Ambulat ory Pharmac y influenza, injectable, quadrivalent- pf 2019 150 complet ed influenza , injectabl e, quadrival ent-pf 09/19/20 Given Ambulat ory Pharmac y tetanus, diphtheria, acellular pertu is 2019 [id number] 115 sanofi pasteur complet ed tetanus, diphtheri a, acellular pertussis 12/31/19 Given Ambulat ory Pharmac y tetanus, diphtheria, acellular pertu is 2019 [id number] 115 sanofi pasteur complet ed tetanus, diphtheri a, acellular pertussis 12/31/19 Given Ambulat ory Pharmac y influenza, seasonal, injectable 2018 [id number] 141 sanofi pasteur complet ed influenza , seasonal, injectabl e 09/27/19 Given Ambulat ory Pharmac y influenza, seasonal, injectable 2018 [id number] 141 sanofi pasteur complet ed influenza , seasonal, injectabl e 09/27/19 Given Ambulat ory Pharmac y influenza, injectable, quadrivalent- pf 2017 [id number] 150 Seqirus complet ed influenza , injectabl e, quadrival ent-pf 09/14/18 Given Ambulat ory Pharmac y yellow fever vaccine 2017 [id number] 37 sanofi pasteur complet ed yellow fever vaccine 01/02/18 Given Ambulat ory Pharmac y tuberculin purified protein derivative 2017 [id number] 96 sanofi pasteur complet ed tuberculi n purified protein derivativ e 01/02/18 Given Ambulat ory Pharmac y tuberculin purified protein derivative 2017 [id number] 96 sanofi pasteur complet ed tuberculi n purified protein derivativ e 01/02/18 Given Ambulat ory Pharmac y tuberculin purified protein derivative 2017 [id number] 96 sanofi pasteur complet ed tuberculi n purified protein derivativ e 11/29/17 Given Ambulat ory Pharmac y measles/mumps /rubella virus vaccine 2017 [id number] Merck [employer] Inc complet ed measles/m umps/rube lla virus vaccine 11/29/17 Given Ambulat ory Pharmac y typhoid Vi capsular polysaccharid e vac 2017 [id number] 101 sanofi pasteur complet ed typhoid Vi capsular polysacch aride vac 11/29/17 Given Ambulat ory Pharmac y tuberculin purified protein derivative 2017 [id number] 96 sanofi pasteur complet ed tuberculi n purified protein derivativ e 11/29/17 Given Ambulat ory Pharmac y Influenza, inj, MDCK, quadrivalent- pf 2016 [id number] 171 Seqirus complet ed Influenza , inj, MDCK, quadrival ent-pf 09/27/17 Given Ambulat ory Pharmac y influenza, seasonal, injectable-pf 2015 [id number] 140 Seqirus complet ed influenza , seasonal, injectabl e-pf 09/28/16 Given Ambulat ory Pharmac y influenza, seasonal, injectable-pf 2014 [id number] 140 CSL Behring complet ed influenza , seasonal, injectabl e-pf 09/30/15 Given Ambulat ory Pharmac y influenza, seasonal, injectable-pf 2013 [id number] 140 CSL Behring complet ed influenza , seasonal, injectabl e-pf 08/27/14 Given Ambulat ory Pharmac y influenza, seasonal, injectable 2012 [id number] 0013 01 141 complet ed influenza , seasonal, injectabl e 09/29/13 Given Ambulat ory Pharmac y Human Papillomaviru s,quadrivalen t(HPV4) 2011 [id number] 62 Merck & Company Inc complet ed Human Papilloma virus,lolly drivalent (HPV4) 08/06/12 Given Ambulat ory Pharmac y influenza virus vaccine, live 2011 [id number] [employer] comple t ed influenza virus vaccine, live 07/16/12 Given Ambulat ory Pharmac y influenza virus vaccine, live 2010 [id number] 111 [employer] comple t ed influenza virus vaccine, live 08/16/11 Given Ambulat ory Pharmac y Human Papillomaviru sjulio cesarivalmarlene t(HPV4) 2010 [id number] 62 Merck & Company Inc complet ed Human Papilloma virus,lolly drivalent (HPV4) 01/16/11 Given Ambulat ory Pharmac y influenza virus vaccine, live 2009 [id number] 111 Med[employer] Inc comple t ed influenza [...] Pharmac y tuberculin purified protein derivative 2009 [id number] 96 sanofi pasteur complet ed tuberculi n purified protein derivativ e 01/07/10 Given Ambulat ory Pharmac y tuberculin purified protein derivative 2009 [id number] 96 sanofi pasteur complet ed tuberculi n purified protein derivativ e 01/07/10 Given Ambulat ory Pharmac y Novel influenza-H1N 1-09, injectable 2009 [id number] 127 Novartis Pharmaceutica ls complet ed Novel influenza -Z6C2-91, injectabl e 01/05/10 Given Ambulat ory Pharmac y tetanus, diphtheria, acellular pertu is 2009 [id number] 115 GlaxoSmithKli ne complet ed tetanus, diphtheri a, acellular pertussis 01/05/10 Given Ambulat ory Pharmac y meningococcal A,C,Y,W-135 (MCV4P) 2009 [id number] 114 sanofi pasteur complet ed meningoco ccal A,C,Y,W-1 35 (MCV4P) 01/05/10 Given Ambulat ory Pharmac y poliovirus vaccine, inactivated 2009 [id number] 10 sanofi pasteur complet ed polioviru s vaccine, inactivat ed 01/05/10 Given Ambulat ory Pharmac y influenza virus vaccine,split 2009 [id number] 15 CSL Behring complet ed influenza [...] Prevention' s HIV diagnostic algorithm. Refer to [facility] Lab Guide for additional information : 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 Location Location Details Encounter Type Encounter Number Reason For Visit Attending Provider ADM Date DC Date Status Disposition Source [id number] AMDS Outpatient [id number] JIM LA 02/27 Discharge Disposition: Home or Self Care [id number] [id number] AMDS [id number] AMDS Between Visit [id number] 08/25 Discharge Disposition: Home or Self Care 8344R-4 [id number] AMDS [id number] AMDS Between Visit [id number] 10/26 Discharge Disposition: Home or Self Care 8344R-4 39 AMDS [id number] AMDS Between Visit [id number] 02/08 Discharge Disposition: Home or Self Care 8344R-4 39 AMDS Procedures Combined list of: 1) Procedures from [facility] facilities going back up to thelast 18 months, not all [place] non-surgical procedures are included; 2) All procedures from the Department of [facility] facilities. Procedure Procedure Type Code Date Perfomer Comments Sourc e No data available for this section Ambulatory P harmacy Assessment and Plan Combined list of future care activities from [facility] of [facility] and [facility] facilities (e.g., assessment and plan notes, appointments, orders, and referrals). Additional future care activities may be listed in the Plan of Care section. Result Assessment and Plan Date Source Assessment and Plan No data available for this section 02/23/2025 Ambulatory Pharmacy Functional Status Combined list of recent functional and cognitive assessments recorded at [facility] ([place] Functional [place] Measurement (FIM) Scale: 1 = Total Assistance (Subject = 0% +), 2 = Maximal Assistance (Subject = 25% +), 3 = Moderate Assistance (Subject = 50% +), 4 = Minimal Assistance (Subject = 75% +), 5 = Supervision, 6 = Modified [place] (Device), 7 = Complete [place] (Timely, Safely). Assessment Date/Time Source Assessment Type Assessment Skill Assessment Score Assessment Details No data available for this section
== END 2025-02-23 08:44 | disposition home or self-care (01) ==
LOC: HO.HOSX 08:43
PROVIDERS: PCP Family Medicine; Visit Provider Orthopaedic Surgery
DX: M79.642 Pain in left hand (principal); M89.9 Disorder of bone, unspecified
CPT/HCPCS: 73130; 99212

== ENCOUNTER 2025-02-23 08:43 | Outpatient (AMB) | payer OTHER, SELFPAY ==
--- NOTE | 2025-02-23 08:48 | MHC.OFFVIS ---
Vital Signs 02/23/25 08:52 Height 5 ft 7 in Weight 144 lb BMI 22.6 Intake Visit Reasons: Lt MF Bone Mass, discuss surgery Intake Note: Bonnie 34 yr old mixed handedness female presents today for a follow up visit for her left hand middle finger mass. She was last seen on 09/16/[address] Byrd for left hand MRI. Surgical intervention was discuss however never followed through due to rescheduling. Currently her pain has improved since her last visit however she does have mild pain with grabbing items. Denies numbness or tingling. No locking or catching. She would like to discuss if surgery is necessary. Allergies Seasonal Allergies Allergy (Severe, Verified 02/23/25 08:55) Chronic Sinus Infections hydrocodone [From Vicodin] Allergy (Unknown, Verified 02/23/25 08:55) Hives HPI HPI Lt MF Bone Mass, discuss surgery: Details: Bonnie is a 32 year old left hand dominant woman, in her [employer] uniform, who returns to discuss her left middle finger distal phalanx bone mass. She first noticed it when she was using her fingers to bring in grocery bags and felt a sudden sharp pain in her middle finger. several years ago. She was initially scheduled for surgery in 10/2023, but this was cancelled and not rescheduled at the time. At her last appointment she was having pain of the volar aspect of the distal phalanx primarily with activities such as gripping objects or opening a door. 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 [facility] Medical History (Updated 02/01/25 @ 09:58 by Dale Kelly) Acute respiratory disease Decreased leukocytes Stress Routine physical examination History of high blood pressure Surgical History History of breast lump History of appendectomy Family History Father COPD (chronic obstructive pulmonary disease) Mother No problems noted. Maternal Grandmother No problems noted. Maternal Grandfather Cancer Paternal Grandmother Breast cancer Paternal Grandfather No problems noted. Brother No problems noted. Brother No problems noted. Sister No problems noted. Sister No problems noted. Social History Household Members: Significant Other and Children Housing: Condominium Alcohol intake: never Patient Tobacco Use Status: Never used Tobacco e-Cigarette/Vaping Use: Never Used Second Hand Smoke Exposure: No service: Yes Current occupational status: employed Current occupation: [employer]/ right hand dominant Current occupational exposures/hazards: No Gender identity: Female Cognitive needs: No Hearing needs: No Vision needs: Yes (Glasses) Physical Exam Vital Signs: BMI result Body Mass Index 22.6 Extrem Other: Evaluation of Left Upper Extremity: The patient is alert, oriented, and in no acute distress Neuro: Median, Ulnar, Radial nerves motor and sensory intact and sensation is normal to the tips of all digits Vascular: Cap refill brisk ROM: She can make a fist and extend all her digits General: Regarding the left middle finger she has no visible swelling, and no skin abnormalities. There is perhaps a palpable mass in the pad of the middle finger that measures ~3mm or so in diameter. This corresponds to a bony protrusion on the volar aspect of the distal phalanx best seen on the lateral x-ray view of the digit. Only minimally tender directly over this area. No tenderness medially, laterally, or dorsally over the distal phalanx she has good range of motion at the DIP joint. Radiographs New radiographs taken today were reviewed by me in compared with her radiographs from 2022: There does appear to be a cystic somewhat expansile mass in the proximal body of the middle finger distal phalanx. On the lateral view there is also a bony prominence protruding off the volar cortex of this same area of the body of the distal phalanx. No fractures are seen. This bony lesion appears stable with no changes since 2022 MRI: IMPRESSION: A 7 mm cystic-appearing lesion in the long finger distal phalanx with mild cortical expansion, possibly corresponding to an epidermal inclusion cyst. An enchondroma or unicameral bone cyst are also possible. A glomus tumor is on the differential, particularly if this lesion is markedly painful. Specificity is limited without intravenous contrast. Dictated By: tim 09/11/23 On my review I just want to note that the cystic appearing mass appears to extend to the volar cortex in a small area best seen on the MRI. Assessment & Plan Assessment & Plan (1) Bone lesion: Code(s): M89.9 - Disorder of bone, unspecified Category: Medical Plan Assessment & Plan: 1. 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 Radiographically stable since 2022 I educated her about this condition I discussed operative and non-operative treatment options Her symptoms of pain & hand function have improved, and again the lesion is radiographically stable. I am therefore not recommending surgery at this point. I recommend she continue activities as tolerated If her symptoms worsen in severity she can follow up to discuss treatment options Otherwise follow up in 1 year with new radiographs. I did explain to her that if this remained stable she may not need surgery at all. Scribed for Yeny Byrd MD by Jordy Chandra, medical coding auditor, on 02/23/25 at 9:15 AM, EST. Orders: Orders XR hand LT min 3V Today M79.642 - Pain in left hand Coding Level of Care Code Est Pt Level 4 (24032) Diagnoses Bone lesion M89.9
[2025-02-23 08:52] VITALS: BMI 22.6
--- OUTSIDE RECORDS SUMMARY | 2025-02-23 09:15 | XMS_ITS | Continuity of Care Document ---
Author Name [facility] Organization 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 Unavailable Unavailable Allergies, Adverse Reactions, Alerts Combined list of allergies from Department of Defense and Veterans Affairs facilities. It does not include entries that were removed or entered in error. Substance Category Reaction Severity Reaction type Status Date Reported Comments Source acetaminophen Propensity to adverse reactions to drug Swelling Active 2 Unknown Organizat ion acetaminophen -hydrocodone Propensity to adverse reactions to drug Rash Active 1 Unknown Organizat ion Immunizations Combined list of available immunizations from the Department of Defense and Veterans Affairs facilities. 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 Status Comments Source influenza, injectable, quadrivalent- pf [...] Pharmac y influenza virus vaccine, inactivated 2020 [id number] Seqirus complet ed influenza virus vaccine, inactivat ed 09/30/21 Given Ambulat ory Pharmac y influenza virus vaccine, inactivated 2020 [id number] Seqirus complet ed influenza virus vaccine, inactivat ed 09/30/21 Given Ambulat ory Pharmac y COVID Vaccine Pfizer 2020 [id number] PFIZER complet ed COVID Vaccine Pfizer 08/26/21 Given Ambulat ory Pharmac y COVID Vaccine Pfizer 2020 [id number] PFIZER complet ed COVID Vaccine Pfizer 08/26/21 Given Ambulat ory Pharmac y COVID Vaccine Pfizer 2020 [id number] PFIZER complet ed COVID Vaccine Pfizer 08/02/21 Given Ambulat ory Pharmac y COVID Vaccine Pfizer 2020 [id number] PFIZER complet ed COVID Vaccine Pfizer 08/02/21 Given Ambulat ory Pharmac y influenza, seasonal, injectable 2019 [id number] 141 sanofi pasteur complet ed influenza , seasonal, injectabl e 09/19/20 Given Ambulat ory Pharmac y influenza, seasonal, injectable 2019 [id number] 141 sanofi pasteur complet ed influenza , seasonal, injectabl e 09/19/20 Given Ambulat ory Pharmac y influenza, injectable, quadrivalent- pf 2019 150 complet ed influenza , injectabl e, quadrival ent-pf 09/19/20 Given Ambulat ory Pharmac y tetanus, diphtheria, acellular pertu is 2019 [id number] 115 sanofi pasteur complet ed tetanus, diphtheri a, acellular pertussis 12/31/19 Given Ambulat ory Pharmac y tetanus, diphtheria, acellular pertu is 2019 [id number] 115 sanofi pasteur complet ed tetanus, diphtheri a, acellular pertussis 12/31/19 Given Ambulat ory Pharmac y influenza, seasonal, injectable 2018 [id number] 141 sanofi pasteur complet ed influenza , seasonal, injectabl e 09/27/19 Given Ambulat ory Pharmac y influenza, seasonal, injectable 2018 [id number] 141 sanofi pasteur complet ed influenza , seasonal, injectabl e 09/27/19 Given Ambulat ory Pharmac y influenza, injectable, quadrivalent- pf 2017 [id number] 150 Seqirus complet ed influenza , injectabl e, quadrival ent-pf 09/14/18 Given Ambulat ory Pharmac y yellow fever vaccine 2017 [id number] 37 sanofi pasteur complet ed yellow fever vaccine 01/02/18 Given Ambulat ory Pharmac y tuberculin purified protein derivative 2017 [id number] 96 sanofi pasteur complet ed tuberculi n purified protein derivativ e 01/02/18 Given Ambulat ory Pharmac y tuberculin purified protein derivative 2017 [id number] 96 sanofi pasteur complet ed tuberculi n purified protein derivativ e 01/02/18 Given Ambulat ory Pharmac y tuberculin purified protein derivative 2017 [id number] 96 sanofi pasteur complet ed tuberculi n purified protein derivativ e 11/29/17 Given Ambulat ory Pharmac y measles/mumps /rubella virus vaccine 2017 [id number] [employer]ck [employer] Inc complet ed measles/m umps/rube lla virus vaccine 11/29/17 Given Ambulat ory Pharmac y typhoid Vi capsular polysaccharid e vac 2017 [id number] 101 sanofi pasteur complet ed typhoid Vi capsular polysacch aride vac 11/29/17 Given Ambulat ory Pharmac y tuberculin purified protein derivative 2017 [id number] 96 sanofi pasteur complet ed tuberculi n purified protein derivativ e 11/29/17 Given Ambulat ory Pharmac y Influenza, inj, MDCK, quadrivalent- pf 2016 [id number] Seqirus complet ed Influenza , inj, MDCK, quadrival ent-pf 09/27/17 Given Ambulat ory Pharmac y influenza, seasonal, injectable-pf 2015 [id number] 140 Seqirus complet ed influenza , seasonal, injectabl e-pf 09/28/16 Given Ambulat ory Pharmac y influenza, seasonal, injectable-pf 2014 [id number] 140 CSL Behring complet ed influenza , seasonal, injectabl e-pf 09/30/15 Given Ambulat ory Pharmac y influenza, seasonal, injectable-pf 2013 [id number] 140 CSL Behring complet ed influenza , seasonal, injectabl e-pf 08/27/14 Given Ambulat ory Pharmac y influenza, seasonal, injectable 2012 [id number] 0013 01 141 complet ed influenza , seasonal, injectabl e 09/29/13 Given Ambulat ory Pharmac y Human Papillomaviru s,quadrivalen t(HPV4) 2011 [id number] Merck & Company Inc complet ed Human Papilloma virus,lolly drivalent (HPV4) 08/06/12 Given Ambulat ory Pharmac y influenza virus vaccine, live 2011 [id number] [employer] comple t ed influenza virus vaccine, live 07/16/12 Given Ambulat ory Pharmac y influenza virus vaccine, live 2010 [id number] 111 [employer] comple t ed influenza virus vaccine, live 08/16/11 Given Ambulat ory Pharmac y Human Papillomaviru sjulio cesarivalmarlene t(HPV4) 2010 [id number] 62 Merck & [employer] Inc complet ed Human Papilloma virus,lolly drivalent (HPV4) 01/16/11 Given Ambulat ory Pharmac y influenza virus vaccine, live 2009 [id number] 111 Med[employer] Inc comple t ed influenza virus vaccine, live 08/28/10 Given Ambulat ory Pharmac y hepatitis A adult vaccine 2009 [id number] 52 GlaxoSmithKli ne complet ed hepatitis A adult vaccine 08/28/10 Given Ambulat ory Pharmac y hepatitis A adult vaccine 2009 [id number] 52 GlaxoSmithKli ne complet ed hepatitis A adult vaccine 01/10/10 Given Ambulat ory Pharmac y measles/mumps /rubella virus vaccine 2009 [id number] Merck & Company Inc complet ed measles/m umps/rube lla virus vaccine 01/10/10 Given Ambulat ory Pharmac y tuberculin purified protein derivative 2009 [id number] 96 sanofi pasteur complet ed tuberculi n purified protein derivativ e 01/07/10 Given Ambulat ory Pharmac y tuberculin purified protein derivative 2009 [id number] 96 sanofi pasteur complet ed tuberculi n purified protein derivativ e 01/07/10 Given Ambulat ory Pharmac y Novel influenza-H1N 1-09, injectable 2009 [id number] 127 Novartis Pharm[employer] ls complet ed Novel influenza -L5E0-14, injectabl e 01/05/10 Given Ambulat ory Pharmac y tetanus, diphtheria, acellular pertu is 2009 [id number] 115 GlaxoSmithKli ne complet ed tetanus, diphtheri a, acellular pertussis 01/05/10 Given Ambulat ory Pharmac y meningococcal A,C,Y,W-135 (MCV4P) 2009 [id number] 114 sanofi pasteur complet ed meningoco ccal A,C,Y,W-1 35 (MCV4P) 01/05/10 Given Ambulat ory Pharmac y poliovirus vaccine, inactivated 2009 [id number] 10 sanofi pasteur complet ed polioviru s vaccine, inactivat ed 01/05/10 Given Ambulat ory Pharmac y influenza virus vaccine,split 2009 [id number] 15 CSL Behring complet ed influenza virus vaccine,s plit 01/05/10 Given Ambulat ory Pharmac y Results Combined list of recent chemistry, hematology [...] Prevention' s HIV diagnostic algorithm. Refer to [facility] Lab Guide for additional information : [email or web address] x Testing performed by Mynor dug[facility] [id number] Miscellan eous Sendouts Repository Sample Received (02/27/24 8:41 AM) 02/26 N [address] EPILAB Encounters Combined list of: 1) Encounters from Department of Veterans Affairs facilities going backup to the last 18 months, not all [place] inpatient encounters are included; 2) Encounters from the Department of Defense facilities going backup to 280 months. Location Location Details Encounter Type Encounter Number Reason For Visit Attending Provider ADM Date DC Date Status Disposition Source [id number] AMDS Outpatient [id number] JIM [place] 02/27 Discharge Disposition: Home or Self Care [id number] [id number] AMDS [id number] AMDS Between Visit [id number] 08/25 Discharge Disposition: Home or Self Care 8344R-4 [id number] AMDS [id number] AMDS Between Visit [id number] 10/26 Discharge Disposition: Home or Self Care 8344R-4 39 AMDS [id number] AMDS Between Visit [id number] 02/08 Discharge Disposition: Home or Self Care 8344R-4 39 AMDS Procedures Combined list of: 1) Procedures from Department of [facility] facilities going back up to thelast 18 months, not all [place] non-surgical procedures are included; 2) All procedures from the Department of [facility] facilities. Procedure Procedure Type Code Date Perfomer Comments Sourc e No data available for this section Ambulatory P harmacy Assessment and Plan Combined list of future care activities from Department of [facility] and Veterans [facility] facilities (e.g., assessment and plan notes, appointments, orders, and referrals). Additional future care activities may be listed in the Plan of Care section. Result Assessment and Plan Date Source Assessment and Plan No data available for this section 02/23/2025 Ambulatory Pharmacy Functional Status Combined list of recent functional and cognitive assessments recorded at Department of Defense and [facility] ([place] Functional [place] Measurement (FIM) Scale: 1 = Total Assistance (Subject = 0% +), 2 = Maximal Assistance (Subject = 25% +), 3 = Moderate Assistance (Subject = 50% +), 4 = Minimal Assistance (Subject = 75% +), 5 = Supervision, 6 = Modified Den[place] (Device), 7 = Complete [place] (Timely, Safely). Assessment Date/Time Source Assessment Type Assessment Skill Assessment Score Assessment Details No data available for this section
== END 2025-02-23 09:42 | disposition home or self-care (01) ==
LOC: HO.HOS 08:44
PROVIDERS: PCP Family Medicine; Visit Provider Orthopaedic Surgery
DX: M85.842 Other specified disorders of bone density and structure, left hand (principal)
CPT/HCPCS: 99214

== ENCOUNTER → 2025-02-23 09:17 | Outpatient (BNV) | payer OTHER, SELFPAY | PROVIDERS: PCP Family Medicine; Visit Provider Radiology Diagnostic Radiology | DX: M79.642 Pain in left hand (principal) | CPT/HCPCS: 73130 ==

== ENCOUNTER 2025-07-27 16:24 | Outpatient (AMB) | payer OTHER, SELFPAY ==
--- OUTSIDE RECORDS SUMMARY | 2025-07-27 17:56 | XMS_ITS | Continuity of Care Document ---
Author Name [facility] Organization [facility] Care Team Providers Care School Custodian Name Role Phone [facility] Unavailable Unavailable Problems [...] Ordering Provider Order Date Order Qty Source METOPROLOL SUCCINATE (metoprolol succinate), 25 MG, TAB ER 24H, ORAL, INGENUS PHARMAC, 1000 ea. BOTTLE Active [id number] 2023 45 Pharmac y Data Transac [...] N) Drug allergy (disorder) Swelling active 2 [facility] acetaminophen -hydrocodone Propensity to adverse reactions to drug Rash Active 1 Unknown Organizat ion VICODIN (HYDROCODONE BIT/ACETAMINO PHEN) Drug allergy (disorder) Rash active 1 [facility] Immunizations Combined list of available immunizations from the Department of Defense and Veterans Affairs facilities. 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 Status Comments Source influenza, injectable, quadrivalent- pf [...] Pharmac y influenza virus vaccine, inactivated 2020 [id number] Seqirus complet ed influenza virus vaccine, inactivat ed 09/30/21 Given Ambulat ory Pharmac y influenza virus vaccine, inactivated 2020 [id number] Seqirus complet ed influenza virus vaccine, inactivat ed 09/30/21 Given Ambulat ory Pharmac y COVID Vaccine Pfizer 2020 [id number] PFIZER complet ed COVID Vaccine Pfizer 08/26/21 Given Ambulat ory Pharmac y COVID Vaccine Pfizer 2020 [id number] PFIZER complet ed COVID Vaccine Pfizer 08/26/21 Given Ambulat ory Pharmac y COVID Vaccine Pfizer 2020 [id number] 208 PFIZER complet ed COVID Vaccine Pfizer 08/02/21 Given Ambulat ory Pharmac y COVID Vaccine Pfizer 2020 [id number] 208 PFIZER complet ed COVID Vaccine Pfizer 08/02/21 Given Ambulat ory Pharmac y influenza, seasonal, injectable 2019 [id number] 141 sanofi pasteur complet ed influenza , seasonal, injectabl e 09/19/20 Given Ambulat ory Pharmac y influenza, seasonal, injectable 2019 [id number] 141 sanofi pasteur complet ed influenza , seasonal, injectabl e 09/19/20 Given Ambulat ory Pharmac y influenza, injectable, quadrivalent- pf 2019 150 complet ed influenza , injectabl e, quadrival ent-pf 09/19/20 Given Ambulat ory Pharmac y influenza, injectable, quadrivalent, preservative free 2019 [id number], () Not Given influenza , injectabl e, quadrival ent, preservat aleksandra free DoD tetanus, diphtheria, acellular pertu is 2019 [id number] 115 sanofi pasteur complet ed tetanus, diphtheri a, acellular pertussis 12/31/19 Given Ambulat ory Pharmac y tetanus, diphtheria, acellular pertu is 2019 [id number] 115 sanofi pasteur complet ed tetanus, diphtheri a, acellular pertussis 12/31/19 Given Ambulat ory Pharmac y influenza, seasonal, injectable 2018 [id number] 141 sanofi pasteur complet ed influenza , seasonal, injectabl e 09/27/19 Given Ambulat ory Pharmac y influenza, seasonal, injectable 2018 [id number] 141 sanofi pasteur complet ed influenza , seasonal, injectabl e 09/27/19 Given Ambulat ory Pharmac y influenza, injectable, quadrivalent- pf 2017 [id number] 150 Seqirus complet ed influenza , injectabl e, quadrival ent-pf 09/14/18 Given Ambulat ory Pharmac y Influenza, injectable, quadrivalent, preservative free 10 2017 [id number] 150 Seqirus (SEQ) comple t ed Influenza , injectabl e, quadrival ent, preservat aleksandra free DoD yellow fever vaccine 2017 [id number] 37 sanofi pasteur complet ed yellow fever vaccine 01/02/18 Given Ambulat ory Pharmac y tuberculin purified protein derivative 2017 [id number] 96 sanofi pasteur complet ed tuberculi n purified protein derivativ e 01/02/18 Given Ambulat ory Pharmac y tuberculin purified protein derivative 2017 [id number] 96 sanofi pasteur complet ed tuberculi n purified protein derivativ e 01/02/18 Given Ambulat ory Pharmac y yellow fever vaccine 1 2017 [id number] 37 Sanofi Pasteur (PMC) complet ed yellow fever vaccine DoD tuberculin purified protein derivative 2017 [id number] 96 sanofi pasteur complet ed tuberculi n purified protein derivativ e 11/29/17 Given Ambulat ory Pharmac y measles/mumps /rubella virus vaccine 2017 [id number] 03 Merck & Company Inc complet ed measles/m umps/rube lla virus vaccine 11/29/17 Given Ambulat ory Pharmac y typhoid Vi capsular polysaccharid e vac 2017 [id number] 101 sanofi pasteur complet ed typhoid Vi capsular polysacch aride vac 11/29/17 Given Ambulat ory Pharmac y tuberculin purified protein derivative 2017 [id number] 96 sanofi pasteur complet ed tuberculi n purified protein derivativ e 11/29/17 Given Ambulat ory Pharmac y measles, mumps and rubella virus vaccine 2 2017 [id number] 03 Merck (MSD) complet ed measles, mumps and rubella virus vaccine DoD typhoid Vi capsular polysaccharid e vaccine 1 2017 [id number] 101 Sanofi Pasteur ([facility]) complet ed typhoid Vi capsular polysacch aride vaccine DoD Influenza, inj, MDCK, quadrivalent- pf 2016 [id number] 171 Seqirus complet ed Influenza , inj, MDCK, quadrival ent-pf 09/27/17 Given Ambulat ory Pharmac y Influenza, injectable, Madin [place] Canine Kidney, preservative free, quadrivalent 9 2016 [id number] 171 Seqirus (SEQ) comple t ed Influenza , injectabl e, Madin Julissa Canine Kidney, preservat aleksandra free, quadrival ent DoD influenza, seasonal, injectable-pf 2015 [id number] 140 Seqirus complet ed influenza , seasonal, injectabl e-pf 09/28/16 Given Ambulat ory Pharmac y Influenza, seasonal, injectable, preservative free 8 2015 [id number] 140 Seqirus (SEQ) comple t ed Influenza , seasonal, injectabl e, preservat aleksandra free DoD influenza, seasonal, injectable-pf 2014 [id number] 140 CSL Behring complet ed influenza , seasonal, injectabl e-pf 09/30/15 Given Ambulat ory Pharmac y Influenza, seasonal, injectable, preservative free 7 2014 [id number] 140 CSTamrapGenera Energy, Inc. ([facility]) complet ed Influenza , seasonal, injectabl e, preservat aleksandra free DoD influenza, seasonal, injectable-pf 2013 [id number] 140 CSL Behring complet ed influenza , seasonal, injectabl e-pf 08/27/14 Given Ambulat ory Pharmac y Influenza, seasonal, injectable, preservative free 6 2013 [id number] 140 [facility] Advanced Liquid [employer], Inc. (CSL) complet ed Influenza , seasonal, injectabl e, preservat aleksandra free DoD influenza, seasonal, injectable 2012 [id number] 2 0013 01 141 complet ed influenza , seasonal, injectabl e 09/29/13 Given Ambulat ory Pharmac y Influenza, seasonal, injectable 1 2012 [id number] 2 0013 01 141 Transcribed (TRS) complet [...] ent DoD influenza virus vaccine, live 2011 [id number] 111 Medimmune Inc comple t ed influenza virus vaccine, live 07/16/12 Given Ambulat ory Pharmac y influenza virus vaccine, live, attenuated, for intranasal use 0 2011 [id number] 111 MedImmune, Inc. (MED) complet ed influenza virus vaccine, live, attenuate d, for intranasa l use DoD influenza virus vaccine, live 2010 [id number] 111 Medimmune Inc comple t ed influenza virus vaccine, live 08/16/11 Given Ambulat ory Pharmac y influenza virus vaccine, live, attenuated, for intranasal use 3 2010 [id number] 111 MedImmune, Inc. (MED) complet ed influenza virus vaccine, live, attenuate d, for intranasa l use DoD Human Papillomaviru s,quadrivalen t(HPV4) 2010 [id number] 62 Merck & Company Inc complet ed Human Papilloma virus,lolly drivalent (HPV4) 01/16/11 Given Ambulat ory Pharmac y human papilloma virus vaccine, quadrivalent 1 2010 [id number] 62 Merck (MSD) complet ed human papilloma virus vaccine, quadrival ent DoD influenza virus vaccine, live 2009 [id number] 111 Medimmune Inc comple t ed influenza virus vaccine, live 08/28/10 Given Ambulat ory Pharmac y hepatitis A adult vaccine 2009 [id number] 2AA 52 GlaxoSmithKli ne complet ed hepatitis A adult vaccine 08/28/10 Given Ambulat ory Pharmac y hepatitis A vaccine, adult dosage 2 2009 [id number] 2AA 52 Smithine (SKB) complet ed hepatitis A vaccine, adult dosage DoD influenza virus vaccine, live, attenuated, for intranasal use 1 2009 [id number] 111 worldhistoryproject, Inc. (MED) complet ed influenza virus vaccine, [...] adult dosage 1 2009 [id number] 7AA 52 Smithine (SKB) complet ed hepatitis A vaccine, adult dosage DoD tuberculin purified protein derivative 2009 [id number] 96 sanofi pasteur complet ed tuberculi n purified protein derivativ e 01/07/10 Given Ambulat ory Pharmac y tuberculin purified protein derivative 2009 [id number] 96 sanofi pasteur complet ed tuberculi n purified protein derivativ e 01/07/10 Given Ambulat ory Pharmac y Novel influenza-H1N 1-09, injectable 2009 [id number] 1 127 Novartis Pharmaceutica ls complet ed Novel influenza -W1R9-77, injectabl e 01/05/10 Given Ambulat ory Pharmac y tetanus, diphtheria, acellular pertu is 2009 [id number] 0AA 115 GlaxoSmithKli ne complet ed tetanus, diphtheri a, acellular pertussis 01/05/10 Given Ambulat ory Pharmac y meningococcal A,C,Y,W-135 (MCV4P) 2009 [id number] 114 sanofi pasteur complet ed meningoco ccal A,C,Y,W-1 35 (MCV4P) 01/05/10 Given Ambulat ory Pharmac y poliovirus vaccine, inactivated 2009 [id number] 10 sanofi pasteur complet ed polioviru s vaccine, inactivat ed 01/05/10 Given Ambulat ory Pharmac y influenza virus vaccine,split 2009 [id number] 1A 15 CSL Behring complet ed influenza virus vaccine,s plit 01/05/10 Given Ambulat ory Pharmac y poliovirus vaccine, inactivated 1 2009 [id number] 10 Sanofi Pasteur (PMC) complet ed polioviru s vaccine, inactivat ed DoD influenza virus vaccine, split virus (incl. purified surface antigen)-reti red CODE 1 2009 [id number] 1A 15 CSL FlashtalkingherapGenera Energy, Inc. (CSL) complet ed influenza virus vaccine, split virus (incl. purified surface antigen)- retired CODE DoD meningococcal polysaccharid e (groups A, C, Y and W-135) diphtheria toxoid conjugate vaccine (MCV4P) 1 2009 [id number] 114 Sanofi Pasteur (PMC) complet ed meningoco ccal polysacch aride (groups A, C, Y and W-135) diphtheri a toxoid conjugate vaccine (MCV4P) DoD tetanus toxoid, reduced diphtheria toxoid, and acellular pertu is vaccine, adsorbed 1 2009 [id number] 0AA [facility] SmithKline (SKB) complet ed tetanus toxoid, reduced diphtheri a toxoid, and acellular pertussis vaccine, adsorbed DoD Novel influenza-H1N 1-09, injectable 1 2009 [id number] 1 127 Novartis AwesomeTouchtica GageIn Rafael. (NOV) complet ed Novel influenza -J1W4-32, injectabl e DoD Results Combined list of recent chemistry, hematology and other laboratory results from Department of Defense and Veterans Affairs, ranging from 15 months to all on record, depending upon the facility. Order Name Results Value Reference Range Date Interpretation Specimen Comments Source Infectiou s Disease HIV-1/O/2 Non-Reac tive 1 (4/5/24 8:41 AM) 02/26 N Interpretiv e Data: [...] Prevention' s HIV diagnostic algorithm. Refer to [facility] Lab Guide for additional information : [email or web address] x Testing performed by [employer]. [facility] [employer] netSAM EPILAB Miscellan eous Sendouts Repository Sample Received (02/27/24 8:41 AM) 02/26 N [facility] [employer] EPILAB Encounters Combined list of: 1) Encounters from Department of [facility] facilities going backup to the last 18 months, not all [place] inpatient encounters are included; 2) Encounters from the Department of [facility] facilities going backup to 280 months. Location Location Details Encounter Type Encounter Number Reason For Visit Attending Provider ADM Date DC Date Status Disposition Source [address] [place] [address]([facility]) OUTPATIENT [id number] POSSIBL E FLU\ SARAH MIRANDA 09/19 Immediate Referral [address] [place] [address]([facility]) [address] [place] [address]([facility]) OUTPATIENT [id number] had appy out two days ago/wou ld like nausea meds SARAH MIRANDA 09/21 Released w/o Limitations [address] [place] [address]([facility]) [address] [place] [address]([facility]) TELE CONSULT [id number] REFERRA L REQUEST ING ZFUNKE, GM H 10/03 [employer] [employer]([facility]) [employer]([facility]) TELE CONSULT [id number] WENT TO URGENT CARE GM FRANKS 03/21 [facility]) [facility]) TELE CONSULT [id number] WENT TO URGENT CARE REFERRA SARAH HINOJOSA 04/13 [employer]) [facility] [facility] [employer]([facility]) TELE CONSULT [id number] WENT TO HR CATALINA HOOPER 09/18 [employer] [facility]) [facility] [employer]([facility]) TELE CONSULT [id number] Referra l Request KELLY SPENCER 10/24 [facility]) [facility] [facility] [employer]([facility]) OUTPATIENT [id number] WALK-IN UA TEST KELLY SPENCER 10/30 Released w/o Limitations [facility]) [facility] [employer] [facility]) TELE CONSULT [id number] WENT TO HR CATALINA HOOPER 01/01 [employer]([facility]) [facility] [place] [address](Opt ometry Clinic BMT [facility]) OUTPATIENT [id number] KIM DIAS 01/12 Released w/o Limitations [facility] [place] [address](O ptometr y Clinic BMT [facility]) [facility] [place] [address]([facility]) OUTPATIENT [id number] -1300 F/U ER VISIT RIGHT EAR (320/ 6/) BOZENA GARG 02/05 Released w/o Limitations [facility] [place] [address]([facility] d) [place] [address](Robert laryngolo gy, ASC) OUTPATIENT [id number] R TM rupture BMT VERO LI 02/08 Released w/o Limitations [facility] [place] [address](O jorge wharton, ASC) [place] [address](Laverne knott, [facility]) OUTPATIENT [id number] OTITIS MEDIA ACUTE SEROUS CUCAJANENE Smiley E 03/21 Released w/o Limitations [facility] [place] [address](A carloioljay y, ASC) [place] [address](Aud iology, [facility]) OUTPATIENT [id number] repeat audio GM MARSHALL 04/04 Released w/o Limitations [facility] [place] [address](A loren y, ASC) [facility](Flt /[facility]) OUTPATIENT [id number] FTAC ESTEFANIA HAM 06/15 Released w/o Limitations [facility](F lt/Miss ile Medicin e) [facility](Ope rat Med Cln Tm2 AD Only) OUTPATIENT [id number] walk-in : throat culture DELFINA LINDSEY 07/02 Released w/o Limitations [facility](O perat Med Cln Tm2 AD Only) [facility](Ope rat Med Cln Tm2 AD Only) TELE CONSULT [id number] after hours rpt recd DARRIN RADFORD 07/16 [facility](O perat Med Cln Tm2 AD Only) [facility]) TELE CONSULT [id number] URGENT CARE REPORT DARRIN RADFORD 07/25 [facility]) [facility](Ope rat Med Cln Tm2 AD Only) OUTPATIENT [id number] HEADACH ES DARRIN RADFORD 07/31 Released w/o Limitations [facility](O perat Med Cln Tm2 AD Only) [facility]) OUTPATIENT [id number] vicodin POWER Sarmiento 08/01 Sick at Home/Quarter s [facility]) [facility](Ope rat Med Cln Tm2 AD Only) TELE CONSULT [id number] RADIOLO GY REPORT DARRIN RADFORD 08/02 [facility](O perat Med Cln Tm2 AD Only) [facility](Ope rat Med Cln Tm2 AD Only) OUTPATIENT [id number] FOLLOW UP PER DARRIN DUBOIS 08/03 Released w/o Limitations [facility](O perat Med Cln Tm2 AD Only) [facility](Ope rat Med Cln Tm2 AD Only) OUTPATIENT [id number] walk-in : BP check (day 4) ISAMAR FOLEY 08/07 Released w/o Limitations [facility](O perat Med Cln Tm2 AD Only) [facility](Ope rat Med Cln Tm2 AD Only) OUTPATIENT [id number] walk-in : BP check (day 5) ANNCY DESIR 08/08 Released w/o Limitations [facility] perat Med Cln Tm2 AD Only) [facility](Ope rat Med Cln Tm2 AD Only) OUTPATIENT [id number] walk-in : BP check (day 5) ISAMAR FOLEY 08/13 Released w/o Limitations [facility] perat Med Cln Tm2 AD Only) [facility](Ope rat Med Cln Tm2 AD Only) OUTPATIENT [id number] blood pressur e follow up DARRIN RADFORD 08/14 Released w/o Limitations [facility] perat Med Cln Tm2 AD Only) [facility](Ope rat Med Cln Tm2 AD Only) OUTPATIENT [id number] walk-BP check (rechec k) ISAMAR FOLEY 08/15 Released w/o Limitations [facility] perat Med Cln Tm2 AD Only) [facility](Ope rat Med Cln Tm2 AD Only) OUTPATIENT [id number] walk-in : BP check DARRIN RADFORD 08/16 Released w/o Limitations [facility] perat Med Cln Tm2 AD Only) [facility](Ope rat Med Cln Tm2 AD Only) OUTPATIENT [id number] follow up bp per DARRIN Ness 08/17 Released w/o Limitations [facility](O perat Med Cln Tm2 AD Only) [facility](Ope rat Med Cln Tm2 AD Only) TELE CONSULT [id number] appoint ment LIONEL Atkinson 08/18 Referred for Appointment [facility](O perat Med Cln Tm2 AD Only) [facility](Ope rat Med Cln Tm2 AD Only) OUTPATIENT [id number] tailbon e issues DELFINA LINDSEY 08/22 Released w/o Limitations [facility](O perat Med Cln Tm2 AD Only) [facility](Ope rat Med Cln Tm2 AD Only) TELE CONSULT [id number] RADIOLO GY RESULTS LIONEL MCARTHUR 08/24 Referred for Appointment [facility](O perat Med Cln Tm2 AD Only) [facility](Ope rat Med Cln Tm2 AD Only) TELE CONSULT [id number] call back--x ray JOSE, ROTEGA 08/28 Other Not Elsewhere Classified [facility](O perat Med Cln Tm2 AD Only) [facility](Opt ometry Clinic) OUTPATIENT [id number] routine THANG CARRILLO 09/06 Released w/o Limitations [employer] [facility](O ptometr y Clinic) [facility](Ope rat Med Cln Tm2 AD Only) OUTPATIENT [id number] FU ULTRA SOUND/S TRESS TEST DARRIN RADFORD 09/06 Released w/o Limitations [employer] [facility](O perat Med Cln Tm2 AD Only) [facility](Ope rat Med Cln Tm2 AD Only) OUTPATIENT [id number] injured right ankle/f oot DELFINA LINDSEY 09/24 Released w/o Limitations [facility](O perat Med Cln Tm2 AD Only) [facility](Ope rat Med Cln Tm2 AD Only) TELE CONSULT [id number] call back--x ray ORTEGA GARCIA 10/01 Other Not Elsewhere Classified [facility](O perat Med Cln Tm2 AD Only) [facility](Ope rat Med Cln Tm2 AD Only) TELE CONSULT [id number] Triage LIONEL MCARTHUR 11/06 Referred for Appointment [facility](O perat Med Cln Tm2 AD Only) [facility](Ope rat Med Cln Tm2 AD Only) TELE CONSULT [id number] Triage ADARSH CHONG Jeaneth 11/09 Referred for Appointment [facility](O perat Med Cln Tm2 AD Only) [facility](Ope rat Med Cln Tm2 AD Only) TELE CONSULT [id number] ReferLIONEL Hogue 11/22 Referred for Appointment [facility](O perat Med Cln Tm2 AD Only) [facility](Ope rat Med Cln Tm2 AD Only) TELE CONSULT [id number] ReferLIONEL Hogue 12/13 Referred for Appointment [facility](O perat Med Cln Tm2 AD Only) [facility]) OUTPATIENT [id number] ROBERT SINGH 12/18 Released w/o Limitations [facility](F lt/Miss ile Medicin e) [facility](Ope rat Med Cln Tm2 AD Only) TELE CONSULT [id number] JOEL MARCUM 12/20 Referred for Appointment [facility](O perat Med Cln Tm2 AD Only) [facility](Ope rat Med Cln Tm2 AD Only) OUTPATIENT [id number] fell last ay and injured tailbon e DARRIN RADFORD 01/17 Released w/o Limitations [facility](O perat Med Cln Tm2 AD Only) [facility](Ope rat Med Cln Tm2 AD Only) OUTPATIENT [id number] SICK ALL WEEK END DARRIN RADFORD 02/04 Sick at Home/Quarter s [facility](O perat Med Cln Tm2 AD Only) [facility](Ope rat Med Cln Tm2 AD Only) TELE CONSULT [id number] RADIOLO GY REPORT DARRIN RADFORD 02/13 [facility](O perat Med Cln Tm2 AD Only) [facility]) OUTPATIENT [id number] PULLED POWER BACH 03/29 Released with Work/Duty Limitations [employer] [facility]) [facility]) OUTPATIENT [id number] NVD POWER SALES 04/10 Sick at Home/Quarter s [employer]([facility]) [facility](Ope rat Med Cln Tm2 AD Only) TELE CONSULT [id number] Triage KEATON HELTON 04/12 Referred for Appointment [facility](O perat Med Cln Tm2 AD Only) [employer] [facility](Med Std [employer]) OUTPATIENT [id number] KEERTHI VICTORIA 07/16 Released w/o Limitations [employer](M ed Std [employer] ) [employer]([facility]) OUTPATIENT [id number] left side of neck pain SKYLA MOTT 07/17 Released w/o Limitations [employer] [facility] [employer]([facility]) [facility](Ope rat Med Cln Tm2 AD Only) TELE CONSULT [id number] ReferADARSH Nesbitt 08/26 Referred for Appointment [facility](O perat Med Cln Tm2 AD Only) [facility](Ope rat Med Cln Tm2 AD Only) TELE CONSULT [id number] ReferTARA Meehan 09/05 Referred for Appointment [facility](O perat Med Cln Tm2 AD Only) [facility](Ope rat Med Cln Tm2 AD Only) OUTPATIENT [id number] 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 MARTHA GUERRERO 09/10 Released w/o Limitations [employer] [facility](O perat Med Cln Tm2 AD Only) [facility](Ope rat Med Cln Tm2 AD Only) TELE CONSULT [id number] [facility] MARTHA GUERRERO 09/12 [facility](O perat Med Cln Tm2 AD Only) [facility](Ope rat Med Cln Tm2 AD Only) TELE CONSULT [id number] NANCY Dial 09/12 Other Not Elsewhere Classified [facility](O perat Med Cln Tm2 AD Only) [facility](Ope rat Med Cln Tm2 AD Only) OUTPATIENT [id number] Walkin: BP Day 1 BONI MENDOSA 09/13 Released w/o Limitations [facility](O perat Med Cln Tm2 AD Only) [facility](Ope rat Med Cln Tm2 AD Only) OUTPATIENT [id number] Walk in BP day 2 MARTHA GUERRERO 09/16 Released w/o Limitations [facility](O perat Med Cln Tm2 AD Only) [facility](Ope rat Med Cln Tm2 AD Only) TELE CONSULT [id number] Triage ADARSH CHONG Jeaneth 09/19 Referred for Appointment [facility](O perat Med Cln Tm2 AD Only) [employer] [facility] [employer]([facility]) OUTPATIENT [id number] kidney pain [employer] 09/20 Released w/o Limitations [facility]) [facility](Ope rat Med Cln Tm2 AD Only) OUTPATIENT [id number] f/u shoulde r/arm MARTHA GUERRERO 09/26 Released w/o Limitations [facility](O perat Med Cln Tm2 AD Only) [employer] [facility](Ope rat Med Cln Tm2 AD Only) TELE CONSULT [id number] Profile KEATON HELTON 10/09 Referred for Appointment [facility](O perat Med Cln Tm2 AD Only) [facility](Ope rat Med Cln Tm2 AD Only) TELE CONSULT [id number] No Show appt NANCY DESIR 10/14 Advice Assessment [facility](O perat Med Cln Tm2 AD Only) [facility](Ope rat Med Cln Tm2 AD Only) TELE CONSULT [id number] neg lab NANCY DESIR 10/22 Advice Assessment [facility](O perat Med Cln Tm2 AD Only) [facility](Ope rat Med Cln Tm2 AD Only) TELE CONSULT [id number] Notes Entered by: KERI GIBBS 29 Oct 2011 1511 ------- ------- ------- ------- -- REPORT SUNITHA KEATON 10/29 Referred for Appointment [facility](O perat Med Cln Tm2 AD Only) [facility](Ope rat Med Cln Tm2 AD Only) TELE CONSULT [id number] Notes Entered by: ZANDRA ALBERTO 06 Dec 2011 1034 ------- ------- ------- ------- -- REPORT MARTHA GUERRERO 12/06 [facility](O perat Med Cln Tm2 AD Only) [facility](Ope rat Med Cln Tm2 AD Only) TELE CONSULT [id number] Notes Entered by: ZANDRA ALBERTO 06 Dec 2011 1544 ------- ------- ------- ------- -- REPORT MARTHA GUERRERO 12/06 [facility](O perat Med Cln Tm2 AD Only) [facility](Ope rat Med Cln Tm2 AD Only) TELE CONSULT [id number] Notes Entered by: KERI GIBBS 11 Dec 2011 0857 ------- ------- ------- ------- -- REPORT NANCY DESIR 12/11 Advice Assessment [facility](O perat Med Cln Tm2 AD Only) [facility](Ope rat Med Cln Tm2 AD Only) TELE CONSULT [id number] Notes Entered by: ZANDRA ALBERTO 11 Dec 2011 1056 ------- ------- ------- ------- -- REPORT MARTHA GUERRERO 12/11 [facility](O perat Med Cln Tm2 AD Only) [facility](Ope rat Med Cln Tm2 AD Only) TELE CONSULT [id number] Notes Entered by: MARTHA COVARRUBIAS 12 Dec 2011 1608 ------- ------- ------- ------- -- Neg labs THANGNANCY TRAVON 12/12 Advice Assessment [facility](O perat Med Cln Tm2 AD Only) [facility](Ope rat Med Cln Tm2 AD Only) OUTPATIENT [id number] cough, congest ion DARRIN RADFORD 01/03 Released w/o Limitations [facility](O perat Med Cln Tm2 AD Only) [facility]) OUTPATIENT [id number] sore throat/ left side of head pain and runny nose NASH ARZATE 01/06 Released w/o Limitations [facility]) [facility](Ope rat Med Cln Tm2 AD Only) TELE CONSULT [id number] Notes Entered by: ZANDRA ALBERTO 16 Jan 2012 1032 ------- ------- ------- ------- -- REPORT MARTHA GUERRERO 01/16 [facility](O perat Med Cln Tm2 AD Only) [facility](Ope rat Med Cln Tm2 AD Only) TELE CONSULT [id number] Notes Entered by: STACY CEJA 24 Jan 2012 0743 ------- ------- ------- ------- -- JIM Burr 01/23 [facility](O perat Med Cln Tm2 AD Only) [facility](Ope rat Med Cln Tm2 AD Only) OUTPATIENT [id number] neck hurts to move MARTHA GUERRERO 03/10 Released w/o Limitations [facility](O perat Med Cln Tm2 AD Only) [facility](Ope rat Med Cln Tm2 AD Only) TELE CONSULT [id number] Notes Entered by: STACY CEJA 28 Apr 2012 0725 ------- ------- ------- ------- -- TARA Sears 04/28 Referred for Appointment [facility](O perat Med Cln Tm2 AD Only) [facility](Ope rat Med Cln Tm2 AD Only) TELE CONSULT [id number] Notes Entered by: HONEY GALLARDO 01 May 2012 1006 ------- ------- ------- ------- -- REPORT MARTHA GUERRERO 05/01 [facility](O perat Med Cln Tm2 AD Only) [facility]) OUTPATIENT [id number] possibl e food NATY Agarwal 06/23 Released w/o Limitations [facility]) [facility] [employer]) OUTPATIENT [id number] KEERTHI VICTORIA 08/06 Released w/o Limitations [facility] [employer] ) [facility](Ope rat Med Cln Tm2 AD Only) TELE CONSULT [id number] Notes Entered by: ELIZABETH MAGAÑA 10 Aug 2012 1109 ------- ------- ------- ------- -- Other / profile correct ADARSH Petty 08/10 Referred for Appointment [facility](O perat Med Cln Tm2 AD Only) [facility](Ope rat Med Cln Tm2 AD Only) OUTPATIENT [id number] right ear(pos sible infecti on) SKYLA MOTT 08/11 Released w/o Limitations [facility](O perat Med Cln Tm2 AD Only) [facility](Ope rat Med Cln Tm2 AD Only) TELE CONSULT [id number] Notes Entered by: MARTHA COVARRUBIAS 11 Aug 2012 1420 ------- ------- ------- ------- -- ORTEGA Chiu 08/11 Other Not Elsewhere Classified [facility](O perat Med Cln Tm2 AD Only) [facility](Ope rat Med Cln Tm2 AD Only) OUTPATIENT [id number] jul MARTHA Kilgore 08/20 Released w/o Limitations [facility](O perat Med Cln Tm2 AD Only) [facility]) OUTPATIENT [id number] right shoulde r pain CATALINA HOOPER 10/20 Released w/o Limitations [facility]) [facility](Phy sical Therapy) OUTPATIENT [id number] BRET JACOBS 10/21 Released with Work/Duty Limitations [facility](P hysical Therapy ) [facility](Phy sical Therapy) OUTPATIENT [id number] NILO DIALLO 10/23 Released w/o Limitations [facility](P hysical Therapy ) [facility](Phy sical Therapy) OUTPATIENT [id number] NILO DIALLO 10/26 Released w/o Limitations [facility](P hysical Therapy ) [facility](Phy sical Therapy) OUTPATIENT [id number] eval knee pain BRET JACOBS 10/27 Released with Work/Duty Limitations [facility](P hysical Therapy ) [facility](Phy sical Therapy) OUTPATIENT [id number] NILO DIALLO 10/30 Released w/o Limitations [facility](P hysical Therapy ) [facility](Phy sical Therapy) OUTPATIENT [id number] NILO DIALLO 11/02 Released w/o Limitations [facility](P hysical Therapy ) [facility](Ope rat Med Cln Tm2 AD Only) TELE CONSULT [id number] Notes Entered by: Steve FRENCH 02 Nov 2012 1232 ------- ------- ------- ------- -- Triage/ sore throat ADARSH CHONG 11/02 Referred for Appointment [facility](O perat Med Cln Tm2 AD Only) [facility](Ope rat Med Cln Tm2 AD Only) OUTPATIENT [id number] sore throat/ congest ion x 1 week MARTHA GUERRERO 11/03 Released w/o Limitations [facility](O perat Med Cln Tm2 AD Only) [facility](Ope rat Med Cln Tm2 AD Only) TELE CONSULT [id number] Notes Entered by: MARTHA COVARRUBIAS 03 Nov 2012 1251 ------- ------- ------- ------- -- NANCY Dial 11/03 Advice Assessment [facility](O perat Med Cln Tm2 AD Only) [facility](Ope rat Med Cln Tm2 AD Only) OUTPATIENT [id number] termina l leave physica l MARTHA GUERRERO 11/03 Released w/o Limitations [facility](O perat Med Cln Tm2 AD Only) [facility] OUTPATIENT [id number] Theater Provider 03/12 Released w/o Limitations [facility] OUTPATIENT [id number] Theater Provider 04/06 Released w/o Limitations [facility] OUTPATIENT [id number] Theater Provider 04/15 Released w/o Limitations [facility] OUTPATIENT [id number] Theater Provider 04/23 Sick at Home/Quarter s [facility] OUTPATIENT [id number] Theater Provider 07/22 Released w/o Limitations [facility] OUTPATIENT [id number] Theater Provider 07/29 Released w/o Limitations [facility] OUTPATIENT [id number] Theater Provider 08/19 Released w/o Limitations [facility] OUTPATIENT [id number] Theater Provider 09/11 Released w/o Limitations [facility] OUTPATIENT [id number] Theater Provider 10/20 Released w/o Limitations Theater [facility]ilit y [facility] Lawrence MINAYA ([facility]Bas e Operation al Medicine Clin) OUTPATIENT [id number] Notes Entered by: DAO HERNANDEZ 09 Nov 2018 0839 ------- ------- ------- ------- -- 0930 PMA WALKER #2 ADD-ON MARIBEL MCCANN 11/09 Released w/o Limitations [address] [place] [address])([facility] ase Operati onal Medicin [facility] Clin) [address] [place] [address])(Sco tt [facility] Tm) TELE CONSULT [id number] Notes Entered by: DAO HERNANDEZ 04 Jan 2019 1150 ------- ------- ------- ------- -- MARIBEL FAITH 01/[address] [place] [address])(S cott [facility] Tm) [address] [place] [address])(Bas e Operation al Medicine Clin) OUTPATIENT [id number] Notes Entered by: DAO HERNANDEZ 20 Jan 2019 0843 ------- ------- ------- ------- -- PAM WALKER #3 TELEPHO NE APPT MARIBEL MCCANN 01/20 Released w/o Limitations [address] [place] [address])([facility]) [id number]-[id number] AMDS Between Visit [id number] 08/25 Discharge Disposition: Home or Self Care 8344R-4 39 AMDS 8344R-439 AMDS Between Visit [id number] 10/26 Discharge Disposition: Home or Self Care 8344R-4 39 AMDS 8344R-439 AMDS Between Visit [id number] 02/08 Discharge Disposition: Home or Self Care [...] PROVIDE W/IN THE PREV 7 DAYS,USE THE INTERNET/SIMILAR [employer]WORK 2018 DoD ONLINE ASSESS &MANAG SERV PROVIDE,A QUAL NONPHYS HCP TO AN ESTABLISHED PAT/GUARDIAN,NOT ORIGINAT FRM RELAT ASSESS &MANAG SERV PROVIDE W/IN THE PREV 7 DAYS,USE THE [employer]/SIMILAR [employer] NETWORK 2018 DoD ONLINE ASSESS &MANAG SERV PROVIDE,A QUAL NONPHYS HCP TO AN ESTABLISHED PAT/GUARDIAN,NOT ORIGINAT FRM RELAT ASSESS &MANAG SERV PROVIDE W/IN THE PREV 7 DAYS,USE THE [employer]/SIMILAR [employer] NETWORK 2017 DoD THERAPEUTIC, PROPHYLACTIC, OR DIAGNOSTIC INJECTION (SPECIFY SUBSTANCE OR DRUG); SUBCUTANEOUS OR INTRAMUSCULAR 2009 [employer] DISTORTION PRODUCT EVOKED OTOACOUSTIC EMISSIONS;COMPREHE NSIVE DIAG EVALUATION (QUANTITATIVE ANALYSIS OF OUTER HAIR CELL FUNCTION,COCHLEAR MAPPING,MINIMUM OF 12 FREQUENCIES),W INTERPRETATION &REPORT 2009 [facility] TYMPANOMETRY (IMPEDANCE TESTING) 2009 DoD FITTING OF [...] INHALER/INTERMIT POSIT PRESS BREATHING (IPPB) DEV 2010 [facility] SCREENING TEST, PURE TONE, AIR ONLY 2010 [facility] FITTING OF SPECTACLES, EXCEPT FOR APHAKIA; MONOFOCAL 2009 [facility] ELECTROCARDIOGRAM, ROUTINE ECG WITH AT LEAST 12 LEADS; WITH INTERPRETATION AND REPORT 2009 [facility] BLOOD PRESSURE MEASURED (CKD)(DM) 2009 [facility] BLOOD PRESSURE MEASURED (CKD)(DM) 2009 [facility] BLOOD PRESSURE MEASURED (CKD)(DM) 2009 [facility] BLOOD PRESSURE MEASURED (CKD)(DM) 2009 [facility] INJECTION, KETOROLAC TROMETHAMINE, PER 15 MG 2009 [facility] Internet Med Svc Qual Nonphys Healthcare Prof Up To 7 Days Estab Patient Internet Med Svc Qual Nonphys Healthcare Prof Up To 7 Days Estab Patient [id number] 2018 TESSIE WESLEY [facility] Preventive Medicine Administration Of Health Risk Questionnaire Patient-Focused Preventive Medicine Administration Of Health Risk Questionnaire Patient-Focused [id number] 2018 TESSIE WESLEY [facility] Internet Med Svc Qual Nonphys Healthcare Prof Up To 7 Days Estab Patient Internet Med Svc Qual Nonphys Healthcare Prof Up To 7 Days Estab Patient [id number] 2018 TESSIE WESLEY [facility] Preventive Medicine Administration Of Health Risk Questionnaire Patient-Focused Preventive Medicine Administration Of Health Risk Questionnaire Patient-Focused 37426 2018 TESSIE WESLEY [facility] Internet Med Svc Qual Nonphys Healthcare Prof Up To 7 Days Estab Patient Internet Med Svc Qual Nonphys Healthcare Prof Up To 7 Days Estab Patient [id number] 2017 TESSIE WESLEY [facility] Preventive Medicine Administration Of Health Risk Questionnaire Patient-Focused Preventive Medicine Administration Of Health Risk Questionnaire Patient-Focused [id number] 2017 TESSIE WESLEY [facility] Modalities Iontophoresis Modalities Iontophoresis 96459 2011 NILO DIALLO Physical Therapy Neuromuscular Re-education Physical Therapy Neuromuscular Re-education 14120 2011 NILO DIALLO Physical Therapy: ___ Se ion Segments, 15 Minutes Each Physical Therapy: ___ Session Segments, 15 Minutes Each 25335 2011 NILO DIALLO Modalities Iontophoresis Modalities Iontophoresis 63400 2011 NILO DIALLO Physical Therapy Neuromuscular Re-education Physical Therapy Neuromuscular Re-education 45151 2011 NILO DIALLO Physical Therapy: ___ Se ion Segments, 15 Minutes Each Physical Therapy: ___ Session Segments, 15 Minutes Each 68800 2011 NILO DIALLO Modalities Iontophoresis Modalities Iontophoresis 23668 2011 BRET JACOBS Physical Therapy: ___ Se ion Segments, 15 Minutes Each Physical Therapy: ___ Session Segments, 15 Minutes Each 35864 2011 BRET JACOBS Physical Therapy Service Evaluation Physical Therapy Service Evaluation 27939 2011 BRET JACOBS Physical Therapy Neuromuscular Re-education Physical Therapy Neuromuscular Re-education 10781 2011 NILO DIALLO Physical Therapy: ___ Se ion Segments, 15 Minutes Each Physical Therapy: ___ Session Segments, 15 Minutes Each 37528 2011 NILO DIALLO Physical Therapy Neuromuscular Re-education Physical Therapy Neuromuscular Re-education 63028 2011 NILO DIALLO Physical Therapy: ___ Se ion Segments, 15 Minutes Each Physical Therapy: ___ Session Segments, 15 Minutes Each 62947 2011 NILO DIALLO Physical Therapy Mobilization Joint Physical Therapy Mobilization Joint 10890 2011 BRET JACOBS Physical Therapy: ___ Se ion Segments, 15 Minutes Each Physical Therapy: ___ Session Segments, 15 Minutes Each 30452 2011 BRET JACOBS Physical Therapy Service Evaluation Physical Therapy Service Evaluation 85340 2011 BRET JACOBS A e ment & Intervention Blood Pre ure Measured 2010 MARTHA GUERRERO Albuterol, inhalation solution, compounded product, administered through DME, unit dose, 1 mg 2010 DARRIN RADFORD Inhalation Treatment (Nonpre urized) Inhalation Treatment (Nonpressurized) 50841 2010 DARRIN RADFORD Audiogram (Screening) Audiogram (Screening) 93780 2010 ROBERT KIRK Spectacles Services Fitting Monofocal Except For Aphakia Spectacles Services Fitting Monofocal Except For Aphakia 29055 2009 THANG CARRILLO Determination Of Refractive State Determination Of Refractive State 41113 2009 THANG CARRILLO Ophthalmological New Patient Start Comprehensive Care Ophthalmological New Patient Start Comprehensive Care 46526 2009 THANG CARRILLO ECG 12-Lead With Interpretation And Report ECG 12-Lead With Interpretation And Report 27493 2009 DARRIN RADFORD A e ment & [...] Supervised Injection Intramuscular Physician Supervised Injection Intramuscular 87979 2009 DARRIN RADFORD Evoked Otoacoustic Karoline ions Comprehensive 2009 GM MARSHALL Tympanometry Tympanometry 87982 2009 GM MARSHALL Threshold Audiogram (Pure Tone) Threshold Audiogram (Pure Tone) 49182 2009 GM MARSHALL Patient Counseling Medical Management Individual Patient Patient Counseling Medical Management Individual Patient [id number] 2009 JANENE THURMAN Duration: 15 minutes Provided counseling session following the [place] [employer] Aural Rehabilitation curriculum for patients with auditory complaints. Details can be found at: [email or web address] members/aud/info _[email or web address] The following topics were discussed: current test results and preventive hearing loss measures, pt. advice on hearing protection devices if and whenever exposed to hazardous noise. Patient's questions were answered and guidance provided for future follow/ups Raheem Evoked Otoacoustic Karoline ions Comprehensive 2009 JANENE THURMAN Acoustic Reflex Testing 2009 JANENE THURMAN Tympanometry Tympanometry 61867 2009 JANENE THURMAN Comprehensive Audiometry Comprehensive Audiometry 17477 2009 JANENE THURMAN Spectacles Services Fitting Monofocal Except For Aphakia Spectacles Services Fitting Monofocal Except For Aphakia 69108 2009 KIM DIAS [facility] Social History Combined list of available smoking, tobacco, and other social history from Department of Defense and Veterans Affairs facilities. Social History Type Response Date Comment Sour e This section is an empty social history section. DoD Assessment and Plan Combined list of future care activities from Department of Defense and Veterans Affairs facilities (e.g., assessment and plan notes, appointments, orders, and referrals). Additional future care activities may be listed in the Plan of Care section. Result Assessment and Plan Date Source Assessment and Plan Extracted from:Title : PHA 2024 Author: WANG TAN Date: 03/25/25 ANNUAL PERIODIC HEALTH ASSESSMENT I. EDGING SUPERVISOR INFORMATION AND DEMOGRAPHICS (SMI) 1. Last Name: LONDON 2. First Name: BONNIE 3. Middle Name: Paola 4. Assessment Date: 5. : 6. Age: 34 7. Sex: F 8. DoD ID Number: [id number] 9. Service Branch: [employer] 10. 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 Status: [employer] [place] 12. Pay Grade: E07 13. Unit Name: 9 [employer] 14. Duty Station/Location: [place] 15. [facility]: [id number] 16. Is this your first Periodic Health Assessment (PHA)?: N 17. Are you enrolled in a secure messaging system with your health care provider?: Y 18. Current contact information: Preferred Method: Day Time Phone DSN: [id number] Day Time Phone: [phone] Night Time Phone: [phone] Email 1: [email or web address] Email 2: Address: [address] [place] [address] [address] City: [facility]: [place] Zip Code: [address] 19. Point of contact who can always reach you: Name: Nathaniel Tan Shoaib Phone 1: [phone] Phone 2: EMAIL: Address: [address] [place] [address] [address] City: [facility]: [place] Zip Code: [address] II. DEPLOYMENT INFORMATION (DEP) 1. [ 0 ] Total number of deployments in the PAST 5 YEARS 4. [ N ] Are you going to deploy within the NEXT 120 DAYS? III. 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 [ No ] Does your specialty require an operational duty physical exam? 4. [ No ] Are you currently enrolled in a medical surveillance/occupational health program?: No IV. MEDICAL CONDITIONS (LINA): 1. Since your last PHA, have you experienced any of the following health conditions, and if so, what is your status? [ ] Conditions with no medical care [ Other lung problems ] Conditions with medical care, but no longer under treatment [ ] Conditions with medical care, and NOW under treatment 2. Since your last PHA, have you experienced any of the following health conditions, and if so, what is your status? [ ] Conditions with no medical care [ ] Conditions with medical care, but no longer under treatment [ ] Conditions with medical care, and NOW under treatment 3. For any condition marked YES in question 1 or 2, are you currently on any profile or limited duty for that condition? [ ] Conditions 4. [ Not Sure ] Have you been based or stationed at a location where an open burn pit was used? 5. [ Yes ] Have you been exposed to toxic airborne chemicals or other airborne contaminants? 6. [ No ] Are you enrolled in the Airborne Hazards and Open Burn Pit Registry? 7. [ No ] Federal law requires eligible members to enroll in the Airborne Hazards and Open Burn Pit Registry or opt-out. If eligble, choose one: 8. Have you had any surgery since your last PHA?: No 10.a. [ Yes ] Since your last PHA, has a health care provider recommended surgery(s) that you have not had? 10.b. [ Cyst in middle finger ] For what condition(s) was surgery recommended? 11.a. [ No ] Do you currently require hearing aids, special medical supplies, CPAP, adaptive equipment, assistive technology devices, and/or other special accommodations? 12.a. [ No ] Do you have a waiver or profile for any part of your Service's physical fitness test? 13.a. [ No ] Do you have any problems wearing a gas mask, ballistic helmet, body armor, and/or chemical/biological protective garments? 14.a. [ No ] Have you ever been told by a health care provider that you SHOULD NOT receive an immunization for medical reasons? 15.a. [ No ] Do you have a permanent profile or an Assignment Limitation Code C? 16.a. [ No ] Are you on a temporary profile or limited duty? 17. [ 0 ] During the PAST 2 years, how many times have you been placed on a temporary profile or on limited duty? V. INDIVIDUAL MEDICAL READINESS (IMR) 1. [ Yes ] Do you have any allergies? 2. [ Vicodi ] Allergy List 3. [ Yes and Current ] Do you have red medical warning dog tags? 4. [ Yes ] Do you wear corrective lenses? 5. [ 2 or more ] How many pairs of glasses do you have? 6. [ Yes ] Do you have gas mask inserts? . BEHAVIORAL HEALTH (MHA) 1. a. [ None ] Over the PAST MONTH, what major life stressors have you experienced that are a cause of significant concern or make it difficult for you to do your work, take care of things at home, or get along with other people (for example, serious conflicts with others, relationship problems, or a legal, disciplinary or financial problem)? 2. a. [ No ] In the PAST YEAR did you receive care for any mental health condition or concern such as, but not limited to post traumatic stress disorder (PTSD), depression, anxiety disorder, alcohol abuse or substance abuse? 3. [ None ] What prescription or over-the counter medications (including herbals/supplements) for sleep, pain, combat stress, or a mental health problem are you CURRENTLY taking? 4. a. [ No ] In the past 12 months, have you gambled? 5. a. [ Never ] How often do you have a drink containing alcohol? 6. Have you ever had any experience that was so frightening, horrible, or upsetting that in the PAST MONTH, you: 6. a. [ No ] Have had nightmares about it or thought about it when you did not want to? 6. b. [ No ] Tried hard not to think about it or went out of your way to avoid situations that remind you of it? 6. c. [ No ] Were constantly on guard, watchful or easily startled? 6. d. [ No ] [place] numb or detached from others, activities, or your surroundings? 6. e. [ Not answered ] [place] guilt or unable to stop blaming yourself or others for the event(s) or any problems the event(s) may have caused? 7. Over the LAST 2 WEEKS, how often have you been bothered by the following problems? 7. a. [ Not at all ] Little interest or pleasure in doing things 7. b. [ Not at all ] Feeling down, depressed, or hopeless 8. [ No ] Would you like to schedule an appointment with a health care provider to discuss any health concern(s)? 9. [ No ] Are you interested in receiving information or assistance for a stress, emotional or alcohol concern? 10. [ No ] Are you interested in receiving assistance for a family or relationship concern? 11. [ No ] Would you like to schedule a visit with a auto travel counselor, mental health care provider, or a community support counselor? 12. [ Not answered ] Are you currently being evaluated for, have a current diagnosis or history of, or exhibit symptoms consistent with gender dysphoria? (i.e. distress due to gender identity differing from sex that impacts or limits functioning) VII. FAMILY HISTORY AND LIFESTYLE (LIF) 1. [ Fair ] Overall, how would you rate your health during the PAST MONTH? 2. [ Canc ] Member indicates that family members have the following problems 3. The following family members has/had a history of cancer: Breast: Grandmother Lung Cancer: Grandfather 6. [ Yes ] I participate in moderate intensity physical activites at least 2.5 hours, or a combination of moderate and vigorous aerobic activites, for at least 75 minutes per week. 7. In a typical week, I do physical activities specifically designed to STRENGTHEN my muscles: [ 3 ] Day(s) per week 8. [ None ] What prescriptions or ptqw-rds-liwaidt medications are you CURRENTLY taking for health problems on a ROUTINE BASIS? 9. Which of the following products have you taken since your last PHA: Multi-Vitamins: Once a day Individual Vitamins or Minerals: Every other day Vitamin D: Less than once a month 11. Think about the PAST 30 DAYS. How often did you eat/drink the following foods/beverages? [ 1 serving per day ] Fruits [ 1 serving per day ] Vegetables [ 1 serving per day ] Starchy Vegetables [ 2 servings per day ] Whole Grains [ 2 servings per day ] Dairy and Calcium Containing Foods [ Rarely or Never ] Fish [ 2 servings per day ] Lean Protein [ 1 or 2 servings per week ] Sugar-Sweetened Beverages ] Have you had a cholesterol check by a health wound care rn within the PAST 5 YEARS? 13.a. In the PAST 30 DAYS, which of the following products have you used on at least one day? None 15. Which of the following best describes your past tobacco use? I have never used tobacco products. 16. [ No ] Are you regularly exposed to secondhand smoke? 17. [ 7 to 9 hours ] During the LAST 2 WEEKS, how many hours of sleep did you get on most days? 18. [ No ] During the LAST 2 WEEKS, have you felt impaired or unable to adequately perform due to sleepiness or poor quality sleep? 19. [ No ] Have you had any unexplained weight loss or gain since your last PHA? 20. Member is not at risk for sexually transmitted infections. 22. Since your last PHA, what, if anything, have you and your partner used to keep from getting ? [ Condoms ] I am actively taking steps to prevent , including 23. [ No ] In the last year, have you or your partner had a scare, where you were not trying to get but were worried enough to use a home test? VIII. WOMEN'S HEALTH (WOM) 1. [ No ] Do you wish to receive contraceptive counseling? 2. [ I am not now, and was not or delivered in the past 12 months ] Which of the following best describes you? 3. [ No ] Have you had a total hysterectomy? 4. [ No ] Are you postmenopausal and no longer experiencing menstrual cycles? 5. [ Yes ] Are you currently taking folic acid or a vitamin containing folic acid 6. [ No ] Do you have heavy and/or irregular menstrual cycles/pain or premenstrual syndrome (PMS)? 7. [ No ] Do you have recurrent urinary tract infections? 8. [ Yes ] Have you had a Pap test within the PAST 3 YEARS? 9. [ No ] Have you ever had an abnormal Pap Test? 13. [ No ] Do you have a history of gestational diabetes? X. OTHER MEDICAL (OTH) 1. [ 1 ] Rate the amount of pain you have had, on average, over the PAST 24 HOURS 2. [ No ] Are you receiving treatment for pain? 3. [ No ] Since your last PHA, have you received care or treatment for any medical and/or mental health condition(s) from a civilian or non- facility? 5. Member acknowledged responsibility for reporting health issues. 7. [ No ] Woud you like to schedule an appointment with a health care provider to discuss any health concerns? XI. SEPARATION AND ASSISTED 1. 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 PART B. RECORD REVIEW AND RECOMMENDATIONS I. RECORD REVIEWER INFORMATION 1. Last Name: BESSIE 2. First Name: CHATO 3. Middle Name: Mikala 4. Service Branch: [employer] 5. 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 EMAIL: [email or web address] 8. Facility: [facility] 9. Unit: [facility] 10. Address: [address] [place] [address] 11. State: [place] 12. Zip Code: [address] 13. 14. Date Record Review: II. MEDICAL SCREENING 1. 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 [ 5 feet 7 inches Date: ] rail crew member's most recently documented height 3. [ 131 pounds Date: ] rail crew member's most recently documented weight 4. [ 129/81 Date: ] rail crew member's most recently documented blood pressure reading 5. [ No ] Does the rail crew member have a history of abnormal blood pressure since their last PHA? 6. [ Yes ] Does the rail crew member have a laboratory test of sickle cell trait documented in their permanent medical record? 7. [ ] What is the date of the rail crew member's most recently documented cholesterol test? 9. [ metoprolol ] List of rail crew member's active medications listed in their permanent medical record 10. [ Yes: metoprolol ] Is there a discrepancy between the active medication record review and the rail crew member's self-reported list of medications? 11. [ No Outside Care Documented ] List documented significant care the rail crew member has received since their last PHA from a provider OUTSIDE the Health System 12. [ No ] Is there a discrepancy between the rail crew member's list of OUTSIDE care (from OT[facility]), and the OUTSIDE care found in the record? 13. [ No Inside Care Documented ] List documented significant care the rail crew member has received since their last PHA from a provider INSIDE the Health System 15. [ Not Answered ] Confirm that vaccine exemptions are listed in the medical record for each vaccine listed 16. [ No Discrepancies Noted ] Review available medical documentation of allergies and compare with rail crew member responses. Document any discrepancies IV. FAMILY HISTORY AND LIFESTYLE 1. [ Yes ] Does the [id number] reflect the rail crew member's reported family history? V. WOMEN'S HEALTH 3. [ No Documented Pap Test ] Date and result of the most recent Pap test 4. [ ] Notes from review of health records associated with history of abnormal Pap, colposcopy, excisional procedure, or cryotherapy VII. INDIVIDUAL MEDICAL READINESS 1. 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 3. [ Classification: 1 ] Most recently documented dental exam 4. 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 5. 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 6. Does the rail crew member have the following laboratory tests documented in their permanent medical record? [ Yes ] HIV test within the PAST 24 months [ Yes ] G6PD results on file [ Yes ] Blood type and Rh on file [ Yes ] DNA test on file IX. ADDITIONAL RECORD REVIEWER COMMENTS 1. This record review does NOT have a need for provider notification or referral.2. Additional comments about this record review that need to be forwarded to the Health Corporate Recruiter completing PART C: Reported lung problems no longer under tx Surgery recommended since last PHA Cyst in middle finger Pain scale /10 Medication: metoprolol Seen for thoracic pain and upper extremities per [facility] Date Record Review Completed: PART C. HEALTH CARE PROVIDER I. MENTAL HEALTH ASSESSMENT (MHA) PROVIDER INFORMATION 1. Last Name: Elizabeth 2. First Name: Elena 3. Middle Name: 4. Service Branch: Other 5. 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 EMAIL: [email or web address] 8. Facility: [facility] Admin Office 9. Unit: N/A 10. [facility] 11. State: [place] 12. Zip Code: [address] 13. 14. Date HCP Review initiated: 1. Member marked that they did not have a concern or a difficulty with a major life stressor. 2. Address concerns identified on member questions 2 and 3. History of mental health care: N/A Member's response: Provider's comments: Medications: N/A Member's response: Provider's comments: 3. Member's AUDIT-C screening score was 0. (nothing required) 4. Member did not vero yes on two or more of questions 6a through 6e. 5. Member did not vero More than half the days or nearly every day on question 7a or 7b. 6. Suicide risk evaluation. 6. a. Ask: Over the past month, have you wished you were or wished you could go to sleep and not wake up?: No 6. b. Ask: Have you actually had any thoughts of killing yourself?: No 6. f. 1. Ask: In you lifetime, have you done anything, started to do anything, or prepared to do anything to end your life?: No 6. g. Further risk assessment comments: na 7. Member states that they have not had thoughts or concerns over the past month that they might hurt or lose control with someone. 9. Summary of Provider's identified concerns needing referrals: None 11. Comments: na 13. Supplemental services recommended/information provided: No supplemental services required Date MHA Certified: III. PERIODIC HEALTH ASSESSMENT (PHA) PROVIDER INFORMATION 1. Last Name: CHRISTOPHER 2. First Name: NATHAN 3. Middle Name: 4. Service Branch: [employer] 5. Status: Reservist 6. Title: Physician (DO STEVE) 7. EMAIL: [email or web address] 8. Facility: [facility] 9. Unit: [address] [place], [place] [address] 10. Address: [facility] [address] [place] 11. State: [place] 12. Zip Code: [address] 13. Phone: [phone] 14. Date HCP Review initiated: IV. PERIODIC HEALTH ASSESSMENT PROVIDER RECOMMENDATIONS and REFERRALS 1. Provider concerns with this assessment: No issues or concerns identified V. SUMMARY AND COMMENTS 1. Additional information summarizing findings during the rail crew member assessment: 2. Provider Comments: [email or web address] . INDIVIDUAL MEDICAL READINESS DISPOSITION DETERMINATION LINA: Ready DEN: Ready IMM: Ready LAB: Ready ME: Ready IMR Status: Fully Medically Ready VII. 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 Reference [facility] 6490.07 Yes (rail crew member DOES NOT currently have a medical condition that limits deployability) Date PHA Completed: END OF [id number] REPORT Future Appointments Appointment Date: 07/29/2025 10:30:00 AM Scheduled Provider: SKYLA KLINE DMD, Dentistry Location: [address] [place] [address] Appointment Type: Dental Visit 07/27/[address] [place] [address] Functional Status Combined list of recent functional and cognitive assessments recorded at [facility] of [employer] and [facility] Affairs (VA).VA Functional Upson Measurement (FIM) Scale: 1 = Total Assistance (Subject = 0% +), 2 = Maximal Assistance (Subject = 25% +), 3 = Moderate Assistance (Subject = 50% +), 4 = Minimal Assistance (Subject = 75% +), 5 = Supervision, 6 = Modified Upson (Device), 7 = Complete Upson (Timely, Safely). Assessment Date/Time Source Assessment Type Assessment Skill Assessment Score Assessment Details No data available for this section
--- OUTSIDE RECORDS SUMMARY | 2025-07-27 17:57 | XMS_ITS ---
Author Name [facility] Organization Unknown History of Medication Use Medication Directions Dispensed Refills Start Date End Date Stat Slynd 4 mg (28) tablet Take 1 tablet every day by oral route. 12/12/2023 4 active azithromycin 250 mg tablet TAKE 2 TABLETS BY MOUTH TODAY, THEN TAKE 1 TABLET DAILY FOR 4 DAYS 4 completed albuterol sulfate HFA 90 mcg/actuation aerosol inhaler 3 completed cefdinir 300 mg capsule TAKE 2 CAPSULES BY MOUTH EVERY DAY 3 completed axqbfbda-cpvoorbtq-g ydrocort 3.5 mg-10,000 unit/mL-1 % ear drops,susp 3 completed cetirizine 10 mg tablet 2 completed fluticasone propionate 50 mcg/actuation nasal spray,suspension 2 completed ibuprofen 800 mg tablet 2 completed prednisolone acetate 1 % eye drops,suspension 2 completed amoxicillin 500 mg-potassium clavulanate 125 mg tablet TAKE 1 TABLET BY MOUTH EVERY 12 HOURS FOR 10 DAYS TAKE 1 TABLET BY MOUTH EVERY 12 HOURS FOR 10 DAYS completed azithromycin 250 mg tablet azithromycin 250 mg tablet completed metoprolol succinate ER 25 mg tablet,extended release 24 hr TAKE 1/2 TABLET BY MOUTH ONCE DAILY X30 DAYS TAKE 1/2 TABLET BY MOUTH ONCE DAILY X30 DAYS completed jqdpncoc-vkxkphsqd-g ydrocort 3.5 mg-10,000 unit/mL-1 % ear drops,susp neomycin-polymyxin -hydrocort 3.5 mg-10,000 unit/mL-1 % ear drops,susp completed ofloxacin 0.3 % ear drops INSTILL 5 DROPS INTO BOTH EARS 2 TIMES A DAY FOR 5 DAYS INSTILL 5 DROPS INTO BOTH EARS 2 TIMES A DAY FOR 5 DAYS completed ondansetron 4 mg disintegrating tablet TAKE 1 TABLET BY MOUTH EVERY 8 HOURS FOR 10 DAYS NEEDED FOR NAUSEA AND VOMITING TAKE 1 TABLET BY MOUTH EVERY 8 HOURS FOR 10 DAYS NEEDED FOR NAUSEA AND VOMITING completed Paxlovid 300 mg (150 mg x 2)-100 mg tablet (EUA) TAKE 3 TABLETS BY MOUTH TWICE A DAY FOR 5 DAYS TAKE 3 TABLETS BY MOUTH TWICE A DAY FOR 5 DAYS completed Allergies Allergen Reaction Severity Comment Documented Date Source Statu s ACETAMINOPHEN / HYDROCODONE CTHL PWH active VICODIN [facility] Problems Problem Status Onset Date Problem Type Date of Resoluti on Source Hypertensive disorder active 2023-12-12 ProblemAct [facility] Encounters Encounter Type Encounter Reason Primary Diagnosis Location Date Ambulatory 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) w/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) w/o abn findings [facility] 12/31/2024 Ambulatory Excessive and freque nt menstruation with regular cycle [facility] 12/12/2023 Ambulatory 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) w/o abn 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 [facility] 09/10/2023 Ambulatory 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) w/o abn 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 [facility] 09/10/2023 Ambulatory [facility] 12/06/2022 Ambulatory [facility] 11/29/2022 Ambulatory [facility] 07/19/2022 Ambulatory [facility] 05/31/2022 Ambulatory [facility] 05/14/2022 Ambulatory [facility] 05/08/2022 Ambulatory [facility] 03/01/2022 Ambulatory [facility] 11/30/2021 Care Team Organization Name Specialty Phone Email Start Date End Da te [facility] Misbah Mckinney [facility] 01/01/2025 [facility] 12/06/2022 12/06/2022 [facility] MENG CUETO [facility] 07/22/2022 [facility] MENG CUETO Primary [facility] 11/30/2021 07/19/2022
== END 2025-07-27 16:27 | disposition home or self-care (01) ==
LOC: HO.HMGAL 16:24
PROVIDERS: PCP Family Medicine; Visit Provider Registered Nurse Emergency
DX: J30.89 Other allergic rhinitis (principal)
CPT/HCPCS: 95117; 95165

== ENCOUNTER 2025-09-09 09:07 | Outpatient (REF) | payer OTHER, SELFPAY ==
[2025-09-09 09:36] LABS: Hematocrit 41.5 % (37.0-47.0); Hemoglobin 14.1 g/dl (12.0-16.0); Mean Corpuscular HGB Conc 34.0 g/dl (31.0-35.0); Mean Corpuscular Hemoglobin 30.6 pg (27.0-33.0); Mean Corpuscular Volume 90.0 fL (80.0-98.0); NRBC Abs Auto 0.000 X10*3/uL (0.0-0.012); NRBC Pct Auto 0.0 /100WBC (0.0-0.2); Platelet Count 151 X10*3/uL (160-400); Red Blood Count 4.61 X10*6/uL (4.20-5.50); White Blood Count 4.6 X10*3/uL (4.8-10.8)
[2025-09-09 13:53] LABS: Ferritin 23 ng/mL (10-122)
[2025-09-09 14:50] LABS: Folate 6.6 ng/mL (> or = 4.0); Vitamin B12 323 pg/mL (200-900)
== END 2025-09-09 09:08 | disposition home or self-care (01) ==
LOC: HO.LAB 09:07
PROVIDERS: PCP Family Medicine; Visit Provider Internal Medicine
DX: D50.9 Iron deficiency anemia, unspecified (principal)
CPT/HCPCS: 36415; 82607; 82728; 82746; 85027

== ENCOUNTER 2025-10-24 16:12 | Outpatient (AMB) | payer OTHER, SELFPAY | END 2025-10-24 16:12 | disposition home or self-care (01) | LOC: HO.HMGAL 16:12 | PROVIDERS: PCP Family Medicine; Visit Provider Registered Nurse Emergency | DX: J30.89 Other allergic rhinitis (principal) | CPT/HCPCS: 95117; 95165 ==